=== PATIENT | female | born 1950 | race Caucasian/White ===

== ENCOUNTER → 2020-10-18 | Outpatient (CLI) | payer OTHER ==
[2020-10-18 09:15] LABS: Urine WBC None Seen /hpf (0 - 5)
[2020-10-18 09:25] LABS: Basophils # (auto) 0.1 10 ^3/uL (0-0.2); Eosinophils # (auto) 0.1 10 ^3/uL (0-0.8); Eosinophils % (auto) 2.1 % (0.0-7.0); Hemoglobin 12.6 g/dL (12.2-16.2); Monocytes # (auto) 0.5 10 ^3/uL (0-1.3); Neutrophils # (auto) 3.9 10 ^3/uL (1.6-8.6); Platelet Count (auto) 480 10^3/uL (140-450)
[2020-10-18 09:27] LABS: Basophils % (auto) 0.9 % (0.0-2.0); Lymphocytes # (auto) 2.4 10 ^3/uL (0.4-5.4); Lymphocytes % (auto) 34.6 % (10.0-50.0); Mean Corpuscular Hgb Conc. 33.9 g/dL (32.0-36.0); Mean Corpuscular Volume 97.2 fL (80.0-100.0); Monocytes % (auto) 6.9 % (0.0-12.0); Neutrophils % (auto) 55.5 % (37.0-80.0); Red Blood Cells 3.81 10^6/uL (4.0-5.20); Red Cell Distribution Width 13.2 % (11.8-14.3)
[2020-10-18 09:33] LABS: Urine Bacteria NONE SEEN /hpf (None Seen); Urine Blood Negative /uL (Negative)
[2020-10-18 10:11] LABS: Amphetamine Screen, Urine NEGATIVE (NEGATIVE); Barbiturate Scree,Urine NEGATIVE (NEGATIVE); Benzodiazephine Screen, Urine NEGATIVE (NEGATIVE); Cannabinoid Screen, Urine NEGATIVE (NEGATIVE); Cocaine Screen, Urine NEGATIVE (NEGATIVE); Opiate Scree,Urine NEGATIVE (NEGATIVE); Phencyclidine Screen, Urine NEGATIVE (NEGATIVE)
[2020-10-18 10:13] LABS: Albumin 3.7 g/dL (3.4-5.0); Calcium 8.9 mg/dL (8.5-10.1); Potassium 4.4 mmol/L (3.5-5.1)
[2020-10-18 10:21] LABS: BUN/Creatinine Ratio 13.8; Bilirubin, Total 0.4 mg/dL (0.2-1.0); Total Protein 7.3 g/dL (6.4-8.2)
[2020-10-18 10:27] LABS: Hepatitis B Surface Antibody Negative
[2020-10-18 11:23] LABS: Hepatitis B Core Total AB Negative
[2020-10-18 11:24] LABS: Hepatitis B Core IgM Negative; Hepatitis B Surface Antigen Negative (Negative); Hepatitis C Antibody Negative (Negative)
== END | disposition home or self-care (01) ==
LOC: LAB 09:01
PROVIDERS: ATTEND Internal Medicine
DX: F51.04 Psychophysiologic insomnia (principal); J44.9 Chronic obstructive pulmonary disease, unspecified
CPT/HCPCS: 36415; 80053; 80061; 80307; 81001; 84439; 84443; 85025; 85652; 86704; 86705; 86706; 86803; 87340

== ENCOUNTER 2023-08-21 09:50 | Emergency (ER) | payer MEDICARE, MEDICAID ==
[~2023-08-21] VITALS: Ht 167.6 cm; Wt 63.6 kg
[2023-08-21 11:15] VITALS: BP 143/74; PULSE 80; RESP 18; O2SAT 94
[2023-08-21] MEDS ORDERED: ACETAMINOPHEN 500 MG TAB PO ONE ×2 (12:00→12:10)
[2023-08-21 12:13] VITALS: TEMP 97.2
[2023-08-21] MEDS ORDERED: TRAM50TA2 PO (12:45)
== END 2023-08-21 12:54 | disposition home or self-care (01) ==
LOC: ER 09:50
DX: S42.022A Displaced fracture of shaft of left clavicle, initial encounter for closed fracture (principal); S16.1XXA Strain of muscle, fascia and tendon at neck level, initial encounter; S29.011A Strain of muscle and tendon of front wall of thorax, initial encounter; S80.01XA Contusion of right knee, initial encounter; S00.01XA Abrasion of scalp, initial encounter; I10 Essential (primary) hypertension; J44.9 Chronic obstructive pulmonary disease, unspecified; Z79.899 Other long term (current) drug therapy; W01.198A Fall on same level from slipping, tripping and stumbling with subsequent striking against other object, initial encounter; Y93.89 Activity, other specified; Y92.89 Other specified places as the place of occurrence of the external cause; Y99.8 Other external cause status
CPT/HCPCS: 70450; 71101; 72125; 73030; 73562

== ENCOUNTER 2023-09-02 14:22 | Inpatient (IN) | payer MEDICARE, MEDICAID ==
[~2023-09-02] VITALS: Ht 170.2 cm; Wt 69.0 kg
[~2023-09-02 14:22] MED LIST: TRAM50TA2 PO
[2023-09-02] MEDS ORDERED: IPRATROPIUM BROM 0.5 MG/2.5ML INH SOL ONE (14:33)
[2023-09-02] MEDS ORDERED: ALBUTEROL SULF 2.5 MG/0.5ML(0.5%) NEB SOLN ONE (14:33)
[2023-09-02] MEDS ORDERED: ALBUTEROL SULF 2.5 MG/0.5ML(0.5%) NEB SOLN NEB ONE ×2 (14:45→23:15)
[2023-09-02] MEDS ORDERED: IPRATROPIUM BROM 0.5 MG/2.5ML INH SOL NEB ONE ×2 (14:45→23:15)
[2023-09-02 14:57] LABS: Basophils # (auto) 0.1 10 ^3/uL (0-0.2); Monocytes # (auto) 0.8 10 ^3/uL (0-1.3); Neutrophils # (auto) 5.6 10 ^3/uL (1.6-8.6)
[2023-09-02 15:00] LABS: Basophils % (auto) 0.7 % (0.0-2.0); Eosinophils # (auto) 0 10 ^3/uL (0-0.8); Eosinophils % (auto) 0.5 % (0.0-7.0); Hematocrit 38.3 % (36.0-46.0); Hemoglobin 13.2 g/dL (12.2-16.2); Lymphocytes # (auto) 2.3 10 ^3/uL (0.4-5.4); Lymphocytes % (auto) 26.6 % (10.0-50.0); Mean Corpuscular Hemoglobin 32.7 pg (28.0-32.0); Mean Corpuscular Hgb Conc. 34.4 g/dL (32.0-36.0); Mean Corpuscular Volume 95.1 fL (80.0-100.0); Monocytes % (auto) 9.2 % (0.0-12.0); Red Blood Cells 4.03 10^6/uL (4.0-5.20); Red Cell Distribution Width 12.4 % (11.8-14.3); White Blood Cell 8.8 10^3/uL (4.4-10.8)
[2023-09-02 15:13] LABS: Alanine Aminotransferase 18 U/L (7-40); Albumin 4.5 g/dL (3.2-4.8); Alkaline Phosphatase 81 U/L (46-116); Anion Gap 7 (5-15); Aspartate Aminotransferase 21 U/L (13-40); BUN/Creatinine Ratio 12.2 (10.0-20.0); Blood Urea Nitrogen 12 mg/dL (9-23); Calcium 9.2 mg/dL (8.7-10.4); Carbon Dioxide 25 mmol/L (20-30); Chloride 97 mmol/L (98-107); Glucose 136 mg/dL (74-106); Potassium 3.8 mmol/L (3.5-5.1); Sodium 129 mmol/L (136-145)
[2023-09-02 15:14] LABS: Bilirubin, Total 0.5 mg/dL (0.2-1.0); Total Protein 6.7 g/dL (5.7-8.2)
[2023-09-02] MEDS ORDERED: DexAMETHasone SOD PHOS 10MG/1ML VIAL INJ IV ONE (16:15)
[2023-09-02] MEDS ORDERED: SODIUM CHLORIDE 0.9% 1,000 ML IV ONE (17:45)
[2023-09-02 20:58] VITALS: PULSE 92; RESP 18; O2SAT 96
[2023-09-02] MEDS ORDERED: HYDROcodone-ACET 10/325MG TAB PO ONE (21:00)
[2023-09-02 21:21] LABS: COVID19 ANTIGEN SOFIA FIA NEGATIVE (NEGATIVE)
[2023-09-02 22:24] LABS: Rapid Influenza A Negative (Negative); Rapid Influenza B Negative (Negative)
[2023-09-03] MEDS ORDERED: ENOXAPARIN SOD 40 MG/0.4 ML SYRINGE SC ONE (01:00)
[2023-09-03 03:25] VITALS: PULSE 96; RESP 26; O2SAT 97
[2023-09-03] MEDS ORDERED: ONDANSETRON HCL 4 MG/2 ML VIAL IV PRN (04:00)
[2023-09-03] MEDS ORDERED: MORPHINE SULFATE INJ 2 MG/ml SYRG IV PRN (04:00)
[2023-09-03] MEDS ORDERED: NITROGLYCERIN 0.4 MG SL TAB SL PRN (04:00)
[2023-09-03 07:00] VITALS: O2SAT 94
[2023-09-03 09:31] VITALS: BP 136/91; PULSE 84; RESP 22; TEMP 97.9; O2SAT 97
[2023-09-03 09:41] LABS: Urine Bacteria FEW /hpf (None Seen); Urine Blood 1+ /uL (Negative); Urine Budding Yeast OCCASIONAL /hpf (None Seen); Urine Clarity HAZY (Clear); Urine Color Yellow (Yellow); Urine Protein, UAD TRACE (Negative); Urine Urobilinogen Normal (Negative); Urine WBC 10 /hpf (0 - 5); Urine pH 6.5 (5.0-8.0)
[2023-09-03] MEDS: busPIRone HCL 10 MG TAB PO SCH ×2 (10:00→22:00)
[2023-09-03] MEDS ORDERED: ENOXAPARIN SOD 40 MG/0.4 ML SYRINGE SC SCH (10:00)
[2023-09-03] MEDS: methylPREDNISolone SOD SUCC 40 MG/ML VL IV SCH ×2 (10:44→22:34)
[2023-09-03] MEDS: LISINOPRIL 10 MG TAB PO SCH (10:45)
[2023-09-03] MEDS: ACETAMINOPHEN 325 MG TAB PO PRN ×2 (11:00→23:31)
[2023-09-03 18:05] VITALS: O2SAT 94
[2023-09-03] MEDS: MONTELUKAST SODIUM 10 MG TAB PO SCH (22:00)
[2023-09-04] VITALS (11 sets, daily range): BP systolic 105–153; BP diastolic 62–101; PULSE 70–107; RESP 16–20; TEMP 97.6–98.2; O2SAT 93–99
[2023-09-04] MEDS ORDERED: TEMAZEPAM 15 MG CAP PO ONE (00:15)
[2023-09-04] MEDS: ENOXAPARIN SOD 40 MG/0.4 ML SYRINGE SC SCH (01:55)
[2023-09-04 06:43] LABS: Basophils # (auto) 0 10 ^3/uL (0-0.2); Basophils % (auto) 0.3 % (0.0-2.0); Eosinophils # (auto) 0 10 ^3/uL (0-0.8); Hematocrit 35.4 % (36.0-46.0); Hemoglobin 12.2 g/dL (12.2-16.2); Lymphocytes # (auto) 1.4 10 ^3/uL (0.4-5.4); Lymphocytes % (auto) 14.3 % (10.0-50.0); Mean Corpuscular Hemoglobin 32.7 pg (28.0-32.0); Mean Corpuscular Hgb Conc. 34.5 g/dL (32.0-36.0); Mean Corpuscular Volume 94.8 fL (80.0-100.0); Monocytes # (auto) 0.3 10 ^3/uL (0-1.3); Monocytes % (auto) 3.4 % (0.0-12.0); Neutrophils # (auto) 7.8 10 ^3/uL (1.6-8.6); Red Blood Cells 3.73 10^6/uL (4.0-5.20); Red Cell Distribution Width 12.5 % (11.8-14.3); White Blood Cell 9.5 10^3/uL (4.4-10.8)
[2023-09-04 07:08] LABS: Alanine Aminotransferase 16 U/L (7-40); Albumin 3.9 g/dL (3.2-4.8); Alkaline Phosphatase 67 U/L (46-116); Anion Gap 9 (5-15); Aspartate Aminotransferase 27 U/L (13-40); BUN/Creatinine Ratio 14.7 (10.0-20.0); Bilirubin, Total 0.5 mg/dL (0.2-1.0); Blood Urea Nitrogen 15 mg/dL (9-23); Calcium 9.1 mg/dL (8.5-10.1); Carbon Dioxide 24 mmol/L (20-30); Chloride 97 mmol/L (98-107); Glucose 131 mg/dL (74-106); Potassium 4.4 mmol/L (3.5-5.1); Sodium 130 mmol/L (136-145)
[2023-09-04] MEDS: IPRATROPIUM BROM 0.5 MG/2.5ML INH SOL NEB PRN (09:02)
[2023-09-04] MEDS: ALBUTEROL SULF 2.5 MG/0.5ML(0.5%) NEB SOLN NEB PRN (09:02)
[2023-09-04] MEDS: methylPREDNISolone SOD SUCC 40 MG/ML VL IV SCH ×2 (10:00→21:54)
[2023-09-04] MEDS: ACETAMINOPHEN 325 MG TAB PO PRN (11:01)
[2023-09-04] MEDS: busPIRone HCL 10 MG TAB PO SCH ×2 (11:02→21:53)
[2023-09-04] MEDS: LISINOPRIL 10 MG TAB PO SCH (11:04)
[2023-09-04] MEDS ORDERED: TEMAZEPAM 15 MG CAP PO PRN (11:30)
[2023-09-04] MEDS: MONTELUKAST SODIUM 10 MG TAB PO SCH (21:53)
[2023-09-05] VITALS (13 sets, daily range): BP systolic 86–117; BP diastolic 46–75; PULSE 77–113; RESP 17–24; TEMP 97.8–98.6; O2SAT 93–100
[2023-09-05] MEDS: ENOXAPARIN SOD 40 MG/0.4 ML SYRINGE SC SCH (01:26)
[2023-09-05] MEDS: ACETAMINOPHEN 325 MG TAB PO PRN ×3 (01:29→17:38)
[2023-09-05] MEDS: busPIRone HCL 10 MG TAB PO SCH ×2 (09:17→22:00)
[2023-09-05] MEDS: LISINOPRIL 10 MG TAB PO SCH (09:21)
[2023-09-05] MEDS: methylPREDNISolone SOD SUCC 40 MG/ML VL IV SCH ×2 (09:21→22:46)
[2023-09-05] MEDS ORDERED: ZOLPIDEM TARTRATE 5 MG TAB PO PRN (10:15)
[2023-09-05] MEDS: ALPRAZolam 0.5 MG TAB PO SCH ×3 (12:05→22:46)
[2023-09-05] MEDS: IPRATROPIUM BROM 0.5 MG/2.5ML INH SOL NEB PRN ×2 (12:43→19:37)
[2023-09-05] MEDS: ALBUTEROL SULF 2.5 MG/0.5ML(0.5%) NEB SOLN NEB PRN ×2 (12:43→19:37)
[2023-09-05] MEDS: MONTELUKAST SODIUM 10 MG TAB PO SCH (22:00)
[2023-09-06] MEDS: ENOXAPARIN SOD 40 MG/0.4 ML SYRINGE SC SCH (01:12)
[2023-09-06 05:00] VITALS: BP 94/49; PULSE 69; RESP 17; TEMP 97.5; O2SAT 97
[2023-09-06] MEDS: ACETAMINOPHEN 325 MG TAB PO PRN (05:05)
[2023-09-06] MEDS: ALPRAZolam 0.5 MG TAB PO SCH ×2 (06:09→14:25)
[2023-09-06 08:00] VITALS: BP 114/69; PULSE 75; RESP 18; TEMP 97.7; O2SAT 93
[2023-09-06 08:57] VITALS: BP 130/92; PULSE 113; RESP 24; O2SAT 100
[2023-09-06 09:00] VITALS: BP 95/68; PULSE 75; RESP 18; TEMP 97.7; O2SAT 93
[2023-09-06] MEDS ORDERED: ACETAMINOPHEN/CODEINE#3 (300/30mg) TAB PO PRN (09:30)
[2023-09-06] MEDS: busPIRone HCL 10 MG TAB PO SCH (10:00)
[2023-09-06] MEDS ORDERED: ALBU108A5 INH (10:12)
[2023-09-06] MEDS ORDERED: FLUT1AER17 INH (10:12)
[2023-09-06] MEDS ORDERED: MONT-8 PO (10:12)
[2023-09-06] MEDS ORDERED: DULO1CAP5 PO (10:12)
[2023-09-06] MEDS ORDERED: LISI-285 PO (10:12)
[2023-09-06] MEDS ORDERED: ESCI1TAB36 PO (10:12)
[2023-09-06] MEDS: methylPREDNISolone SOD SUCC 40 MG/ML VL IV SCH (10:21)
[2023-09-06] MEDS: LISINOPRIL 10 MG TAB PO SCH (10:22)
[2023-09-06 13:00] VITALS: BP 107/78; PULSE 78; RESP 18; TEMP 97.5; O2SAT 90
[2023-09-06 14:03] VITALS: BP 107/67; PULSE 78; RESP 18; TEMP 97.5; O2SAT 90
== END 2023-09-06 16:00 | DRG 189 ==
LOC: ER 14:22 → EDUNIT# 14:22 → EDBD 14:22 → TELE 09-03 03:47 → TELE-WESTW 09-03 18:17 → WEST WING 09-06 00:59
PROVIDERS: ADMIT Nurse Practitioner; ATTEND Family Medicine
DX: J96.21 Acute and chronic respiratory failure with hypoxia (principal); J44.1 Chronic obstructive pulmonary disease with (acute) exacerbation; E87.1 Hypo-osmolality and hyponatremia; Z20.822 Contact with and (suspected) exposure to COVID-19; I10 Essential (primary) hypertension; F41.9 Anxiety disorder, unspecified; R29.6 Repeated falls; Z87.891 Personal history of nicotine dependence; R79.89 Other specified abnormal findings of blood chemistry; Z60.2 Problems related to living alone
CPT/HCPCS: 36415; 71045; 80053; 81001; 83735; 84484; 85025; 85379; 87081; 87426; 87804; 93005; 94640; 96361; 96372; 96374; 97110; 97116; 97163; 97530; G0378; J1100

== ENCOUNTER 2023-10-13 06:17 | Inpatient (IN) | payer MEDICARE, MEDICAID ==
[2023-10-13] VITALS (7 sets, daily range): BP systolic 115–122; BP diastolic 67–72; PULSE 72–96; RESP 16–18; TEMP 97.4–98.9; O2SAT 95–98
[~2023-10-13] VITALS: Ht 170.2 cm; Wt 70.5 kg
[~2023-10-13 06:17] MED LIST changes: +ALBU108A5 INH; +DULO1CAP5 PO; +ESCI1TAB36 PO; +FLUT1AER17 INH; +LISI-285 PO; +MONT-8 PO
[2023-10-13 07:25] LABS: Basophils # (auto) 0.1 10 ^3/uL (0-0.2); Basophils % (auto) 0.6 % (0.0-2.0); Eosinophils # (auto) 0.1 10 ^3/uL (0-0.8); Eosinophils % (auto) 0.8 % (0.0-7.0); Hematocrit 33.9 % (36.0-46.0); Hemoglobin 11.4 g/dL (12.2-16.2); Lymphocytes # (auto) 1.7 10 ^3/uL (0.4-5.4); Mean Corpuscular Hemoglobin 32.5 pg (28.0-32.0); Mean Corpuscular Hgb Conc. 33.6 g/dL (32.0-36.0); Mean Corpuscular Volume 96.5 fL (80.0-100.0); Monocytes # (auto) 0.8 10 ^3/uL (0-1.3); Monocytes % (auto) 7.8 % (0.0-12.0); Neutrophils # (auto) 7.8 10 ^3/uL (1.6-8.6); Neutrophils % (auto) 74.8 % (37.0-80.0); Red Blood Cells 3.51 10^6/uL (4.0-5.20); Red Cell Distribution Width 12.9 % (11.8-14.3); White Blood Cell 10.4 10^3/uL (4.4-10.8)
[2023-10-13 07:50] LABS: Alanine Aminotransferase 13 U/L (7-40); Albumin 3.7 g/dL (3.2-4.8); Alkaline Phosphatase 71 U/L (46-116); Anion Gap 3 (5-15); Aspartate Aminotransferase 18 U/L (13-40); BUN/Creatinine Ratio 15.8 (10.0-20.0); Blood Urea Nitrogen 15 mg/dL (9-23); Calcium 8.9 mg/dL (8.5-10.1); Carbon Dioxide 30 mmol/L (20-30); Chloride 101 mmol/L (98-107); Glucose 94 mg/dL (74-106); Potassium 4.4 mmol/L (3.5-5.1); Sodium 134 mmol/L (136-145)
[2023-10-13 07:51] LABS: Bilirubin, Total 0.4 mg/dL (0.2-1.0); Total Protein 5.5 g/dL (5.7-8.2)
[2023-10-13] MEDS: ONDANSETRON HCL 4 MG/2 ML VIAL IV ONE (09:21)
[2023-10-13] MEDS: MORPHINE SULFATE 4 MG/ML SYR/VIAL IV ONE (09:21)
[2023-10-13] MEDS ORDERED: ALBUTEROL SULF 2.5 MG/0.5ML(0.5%) NEB SOLN NEB PRN (11:30)
[2023-10-13] MEDS ORDERED: IPRATROPIUM BROM 0.5 MG/2.5ML INH SOL NEB PRN (11:30)
[2023-10-13] MEDS: SODIUM CHLORIDE 0.9% 1,000 ML IV SCH (11:42)
[2023-10-13 12:27] LABS: INR 1.07 (0.9-1.15); Prothrombin Time 11.2 sec (9.3-11.8)
[2023-10-13] MEDS: ONDANSETRON HCL 4 MG/2 ML VIAL IV PRN (13:37)
[2023-10-13] MEDS: MORPHINE SULFATE INJ 2 MG/ml SYRG IV PRN (13:39)
[2023-10-13] MEDS: KETOROLAC TROMETH 30 MG/ML 1ML VIAL IV ONE (23:28)
[2023-10-14] VITALS (10 sets, daily range): BP systolic 96–118; BP diastolic 56–75; PULSE 72–86; RESP 16–22; TEMP 97.4–98.7; O2SAT 92–99
[2023-10-14 05:27] LABS: Basophils # (auto) 0.1 10 ^3/uL (0-0.2); Basophils % (auto) 0.8 % (0.0-2.0); Eosinophils # (auto) 0.1 10 ^3/uL (0-0.8); Eosinophils % (auto) 0.8 % (0.0-7.0); Hematocrit 28.7 % (36.0-46.0); Hemoglobin 9.7 g/dL (12.2-16.2); Lymphocytes # (auto) 1.7 10 ^3/uL (0.4-5.4); Lymphocytes % (auto) 18.8 % (10.0-50.0); Mean Corpuscular Hemoglobin 32.9 pg (28.0-32.0); Mean Corpuscular Hgb Conc. 33.9 g/dL (32.0-36.0); Mean Corpuscular Volume 97.1 fL (80.0-100.0); Monocytes # (auto) 0.9 10 ^3/uL (0-1.3); Monocytes % (auto) 10.4 % (0.0-12.0); Neutrophils # (auto) 6.1 10 ^3/uL (1.6-8.6); Neutrophils % (auto) 69.2 % (37.0-80.0); Nucleated Red Blood Cells % 0.1 %; Red Blood Cells 2.96 10^6/uL (4.0-5.20); Red Cell Distribution Width 12.7 % (11.8-14.3); White Blood Cell 8.9 10^3/uL (4.4-10.8)
[2023-10-14 05:40] LABS: Alanine Aminotransferase 10 U/L (7-40); Alkaline Phosphatase 52 U/L (46-116); Anion Gap 6 (5-15); Aspartate Aminotransferase 17 U/L (13-40); BUN/Creatinine Ratio 12.1 (10.0-20.0); Blood Urea Nitrogen 11 mg/dL (9-23); Calcium 8.4 mg/dL (8.5-10.1); Carbon Dioxide 25 mmol/L (20-30); Chloride 104 mmol/L (98-107); Glucose 73 mg/dL (74-106); Potassium 4.4 mmol/L (3.5-5.1); Sodium 135 mmol/L (136-145)
[2023-10-14 05:41] LABS: Albumin 3.1 g/dL (3.2-4.8)
[2023-10-14 05:42] LABS: Bilirubin, Total 0.5 mg/dL (0.2-1.0); Total Protein 4.9 g/dL (5.7-8.2)
[2023-10-14] MEDS: CITALOPRAM HYDROBR 20 MG TAB PO SCH (10:00)
[2023-10-14] MEDS: ENOXAPARIN SOD 40 MG/0.4 ML SYRINGE SC SCH (10:00)
[2023-10-14] MEDS: MONTELUKAST SODIUM 10 MG TAB PO SCH (10:00)
[2023-10-14 10:31] LABS: Urine Bacteria FEW /hpf (None Seen); Urine Blood Negative /uL (Negative); Urine Clarity Clear (Clear); Urine Color Yellow (Yellow); Urine Hyaline Cast FEW /lpf (0 - 2); Urine Mucus FEW (None Seen); Urine Protein, UAD Negative (Negative); Urine Specific Gravity 1.016 (1.001-1.035); Urine Urobilinogen Normal (Negative); Urine WBC 1 /hpf (0 - 5); Urine pH 5.5 (5.0-8.0)
[2023-10-14] MEDS: ACETAMINOPHEN IV 1000 MG/100ML (10MG/ML) IV ONE (10:45)
[2023-10-14] MEDS: GABAPENTIN 400 MG CAP ONE (10:45)
[2023-10-14] MEDS: CELECOXIB 100 MG CAP ONE (10:45)
[2023-10-14] MEDS ORDERED: DexAMETHasone SOD PHOS 10MG/1ML VIAL INJ ONE ×2 (11:01→11:02)
[2023-10-14] MEDS ORDERED: KETOROLAC TROMETH 30 MG/ML 1ML VIAL ONE (11:01)
[2023-10-14] MEDS ORDERED: ONDANSETRON HCL 4 MG/2 ML VIAL ONE (11:01)
[2023-10-14] MEDS ORDERED: LIDOCAINE 1% INJ PF 5ML AMP ONE ×2 (11:01→11:15)
[2023-10-14] MEDS ORDERED: PROPOFOL 10 MG/ML 20 ML IV ONE ×3 (11:02→13:01)
[2023-10-14] MEDS ORDERED: GLYCOPYRROLATE 0.2 MG/ML 1ML VIAL ONE (11:02)
[2023-10-14] MEDS ORDERED: KETAMINE 50mg/ML 1ml syringe ONE (11:02)
[2023-10-14] MEDS ORDERED: TRANEXAMIC ACID 10 ML ONE (12:14)
[2023-10-14] MEDS ORDERED: ACETAMINOPHEN 325 MG TAB PO PRN (13:45)
[2023-10-14] MEDS ORDERED: NITROGLYCERIN 0.4 MG SL TAB SL PRN (13:45)
[2023-10-14] MEDS ORDERED: LACTATED RINGER'S 1,000 ML IV SCH (13:45)
[2023-10-14] MEDS: ceFAZolin 1GM/50ML 50 ML IV SCH (15:04)
[2023-10-14] MEDS: GABAPENTIN 400 MG CAP PO ONE (15:05)
[2023-10-14] MEDS: CELECOXIB 100 MG CAP PO ONE (15:05)
[2023-10-14] MEDS: ACETAMINOPHEN IV 100 ML IV ONE (15:05)
[2023-10-14] MEDS: ceFAZolin 2 GM/D5W100ml 100 ML IV ONE (15:06)
[2023-10-14] MEDS ORDERED: ALBUTEROL SULF 2.5 MG/0.5ML(0.5%) NEB SOLN NEB PRN (15:45)
[2023-10-14 17:06] LABS: Amphetamine Screen, Urine Neg (NEGATIVE); Barbiturate Scree,Urine Neg (NEGATIVE); Cannabinoid Screen, Urine Neg (NEGATIVE); Cocaine Screen, Urine Neg (NEGATIVE); Opiate Scree,Urine Pos (NEGATIVE); Phencyclidine Screen, Urine Neg (NEGATIVE)
[2023-10-14 17:37] LABS: Benzodiazephine Screen, Urine Pos (NEGATIVE)
[2023-10-14] MEDS: KETOROLAC TROMETH 30 MG/ML 1ML VIAL IV PRN (18:16)
[2023-10-14] MEDS: IPRATROPIUM BROM 0.5 MG/2.5ML INH SOL NEB SCH (18:56)
[2023-10-15] VITALS (10 sets, daily range): BP systolic 97–123; BP diastolic 50–88; PULSE 67–94; RESP 15–19; TEMP 97.6–98.3; O2SAT 90–97
[2023-10-15 07:39] LABS: Chloride 100 mmol/L (98-107); Potassium 4.9 mmol/L (3.5-5.1); Sodium 131 mmol/L (136-145)
[2023-10-15 07:40] LABS: Anion Gap 6 (5-15); Calcium 8.4 mg/dL (8.5-10.1); Carbon Dioxide 25 mmol/L (20-30)
[2023-10-15 07:44] LABS: Basophils # (auto) 0 10 ^3/uL (0-0.2); Basophils % (auto) 0.1 % (0.0-2.0); Eosinophils # (auto) 0 10 ^3/uL (0-0.8); Hematocrit 26.1 % (36.0-46.0); Hemoglobin 8.7 g/dL (12.2-16.2); Lymphocytes # (auto) 0.8 10 ^3/uL (0.4-5.4); Lymphocytes % (auto) 5.3 % (10.0-50.0); Mean Corpuscular Hemoglobin 32.3 pg (28.0-32.0); Mean Corpuscular Hgb Conc. 33.4 g/dL (32.0-36.0); Mean Corpuscular Volume 96.6 fL (80.0-100.0); Monocytes # (auto) 0.8 10 ^3/uL (0-1.3); Neutrophils # (auto) 14.2 10 ^3/uL (1.6-8.6); Neutrophils % (auto) 89.6 % (37.0-80.0); Nucleated Red Blood Cells % 0.1 %; Red Cell Distribution Width 12.6 % (11.8-14.3); White Blood Cell 15.9 10^3/uL (4.4-10.8)
[2023-10-15 07:45] LABS: BUN/Creatinine Ratio 16.7 (10.0-20.0); Blood Urea Nitrogen 20 mg/dL (9-23); Glucose 276 mg/dL (74-106); Triglycerides 80 mg/dL (< 150)
[2023-10-15 07:46] LABS: LDL Cholesterol 78 mg/dL (< 100)
[2023-10-15 07:47] LABS: Cholesterol 133 mg/dL (< 200); HDL Cholesterol 41 mg/dL (40-59)
[2023-10-15 08:02] LABS: Magnesium 1.8 mg/dL (1.6-2.6)
[2023-10-15] MEDS ORDERED: ACET-1882 PO (08:03)
[2023-10-15] MEDS ORDERED: ENO40SY SC (08:03)
[2023-10-15] MEDS: DOCUSATE SOD 100 MG CAP PO PRN (09:42)
[2023-10-15] MEDS: CYANOCOBALAMIN 500 MCG TAB PO SCH (14:44)
[2023-10-15] MEDS: HYDROcodone-ACET 5/325MG TAB PO PRN (14:45)
[2023-10-15] MEDS: ERGOCALCIFEROL 50,000 UNIT(1.25MG) CAP PO SCH (14:46)
[2023-10-15] MEDS ORDERED: CEPHALEXIN 250 MG CAP PO ONE (17:30)
[2023-10-15] MEDS ORDERED: CEPH250C PO (17:30)
[2023-10-16] MEDS ORDERED: CEPHALEXIN 250 MG CAP PO SCH
== END 2023-10-15 17:40 | DRG 480 ==
LOC: EDBD 06:17 → ER 06:17 → OVERFLOW 11:33 → WEST WING 16:40
PROVIDERS: ADMIT Internal Medicine; ATTEND Internal Medicine
PROC: 0PSJ04Z Reposition Left Radius with Internal Fixation Device, Open Approach (ICD-10-PCS; principal; 2023-10-14 11:02)
PROC: 0QS704Z Reposition Left Upper Femur with Internal Fixation Device, Open Approach (ICD-10-PCS; 2023-10-14 11:02)
DX: S52.572A Other intraarticular fracture of lower end of left radius, initial encounter for closed fracture (principal); S72.142A Displaced intertrochanteric fracture of left femur, initial encounter for closed fracture; S09.90XA Unspecified injury of head, initial encounter; S62.102A Fracture of unspecified carpal bone, left wrist, initial encounter for closed fracture; R33.9 Retention of urine, unspecified; S00.93XA Contusion of unspecified part of head, initial encounter; J44.9 Chronic obstructive pulmonary disease, unspecified; I10 Essential (primary) hypertension; D64.9 Anemia, unspecified; F32.A Depression, unspecified; F41.9 Anxiety disorder, unspecified; M81.0 Age-related osteoporosis without current pathological fracture; W01.0XXA Fall on same level from slipping, tripping and stumbling without subsequent striking against object, initial encounter; Z82.49 Family history of ischemic heart disease and other diseases of the circulatory system; Z87.891 Personal history of nicotine dependence; Z90.721 Acquired absence of ovaries, unilateral; Y93.89 Activity, other specified; Y92.89 Other specified places as the place of occurrence of the external cause; Y99.8 Other external cause status; Z86.011 Personal history of benign neoplasm of the brain
CPT/HCPCS: 36415; 71045; 72192; 73100; 73502; 76000; 76775; 80048; 80053; 80061; 80307; 81001; 82306; 82607; 83036; 83735; 84443; 84484; 85025; 85610; 86850; 86900; 86901; 87081; 93005; 93306; 94640; 97163; 99291; G0378; J0131; J1100; J1885; J2405; J2704

== ENCOUNTER 2024-07-10 08:27 | Inpatient (IN) | payer MEDICARE, MEDICAID ==
[~2024-07-10] VITALS: Ht 167.6 cm; Wt 74.0 kg
[2024-07-10] VITALS (7 sets, daily range): BP systolic 128–139; BP diastolic 74–91; PULSE 99–117; RESP 18–28; TEMP 98; O2SAT 93–98
[~2024-07-10 08:27] MED LIST changes: +ACET-1882 PO; +CEPH250C PO; +CYCL-614 PO; +ENO40SY SC; +NAPR1TAB24 PO
--- NOTE | 2024-07-10 08:37 | ECG ---
[facility] Test Date: 2024-07-10 Test Time: 08:32:54 Pat Name: NAY ROACH Department: ED Room: Gender: F Supervisor Machine Setter: : 1950 Requested By: NASIM BLAND Order Number: [id number] Reading MD: Measurements Intervals [place] Rate: 112 P: 68 SC: 170 QRS: 67 QRSD: 83 T: 60 QT: 351 QTc: 479 Interpretive Statements Sinus tachycardia Please click the below link to view image of tracing.
[2024-07-10] MEDS: DexAMETHasone 0.5MG/5ML ORAL ELIX PO ONE (08:45)
[2024-07-10] MEDS: ALPRAZolam 0.25 MG TAB PO ONE (08:54)
[2024-07-10] MEDS: IPRATROPIUM BROM 0.5 MG/2.5ML INH SOL NEB ONE (08:59)
[2024-07-10] MEDS: ALBUTEROL SULF 2.5 MG/0.5ML(0.5%) NEB SOLN NEB ONE (08:59)
--- NOTE | 2024-07-10 09:10 | ED.PDOC ---
SOB-HPI HPI Comments 73Y F with PMHx HTN, COPD, and asthma presents to ED via EMS for chief complaint SOB x2days with headache. Pt denies cough and fever. Per EMS, pt ran out of her Xanax rx 2 days ago. Pt uses O2 at home. Pt does not have edema and speaks in full sentences. No known allergies. Chief Complaint: Shortness of Breath Time Seen by MD: 08:39 Primary Care Provider: CLEMENTE Reviewed notes: Medications, Allergies Information Source: Patient Mode of Arrival: EMS Brought in by: EMS Severity: Moderate Timing: Days Duration: Since onset Context: At Rest PE Risk Factors: None History of: Asthma, COPD Prehospital treatment: Breathing Tx Modifying Factors: Nothing Associated Signs and Symptoms: Other (headache) Past Medical History PAST MEDICAL HISTORY: Asthma, COPD, HTN Surgical History: Denies all surgeries STATE PATROL OFFICER History: No Pertinent STATE PATROL OFFICER History Family History Family History: Reviewed,noncontributory to illness Social History Smoker: Non-Smoker Alcohol: Denies ETOH Use Drugs: Denies Drug Use Lives In: Home Constitutional: denies: chills, diaphoresis, fatigue, fever, malaise, sweats, weakness, others EENTM: denies: blurred vision, double vision, ear bleeding, ear discharge, ear drainage, ear pain, ear ringing, eye pain, eye redness, hearing loss, mouth pain, mouth swelling, nasal discharge, nose bleeding, nose congestion, nose pain, photophobia, tearing, throat pain, throat swelling, voice changes, others Respiratory: reports: shortness of breath; denies: cough, hemoptysis, orthopnea, SOB at rest, SOB with excertion, stridor, wheezing, others Cardiovascular: denies: chest pain, dizzy spells, diaphoresis, Dyspnea on exertion, edema, irregular heart beat, left arm pain, lightheadedness, palpitations, PND, syncope, others Gastrointestinal: denies: abdomen distended, abdominal pain, blood streaked bowels, constipated, diarrhea, dysphagia, difficulty swallowing, hematemesis, melena, nausea, poor appetite, poor fluid intake, rectal bleeding, rectal pain, vomiting, others Genitourinary: denies: abnormal vagina bleeding, burning, dyspareunia, dysuria, flank pain, frequency, hematuria, incontinence, pain, , vagina discharge, urgency, others Neurological: reports: headache; denies: dizziness, fainting, left sided numbness, left sided weakness, numbness, paresthesia, pre-existing deficit, right sided numbness, right sided weakness, seizure, speech problems, tingling, tremors, weakness, others Musculoskeletal: denies: back pain, gout, joint pain, joint swelling, muscle pain, muscle stiffness, neck pain, others Integumetry: denies: bruises, change in color, change in hair/nails, dryness, laceration, lesions, lumps, rash, wounds, others Allergic/Immunocompromised: denies: Difficulty Healing, Frequent Infections, Hives, Itching, others Hematologic/Lymphatic: denies: anemia, blood clots, easy bleeding, easy bruising, swollen glands, others Endocrine: denies: excessive hunger, excessive sweating, excessive thirst, excessive urination, flushing, intolerance to cold, intolerance to heat, unexplained weight gain, unexplained weight loss, others Psychiatric: denies: anxiety, bipolar disorder, depression, hopeless, panic disorder, schizophrenia, sleepless, suicidal, others All Other Systems: Reviewed and Negative Physical Exam General Appearance: No Apparent Distress, Normal HEENT: Normal ENT Inspection, Pharynx Normal, TMs Normal Neck: Full Range of Motion, Non-Tender, Normal, Normal Inspection Respiratory: Chest Non-Tender, Lungs Clear, No Accessory Muscle Use, No Respiratory Distress, Normal Breath Sounds Cardiovascular: No Edema, No JVD, No Murmur, No Gallop, Normal Peripheral Pulses, Tachycardia Breast Exam: Deferred Gastrointestinal: No Organomegaly, Non Tender, No Pulsatile Mass, Normal Bowel Sounds, Soft Genitalia: Deferred Pelvic: Deferred Rectal: Deferred Extremities: No calf tenderness, Normal capillary refill, Normal inspection, Normal range of motion, Non-tender, No pedal edema Musculoskeletal : Apperance: Normal Neurologic: Alert, player development executive II-XII nml as Tested, No Motor Deficits, Normal Affect, Normal Mood, No Sensory Deficits Cerebellar Function: Normal Reflexes: Normal Skin: Dry, Normal Color, Warm Lymphatic: No Adenopathy EKG EKG : Pulse Rate (adult): 112 Cardiac Rhythm: ST Was a procedure done? Was a procedure done?: No Differential Dx Differential Diagnosis: Anxiety, Asthma, Bronchitis, Cardiogenic Shock, CHF, COPD, Dysrhythmia, Hypertension, Hyperventilation, Myocardial infarction, Panic Attack, Pneumonia, Pneumothorax, PSVT, Pulmonary Embolism, Respiratory Distress Comments pt continues to report cp, sob, anxiety. although her workup is unremarkable, she has risk factors, and I will admit her to control her anxiety, workup her chest pain X-Ray, Labs, Meds, VS Vital Signs Date Time Temp Pulse Resp B/P (MAP) Pulse Ox O2 Delivery O2 Flow Rate FiO2 07/10/24 10:00 109 18 151/92 (111) 95 07/10/24 09:10 112 07/10/24 08:59 22 93 Nasal Cannula* 4 36 07/10/24 08:45 15 24 174/98 (123) 93 07/10/24 08:45 115 28 93 Nasal Cannula* 3 32 07/10/24 08:34 98.3 112 22 172/96 (121) 98 07/10/24 08:32 112 Lab Test 07/10/24 09:14 Range/Units White Blood Count 7.7 4.4-10.8 10^3/uL Red Blood Count 4.04 4.0-5.20 10^6/uL Hemoglobin 13.3 12.2-16.2 g/dL Hematocrit 39.0 36.0-46.0 % Mean Corpuscular Volume 96.7 80.0-100.0 fL Mean Corpuscular Hemoglobin 33.0 H 28.0-32.0 pg Mean Corpuscular Hemoglobin Concent 34.2 32.0-36.0 g/dL Red Cell Distribution Width 14.6 H 11.8-14.3 % Platelet Count 522 H 140-450 10^3/uL Mean Platelet Volume 7.4 6.9-10.8 fL Neutrophils (%) (Auto) 70.5 37.0-80.0 % Lymphocytes (%) (Auto) 22.3 10.0-50.0 % Monocytes (%) (Auto) 5.7 0.0-12.0 % Eosinophils (%) (Auto) 0.4 0.0-7.0 % Basophils (%) (Auto) 1.1 0.0-2.0 % Neutrophils # (Auto) 5.4 1.6-8.6 10 ^3/uL Lymphocytes # (Auto) 1.7 0.4-5.4 10 ^3/uL Monocytes # (Auto) 0.4 0-1.3 10 ^3/uL Eosinophils # (Auto) 0 0-0.8 10 ^3/uL Basophils # (Auto) 0.1 0-0.2 10 ^3/uL Nucleated Red Blood Cells 0.0 % Sodium Level 138 136-145 mmol/L Potassium Level 4.1 3.5-5.1 mmol/L Chloride Level 104 98-107 mmol/L Carbon Dioxide Level 27 20-31 mmol/L Anion Gap 7 5-15 Blood Urea Nitrogen 7 L 9-23 mg/dL Creatinine 0.82 0.550-1.02 mg/dL Glomerular Filtration Rate Calc 75 >90 mL/min BUN/Creatinine Ratio 8.5 L 10.0-20.0 Serum Glucose 124 H 74-106 mg/dL Calcium Level 9.7 8.7-10.4 mg/dL Troponin I High Sensitivity 15 </=34 ng/L Current Medications Medications (Trade) Dose Ordered Sig/Rio Route Start Time Stop Time Status Last Admin Alprazolam (Xanax Tablet) 0.25 mg ONCE ONCE PO 07/10/24 08:45 07/10/24 08:46 DC 07/10/24 08:54 Albuterol (Ventolin Medneb) 5 mg ONCE ONCE NEB 07/10/24 08:45 07/10/24 08:46 DC 07/10/24 08:59 Ipratropium [place] (Atrovent Medneb) 0.5 mg ONCE ONCE NEB 07/10/24 08:45 07/10/24 08:46 DC 07/10/24 08:59 Dexamethasone (Decadron Oral Elixir) 4 mg ONCE ONCE PO 07/10/24 08:45 07/10/24 08:46 DC 07/10/24 08:45 Acetaminophen (Tylenol Tablet) 650 mg ONCE ONCE PO 07/10/24 09:30 07/10/24 09:31 DC 07/10/24 09:[address] [address] Ph: [phone] DIAGNOSTIC IMAGING Diagnostic Imaging Report : [id number] Signed PATIENT: NAY ROACH ACCT: [id number] UNIT: [id number] : 1950 LOC: ER ROOM / BED: / AGE / SEX: 73 / F ADM STATUS: REG ER SERVICE 0 ORDERING PHYSICIAN: NASIM BLAND MD PROCEDURE(s): CXRP - CHEST PORTABLE REASON: sob ORDER NUMBER(s): [id number], ACCESSION NUMBER(s): [id number] CHEST RADIOGRAPH Indication:sob Technique: Single frontal view of the chest was obtained Comparison: XY CHEST XRAY 1 VIEW on DOS: 12/03/23 FINDINGS: Lines and Tubes: None Lungs: Emphysema. Scarring in the left upper lobe. No focal consolidation. Pleura: No effusion. No pneumothorax. Cardiomediastinal contours: Unremarkable Bones: No acute osseous abnormality. IMPRESSION: 1. No acute cardiopulmonary disease. ATED BY: CHARISMA WATERMAN MD DICTATED DATE/TIME: 07/10/24925 SIGNED BY: CHARISMA WATERMAN MD SIGNED DATE/TIME: 07/10/24925 CC: Time of 1ST Reevaluation: 09:09 Reevaluation 1ST: Unchanged Patient Education/Counseling: Diagnosis, Treatment Family Education/Counseling: No Family Present Departure 1 Departure Time of Disposition: 11:05 Impression: Primary Impression: Shortness of breath Additional Impressions: Chest pain Qualified Codes: R07.9 - Chest pain, unspecified COPD exacerbation Anxiety Disposition: ADMITTED INPATIENT Admit to: [facility] Condition: Stable Discharged With: Self Critical Care Note Critical Care Time?: Yes (55 min-critical care time only) Critical care comment: due to real concerns for pt's condition deteriorating, the patient's care required my highest level of attention and prepareness to intervene. i assessed this patient, formulated a plan of care, communicated with medical personnel,reveiwed data and results,andconversed with regulatory services consultant, reassessed the patient's condition and response to treatments. total time includde at [facility] 50% face-face interactions and does not include any procedures Stability Stability form required: No Heart Score Heart Score: Heart Score Response (Comments) Value History Moderate Suspicious 1 EKG Repolarization Disturb 1 Age >65 2 Risk Factors 1 or 2 risk factors 1 Troponin 1-2 x's Normal limit 1 Total 6 I personally scribed for NASIM BLAND MD ([email or web address]) on 07/10/24 at 09:10. Electronically submitted by Concha Molina ([facility]). I personally scribed for NASIM BLAND MD ([facility]) on 07/10/24 at 09:34. Electronically submitted by Concha Molina ([facility]). NASIM BLAND MD Jul 10, 2024 09:10
--- NOTE | 2024-07-10 09:29 | DVH ---
CHEST RADIOGRAPH Indication:sob Technique: Single frontal view of the chest was obtained Comparison: XY CHEST XRAY 1 VIEW on DOS: 12/03/23 FINDINGS: Lines and Tubes: None Lungs: Emphysema. Scarring in the left upper lobe. No focal consolidation. Pleura: No effusion. No pneumothorax. Cardiomediastinal contours: Unremarkable Bones: No acute osseous abnormality. IMPRESSION: 1. No acute cardiopulmonary disease.
[2024-07-10 09:33] LABS: Chloride 104 mmol/L (98-107); Potassium 4.1 mmol/L (3.5-5.1); Sodium 138 mmol/L (136-145)
[2024-07-10] MEDS: ACETAMINOPHEN 325 MG TAB PO ONE (09:33)
[2024-07-10 09:34] LABS: Anion Gap 7 (5-15); Basophils # (auto) 0.1 10 ^3/uL (0-0.2); Basophils % (auto) 1.1 % (0.0-2.0); Carbon Dioxide 27 mmol/L (20-31); Eosinophils # (auto) 0 10 ^3/uL (0-0.8); Eosinophils % (auto) 0.4 % (0.0-7.0); Lymphocytes # (auto) 1.7 10 ^3/uL (0.4-5.4)
[2024-07-10 09:35] LABS: Calcium 9.7 mg/dL (8.7-10.4)
[2024-07-10 09:38] LABS: Hemoglobin 13.3 g/dL (12.2-16.2); Lymphocytes % (auto) 22.3 % (10.0-50.0); Mean Corpuscular Hgb Conc. 34.2 g/dL (32.0-36.0); Mean Corpuscular Volume 96.7 fL (80.0-100.0); Monocytes # (auto) 0.4 10 ^3/uL (0-1.3); Monocytes % (auto) 5.7 % (0.0-12.0); Neutrophils # (auto) 5.4 10 ^3/uL (1.6-8.6); Neutrophils % (auto) 70.5 % (37.0-80.0); Platelet Count (auto) 522 10^3/uL (140-450); Red Blood Cells 4.04 10^6/uL (4.0-5.20); Red Cell Distribution Width 14.6 % (11.8-14.3); White Blood Cell 7.7 10^3/uL (4.4-10.8)
[2024-07-10 09:40] LABS: BUN/Creatinine Ratio 8.5 (10.0-20.0); Blood Urea Nitrogen 7 mg/dL (9-23); Glucose 124 mg/dL (74-106)
[2024-07-10] MEDS: ASPirin 325 MG TAB PO ONE (11:40)
[2024-07-10] MEDS: LORazepam 2MG/ML-1ML VIAL IV ONE (12:54)
[2024-07-10] MEDS ORDERED: NITROGLYCERIN 0.4 MG SL TAB SL PRN (14:00)
[2024-07-10] MEDS ORDERED: IPRATROPIUM BROM 0.5 MG/2.5ML INH SOL NEB PRN (14:00)
[2024-07-10] MEDS ORDERED: ALBUTEROL SULF 2.5 MG/0.5ML(0.5%) NEB SOLN NEB PRN (14:00)
[2024-07-10] MEDS ORDERED: MORPHINE SULFATE INJ 2 MG/ml SYRG IV PRN (14:00)
--- NOTE | 2024-07-10 14:14 | DVHHP2 ---
History of Present Illness Reason for Visit: Shortness of breath History of Present Illness This 73-year-old female with past medical history of COPD on O2, hypertension, and asthma presents in the ED with a chief complaint of shortness of breath for two days. The patient reports shortness of breath associated with uncontrolled blood pressure reading in 200s despite taking BP medications for the past couple of days. The patient currently denies chest pain, shortness of breath, GONZALEZ, or edema. Patient heart rate in low 110s seems anxious. Patient states was not able to renew her Xanax. Past Medical History As stated in HPI Past Surgical History Denies Family History Reviewed, non-contributory to the management of this case. Past Social History The patient lives at home, denies smoking, alcohol or illicit drugs abuse. Review of Systems Constitutional: Yes: Malaise; No: Fever, Chills, Sweats, Weakness, Other Eyes: No: Pain, Vision change, Conjunctivae inflammation, Eyelid inflammation, Other, Redness ENT: Other (Headaches); No: Ear pain, Ear discharge, Nose pain, Nose discharge, Nose congestion, Mouth pain, Mouth swelling, Throat pain, Throat swelling Respiratory: Shortness of breath; No: Cough, Dry, SOB with excertion, Wheezing, Hemoptysis, Pleuritic Pain, Sputum, Wheezing, Other Cardiovascular: Other (High blood pressure); No: Chest Pain, Palpitations, Orthopnea, Paroxysmal Noc. Dyspnea, Edema, Lt Headedness Gastrointestinal: No: Nausea, Vomiting, Abdominal Pain, Diarrhea, Constipation, Melena, Hematochezia, Other Genitourinary: No Dysuria, No Frequency, No Incontinence, No Hematuria, No Retention, No Other Skin: No: Rash, Lesions, Jaundice, Bruising, Other Neurological: No: Weakness, Numbness, Incoordination, Change in speech, Confusion, Seizures, Other Allergies: Coded Allergies: NO KNOWN ALLERGIES (Unverified , 08/21/23) Exam Vital Signs Vital Signs Date Time Temp Pulse Resp B/P (MAP) Pulse Ox O2 Delivery O2 Flow Rate FiO2 07/10/24 12:00 111 07/10/24 12:00 20 139/91 (107) 96 07/10/24 08:59 Nasal Cannula* 4 36 07/10/24 08:34 98.3 General Appearance: Alert, Oriented X3, Cooperative, mild distress HEENT: Atraumatic, PERRLA, EOMI Cardiovascular: Normal S1, Normal S2, Other (Sinus tachycardia 110s) Abdominal: Normal bowel sounds, Soft, No tenderness Extremities: No clubbing, No cyanosis, No edema, Normal pulses Skin: No rashes, No breakdown, No significant lesion Neuro: Normal gait, Normal speech, Strength at 5/5 X4 ext, Normal tone Psych/Mental Status: Mental status NL Labs/Xrays Labs Test 07/10/24 09:14 Range/Units White Blood Count 7.7 4.4-10.8 10^3/uL Red Blood Count 4.04 4.0-5.20 10^6/uL Hemoglobin 13.3 12.2-16.2 g/dL Hematocrit 39.0 36.0-46.0 % Mean Corpuscular Volume 96.7 80.0-100.0 fL Mean Corpuscular Hemoglobin 33.0 H 28.0-32.0 pg Mean Corpuscular Hemoglobin Concent 34.2 32.0-36.0 g/dL Red Cell Distribution Width 14.6 H 11.8-14.3 % Platelet Count 522 H 140-450 10^3/uL Mean Platelet Volume 7.4 6.9-10.8 fL Neutrophils (%) (Auto) 70.5 37.0-80.0 % Lymphocytes (%) (Auto) 22.3 10.0-50.0 % Monocytes (%) (Auto) 5.7 0.0-12.0 % Eosinophils (%) (Auto) 0.4 0.0-7.0 % Basophils (%) (Auto) 1.1 0.0-2.0 % Neutrophils # (Auto) 5.4 1.6-8.6 10 ^3/uL Lymphocytes # (Auto) 1.7 0.4-5.4 10 ^3/uL Monocytes # (Auto) 0.4 0-1.3 10 ^3/uL Eosinophils # (Auto) 0 0-0.8 10 ^3/uL Basophils # (Auto) 0.1 0-0.2 10 ^3/uL Nucleated Red Blood Cells 0.0 % Sodium Level 138 136-145 mmol/L Potassium Level 4.1 3.5-5.1 mmol/L Chloride Level 104 98-107 mmol/L Carbon Dioxide Level 27 20-31 mmol/L Anion Gap 7 5-15 Blood Urea Nitrogen 7 L 9-23 mg/dL Creatinine 0.82 0.550-1.02 mg/dL Glomerular Filtration Rate Calc 75 >90 mL/min BUN/Creatinine Ratio 8.5 L 10.0-20.0 Serum Glucose 124 H 74-106 mg/dL Calcium Level 9.7 8.7-10.4 mg/dL Troponin I High Sensitivity 15 </=34 ng/L PROCEDURE(s): CXRP - CHEST PORTABLE REASON: sob ORDER NUMBER(s): [id number], ACCESSION NUMBER(s): [id number] CHEST RADIOGRAPH Indication:sob Technique: Single frontal view of the chest was obtained Comparison: XY CHEST XRAY 1 VIEW on DOS: 12/03/23 FINDINGS: Lines and Tubes: None Lungs: Emphysema. Scarring in the left upper lobe. No focal consolidation. Pleura: No effusion. No pneumothorax. Cardiomediastinal contours: Unremarkable Bones: No acute osseous abnormality. IMPRESSION: 1. No acute cardiopulmonary disease. Assessment/Plan Assessment/Plan # Acute on chronic respiratory failure # acute COPD exacerbation Admit to med/tele unit Med neb treatment O2 sat to keep sat > 90% # uncontrolled hypertension # sinus tachycardia Continue with current lisinopril-hctz, added carvedilol Hydralazine as needed Monitor BP Check TSH, lipid panel # anxiety Xanax as needed DVT prophylaxis Medical plan discussed with patient and RN Plan discussed with: Patient My Orders Orders - TUAN EDUAROD LEGAL COLLECTOR Procedure Category Date Status Time Admit ADMIT 07/10/24 Transmitted 13:54 Code Status CODE 07/10/24 Transmitted 13:54 Hydrocodone-Acet PHA 07/10/24 Logged 5/325mg Tab ([place] 14:00 Ondansetron Hcl PHA 07/10/24 Logged (Zofran) 14:00 Enoxaparin Sodium PHA 07/11/24 Logged (Lovenox) 10:00 Fall Risk Precautions CORNELIUS 07/10/[address] 13:54 Complete Blood Count LAB 07/11/24 Verified 04:00 Comprehensive LAB 07/11/24 Verified Metabolic Panel 04:00 Cardiac DIET 07/10/24 Transmitted Diet-2gna,Lofat,Lochol Dinner Condition: Fair CORNELIUS 07/10/24 In Process 13:54 Acetaminophen Tablet PHA 07/10/24 Logged (Tylenol Tablet) 14:00 Morphine Sulfate PHA 07/10/24 Logged Injection 14:00 Nitroglycerin PHA 07/10/24 Logged Sublingual (Ntrostat 14:00 Morphine Sulfate PHA 07/10/24 Logged Injection 14:00 Stat Ekg For Chest CORNELIUS 07/10/24 In Process Pain 13:54 Notify Md Of Changes CORNELIUS 07/10/24 In Process From Base 13:54 Upholstery Parts Sorter For CORNELIUS 07/10/24 In Process 24 Hours 13:54 Emergency Dysrhythmia CORNELIUS 07/10/24 In Process Protocol 13:54 Rhythm Strips Once CORNELIUS 07/10/24 In Process Every Shift 13:54 Oxygen By Nasal RT 07/10/24 Transmitted Cannula 13:54 Duloxetine Hcl PHA 07/10/24 Logged Capsule (Cymbalta 22:00 Montelukast Tablet PHA 07/11/24 Logged (Singulair Tablet) 10:00 Tramadol Hcl (Ultram) PHA 07/10/24 Logged 22:00 (Nf) Escitalopram PHA 07/11/24 Logged Oxalate 10:00 (Nf) Lisinopril & PHA 07/11/24 Logged Hydrochlorothiazi (Lis 10:00 Albuterol Medneb PHA 07/10/24 Logged (Ventolin Medneb) 14:00 Albuterol Medneb PHA 07/10/24 Logged (Ventolin Medneb) 18:00 Ipratropium Medneb PHA 07/10/24 Logged (Atrovent Medneb) 14:00 Ipratropium Medneb PHA 07/10/24 Logged (Atrovent Medneb) 18:00 Alprazolam Tablet PHA 07/10/24 Logged (Xanax Tablet) 14:00 Hydralazine Injection PHA 07/10/24 Logged (Apresoline Inject 14:00 Lipid Panel LAB 07/10/24 Transmitted 14:00 Thyroid Stimulating LAB 07/10/24 Transmitted Hormone 14:00 Hemoglobin A1c LAB 07/10/24 Transmitted 14:00 Date of Service: Jul 10, 2024 Billing Provider: TUAN EDUARDO Common Visit Codes: [id number] INP/OBS CARE (HIGH) TUAN DEUARDO Jul 10, 2024 14:14
[2024-07-10 14:21] LABS: LDL Cholesterol 75 mg/dL (< 100); Triglycerides 67 mg/dL (< 150)
[2024-07-10 14:23] LABS: Cholesterol 156 mg/dL (< 200); HDL Cholesterol 66 mg/dL (40-59)
[2024-07-10] MEDS: CARVEDILOL 3.125 MG TAB PO ONE (14:42)
[2024-07-10] MEDS: MORPHINE SULFATE INJ 2 MG/ml SYRG IV PRN (15:39)
[2024-07-10] MEDS: IPRATROPIUM BROM 0.5 MG/2.5ML INH SOL NEB SCH (19:55)
[2024-07-10] MEDS: ALBUTEROL SULF 2.5 MG/0.5ML(0.5%) NEB SOLN NEB SCH (19:55)
[2024-07-10] MEDS: ALPRAZolam 0.5 MG TAB PO PRN (20:43)
[2024-07-10] MEDS: ACETAMINOPHEN 325 MG TAB PO PRN (22:05)
[2024-07-10] MEDS: DULoxetine HCL 30 MG CAP PO SCH (22:06)
[2024-07-10] MEDS: traMADol HCL 50 MG TAB PO SCH (22:06)
[2024-07-10] MEDS: CARVEDILOL 3.125 MG TAB PO SCH (22:06)
[2024-07-11] VITALS (22 sets, daily range): BP systolic 107–172; BP diastolic 73–106; PULSE 77–112; RESP 16–20; TEMP 97.3–98.3; O2SAT 90–98
[2024-07-11] MEDS: hydrALAZINE HCL 20 MG/ML VL IV PRN (04:59)
[2024-07-11 07:18] LABS: Basophils % (auto) 0.6 % (0.0-2.0); Eosinophils # (auto) 0.1 10 ^3/uL (0-0.8); Hemoglobin 12.2 g/dL (12.2-16.2); Lymphocytes # (auto) 1.9 10 ^3/uL (0.4-5.4); Mean Corpuscular Volume 96.6 fL (80.0-100.0); Monocytes # (auto) 0.8 10 ^3/uL (0-1.3); Nucleated Red Blood Cells % 0.1 %
[2024-07-11 07:23] LABS: Basophils # (auto) 0.1 10 ^3/uL (0-0.2); Eosinophils % (auto) 0.8 % (0.0-7.0); Hematocrit 36.4 % (36.0-46.0); Lymphocytes % (auto) 21.7 % (10.0-50.0); Mean Corpuscular Hemoglobin 32.3 pg (28.0-32.0); Mean Corpuscular Hgb Conc. 33.4 g/dL (32.0-36.0); Monocytes % (auto) 9.3 % (0.0-12.0); Neutrophils # (auto) 5.8 10 ^3/uL (1.6-8.6); Neutrophils % (auto) 67.6 % (37.0-80.0); Platelet Count (auto) 469 10^3/uL (140-450); Red Blood Cells 3.77 10^6/uL (4.0-5.20); Red Cell Distribution Width 14.8 % (11.8-14.3); White Blood Cell 8.6 10^3/uL (4.4-10.8)
[2024-07-11 07:26] LABS: Alanine Aminotransferase 34 U/L (7-40); Albumin 3.7 g/dL (3.2-4.8); Alkaline Phosphatase 95 U/L (46-116); Anion Gap 6 (5-15); Aspartate Aminotransferase 56 U/L (13-40); BUN/Creatinine Ratio 15.2 (10.0-20.0); Bilirubin, Total 0.4 mg/dL (0.2-1.0); Blood Urea Nitrogen 12 mg/dL (9-23); Carbon Dioxide 26 mmol/L (20-31); Chloride 105 mmol/L (98-107); Glucose 105 mg/dL (74-106); Potassium 3.9 mmol/L (3.5-5.1); Sodium 137 mmol/L (136-145)
[2024-07-11 07:27] LABS: Total Protein 6.3 g/dL (5.7-8.2)
[2024-07-11] MEDS: MONTELUKAST SODIUM 10 MG TAB PO SCH (09:39)
[2024-07-11] MEDS: CITALOPRAM HYDROBR 20 MG TAB PO SCH (09:41)
[2024-07-11] MEDS: ENOXAPARIN SOD 40 MG/0.4 ML SYRINGE SC SCH (09:43)
[2024-07-11] MEDS: HYDROcodone-ACET 5/325MG TAB PO PRN (09:43)
[2024-07-11] MEDS ORDERED: PATIENTS OWN MEDICATION (Lisinopril & Hydrochlorothiazi (Lisinopril/Hydrochlorothi) 1 TAB) PO SCH (10:00)
--- NOTE | 2024-07-11 11:25 | DVHPNRES ---
Progress Note Date Seen: Jul 11, 2024 Resident Creating Document: TANJA JOINER RESIDENT Has the PT tested + for MRSA If YES, has PT been informed?: No Medical Necessity Reason Pt with a Central, PICC or Fol: No Subjective Review of Systems This is a 73-year-old female with past medical history of COPD who requires home oxygen, hypertension, who presented to the ED with chief complaint of shortness of breaths for the past two days. The patient reported on admission having shortness of breath which has been associated with significantly elevated blood pressure despite taking her home medications. On admission to the ED blood pressure was 174/98 mmHg. The patient denied chest pain, fever/chills, palpitations or lower extremity edema. Last echocardiogram which was performed on October of 2023 showed an LVEF of 60% with normal cardiac valves and no pericardial effusion. Initial chest x-ray was showing mild interstitial vascular prominence/infiltrates but no gross consolidation appreciated. Initial labs were grossly unremarkable including CBC, CMP, troponins and lipid panel. There is mild transaminitis with an AST of 56 and ALT of 34. Patient was admitted for further assessment and management. Patient seen and examined at bedside. Patient seems anxious and agitated at inspection. The patient is expressing that he is having shortness of breath and was frustrated because of not being able to take a bed shower. We will start the patient on IV levofloxacin, methylprednisolone 40 mg IV b.i.d. and continue respiratory therapy with albuterol and ipratropium med nebs. The patient was also started on carvedilol 6.25 mg q.12 for high blood pressure and tachycardia on the ED. Will order a CT scan of the chest w/o contrast. ROS Constitutional: Reports anxiousness. Denies weight loss, fever and chills. HEENT: Denies changes in vision and hearing. Respiratory: Reports mild to moderate shortness of breath. denies cough Cardiovascular: Denies chest discomfort or palpitations GI: Denies abdominal pain, nausea, vomiting and diarrhea. : Denies dysuria and urinary frequency. Musculoskeletal: Denies myalgias and joint pain Skin: Denies rash and pruritus. Neurological: Denies dizziness, headache, vision or hearing problems Objective vital signs Vital Sign Date Time Temp Pulse Resp B/P (MAP) Pulse Ox O2 Delivery O2 Flow Rate FiO2 07/11/24 09:42 96 135/81 07/11/24 09:00 97.7 20 97 97.7 07/11/24 08:00 Nasal Cannula* 3 32 Total Intake and Output 07/10/24 07/10/24 07/11/24 15:00 23:00 07:00 Intake Total 800 ml Balance 800 ml medications Current Medications Medications Dose Ordered Sig/Rio Route Start Time Stop Time Status Last Admin Dose Admin Acetaminophen/ Hydrocodone Bitart 1 tab Q4HP PRN PO 07/10/24 14:00 07/11/24 09:43 1 TAB Ondansetron HCl 4 mg Q4HP PRN IV 07/10/24 14:00 Enoxaparin Sodium 40 mg DAILY SC 07/11/24 10:00 07/11/24 09:43 40 MG Acetaminophen 650 mg Q6HP PRN PO 07/10/24 14:00 07/11/24 04:55 650 MG Morphine Sulfate 2 mg Q4HPRN PRN IV 07/10/24 14:00 07/10/24 15:39 2 MG Nitroglycerin 0.4 mg Q5MINP PRN SL 07/10/24 14:00 Morphine Sulfate 2 mg Q30M PRN IV 07/10/24 14:00 Duloxetine HCl 30 mg BID PO 07/10/24 22:00 07/11/24 09:41 30 MG Montelukast Sodium 10 mg DAILY PO 07/11/24 10:00 07/11/24 09:39 10 MG Tramadol HCl 50 mg BID PO 07/10/24 22:00 07/11/24 09:40 50 MG Citalopram Hydrobromide 20 mg DAILY PO 07/11/24 10:00 07/11/24 09:41 20 MG Patient Own Medication 1 tab DAILY PO 07/11/24 10:00 Hold Albuterol 2.5 mg Q4HPRN PRN NEB 07/10/24 14:00 Albuterol 2.5 mg Q6HR NEB 07/10/24 18:00 07/11/24 06:53 2.5 MG Ipratropium [place] 0.5 mg Q4HPRN PRN NEB 07/10/24 14:00 Ipratropium [place] 0.5 mg Q6HR NEB 07/10/24 18:00 07/11/24 06:53 0.5 MG Alprazolam 1 mg Q8HPRN PRN PO 07/10/24 14:00 07/11/24 05:18 1 MG Hydralazine HCl 10 mg Q6HP PRN IV 07/10/24 14:00 07/11/24 04:59 10 MG Carvedilol 6.25 mg Q12HR PO 07/10/24 22:00 07/11/24 09:42 6.25 MG Levofloxacin/ Dextrose 150 ml @ 100 mls/hr DAILY IV 07/12/24 10:00 UNV Methylprednisolone Sodium Succinate 40 mg BID IV 07/11/24 22:00 UNV Examination Physical Examination General: Patient alert and oriented in person, place and time but patient seems anxious and agitated. HEENT: Normocephalic, atraumatic, moist mucous membranes Respiratory/pulmonary: There are decreased breath sounds on bilateral lung avelar but no crackles, there are very slight wheezes on occasional expiration. Cardiovascular: Normal heart sounds S1 and S2 with no associated murmurs Abdomen: Abdomen nondistended, there is no pain to palpation in any of the abdominal quadrants, no palpable masses. Extremities: There is no peripheral edema present at the lower extremities. Peripheral Pulses: 3+ Radial (R). 3+ Radial (L). 3+ Dorsalis pedis (R). 3+ Dorsalis pedis(L) Skin: No rashes or pruritus, there is no sacral edema present at this time. Neurological: Intact cranial nerves with no focal neurologic deficits laboratory and microbiology Laboratory Tests 07/11/24 06:23 Test 07/11/24 06:23 Range/Units Serum Glucose 105 74-106 mg/dL Problem List/Assessment/Plan Problem List/Assessment/Plan Assessment/Plan Acute hypoxic respiratory failure likely due to COPD exacerbation -patient requires home oxygen and was currently wheezing -initial chest x-ray showed mild interstitial vascular prominence/infiltrates, no gross consolidations -Ordered CT chest w/o contrast -Ordered BNP -Start levofloxacin IV -Start IV methylprednisolone 40mg BID -Continue respiratory therapy with albuterol and ipratropium med nebs -monitor pulse oximetry closely Hypertensive urgency -initial blood pressure was 174/98 mmHg -patient is currently on carvedilol 6.25 mg q.12 and home lisinopril/hydrochlorothiazide -troponins came back negative -last echocardiogram performed in October of 2023 showed an LVEF of 60% with normal cardiac valves and no pericardial effusion -monitor blood pressure closely Anxiety disorder -currently on citalopram 20 mg q.d. -Stop duloxetine 30 mg b.i.d. (may have interaction with SSRIs shold not be used together) -alprazolam 1 mg q.8 p.r.n. Acute transaminitis -AST 56, ALT 34 -monitor liver function -Avoid hepatotoxic drugs History of asthma? -on montelukast 10 mg q.d. -albuterol at home DVT prophylaxis -Enoxaparin 40 mg sc q.d. Goals of care discussed with the patient at bedside for >23min, FULL CODE Plan discussed with Dr. Vargas Plan discussed with: Patient My Orders My Orders Orders - TANJA JOINER Procedure Category Date Status Time Urinalysis LAB 07/11/24 Logged 10:42 Levofloxacin 750mg PHA 07/12/24 Logged (Levaquin) 10:00 Methylprednisolone PHA 07/11/24 Logged Sod Succ (Solu Medrol 22:[address] 07/11/24 Transmitted 10:59 Date of Service: Jul 11, 2024 Billing Provider: RASHAUN VARGAS MD Common Visit Codes: [id number] INP/OBS CARE(HIGH) Secondary Visit Codes: [id number] CARE PLAN 30 MINUTES TANJA JOINER RESIDENT Jul 11, 2024 11:25 RASHAUN VARGAS MD Jul 11, 2024 22:15
[2024-07-11] MEDS ORDERED: levoFLOXacin 250MG 50 ML IV SCH (12:00)
--- NOTE | 2024-07-11 12:21 | DVH ---
CT CHEST WITHOUT CONTRAST INDICATION: : 73 old Female R/O pneumonia, better overview of lung parenchyma EXAM DATE: 07/11/2024 11:31 AM COMPARISON: None available RADIATION DOSE: CTDIvol: 6.35 mGy, DLP: 252.2 mGy*cm PROCEDURE: Helical CT images were obtained of the chest without intravenous contrast. Sagittal and c oronal reconstructions are provided. ADDITIONAL IMAGES / REFORMATS: None All CT scans at this medical facility are performed using dose modulation techniques as appropriate t o a performed exam including the following: Automated exposure control was utilized; adjustment of th e MA and/or KV according to patient size; and use of iterative reconstruction technique. FINDINGS: Bones: Scattered degenerative changes are noted. Visualized Abdomen: Gallstone in the gallbladder. Chest Wall: Normal. Soft tissues: Normal. Mediastinum: Normal. Heart: Coronary artery calcifications are noted. Vessels: Normal. Lymph Nodes: Normal. Pleura: Small left pleural effusion. Airways: Normal. Lung: Severe emphysema. Scattered basilar areas of atelectasis. 3.1 cm focal consolidation or mass in the right lower lobe. Other: None IMPRESSION: Severe emphysema. Scattered basilar areas of atelectasis. 3.1 cm focal consolidation or mass in the right lower lobe.
[2024-07-11 17:15] LABS: Rapid Influenza A Negative (Negative); Rapid Influenza B Negative (Negative)
[2024-07-11 17:16] LABS: COVID19 ANTIGEN SOFIA FIA NEGATIVE (NEGATIVE)
[2024-07-11] MEDS: ONDANSETRON HCL 4 MG/2 ML VIAL IV PRN (21:22)
[2024-07-11] MEDS: methylPREDNISolone SOD SUCC 40 MG/ML VL IV SCH (22:00)
[2024-07-12] VITALS (16 sets, daily range): BP systolic 108–121; BP diastolic 60–79; PULSE 80–99; RESP 14–20; TEMP 97.8–98.3; O2SAT 90–97
[2024-07-12 07:20] LABS: Basophils # (auto) 0 10 ^3/uL (0-0.2); Basophils % (auto) 0.1 % (0.0-2.0); Eosinophils # (auto) 0 10 ^3/uL (0-0.8); Hemoglobin 11.8 g/dL (12.2-16.2); Lymphocytes # (auto) 0.9 10 ^3/uL (0.4-5.4); Monocytes # (auto) 0.1 10 ^3/uL (0-1.3)
[2024-07-12 07:22] LABS: Hematocrit 34.7 % (36.0-46.0); Lymphocytes % (auto) 9.5 % (10.0-50.0); Mean Corpuscular Hemoglobin 32.8 pg (28.0-32.0); Mean Corpuscular Volume 96.4 fL (80.0-100.0); Neutrophils # (auto) 8.9 10 ^3/uL (1.6-8.6); Neutrophils % (auto) 89.4 % (37.0-80.0); Nucleated Red Blood Cells % 0.1 %; Platelet Count (auto) 495 10^3/uL (140-450); White Blood Cell 9.9 10^3/uL (4.4-10.8)
[2024-07-12 07:26] LABS: Alanine Aminotransferase 72 U/L (7-40); Alkaline Phosphatase 100 U/L (46-116); Anion Gap 4 (5-15); BUN/Creatinine Ratio 16.9 (10.0-20.0); Blood Urea Nitrogen 14 mg/dL (9-23); Calcium 9.1 mg/dL (8.7-10.4); Carbon Dioxide 27 mmol/L (20-31); Chloride 100 mmol/L (98-107); Glucose 169 mg/dL (74-106); Potassium 5.2 mmol/L (3.5-5.1)
[2024-07-12 07:27] LABS: Albumin 3.6 g/dL (3.2-4.8); Aspartate Aminotransferase 106 U/L (13-40)
[2024-07-12 07:28] LABS: Bilirubin, Total 0.3 mg/dL (0.2-1.0); Total Protein 6.2 g/dL (5.7-8.2)
[2024-07-12 07:33] LABS: Sodium 131 mmol/L (136-145)
[2024-07-12] MEDS ORDERED: levoFLOXacin 750MG 150 ML IV SCH (10:00)
[2024-07-12] MEDS: FUROSEMIDE 20 MG/2 ML VIAL IV ONE (10:05)
[2024-07-12] MEDS: DEXTROSE (50%) 50ML SYRG IV ONE (10:05)
[2024-07-12] MEDS: InsuLIN REG 1unit/0.01ml Soln (100units/ml) IV ONE (10:08)
[2024-07-12] MEDS: levoFLOXacin 250MG 50 ML IV SCH (12:39)
--- NOTE | 2024-07-12 12:59 | DVHPNRES ---
Progress Note Date Seen: Jul 12, 2024 Resident Creating Document: TANJA JOINER RESIDENT Has the PT tested + for MRSA If YES, has PT been informed?: No Medical Necessity Reason Pt with a Central, PICC or Fol: No Subjective Review of Systems This is a 73-year-old female with past medical history of COPD who requires home oxygen, hypertension, who presented to the ED with chief complaint of shortness of breaths for the past two days. The patient reported on admission having shortness of breath which has been associated with significantly elevated blood pressure despite taking her home medications. On admission to the ED blood pressure was 174/98 mmHg. The patient denied chest pain, fever/chills, palpitations or lower extremity edema. Last echocardiogram which was performed on October of 2023 showed an LVEF of 60% with normal cardiac valves and no pericardial effusion. Initial chest x-ray was showing mild interstitial vascular prominence/infiltrates but no gross consolidation appreciated. Initial labs were grossly unremarkable including CBC, CMP, troponins and lipid panel. There is mild transaminitis with an AST of 56 and ALT of 34. Patient was admitted for further assessment and management. Patient seen and examined at bedside. The patient is still having mild shortness of breath and occasional wheezing on expiration. This morning the patient was relatively calm and stating that she was feeling better but hours afterwards she started getting minimally anxious reporting mild shortness of breath. We will continue on IV levofloxacin and methylprednisolone 40 mg IV b.i.d. for one additional day and we will re-evaluate the patient tomorrow for possible discharge. ROS Constitutional: Reports mild anxiety. Denies weight loss, fever and chills. HEENT: Denies changes in vision and hearing. Respiratory: Reports mild shortness of breath. Denies cough Cardiovascular: Denies chest discomfort or palpitations GI: Denies abdominal pain, nausea, vomiting and diarrhea. : Denies dysuria and urinary frequency. Musculoskeletal: Denies myalgias and joint pain Skin: Denies rash and pruritus. Neurological: Denies dizziness, headache, vision or hearing problems Objective vital signs Vital Sign Date Time Temp Pulse Resp B/P (MAP) Pulse Ox O2 Delivery O2 Flow Rate FiO2 07/12/24 11:49 85 16 97 07/12/24 11:41 Nasal Cannula 3.0 07/12/24 11:41 32 07/12/24 10:05 108/71 07/12/24 09:00 97.9 97.9 Total Intake and Output 07/11/24 07/11/24 07/12/24 15:00 23:00 07:00 Intake Total 820 ml 1050 ml Balance 820 ml 1050 ml medications Current Medications Medications Dose Ordered Sig/Rio Route Start Time Stop Time Status Last Admin Dose Admin Acetaminophen/ Hydrocodone Bitart 1 tab Q4HP PRN PO 07/10/24 14:00 07/12/24 10:07 1 TAB Ondansetron HCl 4 mg Q4HP PRN IV 07/10/24 14:00 07/12/24 10:02 4 MG Enoxaparin Sodium 40 mg DAILY SC 07/11/24 10:00 07/12/24 10:03 40 MG Acetaminophen 650 mg Q6HP PRN PO 07/10/24 14:00 07/11/24 04:55 650 MG Morphine Sulfate 2 mg Q4HPRN PRN IV 07/10/24 14:00 07/10/24 15:39 2 MG Nitroglycerin 0.4 mg Q5MINP PRN SL 07/10/24 14:00 Morphine Sulfate 2 mg Q30M PRN IV 07/10/24 14:00 Montelukast Sodium 10 mg DAILY PO 07/11/24 10:00 07/12/24 10:02 10 MG Tramadol HCl 50 mg BID PO 07/10/24 22:00 07/11/24 09:40 50 MG Citalopram Hydrobromide 20 mg DAILY PO 07/11/24 10:00 07/11/24 09:41 20 MG Patient Own Medication 1 tab DAILY PO 07/11/24 10:00 Hold Albuterol 2.5 mg Q4HPRN PRN NEB 07/10/24 14:00 Albuterol 2.5 mg Q6HR NEB 07/10/24 18:00 07/12/24 11:41 2.5 MG Ipratropium [place] 0.5 mg Q4HPRN PRN NEB 07/10/24 14:00 Ipratropium [place] 0.5 mg Q6HR NEB 07/10/24 18:00 07/12/24 11:41 0.5 MG Alprazolam 1 mg Q8HPRN PRN PO 07/10/24 14:00 07/12/24 11:41 1 MG Hydralazine HCl 10 mg Q6HP PRN IV 07/10/24 14:00 07/11/24 04:59 10 MG Carvedilol 6.25 mg Q12HR PO 07/10/24 22:00 07/11/24 21:58 6.25 MG Levofloxacin/ Dextrose 150 ml @ 100 mls/hr DAILY IV 07/12/24 10:00 UNV Methylprednisolone Sodium Succinate 40 mg BID IV 07/11/24 22:00 07/12/24 10:02 40 MG Levofloxacin 50 ml @ 50 mls/hr 1200,1300,1400 IV 07/12/24 12:00 07/12/24 12:39 50 MLS/HR Examination Physical Examination General: Patient alert and oriented in person, place and time. Patient following commands HEENT: Normocephalic, atraumatic, moist mucous membranes Respiratory/pulmonary: There are decreased breath sounds on bilateral lung avelar but no crackles, there are still occasional wheezes on expiration Cardiovascular: Normal heart sounds S1 and S2 with no associated murmurs Abdomen: Abdomen nondistended, there is no pain to palpation in any of the abdominal quadrants, no palpable masses. Extremities: There is no peripheral edema present at the lower extremities. Peripheral Pulses: 3+ Radial (R). 3+ Radial (L). 3+ Dorsalis pedis (R). 3+ Dorsalis pedis(L) Skin: No rashes or pruritus, there is no sacral edema present at this time. Neurological: Intact cranial nerves with no focal neurologic deficits laboratory and microbiology Laboratory Tests 07/12/24 05:40 Test 07/12/24 05:40 Range/Units Serum Glucose 169 H 74-106 mg/dL Problem List/Assessment/Plan Problem List/Assessment/Plan Assessment/Plan Acute hypoxic respiratory failure likely due to COPD exacerbation -patient requires home oxygen and was currently wheezing -initial chest x-ray showed mild interstitial vascular prominence/infiltrates, no gross consolidations -CT scan of the chest without contrast showed severe emphysema with a 3.1 cm consolidation versus mass in the right lower lobe -Ordered BNP which came back on normal range -continue levofloxacin IV -continue IV methylprednisolone 40mg BID -Continue respiratory therapy with albuterol and ipratropium med nebs -monitor pulse oximetry closely Possible lung mass in the right lower lobe -CT scan of the chest without contrast showed a 3.1 cm mass vs consolidation in the right lower lobe -we will continue treatment for COPD exacerbation at this time and we will do a follow-up CT scan as an outpatient in 6-8 weeks -if the lesion persists in the following up CT scan as an outpatient then patient needs referral to pulmonology for further assessment and management. Hypertensive urgency -initial blood pressure was 174/98 mmHg -patient is currently on carvedilol 6.25 mg q.12 and home lisinopril/hydrochlorothiazide -troponins came back negative -last echocardiogram performed in October of 2023 showed an LVEF of 60% with normal cardiac valves and no pericardial effusion -monitor blood pressure closely Anxiety disorder -currently on citalopram 20 mg q.d. -alprazolam 1 mg q.8 p.r.n. Acute transaminitis -AST 106, ALT 72 -monitor liver function -Avoid hepatotoxic drugs History of asthma? -on montelukast 10 mg q.d. -albuterol at home DVT prophylaxis -Enoxaparin 40 mg sc q.d. Goals of care discussed with the patient at bedside for >23min, FULL CODE Plan discussed with Dr. Vargas Plan discussed with: Patient Date of Service: Jul 12, 2024 Billing Provider: RASHAUN VARGAS MD Common Visit Codes: [id number] INP/OBS CARE(HIGH) TANJA JOINER RESIDENT Jul 12, 2024 12:58 RASHAUN VARGAS MD Jul 12, 2024 18:59
[2024-07-12 22:10] LABS: Urine Bacteria MANY /hpf (None Seen); Urine Blood Negative /uL (Negative); Urine Clarity Turbid (Clear); Urine Color Colorless (Yellow); Urine Protein, UAD Negative (Negative); Urine Specific Gravity 1.017 (1.001-1.035); Urine Urobilinogen Normal (Negative); Urine WBC 135 /hpf (0 - 5); Urine pH 5.5 (5.0-9.0)
[2024-07-13] VITALS (12 sets, daily range): BP systolic 107–110; BP diastolic 48–65; PULSE 75–88; RESP 14–18; TEMP 98–98.5; O2SAT 90–99
[2024-07-13 06:42] LABS: Basophils # (auto) 0 10 ^3/uL (0-0.2); Basophils % (auto) 0.1 % (0.0-2.0); Eosinophils # (auto) 0 10 ^3/uL (0-0.8); Hematocrit 32.7 % (36.0-46.0); Lymphocytes % (auto) 10.2 % (10.0-50.0); Mean Corpuscular Hemoglobin 32.3 pg (28.0-32.0); Mean Corpuscular Hgb Conc. 33.8 g/dL (32.0-36.0); Mean Corpuscular Volume 95.5 fL (80.0-100.0); Monocytes # (auto) 0.2 10 ^3/uL (0-1.3); Monocytes % (auto) 1.6 % (0.0-12.0); Neutrophils # (auto) 8.2 10 ^3/uL (1.6-8.6); Neutrophils % (auto) 88.1 % (37.0-80.0); Platelet Count (auto) 448 10^3/uL (140-450); Red Blood Cells 3.42 10^6/uL (4.0-5.20); Red Cell Distribution Width 13.9 % (11.8-14.3); White Blood Cell 9.3 10^3/uL (4.4-10.8)
[2024-07-13 06:44] LABS: Chloride 99 mmol/L (98-107); Potassium 4.8 mmol/L (3.5-5.1); Sodium 133 mmol/L (136-145)
[2024-07-13 06:45] LABS: Anion Gap 3 (5-15); Calcium 8.6 mg/dL (8.7-10.4); Carbon Dioxide 31 mmol/L (20-31)
[2024-07-13 06:50] LABS: Blood Urea Nitrogen 20 mg/dL (9-23); Glucose 140 mg/dL (74-106)
--- NOTE | 2024-07-13 07:43 | DVHDSRES ---
Discharge Summary Date of Admission Resident Creating Document: TANJA JOINER RESIDENT Jul 10, 2024 at 13:54 Date of Discharge: Jul 13, 2024 Admitting Diagnosis Acute hypoxic respiratory failure Wounds: No wounds present at this time. Labs/Diagnostic Data: Laboratory Results Test 07/13/24 04:48 07/12/24 21:25 07/12/24 10:10 07/12/24 05:40 White Blood Count 9.3 10^3/uL (4.4-10.8) Red Blood Count 3.42 10^6/uL (4.0-5.20) Hemoglobin 11.0 g/dL (12.2-16.2) Hematocrit 32.7 % (36.0-46.0) Mean Corpuscular Volume 95.5 fL (80.0-100.0) Mean Corpuscular Hemoglobin 32.3 pg (28.0-32.0) Mean Corpuscular Hemoglobin Concent 33.8 g/dL (32.0-36.0) Red Cell Distribution Width 13.9 % (11.8-14.3) Platelet Count 448 10^3/uL (140-450) Mean Platelet Volume 7.3 fL (6.9-10.8) Neutrophils (%) (Auto) 88.1 % (37.0-80.0) Lymphocytes (%) (Auto) 10.2 % (10.0-50.0) Monocytes (%) (Auto) 1.6 % (0.0-12.0) Eosinophils (%) (Auto) 0.0 % (0.0-7.0) Basophils (%) (Auto) 0.1 % (0.0-2.0) Neutrophils # (Auto) 8.2 10 ^3/uL (1.6-8.6) Lymphocytes # (Auto) 1.0 10 ^3/uL (0.4-5.4) Monocytes # (Auto) 0.2 10 ^3/uL (0-1.3) Eosinophils # (Auto) 0 10 ^3/uL (0-0.8) Basophils # (Auto) 0 10 ^3/uL (0-0.2) Nucleated Red Blood Cells 0.0 % Sodium Level 133 mmol/L (136-145) Potassium Level 4.8 mmol/L (3.5-5.1) Chloride Level 99 mmol/L (98-107) Carbon Dioxide Level 31 mmol/L (20-31) Anion Gap 3 (5-15) Blood Urea Nitrogen 20 mg/dL (9-23) Creatinine 1.05 mg/dL (0.550-1.02) Glomerular Filtration Rate Calc 56 mL/min (>90) BUN/Creatinine Ratio 19.0 (10.0-20.0) Serum Glucose 140 mg/dL (74-106) Calcium Level 8.6 mg/dL (8.7-10.4) Urine Color Colorless (Yellow) Urine Clarity Turbid (Clear) Urine pH 5.5 (5.0-9.0) Urine Specific [place] 1.017 (1.001-1.035) Urine Protein Negative (Negative) Urine Ketones Negative (Negative) Urine Blood Negative /uL (Negative) Urine Nitrite Negative (Negative) Urine Bilirubin Negative (Negative) Urine Urobilinogen Normal mg/dL (Negative) Urine Leukocyte Esterase 3+ /uL (Negative) Urine RBC 2 /hpf (0 - 4) Urine WBC 135 /hpf (0 - 5) Urine Squamous Epithelial Cells Few /hpf (<5) Urine Bacteria Many /hpf (None Seen) Urine Glucose Normal mg/dL (Normal) POC Glucose 167 mg/dl (70-106) Total Bilirubin 0.3 mg/dL (0.2-1.0) Aspartate Amino Transferase (AST) 106 U/L (13-40) Alanine Aminotransferase (ALT) 72 U/L (7-40) Alkaline Phosphatase 100 U/L (46-116) Total Protein 6.2 g/dL (5.7-8.2) Albumin 3.6 g/dL (3.2-4.8) Test 07/11/24 15:20 07/11/24 06:23 07/10/24 09:14 Influenza Type A Antigen Negative (Negative) Influenza Type B Antigen Negative (Negative) SARS-CoV-2 Antigen (Rapid) Negative (NEGATIVE) B-Type Natriuretic Peptide 64.43 pg/mL (0-100) Hemoglobin A1c 5.1 % A1C (<5.7) Magnesium Level 2.1 mg/dL (1.6-2.6) Troponin I High Sensitivity 15 ng/L (</=34) Triglycerides Level 67 mg/dL (< 150) Cholesterol Level 156 mg/dL (< 200) LDL Cholesterol 75 mg/dL (< 100) HDL Cholesterol 66 mg/dL (40-59) Thyroid Stimulating Hormone (TSH) 0.95 uIU/mL (0.55-4.78) Other Laboratory Tests 07/13/24 04:48 Brief Hx & Hospital Course: This is a 73-year-old female with past medical history of COPD who requires home oxygen, hypertension, who presented to the ED with chief complaint of shortness of breaths for the past two days. The patient reported on admission having shortness of breath which has been associated with significantly elevated blood pressure despite taking her home medications. On admission to the ED blood pressure was 174/98 mmHg. The patient denied chest pain, fever/chills, palpitations or lower extremity edema. Last echocardiogram which was performed on October of 2023 showed an LVEF of 60% with normal cardiac valves and no pericardial effusion. Initial chest x-ray was showing mild interstitial vascular prominence/infiltrates but no gross consolidation appreciated. Initial labs were grossly unremarkable including CBC, CMP, troponins and lipid panel. There is mild transaminitis with an AST of 56 and ALT of 34. The patient was admitted and treated for COPD exacerbation. The patient was started on levofloxacin IV, methylprednisolone 40 mg IV b.i.d. and home medications were restarted as well. We will perform a CT scan of the chest without contrast which showed severe emphysema and a 3.1 cm mass/consolidation in the right lower lobe. Today, we evaluated the patient at bedside which is requiring 3 L of oxygen saturating 98% (patient requires 3 L of oxygen at home as well so patient is at baseline). Patient has no chest pain, shortness of breath. On physical examination there is no wheezes, there are very minimal crackles on right lung base which could be due to severe emphysema otherwise bilateral lung sounds grossly clear. Patient will be discharged home with levofloxacin 750 mg q.d. for four additional days and prednisone 40 mg q.d. for five additional days. Patient was advised to follow up with her PCP in one week. Patient agrees and understands the plan. ROS Constitutional: Denies weight loss, fever and chills. HEENT: Denies changes in vision and hearing. Respiratory: Denies shortness of breath and cough Cardiovascular: Denies chest discomfort or palpitations GI: Denies abdominal pain, nausea, vomiting and diarrhea. : Denies dysuria and urinary frequency. Musculoskeletal: Denies myalgias and joint pain Skin: Denies rash and pruritus. Neurological: Denies dizziness, headache, vision or hearing problems Physical Examination General: Patient alert and oriented in person, place and time. Patient following commands. HEENT: Normocephalic, atraumatic, moist mucous membranes Respiratory/pulmonary: Clear lungs bilaterally, there are very mild crackles on right lung base which could be due to severe emphysema. no wheezes. Cardiovascular: Normal heart sounds S1 and S2 with no associated murmurs Abdomen: Abdomen nondistended, there is no pain to palpation in any of the abdominal quadrants, no palpable masses. Extremities: There is no peripheral edema present at the lower extremities. Peripheral Pulses: 3+ Radial (R). 3+ Radial (L). 3+ Dorsalis pedis (R). 3+ Dorsalis pedis(L) Skin: No rashes or pruritus, there is no sacral edema present at this time. Neurological: Intact cranial nerves with no focal neurologic deficits Consults/Reason for consult N/A Operations or Procedures CHEST RADIOGRAPH Indication:sob Technique: Single frontal view of the chest was obtained Comparison: XY CHEST XRAY 1 VIEW on DOS: 12/03/23 FINDINGS: Lines and Tubes: None Lungs: Emphysema. Scarring in the left upper lobe. No focal consolidation. Pleura: No effusion. No pneumothorax. Cardiomediastinal contours: Unremarkable Bones: No acute osseous abnormality. IMPRESSION: 1. No acute cardiopulmonary disease. CT CHEST WITHOUT CONTRAST INDICATION: : 73 old Female R/O pneumonia, better overview of lung parenchyma EXAM DATE: 07/11/2024 11:31 AM COMPARISON: None available RADIATION DOSE: CTDIvol: 6.35 mGy, DLP: 252.2 mGy*cm PROCEDURE: Helical CT images were obtained of the chest without intravenous contrast. Sagittal and coronal reconstructions are provided. ADDITIONAL IMAGES / REFORMATS: None All CT scans at this medical facility are performed using dose modulation techniques as appropriate to a performed exam including the following: Automated exposure control was utilized; adjustment of the MA and/or KV according to patient size; and use of iterative reconstruction technique. FINDINGS: Bones: Scattered degenerative changes are noted. Visualized Abdomen: Gallstone in the gallbladder. Chest Wall: Normal. Soft tissues: Normal. Mediastinum: Normal. Heart: Coronary artery calcifications are noted. Vessels: Normal. Lymph Nodes: Normal. Pleura: Small left pleural effusion. Airways: Normal. Lung: Severe emphysema. Scattered basilar areas of atelectasis. 3.1 cm focal consolidation or mass in the right lower lobe. Other: None IMPRESSION: Severe emphysema. Scattered basilar areas of atelectasis. 3.1 cm focal consolidation or mass in the right lower lobe. Condition at Discharge: Stable Final Diagnosis/Problems List Acute hypoxic respiratory failure likely due to COPD exacerbation Possible lung mass in the right lower lobe Hypertensive urgency Anxiety disorder Acute transaminitis History of asthma Discharge Disposition: Home Discharge Instruct/Medications Diet: Regular Activity: No Restrictions, As Tolerated Follow Up/Referral: F/U with her PCP in 1 week F/U with pulmonology for poss lung mass on right lower lobe, CT scan chest F/U in 6-8months Medications: Prednisone 40mg QD for 5 days Levofloxacin 750mg QD for 4 additional days Discharge Statement: "Patient was advised to return to the ER or call 911 if any headaches, dizziness, shortness of breath, chest pain, abdominal pain, bleeding, fevers, or worsening of medical condition. Patient was counseled about treatment plan, medications, possible side effects, patientverbalized understanding. All questions were answered to the best of my ability. This discharge took greater then 30 minutes in planning, reviewing documentation, counseling the patient, and discussing with other team members." ASSESSMENT ASSESSMENT Assessment Acute hypoxic respiratory failure likely due to COPD exacerbation Possible lung mass in the right lower lobe Hypertensive urgency Anxiety disorder Acute transaminitis History of asthma Date of Service: Jul 13, 2024 Billing Provider: RASHAUN FORBES MD Common Visit Codes: 59783-GXE/OBS DISCH DAY >30min TANJA JOINER RESIDENT Jul 13, 2024 07:43 RASHAUN FORBES MD Jul 13, 2024 22:04
[2024-07-13] MEDS ORDERED: PRED20TA2 PO (07:52)
[2024-07-13] MEDS ORDERED: LEVO750T40 PO (07:52)
== END 2024-07-13 11:49 | disposition home or self-care (01) | DRG 189 ==
LOC: ER 08:27 → EDBD 08:27 → TELE 13:54 → TELE-CENTR 21:20
PROVIDERS: ADMIT Internal Medicine Geriatric Medicine; ATTEND Internal Medicine
DX: J96.21 Acute and chronic respiratory failure with hypoxia (principal); J44.1 Chronic obstructive pulmonary disease with (acute) exacerbation; I16.0 Hypertensive urgency; I10 Essential (primary) hypertension; R00.0 Tachycardia, unspecified; Z20.822 Contact with and (suspected) exposure to COVID-19; R74.01 Elevation of levels of liver transaminase levels; F41.9 Anxiety disorder, unspecified; Z99.81 Dependence on supplemental oxygen
CPT/HCPCS: 36415; 71045; 71250; 80048; 80053; 80061; 81001; 82962; 83036; 83735; 83880; 84132; 84443; 84484; 85025; 87426; 87804; 93005; 94640; 99291; G0378; J1815; J2405

== ENCOUNTER 2024-11-07 07:27 | Inpatient (IN) | payer MEDICARE, MEDICAID ==
[2024-11-07] VITALS (10 sets, daily range): BP systolic 147; BP diastolic 105; PULSE 94–139; RESP 18–27; O2SAT 91–98
[~2024-11-07] VITALS: Ht 177.8 cm; Wt 65.3 kg
[~2024-11-07 07:27] MED LIST changes: -CEPH250C PO; -DULO1CAP5 PO; +LEVO750T40 PO; -NAPR1TAB24 PO; +PRED20TA2 PO; -TRAM50TA2 PO
--- NOTE | 2024-11-07 07:46 | ED.PDOC ---
SOB-HPI HPI Comments 74 year old female brought in by EMS presents to the ED with a chief complaint of shortness of breath onset 8 days. Per EMS, upon their arrival patient was experiencing rapid breathing, was on 4L O2 but still experiencing shortness of breath. Patient ran out of Xanax medication 8 days ago and since then has been experiencing anxiety, loss of sleep and appetite. Patient states she currently experiencing anxiety, chest pain that radiates to back, shortness of breath, headache. Home health nurse noticed symptoms worsened today and called 911. PMHx anxiety, asthma, COPD, HTN. Denies abdominal pain, nausea, vomiting,diarrhea, dizziness, blurry vision, dysuria. No other symptoms or modifying factors present at this time. Chief Complaint: Shortness of Breath Time Seen by MD: 07:25 Primary Care Provider: CLEMENTE Sherwood notes: Medications, Allergies Information Source: Patient, Emergency Med Personnel Mode of Arrival: EMS Timing: Days Duration: Since onset Context: At Rest PE Risk Factors: None History of: Asthma, COPD, Anxiety Prehospital treatment: Oxygen Modifying Factors: Nothing Associated Signs and Symptoms: Chest Pain, Anxiety Radiation: Back Location: Substernal Past Medical History PAST MEDICAL HISTORY: Anxiety, Asthma, COPD, HTN Surgical History: Denies all surgeries DAY CARE DIRECTOR History: No Pertinent DAY CARE DIRECTOR History Family History Family History: Reviewed,noncontributory to illness Social History Smoker: Non-Smoker Alcohol: Denies ETOH Use Drugs: Denies Drug Use Lives In: Home Constitutional: denies: chills, diaphoresis, fatigue, fever, malaise, sweats, weakness, others EENTM: denies: blurred vision, double vision, ear bleeding, ear discharge, ear drainage, ear pain, ear ringing, eye pain, eye redness, hearing loss, mouth pain, mouth swelling, nasal discharge, nose bleeding, nose congestion, nose pain, photophobia, tearing, throat pain, throat swelling, voice changes, others Respiratory: reports: shortness of breath; denies: cough, hemoptysis, orthopnea, SOB at rest, SOB with excertion, stridor, wheezing, others Cardiovascular: reports: chest pain; denies: dizzy spells, diaphoresis, Dyspnea on exertion, edema, irregular heart beat, left arm pain, lightheadedness, palpitations, PND, syncope, others Gastrointestinal: denies: abdomen distended, abdominal pain, blood streaked bowels, constipated, diarrhea, dysphagia, difficulty swallowing, hematemesis, melena, nausea, poor appetite, poor fluid intake, rectal bleeding, rectal pain, vomiting, others Genitourinary: denies: abnormal vagina bleeding, burning, dyspareunia, dysuria, flank pain, frequency, hematuria, incontinence, pain, , vagina discharge, urgency, others Neurological: reports: headache; denies: dizziness, fainting, left sided numbness, left sided weakness, numbness, paresthesia, pre-existing deficit, right sided numbness, right sided weakness, seizure, speech problems, tingling, tremors, weakness, others Musculoskeletal: reports: back pain; denies: gout, joint pain, joint swelling, muscle pain, muscle stiffness, neck pain, others Integumetry: denies: bruises, change in color, change in hair/nails, dryness, laceration, lesions, lumps, rash, wounds, others Allergic/Immunocompromised: denies: Difficulty Healing, Frequent Infections, Hives, Itching, others Hematologic/Lymphatic: denies: anemia, blood clots, easy bleeding, easy bruising, swollen glands, others Endocrine: denies: excessive hunger, excessive sweating, excessive thirst, excessive urination, flushing, intolerance to cold, intolerance to heat, unexplained weight gain, unexplained weight loss, others Psychiatric: denies: anxiety, bipolar disorder, depression, hopeless, panic disorder, schizophrenia, sleepless, suicidal, others All Other Systems: Reviewed and Negative Physical Exam General Appearance: Moderate Distress HEENT: Normal ENT Inspection, Pharynx Normal, TMs Normal Neck: Full Range of Motion, Non-Tender, Normal, Normal Inspection Respiratory: Accessory Muscle Use, Respiratory Distress, Other (Coarse breath sounds) Cardiovascular: Tachycardia Breast Exam: Deferred Gastrointestinal: No Organomegaly, Non Tender, No Pulsatile Mass, Normal Bowel Sounds, Soft Genitalia: Deferred Pelvic: Deferred Rectal: Deferred Extremities: No calf tenderness, Normal capillary refill, Normal inspection, Normal range of motion, Non-tender, No pedal edema Musculoskeletal : Apperance: Normal Neurologic: Alert Cerebellar Function: NOT DONE Reflexes: NOT DONE Skin: Normal Color Peripheral Pulses: 3+ Radial (R), 3+ Radial (L) Lymphatic: No Adenopathy Was a procedure done? Was a procedure done?: No Differential Dx Differential Diagnosis: Anxiety, Asthma, Bronchitis, CHF, COPD X-Ray, Labs, Meds, VS Vital Signs Date Time Temp Pulse Resp B/P (MAP) Pulse Ox O2 Delivery O2 Flow Rate FiO2 11/07/24 07:59 94 18 95 Nasal Cannula* 4 36 11/07/24 07:54 98.0 94 17 152/109 (123) 95 98.0 11/07/24 07:37 98 Nasal Cannula* 4 36 11/07/24 07:37 98.1 103 22 147/105 (119) 98 11/07/24 07:31 106 Lab Test 11/07/24 07:48 Range/Units White Blood Count 9.5 4.4-10.8 10^3/uL Red Blood Count 4.36 4.0-5.20 10^6/uL Hemoglobin 14.2 12.2-16.2 g/dL Hematocrit 43.3 36.0-46.0 % Mean Corpuscular Volume 99.3 80.0-100.0 fL Mean Corpuscular Hemoglobin 32.6 H 28.0-32.0 pg Mean Corpuscular Hemoglobin Concent 32.8 32.0-36.0 g/dL Red Cell Distribution Width 13.9 11.8-14.3 % Platelet Count 351 140-450 10^3/uL Mean Platelet Volume 7.8 6.9-10.8 fL Neutrophils (%) (Auto) 74.9 37.0-80.0 % Lymphocytes (%) (Auto) 16.4 10.0-50.0 % Monocytes (%) (Auto) 6.7 0.0-12.0 % Eosinophils (%) (Auto) 1.0 0.0-7.0 % Basophils (%) (Auto) 1.0 0.0-2.0 % Neutrophils # (Auto) 7.1 1.6-8.6 10 ^3/uL Lymphocytes # (Auto) 1.6 0.4-5.4 10 ^3/uL Monocytes # (Auto) 0.6 0-1.3 10 ^3/uL Eosinophils # (Auto) 0.1 0-0.8 10 ^3/uL Basophils # (Auto) 0.1 0-0.2 10 ^3/uL Nucleated Red Blood Cells 0.1 % Sodium Level 139 136-145 mmol/L Potassium Level 4.0 3.5-5.1 mmol/L Chloride Level 102 98-107 mmol/L Carbon Dioxide Level 24 20-31 mmol/L Anion Gap 13 5-15 Blood Urea Nitrogen 11 9-23 mg/dL Creatinine 0.86 0.550-1.02 mg/dL Glomerular Filtration Rate Calc 71 >90 mL/min BUN/Creatinine Ratio 12.8 10.0-20.0 Serum Glucose 96 74-106 mg/dL Calcium Level 9.9 8.7-10.4 mg/dL Troponin I High Sensitivity 34 </=34 ng/L Current Medications Medications (Trade) Dose Ordered Sig/Rio Route Start Time Stop Time Status Last Admin Magnesium Sulfate/ Dextrose 100 ml @ 100 mls/hr ONCE ONCE IV 11/07/24 07:45 11/07/24 08:44 11/07/24 08:02 Methylprednisolone Sodium Succinate (Solu Medrol) 125 mg ONCE ONCE IV 11/07/24 07:45 11/07/24 07:46 DC 11/07/24 08:01 Lorazepam (Ativan Inj) 1 mg ONCE ONCE IV 11/07/24 07:45 11/07/24 07:46 DC 11/07/24 08:01 Patient alert. Shortness a breath. Tachycardia. Placed on oxygen. Using accessory muscles. Patient critical. History of COPD. Possible anxiety. Was given steroid. Was given breathing treatment. Was given magnesium. Was given Ativan. Reviewed her previous history. EKG reviewed does not show any acute process. Explained to the patient. Continue monitoring. [place] [id number] Ph: [phone] DIAGNOSTIC IMAGING Diagnostic Imaging Report : [id number] Signed PATIENT: NAY ROACH ACCT: [id number] UNIT: [id number] : 1950 LOC: ER ROOM / BED: / AGE / SEX: 74 / F ADM STATUS: REG ER SERVICE [id number] ORDERING PHYSICIAN: MAVIS CONDON MD PROCEDURE(s): CXRP - CHEST PORTABLE REASON: sob ORDER NUMBER(s): [id number], ACCESSION NUMBER(s): [id number] CLINICAL INFORMATION: Shortness of breath. TECHNIQUE: AP chest radiographs were obtained. COMPARISON: XY CHEST PORTABLE on DOS: 07/10/24, XY CHEST XRAY 1 VIEW on DOS: 12/03/23, XY CHEST PORTABLE on DOS: 10/13/23 FINDINGS: Lungs: Thickening along the left major fissure, similar to the prior exam, may be due to scarring emphysematous changes appear similar to the prior exam. No dense focal consolidation. Cardiac: Heart size is within normal limits. Pulmonary vasculature: Unremarkable. Mediastinum/isela: Unremarkable. Bones: No acute osseous abnormality identified. Other: No other significant findings. IMPRESSION: Stable nonacute findings as described above. No focal consolidation or other acute abnormality identified in the chest. ATED BY: ALVARO BARAHONA DO DICTATED DATE/TIME: 11/07/24812 SIGNED BY: ALVARO BARAHONA DO SIGNED DATE/TIME: 11/07/24812 CC: Time of 1ST Reevaluation: 07:55 Reevaluation 1ST: Unchanged Patient Education/Counseling: Diagnosis, Treatment, Prognosis Family Education/Counseling: No Family Present Additional Information The following tests were ordered, and results were reviewed by me: TROP, CBC, XY CHEST, UA, BMP, EKG Additional Information was gathered from interviewing the following independent historians: EMS I reviewed and agreed with the following test results read by other providers: XY CHEST I discussed treatment and results with medical personnel and: patient Departure 1 Departure Time of Disposition: 08:17 Impression: Primary Impression: Acute respiratory failure Qualified Codes: J96.01 - Acute respiratory failure with hypoxia Additional Impression: COPD exacerbation Disposition: ADMITTED INPATIENT Admit to: Med Surg Condition: Guarded Critical Care Note Critical Care Time?: Yes (90 min-critical care time only) Critical care comment: Placed on oxygen Stability Stability form required: No Heart Score Heart Score: Heart Score Response (Comments) Value History Slightly Suspicious 0 EKG Normal 0 Age >65 2 Risk Factors >3 or Hx ASHD 2 Troponin Normal limit 0 Total 4 I personally scribed for MAVIS CONDON MD ([email or web address]) on 11/07/24 at 07:45. Electronically submitted by Noemi Ch ([email or web address]). I personally scribed for MAVIS CONDON MD ([email or web address]) on 11/07/24 at 07:56. Electronically submitted by Noemi Ch ([email or web address]). I personally scribed for MAVIS CONDON MD ([email or web address]) on 11/07/24 at 08:19. Electronically submitted by Noemi Ch [email or web address]). MAVIS CONDON MD Nov 07, 2024 07:45
[2024-11-07] MEDS: LORazepam 2MG/ML-1ML VIAL IV ONE ×2 (08:01→11:52)
[2024-11-07] MEDS: methylPREDNISolone SOD SUCC 125 MG/2 ML VL IV ONE (08:01)
[2024-11-07] MEDS: MAGNESIUM SULFATE 1GM/100ML 100 ML IV ONE (08:02)
[2024-11-07 08:07] LABS: Chloride 102 mmol/L (98-107); Sodium 139 mmol/L (136-145)
[2024-11-07 08:08] LABS: Anion Gap 13 (5-15); Carbon Dioxide 24 mmol/L (20-31)
[2024-11-07 08:09] LABS: Calcium 9.9 mg/dL (8.7-10.4)
[2024-11-07 08:12] LABS: Basophils # (auto) 0.1 10 ^3/uL (0-0.2); Eosinophils # (auto) 0.1 10 ^3/uL (0-0.8); Hematocrit 43.3 % (36.0-46.0); Hemoglobin 14.2 g/dL (12.2-16.2); Lymphocytes # (auto) 1.6 10 ^3/uL (0.4-5.4); Lymphocytes % (auto) 16.4 % (10.0-50.0); Mean Corpuscular Hemoglobin 32.6 pg (28.0-32.0); Mean Corpuscular Hgb Conc. 32.8 g/dL (32.0-36.0); Mean Corpuscular Volume 99.3 fL (80.0-100.0); Monocytes # (auto) 0.6 10 ^3/uL (0-1.3); Monocytes % (auto) 6.7 % (0.0-12.0); Neutrophils # (auto) 7.1 10 ^3/uL (1.6-8.6); Neutrophils % (auto) 74.9 % (37.0-80.0); Nucleated Red Blood Cells % 0.1 %; Platelet Count (auto) 351 10^3/uL (140-450); Red Blood Cells 4.36 10^6/uL (4.0-5.20); Red Cell Distribution Width 13.9 % (11.8-14.3); White Blood Cell 9.5 10^3/uL (4.4-10.8)
[2024-11-07 08:13] LABS: BUN/Creatinine Ratio 12.8 (10.0-20.0); Blood Urea Nitrogen 11 mg/dL (9-23); Glucose 96 mg/dL (74-106)
--- NOTE | 2024-11-07 08:16 | DVH ---
CLINICAL INFORMATION: Shortness of breath. TECHNIQUE: AP chest radiographs were obtained. COMPARISON: XY CHEST PORTABLE on DOS: 07/10/24, XY CHEST XRAY 1 VIEW on DOS: 12/03/23, XY CHEST PORTABL E on DOS: 10/13/23 FINDINGS: Lungs: Thickening along the left major fissure, similar to the prior exam, may be due to scarring emp hysematous changes appear similar to the prior exam. No dense focal consolidation. Cardiac: Heart size is within normal limits. Pulmonary vasculature: Unremarkable. Mediastinum/isela: Unremarkable. Bones: No acute osseous abnormality identified. Other: No other significant findings. IMPRESSION: Stable nonacute findings as described above. No focal consolidation or other acute abnormality identi fied in the chest.
[2024-11-07] MEDS: IPRATROPIUM BROM 0.5 MG/2.5ML INH SOL NEB ONE (08:24)
[2024-11-07] MEDS: ALBUTEROL SULF 2.5 MG/0.5ML(0.5%) NEB SOLN NEB ONE (08:25)
--- NOTE | 2024-11-07 10:47 | ECG ---
[facility] Test Date: 2024-11-07 Test Time: 07:31:27 Pat Name: NAY ROACH Department: er Room: 0249T Gender: F Shipping Processor: nhan : 1950 Requested By: MAVIS CONDON Order Number: [id number] Reading MD: Mihir Peterson Measurements Intervals [place] Rate: 106 P: 84 MS: 152 QRS: 83 QRSD: 80 T: 81 QT: 358 QTc: 476 Interpretive Statements Sinus tachycardia Multiple premature complexes, vent & supraven Consider right atrial enlargement Borderline right axis deviation Electronically Signed On 11-12-2024 17:10:19 PST by Mihir Peterson Please click the below link to view image of tracing.
--- NOTE | 2024-11-07 12:22 | DVHHP2 ---
History of Present Illness Reason for Visit: Shortness of breath History of Present Illness Lucila Doyle is a 74-year-old female with past medical history of hypertension, COPD on 2 L nasal cannula at home continuously, asthma, anxiety, emphysema, left hip ORIF, left distal radius ORIF, right breast tumor removal, left clavicle injury, and right wrist injury who presents to the ED with shortness of Breath, anxiety, loss of sleep and appetite x1 day. Patient reports that she no longer has any more Xanax and ran out of her medications. Patient also reports that she fell last week from her commode and hit her lower back against the door. Patient reports that he uses a front wheel walker for ambulation. She denies any chest pain, fever, chills, lightheadedness, weakness, and dizziness, abdominal pain, nausea, vomiting, and diarrhea. Cardiovascular: HTN Pulmonary: Asthma, COPD Psych: Anxiety Past Medical History Emphysema Past Surgical History: Other (Left hip id fracture ORIF, left distal radius ORIF, right breast tumor removal, left clavicle injury, and right wrist injury) Family History: None Smoke: No ALCOHOL: none Drugs: None Lives: with Family Domestic Violence: Neg Review of Systems Constitutional: Yes: Other (Loss of sleep and appetite) Respiratory: Shortness of breath Neurological: Other (Anxiety) Allergies: Coded Allergies: NO KNOWN ALLERGIES (Unverified , 08/21/23) Exam Vital Signs Vital Signs Date Time Temp Pulse Resp B/P (MAP) Pulse Ox O2 Delivery O2 Flow Rate FiO2 11/07/24 11:25 112 11/07/24 11:16 98.8 35 167/96 (119) 91 98.8 11/07/24 08:24 Nasal Cannula* 4 36 General Appearance: Alert, Oriented X3, Cooperative HEENT: Atraumatic, PERRLA, EOMI, Mucous membr. moist/pink Respiratory: Normal air movement Cardiovascular: Normal S1, Normal S2, No murmurs Abdominal: Normal bowel sounds, Soft, No tenderness, No hepatospenomegaly, No masses Extremities: No cyanosis, No edema, Normal pulses Neuro: Normal speech, Normal tone, Sensation intact Psych/Mental Status: Mental status NL, Other (Anxious) Labs/Xrays Labs Test 11/07/24 07:48 Range/Units White Blood Count 9.5 4.4-10.8 10^3/uL Red Blood Count 4.36 4.0-5.20 10^6/uL Hemoglobin 14.2 12.2-16.2 g/dL Hematocrit 43.3 36.0-46.0 % Mean Corpuscular Volume 99.3 80.0-100.0 fL Mean Corpuscular Hemoglobin 32.6 H 28.0-32.0 pg Mean Corpuscular Hemoglobin Concent 32.8 32.0-36.0 g/dL Red Cell Distribution Width 13.9 11.8-14.3 % Platelet Count 351 140-450 10^3/uL Mean Platelet Volume 7.8 6.9-10.8 fL Neutrophils (%) (Auto) 74.9 37.0-80.0 % Lymphocytes (%) (Auto) 16.4 10.0-50.0 % Monocytes (%) (Auto) 6.7 0.0-12.0 % Eosinophils (%) (Auto) 1.0 0.0-7.0 % Basophils (%) (Auto) 1.0 0.0-2.0 % Neutrophils # (Auto) 7.1 1.6-8.6 10 ^3/uL Lymphocytes # (Auto) 1.6 0.4-5.4 10 ^3/uL Monocytes # (Auto) 0.6 0-1.3 10 ^3/uL Eosinophils # (Auto) 0.1 0-0.8 10 ^3/uL Basophils # (Auto) 0.1 0-0.2 10 ^3/uL Nucleated Red Blood Cells 0.1 % Sodium Level 139 136-145 mmol/L Potassium Level 4.0 3.5-5.1 mmol/L Chloride Level 102 98-107 mmol/L Carbon Dioxide Level 24 20-31 mmol/L Anion Gap 13 5-15 Blood Urea Nitrogen 11 9-23 mg/dL Creatinine 0.86 0.550-1.02 mg/dL Glomerular Filtration Rate Calc 71 >90 mL/min BUN/Creatinine Ratio 12.8 10.0-20.0 Serum Glucose 96 74-106 mg/dL Calcium Level 9.9 8.7-10.4 mg/dL Troponin I High Sensitivity 34 </=34 ng/L EXAM: XY LUMBAR SPINE 3 VIEW HISTORY: back pain COMPARISON: None TECHNIQUE: AP and lateral views of the lumbar spine and spot lateral of the lumbosacral junction were performed. FINDINGS: Probable chronic compression fractures of L2 and L3, not well characterized secondary to diffuse osteopenia and over penetration of the films. No other fractures are definitely visualized about the lumbar spine. There is advanced degenerative disc disease and facet arthropathy. There is mild thoracolumbar scoliosis. IMPRESSION: 1. Probable chronic compression fractures of L2 and L3, not well characterized here secondary to diffuse osteopenia. Better characterization may be made with noncontrast CT or MRI of the lumbar spine on a nonemergent basis. 2. Advanced lumbar degenerative disc disease and facet arthropathy. CLINICAL INFORMATION: Shortness of breath. TECHNIQUE: AP chest radiographs were obtained. COMPARISON: XY CHEST PORTABLE on DOS: 07/10/24, XY CHEST XRAY 1 VIEW on DOS: 12/03/23, XY CHEST PORTABLE on DOS: 10/13/23 FINDINGS: Lungs: Thickening along the left major fissure, similar to the prior exam, may be due to scarring emphysematous changes appear similar to the prior exam. No dense focal consolidation. Cardiac: Heart size is within normal limits. Pulmonary vasculature: Unremarkable. Mediastinum/isela: Unremarkable. Bones: No acute osseous abnormality identified. Other: No other significant findings. IMPRESSION: Stable nonacute findings as described above. No focal consolidation or other acute abnormality identified in the chest. Assessment/Plan Assessment/Plan Assessment Acute anxiety Acute on chronic COPD exacerbation Oxygen dependence Sinus tach with PVCs Probable chronic compression fractures of L2 and L3 History of asthma History of emphysema History of hypertension History of left hip ORIF History of left distal radius ORIF History of right breast tumor removal History of left clavicle fracture History of right wrist injury Plan Admit to tele Supplemental O2 UA Ativan given ED Respiratory treatments IV steroids Mag level Chest x-ray noted Troponin noted IV fluids Lovenox ordered X-ray lumbar spine Famotidine Magnesium CT lumbar spine ordered Diet Antiemetics Pain management Home medications reconciled Discussed plan of care with patient and nurse Plan discussed with: Patient My Orders Orders - YVAN SALAZAR [employer] Procedure Category Date Status Time Admit ADMIT 11/07/24 Transmitted 12:16 Allergies CORNELIUS 11/07/24 Transmitted 12:16 Code Status CODE 11/07/24 Transmitted 12:16 0.9% Ns 1000 Ml PHA 11/07/24 Transmitted 12:30 Oxygen Per Hour RT 11/07/24 Transmitted 12:16 Docusate Sodium PHA 11/07/24 Transmitted Capsule (Colace 12:30 Complete Blood Count LAB 11/08/24 Verified 04:00 Comprehensive LAB 11/08/24 Verified Metabolic Panel 04:00 Cardiac DIET 11/07/24 Transmitted Diet-2gna,Lofat,Lochol Lunch Enoxaparin Sodium PHA 11/08/24 Transmitted (Lovenox) 10:00 Acetaminophen Tablet PHA 11/07/24 Transmitted (Tylenol Tablet) 12:30 Methylprednisolone PHA 11/07/24 Transmitted Sod Succ (Solu Medrol 14:00 Famotidine Injection PHA 11/08/24 Transmitted (Pepcid Injection) 10:00 Albuterol Medneb PHA 11/07/24 Transmitted (Ventolin Medneb) 14:00 Albuterol Medneb PHA 11/07/24 Transmitted (Ventolin Medneb) 12:30 Ipratropium Medneb PHA 11/07/24 Transmitted (Atrovent Medneb) 14:00 Ipratropium Medneb PHA 11/07/24 Transmitted (Atrovent Medneb) 12:30 Lumbar Spine 3 View XY 11/07/24 Transmitted 12:16 Date of Service: Nov 07, 2024 Billing Provider: YVAN SALAZAR Common Visit Codes: [id number] INP/OBS CARE (HIGH) YVAN SALAZAR Nov 07, 2024 12:22
[2024-11-07] MEDS ORDERED: DOCUSATE SOD 100 MG CAP PO PRN (12:30)
[2024-11-07] MEDS: SODIUM CHLORIDE 0.9% 1,000 ML IV SCH (12:38)
--- NOTE | 2024-11-07 13:10 | DVH ---
EXAM: XY LUMBAR SPINE 3 VIEW HISTORY: back pain COMPARISON: None TECHNIQUE: AP and lateral views of the lumbar spine and spot lateral of the lumbosacral junction were performed. FINDINGS: Probable chronic compression fractures of L2 and L3, not well characterized secondary to diffuse ost eopenia and over penetration of the films. No other fractures are definitely visualized about the lum bar spine. There is advanced degenerative disc disease and facet arthropathy. There is mild thoracol umbar scoliosis. IMPRESSION: 1. Probable chronic compression fractures of L2 and L3, not well characterized here secondary to diff use osteopenia. Better characterization may be made with noncontrast CT or MRI of the lumbar spine on a nonemergent basis. 2. Advanced lumbar degenerative disc disease and facet arthropathy.
[2024-11-07] MEDS: methylPREDNISolone SOD SUCC 125 MG/2 ML VL IV SCH (13:37)
[2024-11-07] MEDS: ALBUTEROL SULF 2.5 MG/0.5ML(0.5%) NEB SOLN NEB SCH (14:18)
[2024-11-07] MEDS: IPRATROPIUM BROM 0.5 MG/2.5ML INH SOL NEB SCH (14:19)
[2024-11-07 14:56] LABS: Base Excess -1.8 mmol/L (-2.0-3.0)
[2024-11-07] MEDS: IPRATROPIUM BROM 0.5 MG/2.5ML INH SOL NEB PRN (15:56)
[2024-11-07] MEDS: ALBUTEROL SULF 2.5 MG/0.5ML(0.5%) NEB SOLN NEB PRN (15:56)
[2024-11-07] MEDS: hydrALAZINE HCL 20 MG/ML VL IV PRN (16:04)
[2024-11-07] MEDS: ALPRAZolam 0.5 MG TAB PO PRN (16:42)
[2024-11-07] MEDS ORDERED: ALBUTEROL SULF 2.5 MG/0.5ML(0.5%) NEB SOLN NEB PRN (16:45)
[2024-11-07] MEDS ORDERED: IPRATROPIUM BROM 0.5 MG/2.5ML INH SOL NEB PRN (16:45)
[2024-11-07 21:27] LABS: Urine Bacteria FEW /hpf (None Seen); Urine Blood TRACE /uL (Negative); Urine Clarity Clear (Clear); Urine Color Light-Yellow (Yellow); Urine Mucus FEW (None Seen); Urine Protein, UAD TRACE (Negative); Urine Specific Gravity 1.012 (1.001-1.035); Urine Squamous Epithelial Cell FEW /hpf (<5); Urine Urobilinogen Normal (Negative); Urine WBC < 1 /HPF (0-5); Urine pH 5.5 (5.0-9.0)
[2024-11-07] MEDS: MELATONIN 5 MG TAB PO ONE (21:48)
[2024-11-07] MEDS: ACETAMINOPHEN 325 MG TAB PO PRN (22:12)
[2024-11-08] VITALS (14 sets, daily range): BP systolic 97; BP diastolic 54; PULSE 80–105; RESP 18–24; TEMP 98; O2SAT 92–100
[2024-11-08 05:39] LABS: Basophils # (auto) 0 10 ^3/uL (0-0.2); Basophils % (auto) 0.2 % (0.0-2.0); Eosinophils # (auto) 0 10 ^3/uL (0-0.8); Hematocrit 39.2 % (36.0-46.0); Hemoglobin 13.2 g/dL (12.2-16.2); Lymphocytes # (auto) 1.1 10 ^3/uL (0.4-5.4); Lymphocytes % (auto) 14.7 % (10.0-50.0); Mean Corpuscular Hemoglobin 33.1 pg (28.0-32.0); Mean Corpuscular Hgb Conc. 33.8 g/dL (32.0-36.0); Mean Corpuscular Volume 97.9 fL (80.0-100.0); Monocytes # (auto) 0.3 10 ^3/uL (0-1.3); Monocytes % (auto) 4.1 % (0.0-12.0); Neutrophils # (auto) 6.2 10 ^3/uL (1.6-8.6); Nucleated Red Blood Cells % 0.1 %; Platelet Count (auto) 404 10^3/uL (140-450); Red Cell Distribution Width 14.1 % (11.8-14.3); White Blood Cell 7.7 10^3/uL (4.4-10.8)
[2024-11-08 06:10] LABS: Alanine Aminotransferase 20 U/L (7-40); Albumin 4.2 g/dL (3.2-4.8); Alkaline Phosphatase 76 U/L (46-116); Anion Gap 13 (5-15); Aspartate Aminotransferase 29 U/L (13-40); BUN/Creatinine Ratio 23.5 (10.0-20.0); Bilirubin, Total 0.4 mg/dL (0.2-1.0); Blood Urea Nitrogen 19 mg/dL (9-23); Calcium 9.6 mg/dL (8.7-10.4); Carbon Dioxide 24 mmol/L (20-31); Chloride 100 mmol/L (98-107); Potassium 4.5 mmol/L (3.5-5.1); Sodium 137 mmol/L (136-145); Total Protein 6.6 g/dL (5.7-8.2)
[2024-11-08 06:39] LABS: Glucose 126 mg/dL (74-106)
[2024-11-08] MEDS: ESCITALOPRAM 10 MG TABLET PO SCH (10:00)
[2024-11-08] MEDS ORDERED: PATIENTS OWN MEDICATION (Lisinopril & Hydrochlorothiazi (Lisinopril/Hydrochlorothi) 1 TAB) PO SCH (10:00)
[2024-11-08] MEDS: MONTELUKAST SODIUM 10 MG TAB PO SCH (10:40)
[2024-11-08] MEDS: methylPREDNISolone SOD SUCC 125 MG/2 ML VL IV SCH (10:40)
[2024-11-08] MEDS: FAMOTIDINE (10MG/ML) 2ML VL IV SCH (10:40)
[2024-11-08] MEDS: ENOXAPARIN SOD 30 MG/0.3 ML SYRINGE SC SCH (10:41)
[2024-11-08] MEDS: cefTRIAXone 1GM/50ML D5W 50 ML IV ONE (12:45)
--- NOTE | 2024-11-08 13:06 | DVHPNRES ---
Progress Note Date Seen: Nov 08, 2024 Resident Creating Document: SUHAIL STAFFORD RESIDENT Medical Necessity Reason Pt with a Central, PICC or Fol: No Subjective Review of Systems HPIPatient is 71 years old female with history of COPD, emphysema, on home oxygen L per minute, hypertension, anxiety came to the ER due to worsening shortness of breaths. Patient complained of cough with mucus production. As per patient she has been having worsening short of breath for last few days. Patient denied fever, chest pain, acute joint pain or swelling, dysuria. CXR- thickening of the left major fissure. Right hilar opacity. PMH- COPD, emphysema, on home oxygen L per minute, hypertension, anxiety PSH- Other (Left hip id fracture ORIF, left distal radius ORIF, right breast tumor removal, left clavicle injury, and right wrist injury) Allergy- AND KIDNEY Personal History/ Social History- denies smoking/alcoholism/drug abuse Patient was seen today at the bedside. Patient Cardiovascular- deny acute chest pain or shortness of breath or cough or palpitation Respiratory denies cough or short of breath or wheezing Gastrointestinal- denies any rectal bleeding, nausea or vomiting Musculoskeletal-denies acute joint swelling or tenderness or redness Neurological- denies acute dysarthria, dysphagia, change in vision Psychiatry- denies depression or SI or HI Skin- denies acute rash or purpura Patient was seen today for clinical evaluation. Labs and chart reviewed. Patient reports feeling better today. Patient complained of anxiety, on p.r.n. Ativan. Started ceftriaxone 1 g IV daily and azithromycin 5 mg IV daily. Objective vital signs Vital Sign Date Time Temp Pulse Resp B/P (MAP) Pulse Ox O2 Delivery O2 Flow Rate FiO2 11/08/24 12:00 85 35 115/77 (90) 96 11/08/24 09:07 Nasal Cannula 4.0 11/08/24 09:07 36 11/08/24 06:00 98.2 98.2 Total Intake and Output 11/07/24 11/07/24 11/08/24 15:00 23:00 07:00 Intake Total 320 ml 880 ml 1250 ml Output Total 750 ml Balance 320 ml 880 ml 500 ml medications Current Medications Medications Dose Ordered Sig/Rio Route Start Time Stop Time Status Last Admin Dose Admin Docusate Sodium 100 mg BIDPRN PRN PO 11/07/24 12:30 Enoxaparin Sodium 30 mg DAILY SC 11/08/24 10:00 11/08/24 10:41 30 MG Acetaminophen 650 mg Q6HP PRN PO 11/07/24 12:30 11/07/24 22:12 650 MG Famotidine 20 mg DAILY IV 11/08/24 10:00 11/08/24 10:40 20 MG Albuterol 2.5 mg Q4HWA NEB 11/07/24 14:00 11/08/24 09:07 2.5 MG Ipratropium [place] 0.5 mg Q4HWA NEB 11/07/24 14:00 11/08/24 09:07 0.5 MG Hydralazine HCl 10 mg Q6HP PRN IV 11/07/24 15:45 11/07/24 16:04 10 MG Montelukast Sodium 10 mg DAILY PO 11/08/24 10:00 11/08/24 10:40 10 MG Patient Own Medication 1 tab DAILY PO 11/08/24 10:00 Patient Own Medication 1 tab DAILY PO 11/08/24 10:00 Hold Albuterol 2.5 mg Q4HPRN PRN NEB 11/07/24 16:45 Ipratropium [place] 0.5 mg Q4HPRN PRN NEB 11/07/24 16:45 Methylprednisolone Sodium Succinate 40 mg BID IV 11/08/24 10:00 11/08/24 10:40 40 MG Ceftriaxone Sodium 50 ml @ 100 mls/hr DAILY@09 IV 11/09/24 09:00 Azithromycin 250 ml @ 125 mls/hr DAILY IV 11/09/24 10:00 Alprazolam 1 mg Q8HPRN PRN PO 11/08/24 11:30 Examination General examination- awake, alert, oriented HEENT- PEERLA, no acute nasal discharge Cardiovascular- S1-S2 audible, rate and rhythm regular, no murmur Respiratory- diminished breath sound, wheezing+, Gastrointestinal-nontender, bowel sound+. Nondistended Musculoskeletal-no acute joint swelling or tenderness or redness# Lower extremity- no leg edema Neurological- cranial nerves intact, no acute dysarthria or dysphagia Psychiatry- denies depression or SI or HI Skin- no acute rash or purpura laboratory and microbiology Laboratory Tests 11/08/24 05:15 Test 11/08/24 05:15 Range/Units Serum Glucose 126 H 74-106 mg/dL Problem List/Assessment/Plan Problem List/Assessment/Plan Assessment #Acute hypoxic respiratory failure likely due to pneumonia Gram-positive versus Gram-negative #Acute exertional COPD -continue nebulization as prescribed -continue ceftriaxone 1 g IV daily -continue azithromycin 500 mg IV daily -continue methylprednisolone 40 mg IV b.i.d. #Hypertension -monitor blood pressure #Sinus tachycardia likely from pneumonia and hypoxic failure -continue current management #Anxiety -Ativan p.r.n. - Goals of care/advance care planning; FULL CODE; discussed with the patient >15 minutes PUD prophylaxis: Famotidine DVT prophylaxis: Lovenox Plan discussed with Dr. Hu , nursing staff, patient Total time spent on patient evaluation, chart review, assessment and plan, discussion discussion >35 minutes Plan discussed with: Patient Plan discussed with: Patient, Other (RN) My Orders My Orders Orders - SUHAIL STAFFORD Procedure Category Date Status Time Methylprednisolone PHA 11/08/24 In Process Sod Succ (Solu Medrol 10:00 Cervical Spine 3v XY 11/08/24 Logged 10:50 Ceftriaxone 1gm/50ml PHA 11/09/24 In Process D5w (Rocephin) 09:00 Azithromycin 500mg/ PHA 11/09/24 In Process 250ml (Zithromax 50 10:00 Azithromycin 500mg/ PHA 11/08/24 In Process 250ml (Zithromax 50 11:15 Alprazolam Tablet PHA 11/08/24 In Process (Xanax Tablet) 11:30 SUHAIL STAFFORD Nov 08, 2024 13:06
[2024-11-08] MEDS: AZITHROMYCIN 500MG/ 250ML 250 ML IV ONE (13:19)
--- NOTE | 2024-11-08 17:06 | DVH ---
EXAM: CT CERVICAL WITHOUT CONTRAST INDICATION: PAIN EXAM DATE: 11/08/2024 03:04 PM COMPARISON: CT CERVICAL WITHOUT CONTRAST on DOS: 08/21/23 TECHNIQUE: Multiple axial CT images of the cervical spine were obtained using bone algorithm. Axial a nd coronal reformatting was done. Bone and soft tissue windows were reviewed. Radiation Dose Information: CT Dose: CTDI volume is 30.26 mGy. Dose-length product is 1428.23 mGy*cm FINDINGS: The cervical alignment is intact. No acute cervical spine fracture is identified. The vertebral body heights are intact. No suspicious osseous lesions are identified. No significant degenerative changes are identified. There is mild straightening of the normal cervical lordotic curve which may be secondary to patient p ositioning or muscle spasm. There is no prevertebral soft tissue swelling. IMPRESSION: 1. Bony spondylosis and degenerative disc changes appear worse at C5 and C6. 2. No compressed vertebra are subluxations. All CT scans at this medical facility are performed using dose modulation techniques as appropriate t o a performed exam including the following: Automated exposure control was utilized; adjustment of th e MA and/or KV according to patient size; and use of iterative reconstruction technique.
--- NOTE | 2024-11-08 17:26 | DVH ---
CT LS SPINE WO CONTRAST Date: 11/08/2024 03:04 PM History: R/O FX Comparison: None TECHNIQUE: Multiple axial CT images of the lumbosacral spine were obtained using bone algorithm. Axial and coron al reformatting was done. Bone and soft tissue windows were reviewed. Radiation Dose Information: CT Dose: CTDI volume is 44.43 mGy. Dose-length product is 1428.23 mGy*cm FINDINGS: No CT evidence of definite acute fracture, spinal dislocation, or significant appearing acute subluxa tion is seen. The visualized paraspinal soft tissues are grossly unremarkable. T12-L1 mild compression superior endplate of L1. 20-30% compression superior endplate of L1. Mild com pression of the thecal sac anteriorly on right but no significant central spinal stenosis. L1-L2 20-30% compression superior endplate of L2. No central canal stenosis. L2-L3 20-30% compression superior endplate of L2 is noted with no significant central spinal canal st enosis L3-L4 20-30% compression superior endplate of L3. Mild diffuse annular bulging of the disc with hype rtrophic arthritic bony changes of the posterior facets and ligamentum flavum. This is creating mild trefoil configuration of the thecal sac. There is no significant central canal stenosis. L4-L5 There is no evidence of central spinal canal or neuroforaminal stenosis. L5-S1 There is no evidence of central spinal canal or neuroforaminal stenosis. IMPRESSION: 1. 20-30% compression superior endplate of L2 and L3 with no significant central spinal stenosis. 2. 20-30% compression superior endplate of L3. Hypertrophy ligamentum flavum and posterior facets cr eating a trefoil configuration to the thecal sac. 3. 4. All CT scans at this medical facility are performed using dose modulation techniques as appropriat e to a performed exam including the following: Automated exposure control was utilized; adjustment of the MA and/or KV according to patient size; and use of iterative reconstruction technique.
[2024-11-08] MEDS: ALPRAZolam 0.5 MG TAB PO PRN (18:40)
[2024-11-08] MEDS: methylPREDNISolone SOD SUCC 40 MG/ML VL IV SCH (22:29)
[2024-11-09] VITALS (16 sets, daily range): BP systolic 103–136; BP diastolic 61–83; PULSE 70–103; RESP 16–20; TEMP 97.3–98.8; O2SAT 92–99
[2024-11-09 06:29] LABS: Basophils # (auto) 0 10 ^3/uL (0-0.2); Basophils % (auto) 0.2 % (0.0-2.0); Eosinophils # (auto) 0 10 ^3/uL (0-0.8); Hematocrit 37.5 % (36.0-46.0); Hemoglobin 12.7 g/dL (12.2-16.2); Lymphocytes # (auto) 1.1 10 ^3/uL (0.4-5.4); Mean Corpuscular Hgb Conc. 33.8 g/dL (32.0-36.0); Mean Corpuscular Volume 97.6 fL (80.0-100.0); Monocytes # (auto) 0.6 10 ^3/uL (0-1.3); Monocytes % (auto) 5.1 % (0.0-12.0); Neutrophils # (auto) 9.5 10 ^3/uL (1.6-8.6); Neutrophils % (auto) 84.7 % (37.0-80.0); Platelet Count (auto) 436 10^3/uL (140-450); Red Blood Cells 3.84 10^6/uL (4.0-5.20); Red Cell Distribution Width 13.8 % (11.8-14.3); White Blood Cell 11.2 10^3/uL (4.4-10.8)
[2024-11-09 06:42] LABS: Chloride 103 mmol/L (98-107); Potassium 4.2 mmol/L (3.5-5.1); Sodium 140 mmol/L (136-145)
[2024-11-09 06:43] LABS: Anion Gap 9 (5-15); Calcium 9.3 mg/dL (8.7-10.4); Carbon Dioxide 28 mmol/L (20-31)
[2024-11-09 06:48] LABS: BUN/Creatinine Ratio 30.5 (10.0-20.0); Glucose 184 mg/dL (74-106)
[2024-11-09 06:49] LABS: Blood Urea Nitrogen 25 mg/dL (9-23); Magnesium 2.1 mg/dL (1.6-2.6)
[2024-11-09 09:03] LABS: Free T3 2.16 pg/mL (2.3-4.2)
[2024-11-09 09:04] LABS: Free T4 (Free Thyroxine) 1.16 ng/dL (0.89-1.76)
[2024-11-09] MEDS: cefTRIAXone 1GM/50ML D5W 50 ML IV SCH (10:27)
[2024-11-09] MEDS: AZITHROMYCIN 500MG/ 250ML 250 ML IV SCH (10:28)
--- NOTE | 2024-11-09 11:53 | DVHDSRES ---
Discharge Summary Date of Admission Resident Creating Document: SUHAIL STAFFORD Nov 07, 2024 at 12:16 Date of Discharge: Nov 09, 2024 Admitting Diagnosis Acute on chronic hypoxic respiratory failure likely due to pneumonia, acute exacerbation of COPD Labs/Diagnostic Data: Laboratory Results Test 11/09/24 07:12 11/09/24 05:53 11/08/24 05:15 11/07/24 20:58 Free Thyroxine (T4) Calculated 1.16 ng/dL (0.89-1.76) Free Triiodothyronine (T3) pg/mL 2.16 pg/mL (2.3-4.2) White Blood Count 11.2 10^3/uL (4.4-10.8) Red Blood Count 3.84 10^6/uL (4.0-5.20) Hemoglobin 12.7 g/dL (12.2-16.2) Hematocrit 37.5 % (36.0-46.0) Mean Corpuscular Volume 97.6 fL (80.0-100.0) Mean Corpuscular Hemoglobin 33.0 pg (28.0-32.0) Mean Corpuscular Hemoglobin Concent 33.8 g/dL (32.0-36.0) Red Cell Distribution Width 13.8 % (11.8-14.3) Platelet Count 436 10^3/uL (140-450) Mean Platelet Volume 7.6 fL (6.9-10.8) Neutrophils (%) (Auto) 84.7 % (37.0-80.0) Lymphocytes (%) (Auto) 10.0 % (10.0-50.0) Monocytes (%) (Auto) 5.1 % (0.0-12.0) Eosinophils (%) (Auto) 0.0 % (0.0-7.0) Basophils (%) (Auto) 0.2 % (0.0-2.0) Neutrophils # (Auto) 9.5 10 ^3/uL (1.6-8.6) Lymphocytes # (Auto) 1.1 10 ^3/uL (0.4-5.4) Monocytes # (Auto) 0.6 10 ^3/uL (0-1.3) Eosinophils # (Auto) 0 10 ^3/uL (0-0.8) Basophils # (Auto) 0 10 ^3/uL (0-0.2) Nucleated Red Blood Cells 0.0 % Sodium Level 140 mmol/L (136-145) Potassium Level 4.2 mmol/L (3.5-5.1) Chloride Level 103 mmol/L (98-107) Carbon Dioxide Level 28 mmol/L (20-31) Anion Gap 9 (5-15) Blood Urea Nitrogen 25 mg/dL (9-23) Creatinine 0.82 mg/dL (0.550-1.02) Glomerular Filtration Rate Calc 75 mL/min (>90) BUN/Creatinine Ratio 30.5 (10.0-20.0) Serum Glucose 184 mg/dL (74-106) Calcium Level 9.3 mg/dL (8.7-10.4) Magnesium Level 2.1 mg/dL (1.6-2.6) Hemoglobin A1c 5.4 % A1C (<5.7) Total Bilirubin 0.4 mg/dL (0.2-1.0) Aspartate Amino Transferase (AST) 29 U/L (13-40) Alanine Aminotransferase (ALT) 20 U/L (7-40) Alkaline Phosphatase 76 U/L (46-116) Total Protein 6.6 g/dL (5.7-8.2) Albumin 4.2 g/dL (3.2-4.8) Thyroid Stimulating Hormone (TSH) 0.24 uIU/mL (0.55-4.78) Urine Color Light-yellow (Yellow) Urine Clarity Clear (Clear) Urine pH 5.5 (5.0-9.0) Urine Specific [place] 1.012 (1.001-1.035) Urine Protein Trace (Negative) Urine Ketones 3+ (Negative) Urine Blood Trace /uL (Negative) Urine Nitrite Negative (Negative) Urine Bilirubin Negative (Negative) Urine Urobilinogen Normal mg/dL (Negative) Urine Leukocyte Esterase Negative /uL (Negative) Urine RBC 1 /hpf (0 - 4) Urine Microscopic WBC < 1 /HPF (0-5) Urine Squamous Epithelial Cells Few /hpf (<5) Urine Bacteria Few /hpf (None Seen) Urine Mucus Few (None Seen) Urine Glucose Normal mg/dL (Normal) Test 11/07/24 14:50 11/07/24 07:48 Blood Gas Specimen Type Arterial Blood Gas Sample Site Left radial Blood Gas Patient Temperature 37.0 Arterial Blood Date Drawn [id number] Arterial Blood pH 7.418 (7.350-7.450) Arterial Blood Partial Pressure CO2 35.0 mmHg (32.0-45.0) Arterial Blood Partial Pressure O2 60.7 mmHg (83.0-108.0) Arterial Blood HCO3 22.1 mmol/L (21.0-28.0) Arterial Blood Oxygen Saturation 91.3 % (94.0-98.0) Arterial Blood Base Excess -1.8 mmol/L (-2.0-3.0) Arterial Blood Oxyhemoglobin 89.7 % (94.0-98.0) Arterial Blood Carboxyhemoglobin 1.3 % (0.5-1.5) Arterial Blood Methemoglobin 0.4 % (0.0-1.5) Myron Test Yes Blood Gas Total Hemoglobin 14.10 g/dL (12.0-16.0) Blood Gas Liter Flow 4.00 Blood Gas Modality Nasal cannula FiO2 % 36.0 Troponin I High Sensitivity 34 ng/L (</=34) Other Laboratory Tests 11/09/24 05:53 Brief Hx & Hospital Course: HPI-Patient is 71 years old female with history of COPD, emphysema, on home oxygen L per minute, hypertension, anxiety came to the ER due to worsening shortness of breaths. Patient complained of cough with mucus production. As per patient she has been having worsening short of breath for last few days. Patient denied fever, chest pain, acute joint pain or swelling, dysuria. CXR- thickening of the left major fissure. Right hilar opacity. Hospital course-patient came to the hospital due to worsening short of breath. Patient was admitted to the hospital due to acute on chronic hypoxic respiratory failure likely due to pneumonia, acute exertional COPD.CXR-thickening of the left major fissure. Right hilar opacity. Patient was treated with IV antibiotic and nebulization and methylprednisolone. Patient's symptom improved. Denied any shortness of breath today. Patient is adamant about going home today. Patient is being discharged home with doxycycline 100 mg p.o. b.i.d. for 7 days. Patient's meds were sent to the pharmacy electronically. Patient was hemodynamically stable on discharge Diagnosis #Acute hypoxic respiratory failure likely due to pneumonia Gram-positive versus Gram-negative #Acute exertional COPD Emphysema #Hypertension #Sinus tachycardia likely from pneumonia and hypoxic failure #Anxiety # chronic cervical and low back pain likely due to degenerative joint disease # Probable chronic compression fractures of L2 and L3, #Bony spondylosis and degenerative disc changes appear worse at C5 and C6. Discharge plan Doxycycline 100 mg p.o. b.i.d. for 7 days Prednisone 40 mg p.o. daily for 5 days Please resume other home medications Please follow up with the primary care physician in 1 week Operations or Procedures [place] [address] Ph: [phone] DIAGNOSTIC IMAGING Diagnostic Imaging Report : [id number] Signed PATIENT: NAY ROACH ACCT: [id number] UNIT: [id number] : 1950 LOC: ER ROOM / BED: / AGE / SEX: 74 / F ADM STATUS: REG ER SERVICE 0733 ORDERING PHYSICIAN: MAVIS CONDON MD PROCEDURE(s): CXRP - CHEST PORTABLE REASON: sob ORDER NUMBER(s): [id number], ACCESSION NUMBER(s): [id number] CLINICAL INFORMATION: Shortness of breath. TECHNIQUE: AP chest radiographs were obtained. COMPARISON: XY CHEST PORTABLE on DOS: 07/10/24, XY CHEST XRAY 1 VIEW on DOS: 12/03/23, XY CHEST PORTABLE on DOS: 10/13/23 FINDINGS: Lungs: Thickening along the left major fissure, similar to the prior exam, may be due to scarring emphysematous changes appear similar to the prior exam. No dense focal consolidation. Cardiac: Heart size is within normal limits. Pulmonary vasculature: Unremarkable. Mediastinum/isela: Unremarkable. Bones: No acute osseous abnormality identified. Other: No other significant findings. IMPRESSION: Stable nonacute findings as described above. No focal consolidation or other acute abnormality identified in the chest. ATED BY: ALVARO BARAHONA DO DICTATED DATE/TIME: 11/07/24812 SIGNED BY: ALVARO BARAHONA DO SIGNED DATE/TIME: 11/07/24812 CC: [address] [id number] Ph: [phone] DIAGNOSTIC IMAGING Diagnostic Imaging Report : [id number] Signed PATIENT: NAY ROACH ACCT: [id number] UNIT: [id number] : 1950 LOC: OVERFLOW ROOM / BED: [facility]-ERT / A AGE / SEX: 74 / F ADM STATUS: ADM IN SERVICE 1216 ORDERING PHYSICIAN: YVAN SALAZAR HVAC DESIGN MECHANICAL ENGINEER PROCEDURE(s): LUMB2 - LUMBAR SPINE 3 VIEW REASON: back pain ORDER NUMBER(s): [id number], ACCESSION NUMBER(s): [id number] EXAM: XY LUMBAR SPINE 3 VIEW HISTORY: back pain COMPARISON: None TECHNIQUE: AP and lateral views of the lumbar spine and spot lateral of the lumbosacral junction were performed. FINDINGS: Probable chronic compression fractures of L2 and L3, not well characterized secondary to diffuse osteopenia and over penetration of the films. No other fractures are definitely visualized about the lumbar spine. There is advanced degenerative disc disease and facet arthropathy. There is mild thoracolumbar scoliosis. IMPRESSION: 1. Probable chronic compression fractures of L2 and L3, not well characterized here secondary to diffuse osteopenia. Better characterization may be made with noncontrast CT or MRI of the lumbar spine on a nonemergent basis. 2. Advanced lumbar degenerative disc disease and facet arthropathy. ATED BY: MELVIN ADAMS MD DICTATED DATE/TIME: 11/07/24 1308 SIGNED BY: MELVIN ADAMS MD SIGNED DATE/TIME: 11/07/24 1308 CC: [place] [id number] Ph: [phone] DIAGNOSTIC IMAGING Diagnostic Imaging Report : [id number] Signed PATIENT: NAY ROACH ACCT: [id number] UNIT: [id number] : 1950 LOC: OVERFLOW ROOM / BED: [facility] / A AGE / SEX: 74 / F ADM STATUS: ADM IN SERVICE 0700 ORDERING PHYSICIAN: YVAN SALAZAR HVAC DESIGN MECHANICAL ENGINEER PROCEDURE(s): LS2CT - LS SPINE WO CONTRAST REASON: R/O FX ORDER NUMBER(s): [id number], ACCESSION NUMBER(s): [id number] CT LS SPINE WO CONTRAST Date: 11/08/2024 03:04 PM History: R/O FX Comparison: None TECHNIQUE: Multiple axial CT images of the lumbosacral spine were obtained using bone algorithm. Axial and coronal reformatting was done. Bone and soft tissue windows were reviewed. Radiation Dose Information: CT Dose: CTDI volume is 44.43 mGy. Dose-length product is 1428.23 mGy*cm FINDINGS: No CT evidence of definite acute fracture, spinal dislocation, or significant appearing acute subluxation is seen. The visualized paraspinal soft tissues are grossly unremarkable. T12-L1 mild compression superior endplate of L1. 20-30% compression superior endplate of L1. Mild compression of the thecal sac anteriorly on right but no significant central spinal stenosis. L1-L2 20-30% compression superior endplate of L2. No central canal stenosis. L2-L3 20-30% compression superior endplate of L2 is noted with no significant central spinal canal stenosis L3-L4 20-30% compression superior endplate of L3. Mild diffuse annular bulging of the disc with hypertrophic arthritic bony changes of the posterior facets and ligamentum flavum. This is creating mild trefoil configuration of the thecal sac. There is no significant central canal stenosis. L4-L5 There is no evidence of central spinal canal or neuroforaminal stenosis. L5-S1 There is no evidence of central spinal canal or neuroforaminal stenosis. IMPRESSION: 1. 20-30% compression superior endplate of L2 and L3 with no significant central spinal stenosis. 2. 20-30% compression superior endplate of L3. Hypertrophy ligamentum flavum and posterior facets creating a trefoil configuration to the thecal sac. 3. 4. All CT scans at this medical facility are performed using dose modulation techniques as appropriate to a performed exam including the following: Automated exposure control was utilized; adjustment of the MA and/or KV according to patient size; and use of iterative reconstruction technique. ATED BY: KUSUM FRANCO Jr., DO DICTATED DATE/TIME: 11/08/241722 SIGNED BY: KUSUM FRANCO Jr., SIGNED DATE/TIME: 11/08/241722 CC: [place] [address] Ph: [phone] DIAGNOSTIC IMAGING Diagnostic Imaging Report : [id number] Signed PATIENT: NAY ROACH ACCT: [id number] UNIT: [id number] : 1950 LOC: OVERFLOW ROOM / BED: [facility] / A AGE / SEX: 74 / F ADM STATUS: ADM IN SERVICE 1502 ORDERING PHYSICIAN: TAN ROBIN NP PROCEDURE(s): CS2 - CERVICAL WITHOUT CONTRAST REASON: PAIN ORDER NUMBER(s): [id number], ACCESSION NUMBER(s): [id number] EXAM: CT CERVICAL WITHOUT CONTRAST INDICATION: PAIN EXAM DATE: 11/08/2024 03:04 PM COMPARISON: CT CERVICAL WITHOUT CONTRAST on DOS: 08/21/23 TECHNIQUE: Multiple axial CT images of the cervical spine were obtained using bone algorithm. Axial and coronal reformatting was done. Bone and soft tissue windows were reviewed. Radiation Dose Information: CT Dose: CTDI volume is 30.26 mGy. Dose-length product is 1428.23 mGy*cm FINDINGS: The cervical alignment is intact. No acute cervical spine fracture is identified. The vertebral body heights are intact. No suspicious osseous lesions are identified. No significant degenerative changes are identified. There is mild straightening of the normal cervical lordotic curve which may be secondary to patient positioning or muscle spasm. There is no prevertebral soft tissue swelling. IMPRESSION: 1. Bony spondylosis and degenerative disc changes appear worse at C5 and C6. 2. No compressed vertebra are subluxations. All CT scans at this medical facility are performed using dose modulation techniques as appropriate to a performed exam including the following: Automated exposure control was utilized; adjustment of the MA and/or KV according to patient size; and use of iterative reconstruction technique. ATED BY: KUSUM FRANCO Jr., DO DICTATED DATE/TIME: 11/08/241702 SIGNED BY: KUSUM FRANCO Jr., DO SIGNED DATE/TIME: 11/08/241702 CC: Condition at Discharge: Stable Final Diagnosis/Problems List #Acute hypoxic respiratory failure likely due to pneumonia Gram-positive versus Gram-negative #Acute exertional COPD Emphysema #Hypertension #Sinus tachycardia likely from pneumonia and hypoxic failure #Anxiety # chronic cervical and low back pain likely due to degenerative joint disease # Probable chronic compression fractures of L2 and L3, #Bony spondylosis and degenerative disc changes appear worse at C5 and C6. Discharge Instruct/Medications Follow Up/Referral: Please follow up with the primary care physician in 1 week Medications: Doxycycline 100 mg p.o. b.i.d. for 7 days Prednisone 40 mg p.o. daily for 5 days Please resume other home medications Discharge Statement: "Patient was advised to return to the ER or call 911 if any headaches, dizziness, shortness of breath, chest pain, abdominal pain, bleeding, fevers, or worsening of medical condition. Patient was counseled about treatment plan, medications, possible side effects, patientverbalized understanding. All questions were answered to the best of my ability. This discharge took greater then 30 minutes in planning, reviewing documentation, counseling the patient, and discussing with other team members." ASSESSMENT ASSESSMENT Assessment SUHAIL STAFFORD RESIDENT Nov 09, 2024 11:52
[2024-11-09] MEDS ORDERED: ACETYLCYSTEINE 10 %(100MG/ML) SOL 4ML NEB ONE (13:30)
--- NOTE | 2024-11-09 13:51 | DVHPNRES ---
Progress Note Date Seen: Nov 09, 2024 Resident Creating Document: SUHAIL STAFFORD RESIDENT Medical Necessity Reason Pt with a Central, PICC or Fol: No Subjective Review of Systems HPI-Patient is 71 years old female with history of COPD, emphysema, on home oxygen L per minute, hypertension, anxiety came to the ER due to worsening shortness of breaths. Patient complained of cough with mucus production. As per patient she has been having worsening short of breath for last few days. Patient denied fever, chest pain, acute joint pain or swelling, dysuria. CXR- thickening of the left major fissure. Right hilar opacity. PMH- COPD, emphysema, on home oxygen L per minute, hypertension, anxiety PSH- Other (Left hip id fracture ORIF, left distal radius ORIF, right breast tumor removal, left clavicle injury, and right wrist injury) Allergy- AND KIDNEY Personal History/ Social History- denies smoking/alcoholism/drug abuse Patient was seen today at the bedside. Patient Cardiovascular- deny acute chest pain or shortness of breath or cough or palpitation Respiratory denies cough or short of breath or wheezing Gastrointestinal- denies any rectal bleeding, nausea or vomiting Musculoskeletal-denies acute joint swelling or tenderness or redness Neurological- denies acute dysarthria, dysphagia, change in vision Psychiatry- denies depression or SI or HI Skin- denies acute rash or purpura Patient was seen today for clinical evaluation. Labs and chart reviewed. Patient reports feeling better today. Patient is tolerating IV antibiotic ceftriaxone azithromycin well. Patient complained of back pain. History lumbosacral spine revealed- Probable chronic compression fractures of L2 and L3. Ordered baclofen and ibuprofen. Objective vital signs Vital Sign Date Time Temp Pulse Resp B/P (MAP) Pulse Ox O2 Delivery O2 Flow Rate FiO2 11/09/24 13:33 89 18 95 11/09/24 13:28 Nasal Cannula 3.0 11/09/24 13:28 32 11/09/24 09:00 97.6 136/79 (98) 97.6 Total Intake and Output 11/08/24 11/08/24 11/09/24 15:00 23:00 07:00 Intake Total 275 ml 425 ml 150 ml Output Total 400 ml Balance 275 ml 425 ml -250 ml medications Current Medications Medications Dose Ordered Sig/Rio Route Start Time Stop Time Status Last Admin Dose Admin Docusate Sodium 100 mg BIDPRN PRN PO 11/07/24 12:30 Enoxaparin Sodium 30 mg DAILY SC 11/08/24 10:00 11/09/24 10:28 30 MG Acetaminophen 650 mg Q6HP PRN PO 11/07/24 12:30 11/09/24 05:08 650 MG Famotidine 20 mg DAILY IV 11/08/24 10:00 11/09/24 10:33 20 MG Albuterol 2.5 mg Q4HWA NEB 11/07/24 14:00 11/09/24 13:28 2.5 MG Ipratropium [place] 0.5 mg Q4HWA NEB 11/07/24 14:00 11/09/24 13:28 0.5 MG Hydralazine HCl 10 mg Q6HP PRN IV 11/07/24 15:45 11/07/24 16:04 10 MG Montelukast Sodium 10 mg DAILY PO 11/08/24 10:00 11/09/24 10:22 10 MG Patient Own Medication 1 tab DAILY PO 11/08/24 10:00 Patient Own Medication 1 tab DAILY PO 11/08/24 10:00 Hold Albuterol 2.5 mg Q4HPRN PRN NEB 11/07/24 16:45 Ipratropium [place] 0.5 mg Q4HPRN PRN NEB 11/07/24 16:45 Ceftriaxone Sodium 50 ml @ 100 mls/hr DAILY@09 IV 11/09/24 09:00 11/09/24 10:27 100 MLS/HR Azithromycin 250 ml @ 125 mls/hr DAILY IV 11/09/24 10:00 11/09/24 10:28 125 MLS/HR Alprazolam 1 mg Q8HPRN PRN PO 11/08/24 11:30 11/09/24 05:03 1 MG Methylprednisolone Sodium Succinate 40 mg BID IV 11/08/24 22:00 11/09/24 10:24 40 MG Acetaminophen/ Hydrocodone Bitart 1 tab Q4HPRN PRN PO 11/09/24 13:30 UNV Acetylcysteine 100 mg BID NEB 11/09/24 22:00 11/11/24 08:45 UNV Guaifenesin/ Codeine Phosphate 5 ml HS PO 11/09/24 22:00 UNV Baclofen 5 mg HS PO 11/09/24 22:00 UNV Ibuprofen 600 mg Q8HP PRN PO 11/09/24 13:30 UNV Examination General examination- awake, alert, oriented HEENT- PEERLA, no acute nasal discharge Cardiovascular- S1-S2 audible, rate and rhythm regular, no murmur Respiratory- diminished breath sound bilaterally Gastrointestinal-nontender, bowel sound+. Nondistended Musculoskeletal-no acute joint swelling or tenderness or redness# Lower extremity- no leg edema Neurological- cranial nerves intact, no acute dysarthria or dysphagia Psychiatry- denies depression or SI or HI Skin- no acute rash or purpura laboratory and microbiology Laboratory Tests 11/09/24 05:53 Test 11/09/24 05:53 Range/Units Serum Glucose 184 H 74-106 mg/dL Problem List/Assessment/Plan Problem List/Assessment/Plan Assessment #Acute hypoxic respiratory failure likely due to pneumonia Gram-positive versus Gram-negative #Acute exertional COPD -continue nebulization as prescribed -continue ceftriaxone 1 g IV daily -continue azithromycin 500 mg IV daily -continue methylprednisolone 40 mg IV b.i.d. #Hypertension -monitor blood pressure #Sinus tachycardia likely from pneumonia and hypoxic failure -continue current management #Anxiety -Ativan p.r.n. - Goals of care/advance care planning; FULL CODE; discussed with the patient >15 minutes PUD prophylaxis: Famotidine DVT prophylaxis: Lovenox Plan discussed with Dr. Hu , nursing staff, patient Total time spent on patient evaluation, chart review, assessment and plan, discussion discussion >35 minutes Plan discussed with: Patient Plan discussed with: Patient, Other (RN) My Orders My Orders Orders - SUHAIL STAFFORD Procedure Category Date Status Time Methylprednisolone PHA 11/08/24 In Process Sod Succ (Solu Medrol 22:00 SUHAIL STAFFORD Nov 09, 2024 13:51
[2024-11-09] MEDS: HYDROcodone-ACET 5/325MG TAB PO PRN (16:35)
[2024-11-09] MEDS: IBUPROFEN 600 MG TAB PO PRN (20:13)
[2024-11-09] MEDS: BACLOFEN 10 MG TAB PO SCH (21:28)
[2024-11-09] MEDS: guaiFENesin-CODEINE Liq 5 ML UD PO SCH (21:28)
[2024-11-09] MEDS: ACETYLCYSTEINE 10 %(100MG/ML) SOL 4ML NEB SCH (22:18)
[2024-11-10] VITALS (18 sets, daily range): BP systolic 116–180; BP diastolic 63–117; PULSE 75–92; RESP 16–18; TEMP 97.4–98.5; O2SAT 94–100
[2024-11-10 07:12] LABS: Basophils # (auto) 0 10 ^3/uL (0-0.2); Basophils % (auto) 0.2 % (0.0-2.0); Eosinophils # (auto) 0 10 ^3/uL (0-0.8); Hematocrit 35.1 % (36.0-46.0); Hemoglobin 12.2 g/dL (12.2-16.2); Lymphocytes # (auto) 1.1 10 ^3/uL (0.4-5.4); Lymphocytes % (auto) 11.7 % (10.0-50.0); Mean Corpuscular Hemoglobin 33.7 pg (28.0-32.0); Mean Corpuscular Hgb Conc. 34.6 g/dL (32.0-36.0); Mean Corpuscular Volume 97.3 fL (80.0-100.0); Monocytes # (auto) 0.5 10 ^3/uL (0-1.3); Monocytes % (auto) 5.6 % (0.0-12.0); Neutrophils # (auto) 7.5 10 ^3/uL (1.6-8.6); Neutrophils % (auto) 82.5 % (37.0-80.0); Platelet Count (auto) 417 10^3/uL (140-450); Red Blood Cells 3.61 10^6/uL (4.0-5.20); White Blood Cell 9.1 10^3/uL (4.4-10.8)
[2024-11-10 07:28] LABS: Anion Gap 7 (5-15); Carbon Dioxide 29 mmol/L (20-31); Chloride 104 mmol/L (98-107); Potassium 4.4 mmol/L (3.5-5.1); Sodium 140 mmol/L (136-145)
[2024-11-10 07:29] LABS: Calcium 9.1 mg/dL (8.7-10.4)
[2024-11-10 07:34] LABS: BUN/Creatinine Ratio 32.1 (10.0-20.0); Glucose 155 mg/dL (74-106)
[2024-11-10 07:35] LABS: Blood Urea Nitrogen 25 mg/dL (9-23); Magnesium 2.1 mg/dL (1.6-2.6)
[2024-11-10] MEDS: guaiFENesin 200 MG/10 ML UD PO ONE (10:40)
[2024-11-10] MEDS ORDERED: DOXY100C79 PO (11:26)
--- NOTE | 2024-11-10 11:27 | DVHDSRES ---
Discharge Summary Date of Admission Resident Creating Document: SUHAIL STAFFORD Nov 07, 2024 at 12:16 Date of Discharge: Nov 10, 2024 Labs/Diagnostic Data: Laboratory Results Test 11/10/24 06:31 11/09/24 07:12 11/08/24 05:15 11/07/24 20:58 White Blood Count 9.1 10^3/uL (4.4-10.8) Red Blood Count 3.61 10^6/uL (4.0-5.20) Hemoglobin 12.2 g/dL (12.2-16.2) Hematocrit 35.1 % (36.0-46.0) Mean Corpuscular Volume 97.3 fL (80.0-100.0) Mean Corpuscular Hemoglobin 33.7 pg (28.0-32.0) Mean Corpuscular Hemoglobin Concent 34.6 g/dL (32.0-36.0) Red Cell Distribution Width 14.0 % (11.8-14.3) Platelet Count 417 10^3/uL (140-450) Mean Platelet Volume 7.7 fL (6.9-10.8) Neutrophils (%) (Auto) 82.5 % (37.0-80.0) Lymphocytes (%) (Auto) 11.7 % (10.0-50.0) Monocytes (%) (Auto) 5.6 % (0.0-12.0) Eosinophils (%) (Auto) 0.0 % (0.0-7.0) Basophils (%) (Auto) 0.2 % (0.0-2.0) Neutrophils # (Auto) 7.5 10 ^3/uL (1.6-8.6) Lymphocytes # (Auto) 1.1 10 ^3/uL (0.4-5.4) Monocytes # (Auto) 0.5 10 ^3/uL (0-1.3) Eosinophils # (Auto) 0 10 ^3/uL (0-0.8) Basophils # (Auto) 0 10 ^3/uL (0-0.2) Nucleated Red Blood Cells 0.0 % Sodium Level 140 mmol/L (136-145) Potassium Level 4.4 mmol/L (3.5-5.1) Chloride Level 104 mmol/L (98-107) Carbon Dioxide Level 29 mmol/L (20-31) Anion Gap 7 (5-15) Blood Urea Nitrogen 25 mg/dL (9-23) Creatinine 0.78 mg/dL (0.550-1.02) Glomerular Filtration Rate Calc 80 mL/min (>90) BUN/Creatinine Ratio 32.1 (10.0-20.0) Serum Glucose 155 mg/dL (74-106) Calcium Level 9.1 mg/dL (8.7-10.4) Magnesium Level 2.1 mg/dL (1.6-2.6) Free Thyroxine (T4) Calculated 1.16 ng/dL (0.89-1.76) Free Triiodothyronine (T3) pg/mL 2.16 pg/mL (2.3-4.2) Hemoglobin A1c 5.4 % A1C (<5.7) Total Bilirubin 0.4 mg/dL (0.2-1.0) Aspartate Amino Transferase (AST) 29 U/L (13-40) Alanine Aminotransferase (ALT) 20 U/L (7-40) Alkaline Phosphatase 76 U/L (46-116) Total Protein 6.6 g/dL (5.7-8.2) Albumin 4.2 g/dL (3.2-4.8) Thyroid Stimulating Hormone (TSH) 0.24 uIU/mL (0.55-4.78) Urine Color Light-yellow (Yellow) Urine Clarity Clear (Clear) Urine pH 5.5 (5.0-9.0) Urine Specific [place] 1.012 (1.001-1.035) Urine Protein Trace (Negative) Urine Ketones 3+ (Negative) Urine Blood Trace /uL (Negative) Urine Nitrite Negative (Negative) Urine Bilirubin Negative (Negative) Urine Urobilinogen Normal mg/dL (Negative) Urine Leukocyte Esterase Negative /uL (Negative) Urine RBC 1 /hpf (0 - 4) Urine Microscopic WBC < 1 /HPF (0-5) Urine Squamous Epithelial Cells Few /hpf (<5) Urine Bacteria Few /hpf (None Seen) Urine Mucus Few (None Seen) Urine Glucose Normal mg/dL (Normal) Test 11/07/24 14:50 11/07/24 07:48 Blood Gas Specimen Type Arterial Blood Gas Sample Site Left radial Blood Gas Patient Temperature 37.0 Arterial Blood Date Drawn [id number] Arterial Blood pH 7.418 (7.350-7.450) Arterial Blood Partial Pressure CO2 35.0 mmHg (32.0-45.0) Arterial Blood Partial Pressure O2 60.7 mmHg (83.0-108.0) Arterial Blood HCO3 22.1 mmol/L (21.0-28.0) Arterial Blood Oxygen Saturation 91.3 % (94.0-98.0) Arterial Blood Base Excess -1.8 mmol/L (-2.0-3.0) Arterial Blood Oxyhemoglobin 89.7 % (94.0-98.0) Arterial Blood Carboxyhemoglobin 1.3 % (0.5-1.5) Arterial Blood Methemoglobin 0.4 % (0.0-1.5) Myron Test Yes Blood Gas Total Hemoglobin 14.10 g/dL (12.0-16.0) Blood Gas Liter Flow 4.00 Blood Gas Modality Nasal cannula FiO2 % 36.0 Troponin I High Sensitivity 34 ng/L (</=34) Other Laboratory Tests 11/10/24 06:31 Brief Hx & Hospital Course: HPI-Patient is 71 years old female with history of COPD, emphysema, on home oxygen L per minute, hypertension, anxiety came to the ER due to worsening shortness of breaths. Patient complained of cough with mucus production. As per patient she has been having worsening short of breath for last few days. Patient denied fever, chest pain, acute joint pain or swelling, dysuria. CXR- thickening of the left major fissure. Right hilar opacity. Hospital course-patient came to the hospital due to worsening short of breath. Patient was admitted to the hospital due to acute on chronic hypoxic respiratory failure likely due to pneumonia, acute exertional COPD.CXR-thickening of the left major fissure. Right hilar opacity. Patient was treated with IV antibiotic and nebulization and methylprednisolone. Patient's symptom improved. Denied any shortness of breath today. Patient is adamant about going home today. Patient is being discharged home with doxycycline 100 mg p.o. b.i.d. for 7 days. Patient's meds were sent to the pharmacy electronically. Patient was hemodynamically stable on discharge Diagnosis #Acute hypoxic respiratory failure likely due to pneumonia Gram-positive versus Gram-negative #Acute exertional COPD Emphysema #Hypertension #Sinus tachycardia likely from pneumonia and hypoxic failure #Anxiety # chronic cervical and low back pain likely due to degenerative joint disease # Probable chronic compression fractures of L2 and L3, #Bony spondylosis and degenerative disc changes appear worse at C5 and C6. Discharge plan Doxycycline 100 mg p.o. b.i.d. for 7 days Prednisone 40 mg p.o. daily for 5 days Please resume other home medications Please follow up with the primary care physician in 1 week Please follow up with the food assembler in 1-2 weeks Operations or Procedures [place] [address] Ph: [phone] DIAGNOSTIC IMAGING Diagnostic Imaging Report : [id number] Signed PATIENT: NAY ROACH ACCT: [id number] UNIT: [id number] : 1950 LOC: ER ROOM / BED: / AGE / SEX: 74 / F ADM STATUS: REG ER SERVICE 0733 ORDERING PHYSICIAN: MAVIS CONDON MD PROCEDURE(s): CXRP - CHEST PORTABLE REASON: sob ORDER NUMBER(s): [id number], ACCESSION NUMBER(s): [id number] CLINICAL INFORMATION: Shortness of breath. TECHNIQUE: AP chest radiographs were obtained. COMPARISON: XY CHEST PORTABLE on DOS: 07/10/24, XY CHEST XRAY 1 VIEW on DOS: 12/03/23, XY CHEST PORTABLE on DOS: 10/13/23 FINDINGS: Lungs: Thickening along the left major fissure, similar to the prior exam, may be due to scarring emphysematous changes appear similar to the prior exam. No dense focal consolidation. Cardiac: Heart size is within normal limits. Pulmonary vasculature: Unremarkable. Mediastinum/isela: Unremarkable. Bones: No acute osseous abnormality identified. Other: No other significant findings. IMPRESSION: Stable nonacute findings as described above. No focal consolidation or other acute abnormality identified in the chest. ATED BY: AVLARO BARAHONA DO DICTATED DATE/TIME: 11/07/24812 SIGNED BY: ALVARO BARAHONA DO SIGNED DATE/TIME: 11/07/24812 CC: [address] [id number] Ph: [phone] DIAGNOSTIC IMAGING Diagnostic Imaging Report : [id number] Signed PATIENT: NAY ROACH ACCT: [id number] UNIT: [id number] : 1950 LOC: OVERFLOW ROOM / BED: 1020-ERT / A AGE / SEX: 74 / F ADM STATUS: ADM IN SERVICE 1216 ORDERING PHYSICIAN: YVAN SALAZAR BASEBALL COACH PROCEDURE(s): LUMB2 - LUMBAR SPINE 3 VIEW REASON: back pain ORDER NUMBER(s): [id number], ACCESSION NUMBER(s): [id number] EXAM: XY LUMBAR SPINE 3 VIEW HISTORY: back pain COMPARISON: None TECHNIQUE: AP and lateral views of the lumbar spine and spot lateral of the lumbosacral junction were performed. FINDINGS: Probable chronic compression fractures of L2 and L3, not well characterized secondary to diffuse osteopenia and over penetration of the films. No other fractures are definitely visualized about the lumbar spine. There is advanced degenerative disc disease and facet arthropathy. There is mild thoracolumbar scoliosis. IMPRESSION: 1. Probable chronic compression fractures of L2 and L3, not well characterized here secondary to diffuse osteopenia. Better characterization may be made with noncontrast CT or MRI of the lumbar spine on a nonemergent basis. 2. Advanced lumbar degenerative disc disease and facet arthropathy. ATED BY: MELVIN ADAMS MD DICTATED DATE/TIME: 11/07/24 130 SIGNED BY: MELVIN ADAMS MD SIGNED DATE/TIME: 11/07/24 130 CC: [place] [address] Ph: [phone] DIAGNOSTIC IMAGING Diagnostic Imaging Report : [id number] Signed PATIENT: NAY ROACH ACCT: [id number] UNIT: [id number] : 1950 LOC: OVERFLOW ROOM / BED: 1020-ERT / A AGE / SEX: 74 / F ADM STATUS: ADM IN SERVICE 0700 ORDERING PHYSICIAN: YVAN SALAZAR PROCEDURE(s): LS2CT - LS SPINE WO CONTRAST REASON: R/O FX ORDER NUMBER(s): [id number], ACCESSION NUMBER(s): [id number] CT LS SPINE WO CONTRAST Date: 11/08/2024 03:04 PM History: R/O FX Comparison: None TECHNIQUE: Multiple axial CT images of the lumbosacral spine were obtained using bone algorithm. Axial and coronal reformatting was done. Bone and soft tissue windows were reviewed. Radiation Dose Information: CT Dose: CTDI volume is 44.43 mGy. Dose-length product is 1428.23 mGy*cm FINDINGS: No CT evidence of definite acute fracture, spinal dislocation, or significant appearing acute subluxation is seen. The visualized paraspinal soft tissues are grossly unremarkable. T12-L1 mild compression superior endplate of L1. 20-30% compression superior endplate of L1. Mild compression of the thecal sac anteriorly on right but no significant central spinal stenosis. L1-L2 20-30% compression superior endplate of L2. No central canal stenosis. L2-L3 20-30% compression superior endplate of L2 is noted with no significant central spinal canal stenosis L3-L4 20-30% compression superior endplate of L3. Mild diffuse annular bulging of the disc with hypertrophic arthritic bony changes of the posterior facets and ligamentum flavum. This is creating mild trefoil configuration of the thecal sac. There is no significant central canal stenosis. L4-L5 There is no evidence of central spinal canal or neuroforaminal stenosis. L5-S1 There is no evidence of central spinal canal or neuroforaminal stenosis. IMPRESSION: 1. 20-30% compression superior endplate of L2 and L3 with no significant central spinal stenosis. 2. 20-30% compression superior endplate of L3. Hypertrophy ligamentum flavum and posterior facets creating a trefoil configuration to the thecal sac. 3. 4. All CT scans at this medical facility are performed using dose modulation techniques as appropriate to a performed exam including the following: Automated exposure control was utilized; adjustment of the MA and/or KV according to patient size; and use of iterative reconstruction technique. ATED BY: KUSUM FRANCO Jr., DO DICTATED DATE/TIME: 11/08/241722 SIGNED BY: KUSUM FRANCO Jr., SIGNED DATE/TIME: 11/08/241722 CC: [place] [address] Ph: [phone] DIAGNOSTIC IMAGING Diagnostic Imaging Report : [id number] Signed PATIENT: NAY ROACH ACCT: [id number] UNIT: [id number] : 1950 LOC: OVERFLOW ROOM / BED: 1020-[facility] / A AGE / SEX: 74 / F ADM STATUS: ADM IN SERVICE 1508 ORDERING PHYSICIAN: TAN ROBIN NP PROCEDURE(s): CS2 - CERVICAL WITHOUT CONTRAST REASON: PAIN ORDER NUMBER(s): [id number], ACCESSION NUMBER(s): [id number] EXAM: CT CERVICAL WITHOUT CONTRAST INDICATION: PAIN EXAM DATE: 11/08/2024 03:04 PM COMPARISON: CT CERVICAL WITHOUT CONTRAST on DOS: 08/21/23 TECHNIQUE: Multiple axial CT images of the cervical spine were obtained using bone algorithm. Axial and coronal reformatting was done. Bone and soft tissue windows were reviewed. Radiation Dose Information: CT Dose: CTDI volume is 30.26 mGy. Dose-length product is 1428.23 mGy*cm FINDINGS: The cervical alignment is intact. No acute cervical spine fracture is identified. The vertebral body heights are intact. No suspicious osseous lesions are identified. No significant degenerative changes are identified. There is mild straightening of the normal cervical lordotic curve which may be secondary to patient positioning or muscle spasm. There is no prevertebral soft tissue swelling. IMPRESSION: 1. Bony spondylosis and degenerative disc changes appear worse at C5 and C6. 2. No compressed vertebra are subluxations. All CT scans at this medical facility are performed using dose modulation techniques as appropriate to a performed exam including the following: Automated exposure control was utilized; adjustment of the MA and/or KV according to patient size; and use of iterative reconstruction technique. ATED BY: KUSUM FRANCO Jr., DO DICTATED DATE/TIME: 11/08/241702 SIGNED BY: KUSUM FRANCO Jr., DO SIGNED DATE/TIME: 11/08/241702 CC: Condition at Discharge: Stable Final Diagnosis/Problems List #Acute hypoxic respiratory failure likely due to pneumonia Gram-positiveversus Gram-negative#Acute exertional COPDEmphysema#Hypertension#Sinus tachycardia likely from pneumonia and hypoxic failure#Anxiety# chronic cervical and low back pain likely due to degenerative jointdisease# Probable chronic compression fractures of L2 and L3,#Bony spondylosis and degenerative disc changes appear worse at C5 and C6. Discharge Disposition: Home Discharge Instruct/Medications Diet: Regular Activity: Light activity Follow Up/Referral: Please follow up with the primary care physician in 1 week Please follow up with your food assembler in 1-2 weeks Medications: Doxycycline 100 mg p.o. b.i.d. for 7 days Prednisone 40 mg p.o. daily for 5 days Please resume other home medications Discharge Statement: "Patient was advised to return to the ER or call 911 if any headaches, dizziness, shortness of breath, chest pain, abdominal pain, bleeding, fevers, or worsening of medical condition. Patient was counseled about treatment plan, medications, possible side effects, patientverbalized understanding. All questions were answered to the best of my ability. This discharge took greater then 30 minutes in planning, reviewing documentation, counseling the patient, and discussing with other team members." ASSESSMENT ASSESSMENT Assessment #Acute hypoxic respiratory failure likely due to pneumonia Gram-positiveversus Gram-negative#Acute exertional COPDEmphysema#Hypertension#Sinus tachycardia likely from pneumonia and hypoxic failure#Anxiety# chronic cervical and low back pain likely due to degenerative jointdisease# Probable chronic compression fractures of L2 and L3,#Bony spondylosis and degenerative disc changes appear worse at C5 and C6. SUHAIL STAFFORD RESIDENT Nov 10, 2024 11:27
[2024-11-10] MEDS ORDERED: PRED20TA2 PO (12:19)
== END 2024-11-10 19:40 | disposition home or self-care (01) | DRG 177 ==
LOC: EDBD 07:27 → ER 07:27 → OVERFLOW 12:16 → TELE-EAST 11-08 22:05
PROVIDERS: ADMIT Student in an Organized Health Care Education/Training Program; ATTEND Student in an Organized Health Care Education/Training Program
DX: J15.69 Pneumonia due to other Gram-negative bacteria (principal); J96.01 Acute respiratory failure with hypoxia; J44.1 Chronic obstructive pulmonary disease with (acute) exacerbation; M48.56XA Collapsed vertebra, not elsewhere classified, lumbar region, initial encounter for fracture; J44.0 Chronic obstructive pulmonary disease with (acute) lower respiratory infection; I49.3 Ventricular premature depolarization; F41.9 Anxiety disorder, unspecified; I10 Essential (primary) hypertension; J43.9 Emphysema, unspecified; J15.9 Unspecified bacterial pneumonia; G89.29 Other chronic pain; M47.812 Spondylosis without myelopathy or radiculopathy, cervical region; Z99.81 Dependence on supplemental oxygen; Z79.899 Other long term (current) drug therapy
CPT/HCPCS: 36415; 36600; 71045; 72100; 72125; 72131; 80048; 80053; 81001; 82805; 83036; 83735; 84439; 84443; 84481; 84484; 85025; 93005; 94640; 96365; 96375; 96376; 97163; 99291; 99292; G0378; J3490

== ENCOUNTER 2025-05-27 16:06 | Inpatient (IN) | payer MEDICARE, MEDICAID ==
[~2025-05-27] VITALS: Ht 170.2 cm; Wt 74.0 kg
[~2025-05-27 16:06] MED LIST changes: +ALPR1TAB7 PO; +CIPR250T26 PO; +DOXY100C79 PO; +ERY05OO EACHEYE; +FLUT1AER3 INH; +LISI20TA56 PO; +OXYC325T14 PO; +ZOLP10TA6 PO
--- NOTE | 2025-05-27 16:39 | ECG ---
[facility] Test Date: 2025-05-27 Test Time: 16:38:30 Pat Name: NAY ROACH Department: Room: [address] [place] [address] Gender: F Telecommunication Operator: MATY : 1950 Requested By: DOLORES MACIAS Order Number: [id number] Reading MD: Mihir Peterson Measurements Intervals [place] Rate: 122 P: 65 TN: 154 QRS: 76 QRSD: 93 T: 61 QT: 309 QTc: 441 Interpretive Statements Sinus tachycardia Probable left atrial enlargement Probable lateral infarct, old Wandering baseline Electronically Signed On 05-29-2025 18:52:37 PDT by Mihir Peterson Please click the below link to view image of tracing.
[2025-05-27 17:15] LABS: Hematocrit 45.3 % (36.0-46.0); Hemoglobin 15.0 g/dL (12.2-16.2); Mean Corpuscular Hemoglobin 32.2 pg (28.0-32.0); Mean Corpuscular Volume 97.3 fL (80.0-100.0); Nucleated Red Blood Cells % 0.0 %
[2025-05-27] MEDS: ALBUTEROL SULF 2.5 MG/0.5ML(0.5%) NEB SOLN NEB ONE (17:15)
[2025-05-27] MEDS: IPRATROPIUM BROM 0.5 MG/2.5ML INH SOL NEB ONE (17:15)
[2025-05-27] MEDS: ACETAMINOPHEN 325 MG TAB PO ONE (17:16)
[2025-05-27] MEDS: KETOROLAC TROMETH 30 MG/ML 1ML VIAL IV ONE (17:16)
--- NOTE | 2025-05-27 17:30 | DVH ---
Indication: Fall/trauma Technique: CT axial images of the pelvis are obtained without contrast. Coronal and sagittal reformat s were obtained. Radiation Dose Information: CTDI volume is 20.97 mGy. Dose-length product is 2.47 mGy*cm Comparison: CT PELVIS WO CONTRAST on DOS: 10/13/23 FINDINGS: Moderate degenerate changes bilateral sacroiliac joints. Pubic symphysis intact. Old right inferior/ superior pubic rami fractures. Left femur intramedullary gume, intertrochanteric screw. Lumbar levocur vature. Chronic appearing fracture at the S3/S4 region. Tteq-hv-mxmiaihk degenerate changes bilateral hips. Gallbladder distention. Abdominal aortic atherosclerotic disease. Colonic diverticula. No free pelv ic fluid. Fat containing right inguinal hernia. IMPRESSION: Chronic appearing fracture at S3/S4. Correlate point tenderness. Moderate degenerate changes bilateral sacroiliac joints. Hknb-ef-hezlqaxi degenerate changes bilateral hips.
[2025-05-27 17:33] LABS: Alanine Aminotransferase 28 U/L (7-40); Albumin 4.0 g/dL (3.2-4.8); Alkaline Phosphatase 85 U/L (46-116); Anion Gap 10 (5-15); BUN/Creatinine Ratio 18.0 (10.0-20.0); Bilirubin, Total 0.4 mg/dL (0.2-1.0); Blood Urea Nitrogen 18 mg/dL (9-23); Calcium 8.8 mg/dL (8.7-10.4); Carbon Dioxide 24 mmol/L (20-31); Chloride 105 mmol/L (98-107); Glucose 134 mg/dL (74-106); Potassium 5.1 mmol/L (3.5-5.1); Sodium 139 mmol/L (136-145); Total Protein 6.3 g/dL (5.7-8.2)
[2025-05-27 17:44] VITALS: PULSE 119; RESP 18; O2SAT 92
--- NOTE | 2025-05-27 17:48 | DVH ---
INDICATION: Fall/trauma COMPARISON: CT PELVIS WO CONTRAST on DOS: 05/27/25, CT LOWER EXTREMITY NON JOINT RIGH on DOS: 05/27/25, CT LS SPINE WO CONTRAST on DOS: 11/08/24, XY L HIP COMPLETE XRAY on DOS: 10/14/23, XY L HIP COMPLETE XRA Y on DOS: 10/14/23 TECHNIQUE: CT of the right was performed without contrast. Volume transverse images were obtained a nd reconstructed in multiple planes using bone and soft tissue algorithms. CONTRAST: None Radiation Dose Information: CT Dose: CTDI volume is 21 mGy. Dose-length product is 631 mGy*cm FINDINGS: Patient is status post ORIF 4 left femoral neck fracture. No definite evidence of acute fracture is s een. There is no dislocation. The alignment is normal. The joint spaces are normal. The soft tissues are normal. IMPRESSION: 1. No evidence of acute fracture. 2. Status post ORIF left femoral neck fracture. As 3. All CT scans at this medical facility are performed using dose modulation techniques as appropriat e to a performed exam including the following: Automated exposure control was utilized; adjustment of the MA and/or KV according to patient size; and use of iterative reconstruction technique.
--- NOTE | 2025-05-27 18:01 | ECG ---
[facility] Test Date: 2025-05-27 Test Time: 18:00:23 Pat Name: NAY ROACH Department: Room: [address] [place] [address] Gender: F Tools Developer: MAYT : 1950 Requested By: DOLORES MACIAS Order Number: [id number] Reading MD: Mihir Peterson Measurements Intervals [place] Rate: 121 P: 79 AK: 163 QRS: 68 QRSD: 85 T: 67 QT: 326 QTc: 463 Interpretive Statements Sinus tachycardia LAE, consider biatrial enlargement Probable lateral infarct, old Artifact in lead(s) II,III,aVF,V1,V4 Electronically Signed On 05-29-2025 19:16:59 PDT by Mihir Peterson Please click the below link to view image of tracing.
--- NOTE | 2025-05-27 18:07 | ED.PDOC ---
History of Present Illness HPI Comments 74 y/o F is BIBA with c/c of AMS. Per EMS personnel report, patient's family called after finding patient altered following intake of 5x Percocet prescription medication pills, earlier, today. Patient states that she had a fall event yesterday and subsequent to that, has a had extensive pelvic and bilateral leg pain concerns. Patient appears to suffer from some dementia as she can not confirm why she takes Percocet. I believe the patient has chronic back pain concerns and that is the reason for the opioid. Upon arrival to ED, patient is alert and reports on chronic pain starting from her pelvic area and radiating to her bilateral extremities. No further acute symptoms. Patient was tachycardic, tachypneic and satting at 92% on supplemental oxygen. I believe the patient utilize a supplemental oxygen at home for pulmonary issues. Chief Complaint: Overdose Time Seen by MD: 16:30 Primary Care Provider: ArielOA Reviewed Notes: Nurses Notes, Medications, Allergies Allergies: Coded Allergies: NO KNOWN ALLERGIES (Unverified , 08/21/23) Home Meds Active Scripts Prednisone (Prednisone) 20 Mg Tab, 40 MG PO DAILY for 5 Days, #5 MG Prov:SUHAIL STAFFORD RESIDENT 11/10/24 Doxycycline (Monohydrate) (Doxycycline) 100 Mg Cap, 100 MG PO BID for 7 Days, #14 CAP Prov:SUHAIL STAFFORD RESIDENT 11/10/24 Prednisone (Prednisone) 20 Mg Tab, 40 MG PO DAILY for 5 Days, #5 MG Prov:TANJA JOINER RESIDENT 07/13/24 Levofloxacin Hemihydrate (LEVOFLOXACIN) 750 Mg Tab, 1 TAB PO DAILY for 4 Days, #4 TAB Prov:TANJA JOINER RESIDENT 07/13/24 Cyclobenzaprine HCl (Cyclobenzaprine Hydrochlo) 5 Mg Tab, 5 MG PO TID, #14 TAB Prov:LOLIS ROSA MD 12/03/23 Enoxaparin Sodium (Lovenox) 40 Mg/0.4 Ml Ij, 40 MG SC DAILY for 30 Days, #60 INJ Prov:BERT BUCK RESIDENT 10/15/23 Acetaminophen (Acetaminophen) 325 Mg Tab, 650 MG PO Q6HP PRN for 30 Days, #240 TAB Prov:BERT BUCK RESIDENT 2/8/24 Reported Medications Lisinopril & Hydrochlorothiazi (Lisinopril/Hydrochlorothi) 1 Tab Tab, 1 TAB PO DAILY 09/06/23 Escitalopram Oxalate (ESCITALOPRAM OXALATE) 10 Mg Tab, 1 TAB PO DAILY 09/06/23 Montelukast Sodium (MONTELUKAST SODIUM) 10 Mg Tab, 1 TAB PO DAILY 09/06/23 Zmhyyiirvan-Mtspahibjdyy-Aftqd (Trelegy Ellipta 200-62.5-25 Mcg/INH) 1 Aer Aer, 1 PUFF INH DAILY 09/06/23 Albuterol Sulfate (Albuterol Sulfate Hfa) 108 Mcg/Act Aer, INH 09/06/23 Information Source: Patient, Emergency Med Personnel Mode of Arrival: EMS Severity: Moderate Timing: Hours Duration: Since onset Prehospital treatment: 12 Lead EKG, Merchandising Representative Past Medical History PAST MEDICAL HISTORY: Anxiety, Asthma, COPD, HTN Surgical History: Denies all surgeries MATERIAL LOADER History: No Pertinent MATERIAL LOADER History Family History Family History: Reviewed,noncontributory to illness Social History Smoker: Non-Smoker Alcohol: Denies ETOH Use Drugs: Denies Drug Use Lives In: Home Constitutional: denies: chills, diaphoresis, fatigue, fever, malaise, sweats, weakness, others EENTM: denies: blurred vision, double vision, ear bleeding, ear discharge, ear drainage, ear pain, ear ringing, eye pain, eye redness, hearing loss, mouth pain, mouth swelling, nasal discharge, nose bleeding, nose congestion, nose pain, photophobia, tearing, throat pain, throat swelling, voice changes, others Respiratory: reports: SOB at rest, shortness of breath; denies: cough, hemoptysis, orthopnea, SOB with excertion, stridor, wheezing, others Cardiovascular: denies: chest pain, dizzy spells, diaphoresis, Dyspnea on exertion, edema, irregular heart beat, left arm pain, lightheadedness, palpitations, PND, syncope, others Gastrointestinal: denies: abdomen distended, abdominal pain, blood streaked bowels, constipated, diarrhea, dysphagia, difficulty swallowing, hematemesis, melena, nausea, poor appetite, poor fluid intake, rectal bleeding, rectal pain, vomiting, others Genitourinary: denies: abnormal vagina bleeding, burning, dyspareunia, dysuria, flank pain, frequency, hematuria, incontinence, pain, , vagina discharge, urgency, others Neurological: reports: dizziness; denies: fainting, headache, left sided numbness, left sided weakness, numbness, paresthesia, pre-existing deficit, right sided numbness, right sided weakness, seizure, speech problems, tingling, tremors, weakness, others Musculoskeletal: reports: others (Pain extending from pelvis down bilateral legs.); denies: back pain, gout, joint pain, joint swelling, muscle pain, muscle stiffness, neck pain Integumetry: denies: bruises, change in color, change in hair/nails, dryness, laceration, lesions, lumps, rash, wounds, others Allergic/Immunocompromised: denies: Difficulty Healing, Frequent Infections, Hives, Itching, others Hematologic/Lymphatic: denies: anemia, blood clots, easy bleeding, easy bruising, swollen glands, others Endocrine: denies: excessive hunger, excessive sweating, excessive thirst, excessive urination, flushing, intolerance to cold, intolerance to heat, unexplained weight gain, unexplained weight loss, others Psychiatric: denies: anxiety, bipolar disorder, depression, hopeless, panic disorder, schizophrenia, sleepless, suicidal, others All Other Systems: Reviewed and Negative (Comprehensive review of systems are negative unless stated in HPI) Physical Exam General Appearance: Moderate Distress (Due to pain concerns.), Normal HEENT: Normal ENT Inspection, Pharynx Normal, TMs Normal Neck: Full Range of Motion, Non-Tender, Normal, Normal Inspection Respiratory: Chest Non-Tender, Lungs Clear, No Accessory Muscle Use, No Respir atory Distress, Normal Breath Sounds Cardiovascular: No Edema, No JVD, No Murmur, No Gallop, Normal Peripheral Pulses, Tachycardia Breast Exam: Deferred Gastrointestinal: No Organomegaly, Non Tender, No Pulsatile Mass, Normal Bowel Sounds, Soft Genitalia: Deferred Pelvic: Deferred Rectal: Deferred Extremities: Other (Patient complains of yqdzsnip-li-ffoqau pain throughout bilateral hips extending into bilateral thighs and lower legs. No definitive signs of trauma. Reduced range of motion throughout. Patient winces in pain on any level of evaluation.) Neurologic: Alert Cerebellar Function: NOT DONE Reflexes: NOT DONE Skin: Dry, Normal Color, Warm Lymphatic: No Adenopathy Was a procedure done? Was a procedure done?: No Differential Dx Considerations may include: medication overdose, metabolic encephalopathy, chronic pain syndrome, dehydration, electrolyte imbalance, viral syndrome, among others. X-Ray, Labs, Meds, VS Vital Signs Date Time Temp Pulse Resp B/P (MAP) Pulse Ox O2 Delivery O2 Flow Rate FiO2 05/27/25 19:52 103 05/27/25 19:45 Oxymizer 6 N/A 05/27/25 19:45 97.5 104 21 132/86 (101) 94 97.5 05/27/25 19:43 104 05/27/25 18:00 119 19 104/78 (87) 91 05/27/25 18:00 121 05/27/25 17:44 119 18 92 Nasal Cannula* 3 32 05/27/25 17:15 26 90 Oxymizer 6 N/A 05/27/25 17:13 91 Oxymizer 6 N/A 05/27/25 17:08 97.9 120 22 130/84 95 97.9 05/27/25 16:38 98.3 127 33 138/81 (100) 92 98.3 05/27/25 16:38 122 Lab Test 05/27/25 19:50 05/27/25 18:06 05/27/25 17:02 Range/Units Troponin I High Sensitivity 312 *H 256 *H 211 *H </=34 ng/L White Blood Count 14.6 H 4.4-10.8 10^3/uL Red Blood Count 4.66 4.0-5.20 10^6/uL Hemoglobin 15.0 12.2-16.2 g/dL Hematocrit 45.3 36.0-46.0 % Mean Corpuscular Volume 97.3 80.0-100.0 fL Mean Corpuscular Hemoglobin 32.2 H 28.0-32.0 pg Mean Corpuscular Hemoglobin Concent 33.1 32.0-36.0 g/dL Red Cell Distribution Width 13.9 11.8-14.3 % Platelet Count 243 140-450 10^3/uL Mean Platelet Volume 7.2 6.9-10.8 fL Neutrophils (%) (Auto) 92.1 H 37.0-80.0 % Lymphocytes (%) (Auto) 4.3 L 10.0-50.0 % Monocytes (%) (Auto) 3.3 0.0-12.0 % Eosinophils (%) (Auto) 0.1 0.0-7.0 % Basophils (%) (Auto) 0.2 0.0-2.0 % Neutrophils # (Auto) 13.5 H 1.6-8.6 10 ^3/uL Lymphocytes # (Auto) 0.6 0.4-5.4 10 ^3/uL Monocytes # (Auto) 0.5 0-1.3 10 ^3/uL Eosinophils # (Auto) 0 0-0.8 10 ^3/uL Basophils # (Auto) 0 0-0.2 10 ^3/uL Nucleated Red Blood Cells 0.0 % Sodium Level 139 136-145 mmol/L Potassium Level 5.1 3.5-5.1 mmol/L Chloride Level 105 98-107 mmol/L Carbon Dioxide Level 24 20-31 mmol/L Anion Gap 10 5-15 Blood Urea Nitrogen 18 9-23 mg/dL Creatinine 1.00 0.550-1.02 mg/dL Glomerular Filtration Rate Calc 59 >90 mL/min BUN/Creatinine Ratio 18.0 10.0-20.0 Serum Glucose 134 H 74-106 mg/dL Calcium Level 8.8 8.7-10.4 mg/dL Total Bilirubin 0.4 0.2-1.0 mg/dL Aspartate Amino Transferase (AST) 38 13-40 U/L Alanine Aminotransferase (ALT) 28 7-40 U/L Alkaline Phosphatase 85 46-116 U/L Total Protein 6.3 5.7-8.2 g/dL Albumin 4.0 3.2-4.8 g/dL Current Medications Medications (Trade) Dose Ordered Sig/Rio Route Start Time Stop Time Status Last Admin Ketorolac Tromethamine (Toradol Injection) 15 mg ONCE ONCE IV 05/27/25 16:30 05/27/25 16:31 DC 05/27/25 17:16 Acetaminophen (Tylenol Tablet) 1,000 mg ONCE ONCE PO 05/27/25 16:30 05/27/25 16:31 DC 05/27/25 17:16 Albuterol (Ventolin Medneb) 2.5 mg ONCE ONCE NEB 05/27/25 17:15 05/27/25 17:16 DC 05/27/25 17:15 Ipratropium Vance (Atrovent Medneb) 0.5 mg ONCE ONCE NEB 05/27/25 17:15 05/27/25 17:16 DC 05/27/25 17:15 [place] [id number] Ph: [phone] DIAGNOSTIC IMAGING Diagnostic Imaging Report : [id number] Signed PATIENT: NAY ROACH ACCT: [id number] UNIT: [id number] : 1950 LOC: ER ROOM / BED: / AGE / SEX: 74 / F ADM STATUS: REG ER SERVICE 1627 ORDERING PHYSICIAN: DOLORES MACIAS PAC PROCEDURE(s): PL2CT - PELVIS WO CONTRAST REASON: Fall/trauma ORDER NUMBER(s): [id number], ACCESSION NUMBER(s): [id number] Indication: Fall/trauma Technique: CT axial images of the pelvis are obtained without contrast. Coronal and sagittal reformats were obtained. Radiation Dose Information: CTDI volume is 20.97 mGy. Dose-length product is 2.47 mGy*cm Comparison: CT PELVIS WO CONTRAST on DOS: 10/13/23 FINDINGS: Moderate degenerate changes bilateral sacroiliac joints. Pubic symphysis intact. Old right inferior/superior pubic rami fractures. Left femur intramedullary gume, intertrochanteric screw. Lumbar levocurvature. Chronic appearing fracture at the S3/S4 region. Nfut-zt-jdhzfyux degenerate changes bilateral hips. Gallbladder distention. Abdominal aortic atherosclerotic disease. Colonic diverticula. No free pelvic fluid. Fat containing right inguinal hernia. IMPRESSION: Chronic appearing fracture at S3/S4. Correlate point tenderness. Moderate degenerate changes bilateral sacroiliac joints. Aefg-wv-obprbtwi degenerate changes bilateral hips. ATED BY: SACHA HARE MD DICTATED DATE/TIME: 05/27/251729 SIGNED BY: SACHA HARE MD SIGNED DATE/TIME: 05/27/251729 CC: [address] [id number] Ph: [phone] DIAGNOSTIC IMAGING Diagnostic Imaging Report : [id number] Signed PATIENT: NAY ROACH ACCT: [id number] UNIT: [id number] : 1950 LOC: ER ROOM / BED: / AGE / SEX: 74 / F ADM STATUS: REG ER SERVICE 1627 ORDERING PHYSICIAN: DOLORES MACIAS PAC PROCEDURE(s): LLEX - LEFT LOWER EXTREMITY W/O CON REASON: Fall/trauma ORDER NUMBER(s): [id number], ACCESSION NUMBER(s): [id number] INDICATION: Fall/trauma COMPARISON: CT PELVIS WO CONTRAST on DOS: 05/27/25, CT LOWER EXTREMITY NON JOINT RIGH on DOS: 05/27/25, CT LS SPINE WO CONTRAST on DOS: 11/08/24, XY L HIP COMPLETE XRAY on DOS: 10/14/23, XY L HIP COMPLETE XRAY on DOS: 10/14/23 TECHNIQUE: CT of the right was performed without contrast. Volume transverse images were obtained and reconstructed in multiple planes using bone and soft tissue algorithms. CONTRAST: None Radiation Dose Information: CT Dose: CTDI volume is 21 mGy. Dose-length product is 631 mGy*cm FINDINGS: Patient is status post ORIF 4 left femoral neck fracture. No definite evidence of acute fracture is seen. There is no dislocation. The alignment is normal. The joint spaces are normal. The soft tissues are normal. IMPRESSION: 1. No evidence of acute fracture. 2. Status post ORIF left femoral neck fracture. As 3. All CT scans at this medical facility are performed using dose modulation techniques as appropriate to a performed exam including the following: Automated exposure control was utilized; adjustment of the MA and/or KV according to patient size; and use of iterative reconstruction technique. ATED BY: MELVIN SCHOFIELD MD DICTATED DATE/TIME: 05/27/251744 SIGNED BY: MELVIN SCHOFIELD MD SIGNED DATE/TIME: 05/27/251744 CC: X-Ray, Labs, Meds, VS Comment All studies performed in the ED were evaluated by me personally. Urinalysis was pending at time of this note. Serum laboratories revealed a mild leukocytosis with a left shift. Patient displays a trending troponin from 10/18 up to 300+. Serial EKGs revealed sinus tachycardia with a probable left atrial enlargement. Possible anterior lateral infarct was noted with a abnormal T-waves. AR interval 173 and QT interval of 371. EKG was sent to Dr. Church for evaluation. I spoke with Dr. Church and he advised with the patient is not having an acute coronary syndrome. Patient will be re-evaluated by cardiology tomorrow. Patient will be admitted for pain control and cardiac consultation. Patient has not received any narcotic pain medication while in the ED to establish metabolism patient from prior opioid use. Patient will require some level of opioid pain medication. Time of 1ST Reevaluation: 21:16 Reevaluation 1ST: Improved Consultation: PCP, Cardiology Patient Education/Counseling: Diagnosis, Treatment, Other (need for admission ) Family Education/Counseling: Diagnosis, Treatment, No Family Present SEPSIS Sepsis Screen Date sepsis recognized/suspect: May 27, 2025 Time Sepsis recognized/suspect: 1753 Recent Procedure: No On Antibiotic Therapy: No Respiratory Rate >20: No Heart Rate >90: No Temp<36 C (96.8 F) or >38.3 C: No SBP <90 or MAP <65 mmHG: No New Acute Mental Status Change: No Is the patient on CPAP, BIPAP,: No Physician Orders Drug Screen (05/27/25 16:27) Urinalysis (05/27/25 16:27) Heplock Iv (05/27/25 16:27) Pelvis Wo Contrast (05/27/25 16:27) Left Lower Extremity W/O Con (05/27/25 16:27) Lower Extremity Non Joint Righ (05/27/25 16:27) Electrocardigram (05/27/25 20:43) Vital Signs Date Time Temp Pulse Resp B/P (MAP) Pulse Ox O2 Delivery O2 Flow Rate FiO2 05/27/25 19:52 103 05/27/25 19:45 Oxymizer 6 N/A 05/27/25 19:45 97.5 104 21 132/86 (101) 94 97.5 05/27/25 19:43 104 05/27/25 18:00 119 19 104/78 (87) 91 05/27/25 18:00 121 05/27/25 17:44 119 18 92 Nasal Cannula* 3 32 05/27/25 17:15 26 90 Oxymizer 6 N/A 05/27/25 17:13 91 Oxymizer 6 N/A 05/27/25 17:08 97.9 120 22 130/84 95 97.9 05/27/25 16:38 98.3 127 33 138/81 (100) 92 98.3 05/27/25 16:38 122 Laboratory Tests Test 05/27/25 17:02 White Blood Count 14.6 10^3/uL (4.4-10.8) H Medications Medications Dose Ordered Sig/Rio Route Start Time Stop Time Status Last Admin Dose Admin Acetaminophen 1,000 mg ONCE ONCE PO 05/27/25 16:30 05/27/25 16:31 DC 05/27/25 17:16 Albuterol 2.5 mg ONCE ONCE NEB 05/27/25 17:15 05/27/25 17:16 DC 05/27/25 17:15 Ipratropium Vance 0.5 mg ONCE ONCE NEB 05/27/25 17:15 05/27/25 17:16 DC 05/27/25 17:15 Ketorolac Tromethamine 15 mg ONCE ONCE IV 05/27/25 16:30 05/27/25 16:31 DC 05/27/25 17:16 Departure 1 Departure Time of Disposition: 21:17 Impression: Primary Impression: Acute coronary syndrome Additional Impressions: Elevated troponin Leukocytosis Chronic pain Disposition: ADMITTED INPATIENT Condition: Fair Discharged With: Self Critical Care Note Critical Care Time?: No Stability Stability form required: No Heart Score Heart Score: Heart Score Response (Comments) Value History N/A 0 EKG N/A 0 Age N/A 0 Risk Factors N/A 0 Troponin N/A 0 Total 0 I personally scribed for DOLORES MACIAS PAC ([email or web address]) on 05/27/25 at 18:07. Electronically submitted by Seun Walls ([email or web address]). I personally scribed for DOLORES MACIAS PAC ([email or web address]) on 05/27/25 at 18:15. Electronically submitted by Seun Walls ([email or web address]). DOLORES MACIAS PAC May 27, 2025 18:07
--- NOTE | 2025-05-27 18:36 | DVH ---
Indication: Trauma/fall Technique: CT axial images of the right lower extremity from the right hip to the right foot are obta ined without contrast. Coronal and sagittal reformats were obtained. Radiation Dose Information: CTDI volume is 11.3 mGy. Dose-length product is 2505 mGy*cm Comparison: CT LEFT LOWER EXTREMITY W/O CON on DOS: 05/27/25 FINDINGS/IMPRESSION: Moderate degenerate changes right SI joint. Dstr-ph-daigjgwl degenerate changes right hip. Old right inferior pubic ramus fracture. Probable old left inferior pubic ramus fracture. No acute fracture. Small suprapatellar effusion. Moderate degenerate changes of the right knee. Umah-jm-ipgdqiaq degenerate changes of the tibiotalar joint. Mild right lower extremity soft tissue edema.
--- NOTE | 2025-05-27 19:45 | ECG ---
[facility] Test Date: 2025-05-27 Test Time: 19:43:28 Pat Name: NAY ROACH Department: Room: [address] [place] [address] Gender: F Tool Setter: MATY : 1950 Requested By: DOLORES MACIAS Order Number: [id number] Reading MD: Mihir Peterson Measurements Intervals [place] Rate: 104 P: 75 [place]: 173 QRS: 70 QRSD: 92 T: 66 QT: 371 QTc: 488 Interpretive Statements Sinus tachycardia Probable left atrial enlargement Consider anterolateral infarct Abnrm T, consider ischemia, anterolateral lds Electronically Signed On 05-29-2025 19:17:22 PDT by Mihir Peterson Please click the below link to view image of tracing.
--- NOTE | 2025-05-27 21:19 | ECG ---
[facility] Test Date: 2025-05-27 Test Time: 19:52:14 Pat Name: NAY ROACH Department: Room: [address] [place] [address] Gender: F New Client Banking Services Clerk: MATY : 1950 Requested By: DOLORES MACIAS Order Number: [id number] Reading MD: Mihir Peterson Measurements Intervals [place] Rate: 103 P: 56 [place]: 168 QRS: 63 QRSD: 95 T: 76 QT: 356 QTc: 466 Interpretive Statements Sinus tachycardia Probable left atrial enlargement Abnrm T, consider ischemia, anterolateral lds Electronically Signed On 05-29-2025 19:17:30 PDT by Mihir Peterson Please click the below link to view image of tracing.
[2025-05-27] MEDS: HYDROmorphone HCL 2 MG/ML VL/or syr IV ONE (21:41)
[2025-05-27] MEDS ORDERED: DOCUSATE SOD 100 MG CAP PO PRN (22:45)
[2025-05-27] MEDS ORDERED: NITROGLYCERIN 0.4 MG SL TAB SL PRN (22:45)
[2025-05-27] MEDS: SODIUM ZIRCONIUM CYCL 10 GM PAK PO ONE (22:47)
--- NOTE | 2025-05-27 22:48 | DVHHP2 ---
History of Present Illness Reason for Visit: Acute coronary syndrome History of Present Illness The patient is a 74-year-old female with past medical history of anxiety, asthma, COPD, and hypertension who presented to [facility] ED for evaluation of drug overdose. As reported by patient's family, patient became al tered following intake of 5 Percocet prescription medication pills, so EMS were called. Patient was seen and evaluated in the ED alert and report on chronic pain starting from her pelvic area and radiating to her bilateral extremities, tachycardic, tachypneic, O2 saturation at 92% on oxygen. Laboratory data shows WBC 14.6, platelets 243, sodium 139, potassium 5.1, BUN 18, creatinine 1.00, glucose 134, calcium 8.8, troponin 312, blood pressure 132/86, heart rate 104, temperature 97.6 F[address] right lower extremity CT revealing moderate degenerate changes right SI joint, mild to moderate degenerate changes right hip, no acute fracture. Pelvis CT revealing mild to moderate degenerate changes bilateral hips. Chest x-ray revealing mild hazy ground-glass opacities throughout both lungs views congestion likely related to pulmonary edema. Patient was started on IV antibiotic regimen Rocephin, please see medication orders section in the computer. On my assessment, patient denied chest pain, no headache, no dizziness, currently on oxygen, no nausea, no vomiting, no fever, no chills. Patient was admitted for further evaluation and medical management. Past Medical History Anxiety, Asthma, COPD, HTN Past Surgical History Denies all surgeries Family History Reviewed, noncontributory to the management of this case. Past Social History The patient lives at home, denies smoking, alcohol or illicit drugs abuse. Review of Systems Constitutional: Yes: Weakness; No: Fever, Chills, Sweats, Malaise, Other Eyes: No: Pain, Vision change, Conjunctivae inflammation, Eyelid inflammation, Other, Redness ENT: No: Ear pain, Ear discharge, Nose pain, Nose discharge, Nose congestion, Mouth pain, Mouth swelling, Throat pain, Throat swelling, Other Respiratory: Shortness of breath, Other (SOB at rest); No: Cough, Dry, SOB with excertion, Wheezing, Hemoptysis, Pleuritic Pain, Sputum, Wheezing Cardiovascular: No: Chest Pain, Palpitations, Orthopnea, Paroxysmal Noc. Dyspnea, Edema, Lt Headedness, Other Gastrointestinal: No: Nausea, Vomiting, Abdominal Pain, Diarrhea, Constipation, Melena, Hematochezia, Other Genitourinary: No Dysuria, No Frequency, No Incontinence, No Hematuria, No Retention, No Other Musculoskeletal: other (Pain extending from pelvis down bilateral legs.); No: neck pain, shoulder pain, arm pain, back pain, hand pain, leg pain, foot pain Skin: No: Rash, Lesions, Jaundice, Bruising, Other Neurological: Other (Dizziness); No: Weakness, Numbness, Incoordination, Change in speech, Confusion, Seizures Allergies: Coded Allergies: NO KNOWN ALLERGIES (Unverified , 08/21/23) Medications Current Medications Medications Dose Ordered Sig/Rio Route Start Time Stop Time Status Last Admin Dose Admin Albuterol 2.5 mg Q4HPRN PRN NEB 05/27/25 22:45 Ipratropium [place] 0.5 mg Q4HPRN PRN NEB 05/27/25 22:45 Aspirin 81 mg DAILY PO 05/28/25 10:00 Exam Vital Signs Vital Signs Date Time Temp Pulse Resp B/P (MAP) Pulse Ox O2 Delivery O2 Flow Rate FiO2 05/27/25 21:41 97 24 127/87 05/27/25 19:45 Oxymizer 6 N/A 05/27/25 19:45 97.5 94 97.5 General Appearance: Alert, Oriented X3, Cooperative, No acute distress HEENT: Atraumatic, PERRLA, EOMI, Mucous membr. moist/pink Respiratory: Normal air movement, Other (Diminished breath sounds) Cardiovascular: Regular rate, Normal S1, Normal S2, No murmurs Abdominal: Normal bowel sounds, Soft, No tenderness, No hepatospenomegaly, No masses Extremities: No clubbing, No cyanosis, No edema, Normal pulses, No tenderness/swelling Skin: No rashes, No significant lesion Neuro: Normal speech, Normal tone, Sensation intact, Cranial nerves 3-12 NL, Reflexes 2+, Other (Generalized weakness) Psych/Mental Status: Mental status NL, Mood NL Labs/Xrays Labs Test 05/27/25 22:45 05/27/25 17:02 Range/Units White Blood Count 14.6 H 4.4-10.8 10^3/uL Red Blood Count 4.66 4.0-5.20 10^6/uL Hemoglobin 15.0 12.2-16.2 g/dL Hematocrit 45.3 36.0-46.0 % Mean Corpuscular Volume 97.3 80.0-100.0 fL Mean Corpuscular Hemoglobin 32.2 H 28.0-32.0 pg Mean Corpuscular Hemoglobin Concent 33.1 32.0-36.0 g/dL Red Cell Distribution Width 13.9 11.8-14.3 % Platelet Count 243 140-450 10^3/uL Mean Platelet Volume 7.2 6.9-10.8 fL Neutrophils (%) (Auto) 92.1 H 37.0-80.0 % Lymphocytes (%) (Auto) 4.3 L 10.0-50.0 % Monocytes (%) (Auto) 3.3 0.0-12.0 % Eosinophils (%) (Auto) 0.1 0.0-7.0 % Basophils (%) (Auto) 0.2 0.0-2.0 % Neutrophils # (Auto) 13.5 H 1.6-8.6 10 ^3/uL Lymphocytes # (Auto) 0.6 0.4-5.4 10 ^3/uL Monocytes # (Auto) 0.5 0-1.3 10 ^3/uL Eosinophils # (Auto) 0 0-0.8 10 ^3/uL Basophils # (Auto) 0 0-0.2 10 ^3/uL Nucleated Red Blood Cells 0.0 % Sodium Level 139 136-145 mmol/L Potassium Level 5.1 3.5-5.1 mmol/L Chloride Level 105 98-107 mmol/L Carbon Dioxide Level 24 20-31 mmol/L Anion Gap 10 5-15 Blood Urea Nitrogen 18 9-23 mg/dL Creatinine 1.00 0.550-1.02 mg/dL Glomerular Filtration Rate Calc 59 >90 mL/min BUN/Creatinine Ratio 18.0 10.0-20.0 Serum Glucose 134 H 74-106 mg/dL Calcium Level 8.8 8.7-10.4 mg/dL Total Bilirubin 0.4 0.2-1.0 mg/dL Aspartate Amino Transferase (AST) 38 13-40 U/L Alanine Aminotransferase (ALT) 28 7-40 U/L Alkaline Phosphatase 85 46-116 U/L Total Protein 6.3 5.7-8.2 g/dL Albumin 4.0 3.2-4.8 g/dL PATIENT: NAY ROACH ACCT: [id number] UNIT: [id number] : 1950 LOC: ER ROOM / BED: / AGE / SEX: 74 / F ADM STATUS: REG ER SERVICE [id number] ORDERING PHYSICIAN: DOLORES MACIAS PAC PROCEDURE(s): LLEX - LEFT LOWER EXTREMITY W/O CON REASON: Fall/trauma ORDER NUMBER(s): [id number], ACCESSION NUMBER(s): [id number] INDICATION: Fall/trauma COMPARISON: CT PELVIS WO CONTRAST on DOS: 05/27/25, CT LOWER EXTREMITY NON JOINT RIGH on DOS: 05/27/25, CT LS SPINE WO CONTRAST on DOS: 11/08/24, XY L HIP COMPLETE XRAY on DOS: 10/14/23, XY L HIP COMPLETE XRAY on DOS: 10/14/23 TECHNIQUE: CT of the right was performed without contrast. Volume transverse images were obtained and reconstructed in multiple planes using bone and soft tissue algorithms. CONTRAST: None Radiation Dose Information: CT Dose: CTDI volume is 21 mGy. Dose-length product is 631 mGy*cm FINDINGS: Patient is status post ORIF 4 left femoral neck fracture. No definite evidence of acute fracture is seen. There is no dislocation. The alignment is normal. The joint spaces are normal. The soft tissues are normal. IMPRESSION: 1. No evidence of acute fracture. 2. Status post ORIF left femoral neck fracture. As ORDERING PHYSICIAN: DOLORES MACIAS PAC PROCEDURE(s): RLEX - LOWER EXTREMITY NON JOINT RIGH REASON: Trauma/fall ORDER NUMBER(s): [id number], ACCESSION NUMBER(s): [id number] Indication: Trauma/fall Technique: CT axial images of the right lower extremity from the right hip to the right foot are obtained without contrast. Coronal and sagittal reformats were obtained. Radiation Dose Information: CTDI volume is 11.3 mGy. Dose-length product is 2505 mGy*cm Comparison: CT LEFT LOWER EXTREMITY W/O CON on DOS: 05/27/25 FINDINGS/IMPRESSION: Moderate degenerate changes right SI joint. Yrsv-pc-qiqszfoy degenerate changes right hip. Old right inferior pubic ramus fracture. Probable old left inferior pubic ramus fracture. No acute fracture. Small suprapatellar effusion. Moderate degenerate changes of the right knee. Apqe-mj-mfbljifh degenerate changes of the tibiotalar joint. Mild right lower extremity soft tissue edema. ORDERING PHYSICIAN: DOLORES MACIAS PAC PROCEDURE(s): PL2CT - PELVIS WO CONTRAST REASON: Fall/trauma ORDER NUMBER(s): [id number], ACCESSION NUMBER(s): [id number] Indication: Fall/trauma Technique: CT axial images of the pelvis are obtained without contrast. Coronal and sagittal reformats were obtained. Radiation Dose Information: CTDI volume is 20.97 mGy. Dose-length product is 2.47 mGy*cm Comparison: CT PELVIS WO CONTRAST on DOS: 10/13/23 FINDINGS: Moderate degenerate changes bilateral sacroiliac joints. Pubic symphysis intact. Old right inferior/superior pubic rami fractures. Left femur intramedullary gume, intertrochanteric screw. Lumbar levocurvature. Chronic appearing fracture at the S3/S4 region. Rvcc-kf-stwmfljy degenerate changes bilateral hips. Gallbladder distention. Abdominal aortic atherosclerotic disease. Colonic diverticula. No free pelvic fluid. Fat containing right inguinal hernia. IMPRESSION: Chronic appearing fracture at S3/S4. Correlate point tenderness. Moderate degenerate changes bilateral sacroiliac joints. Qjrc-ct-bzaorrtg degenerate changes bilateral hips. ORDERING PHYSICIAN: TAMMI JAQUEZ [facility] PROCEDURE(s): CXRP - CHEST PORTABLE REASON: Shortness of breaths ORDER NUMBER(s): [id number], ACCESSION NUMBER(s): [id number] CHEST RADIOGRAPH Indication: Shortness of breaths Technique: Single frontal view of the chest was obtained COMPARISON: XY CHEST PORTABLE on DOS: 11/07/24, CT CHEST WITHOUT CONTRAST on DOS: 07/11/24, XY CHEST PORTABLE on DOS: 07/10/24, CT CHEST WITHOUT CONTRAST on DOS: 01/15/24, XY CHEST XRAY 1 VIEW on DOS: 12/03/23 FINDINGS: Stable relative lucency throughout the left mid and lower lung possibly related to a bulla or emphysematous disease. Cardiac silhouette is borderline in size with diffuse prominence of the pulmonary vasculature with mild hazy ground glass opacity throughout both lungs. IMPRESSION: 1. With mild hazy ground glass opacity throughout both lungs views congestion likely related to pulmonary edema SEPSIS Sepsis Screen Date sepsis recognized/suspect: May 27, 2025 Time Sepsis recognized/suspect: 1944 Recent Procedure: No On Antibiotic Therapy: No Respiratory Rate >20: Yes Heart Rate >90: No Temp<36 C (96.8 F) or >38.3 C: No SBP <90 or MAP <65 mmHG: No New Acute Mental Status Change: No Is the patient on CPAP, BIPAP,: No Physician Orders Drug Screen (05/27/25 16:27) Urinalysis (05/27/25 16:27) Heplock Iv (05/27/25 16:27) Pelvis Wo Contrast (05/27/25 16:27) Left Lower Extremity W/O Con (05/27/25 16:27) Lower Extremity Non Joint Righ (05/27/25 16:27) Albuterol Medneb (Ventolin Medneb) (05/27/25 22:45) Ipratropium Medneb (Atrovent Medneb) (05/27/25 22:45) Aspirin Tablet (05/28/25 10:00) Troponin-I Hs (05/27/25 23:36) Troponin-I Hs (05/28/25 01:36) Ceftriaxone Ivpb Rocephin (05/28/25 09:00) Ceftriaxone Ivpb Rocephin (05/27/25 22:45) Admit (05/27/25 22:39) Allergies (05/27/25 22:39) Code Status (05/27/25 22:39) Oxygen Per Hour (05/27/25 22:39) Ondansetron Hcl (Zofran) (05/27/25 22:45) Docusate Sodium Capsule (Colace Capsule) (05/27/25 22:45) Fall Risk Precautions In Place QSHIFT (05/27/25 22:39) Complete Blood Count (05/28/25 04:00) Comprehensive Metabolic Panel (05/28/25 04:00) Cardiac Diet-2gna,Lofat,Lochol (05/28/25 Breakfast) Condition: Serious (05/27/25 22:39) Acetaminophen Tablet (Tylenol Tablet) (05/27/25 22:45) Maintain Bed Rest (05/27/25 22:39) Sequential Compression Device (05/27/25 ) Nitroglycerin Sublingual (Ntrostat Subli (05/27/25 22:45) Morphine Sulfate Injection (05/27/25 22:45) Stat Ekg For Chest Pain (05/27/25 22:39) Notify Of Changes From Base (05/27/25 22:39) Recreational Therapist For 24 Hours (05/27/25 22:39) Emergency Dysrhythmia Protocol (05/27/25 22:39) Rhythm Strips Once Every Shift (05/27/25 22:39) Oxygen By Nasal Cannula (05/27/25 22:39) Vital Signs Date Time Temp Pulse Resp B/P (MAP) Pulse Ox O2 Delivery O2 Flow Rate FiO2 05/27/25 21:41 97 24 127/87 05/27/25 19:52 103 05/27/25 19:45 Oxymizer 6 N/A 05/27/25 19:45 97.5 104 21 132/86 (101) 94 97.5 05/27/25 19:43 104 05/27/25 18:00 119 19 104/78 (87) 91 05/27/25 18:00 121 05/27/25 17:44 119 18 92 Nasal Cannula* 3 32 05/27/25 17:15 26 90 Oxymizer 6 N/A 05/27/25 17:13 91 Oxymizer 6 N/A 05/27/25 17:08 97.9 120 22 130/84 95 97.9 05/27/25 16:38 98.3 127 33 138/81 (100) 92 98.3 05/27/25 16:38 122 Laboratory Tests Test 05/27/25 17:02 White Blood Count 14.6 10^3/uL (4.4-10.8) H Medications Medications Dose Ordered Sig/Rio Route Start Time Stop Time Status Last Admin Dose Admin Acetaminophen 1,000 mg ONCE ONCE PO 05/27/25 16:30 05/27/25 16:31 DC 05/27/25 17:16 1,000 MG Albuterol 2.5 mg ONCE ONCE NEB 05/27/25 17:15 05/27/25 17:16 DC 05/27/25 17:15 2.5 MG Hydromorphone HCl 0.5 mg ONCE ONCE IV 05/27/25 21:30 05/27/25 21:31 DC 05/27/25 21:41 0.5 MG Ipratropium [place] 0.5 mg ONCE ONCE NEB 05/27/25 17:15 05/27/25 17:16 DC 05/27/25 17:15 0.5 MG Ketorolac Tromethamine 15 mg ONCE ONCE IV 05/27/25 16:30 05/27/25 16:31 DC 05/27/25 17:16 15 MG Assessment/Plan Assessment/Plan Acute coronary syndrome Chronic pain Pulmonary edema Leukocytosis, unspecified Acute respiratory failure Pneumonia, unspecified organism Generalized weakness Plan 1. Admit to telemetry unit 2. Breathing treatment 3. Pain control management 4. IV antibiotic management 5. Management of fluids and electrolytes 6. Consultation for hospitalist 7. Diagnostic test chest x-ray 8. DVT prophylaxis-on SCDs 9. Repeat labs CBC, CMP in a.m. 10. Home medication reviewed and reconciled 11. Continue with current medical management 12. Treatment plan discussed with patient and RN. Patient verbalized understanding. Plan discussed with: Patient, Other (RN) My Orders Orders - TAMMI JAQUEZ DNP Procedure Category Date Status Time Albuterol Medneb PHA 05/27/25 In Process (Ventolin Medneb) 22:45 Ipratropium Medneb PHA 05/27/25 In Process (Atrovent Medneb) 22:45 Aspirin Tablet PHA 05/28/25 In Process 10:00 Troponin-I Hs LAB 05/27/25 In Process 23:36 Troponin-I Hs LAB 05/28/25 Verified 01:36 Ceftriaxone Ivpb PHA 05/28/25 Transmitted Rocephin 09:00 Ceftriaxone Ivpb PHA 05/27/25 Transmitted Rocephin 22:45 Admit ADMIT 05/27/25 Transmitted 22:39 Allergies CORNELIUS 05/27/25 Transmitted 22:39 Code Status CODE 05/27/25 Transmitted 22:39 Oxygen Per Hour RT 05/27/25 Transmitted 22:39 Ondansetron Hcl PHA 05/27/25 Transmitted (Zofran) 22:45 Docusate Sodium PHA 05/27/25 Transmitted Capsule (Colace 22:45 Fall Risk Precautions CORNELIUS 05/27/[address] 22:39 Complete Blood Count LAB 05/28/25 Verified 04:00 Comprehensive LAB 05/28/25 Verified Metabolic Panel 04:00 Cardiac DIET 05/28/25 Transmitted Diet-2gna,Lofat,Lochol Breakfast Condition: Serious [facility] [place] 05/27/25 Transmitted 22:39 Acetaminophen Tablet PHA 05/27/25 Transmitted (Tylenol Tablet) 22:45 Maintain Bed Rest [facility] [place] 05/27/25 Transmitted 22:39 Sequential [facility] [place] 05/27/25 Transmitted Compression Device Nitroglycerin [facility] 05/27/25 Transmitted Sublingual (Ntrostat 22:45 Morphine Sulfate PHA 05/27/25 Transmitted Injection 22:45 Stat Ekg For Chest [facility] [place] 05/27/25 Transmitted Pain 22:39 Notify Md Of Changes [facility] [place] 05/27/25 Transmitted From Base 22:39 Recreational Therapist For [facility] [place] 05/27/25 Transmitted 24 Hours 22:39 Emergency Dysrhythmia [facility] [place] 05/27/25 Transmitted Protocol 22:39 Rhythm Strips Once [facility] [place] 05/27/25 Transmitted Every Shift 22:39 Oxygen By Nasal RT 05/27/25 Transmitted Cannula 22:39 Problem List: (1) Acute coronary syndrome (2) Chronic pain (3) Pulmonary edema (4) Leukocytosis, unspecified (5) Acute respiratory failure (6) Pneumonia, unspecified organism (7) Generalized weakness Date of Service: May 27, 2025 Billing Provider: TAMMI JAQUEZ DNP Common Visit Codes: [id number] INP/OBS CARE (HIGH) TAMMI JAQUEZ DNP May 27, 2025 22:48
[2025-05-27 22:53] VITALS: PULSE 95; RESP 24; O2SAT 91
[2025-05-27] MEDS: ALBUTEROL SULF 2.5 MG/0.5ML(0.5%) NEB SOLN NEB PRN (22:53)
[2025-05-27] MEDS: IPRATROPIUM BROM 0.5 MG/2.5ML INH SOL NEB PRN (22:53)
[2025-05-27 22:59] VITALS: PULSE 95; RESP 20; O2SAT 97
[2025-05-27 23:31] VITALS: BP 109/70; PULSE 95; RESP 24; TEMP 97.5; O2SAT 92
[2025-05-28] VITALS (9 sets, daily range): BP systolic 94–152; BP diastolic 75–86; PULSE 86–139; RESP 14–30; O2SAT 92–99
--- NOTE | 2025-05-28 00:45 | DVH ---
CHEST RADIOGRAPH Indication: Shortness of breaths Technique: Single frontal view of the chest was obtained COMPARISON: XY CHEST PORTABLE on DOS: 11/07/24, CT CHEST WITHOUT CONTRAST on DOS: 07/11/24, XY CHEST POR TABLE on DOS: 07/10/24, CT CHEST WITHOUT CONTRAST on DOS: 01/15/24, XY CHEST XRAY 1 VIEW on DOS: 4 FINDINGS: Stable relative lucency throughout the left mid and lower lung possibly related to a bulla or emphyse matous disease. Cardiac silhouette is borderline in size with diffuse prominence of the pulmonary vasculature with m ild hazy ground glass opacity throughout both lungs. IMPRESSION: 1. With mild hazy ground glass opacity throughout both lungs lOnly views congestionikely related to p ulmonary edema
[2025-05-28 04:25] LABS: Hematocrit 37.9 % (36.0-46.0); Hemoglobin 12.8 g/dL (12.2-16.2); Mean Corpuscular Hemoglobin 32.2 pg (28.0-32.0); Mean Corpuscular Volume 95.8 fL (80.0-100.0); Nucleated Red Blood Cells % 0.0 %
[2025-05-28 04:37] LABS: Alanine Aminotransferase 23 U/L (7-40); Albumin 3.6 g/dL (3.2-4.8); Alkaline Phosphatase 67 U/L (46-116); Anion Gap 8 (5-15); BUN/Creatinine Ratio 16.7 (10.0-20.0); Blood Urea Nitrogen 20 mg/dL (9-23); Calcium 8.5 mg/dL (8.7-10.4); Carbon Dioxide 28 mmol/L (20-31); Chloride 100 mmol/L (98-107); Glucose 115 mg/dL (74-106); Potassium 5.5 mmol/L (3.5-5.1); Sodium 136 mmol/L (136-145); Total Protein 5.9 g/dL (5.7-8.2)
[2025-05-28 04:38] LABS: Bilirubin, Total 0.4 mg/dL (0.2-1.0)
[2025-05-28] MEDS: FUROSEMIDE 20 MG/2 ML VIAL IV ONE (05:00)
[2025-05-28] MEDS: AZITHROMYCIN 500MG/ 250ML 250 ML IV ONE (05:00)
[2025-05-28 08:31] LABS: Urine Protein, UAD Negative (Negative); Urine WBC Clumps PRESENT /hpf (None Seen)
[2025-05-28 08:42] LABS: Opiate Scree,Urine Neg (NEGATIVE)
[2025-05-28 08:46] LABS: Barbiturate Scree,Urine Neg (NEGATIVE); Cannabinoid Screen, Urine Neg (NEGATIVE); Cocaine Screen, Urine Neg (NEGATIVE); Phencyclidine Screen, Urine Neg (NEGATIVE)
[2025-05-28 08:56] LABS: Amphetamine Screen, Urine Neg (NEGATIVE); Benzodiazephine Screen, Urine Pos (NEGATIVE)
--- NOTE | 2025-05-28 14:03 | DVHPN2 ---
Reviewed: Care Plan, H&P, Labs, Medications, Previous Orders, Radiology Changes from previous H/P or p: No Changes Eyes: No Pain, No Vision change, No Conjunctivae inflammation, No Eyelid inflammation, No Other, No Redness ENT: No Ear pain, No Ear discharge, No Nose pain, No Nose discharge, No Nose congestion, No Mouth pain, No Mouth swelling, No Throat pain, No Throat swelling, No Other Cardiovascular: No Chest Pain, No Palpitations, No Orthopnea, No Paroxysmal Noc. Dyspnea, No Edema, No Lt Headedness, No Other Respiratory: No Cough, No Dry; Shortness of breath; No SOB with excertion, No Wheezing, No Hemoptysis, No Pleuritic Pain, No Sputum; Other (SOB at rest) Gastrointestinal: No Nausea, No Vomiting, No Abdominal Pain, No Diarrhea, No Constipation, No Melena, No Hematochezia, No Other Genitourinary: No Dysuria, No Frequency, No Incontinence, No Hematuria, No Retention, No Other Musculoskeletal: other (Pain extending from pelvis down bilateral legs.); No neck pain, No shoulder pain, No arm pain, No back pain, No hand pain, No leg pain, No foot pain Skin: No Rash, No Lesions, No Jaundice, No Bruising, No Other Objective Vitals Vital Signs Date Time Temp Pulse Resp B/P (MAP) Pulse Ox O2 Delivery O2 Flow Rate FiO2 05/28/25 12:00 97 19 101/58 (72) 95 05/28/25 11:33 Oxymizer 6.0 05/28/25 11:33 N/A 05/28/25 10:00 97.8 97.8 Medications Current Medications Medications Dose Ordered Sig/Rio Route Start Time Stop Time Status Last Admin Dose Admin Albuterol 2.5 mg Q4HPRN PRN NEB 05/27/25 22:45 05/28/25 11:33 2.5 MG Ipratropium [place] 0.5 mg Q4HPRN PRN NEB 05/27/25 22:45 05/28/25 11:33 0.5 MG Aspirin 81 mg DAILY PO 05/28/25 10:00 05/28/25 10:41 81 MG Ceftriaxone Sodium 50 ml @ 100 mls/hr Q24H IV 05/28/25 23:00 Ondansetron HCl 4 mg Q4HP PRN IV 05/27/25 22:45 Docusate Sodium 100 mg BIDPRN PRN PO 05/27/25 22:45 Acetaminophen 650 mg Q6HP PRN PO 05/27/25 22:45 Nitroglycerin 0.4 mg Q5MINP PRN SL 05/27/25 22:45 Morphine Sulfate 2 mg Q30M PRN IV 05/27/25 22:45 Azithromycin 250 ml @ 125 mls/hr DAILY IV 05/29/25 10:00 Furosemide 20 mg DAILY IV 05/29/25 10:00 Laboratory Results Laboratory Tests 05/28/25 03:51 Chemistry Test 05/27/25 17:02 05/28/25 03:51 Albumin 4.0 g/dL (3.2-4.8) 3.6 g/dL (3.2-4.8) Calcium Level 8.8 mg/dL (8.7-10.4) 8.5 mg/dL (8.7-10.4) L Total Protein 6.3 g/dL (5.7-8.2) 5.9 g/dL (5.7-8.2) LFT Test 05/27/25 17:02 05/28/25 03:51 Alanine Aminotransferase (ALT) 28 U/L (7-40) 23 U/L (7-40) Alkaline Phosphatase 85 U/L (46-116) 67 U/L (46-116) Aspartate Amino Transferase (AST) 38 U/L (13-40) 30 U/L (13-40) Total Bilirubin 0.4 mg/dL (0.2-1.0) 0.4 mg/dL (0.2-1.0) Urinalysis Test 05/28/25 08:00 Urine Color Light-yellow (Yellow) Urine Clarity Turbid (Clear) H Urine pH 5.0 (5.0-9.0) Urine Specific [place] 1.016 (1.001-1.035) Urine Protein Negative (Negative) Urine Ketones Negative (Negative) Urine Blood Negative /uL (Negative) Urine Nitrite Negative (Negative) Urine Bilirubin Negative (Negative) Urine Urobilinogen Normal mg/dL (Negative) Urine Leukocyte Esterase 3+ /uL (Negative) Urine RBC 3 /hpf (0 - 4) Urine WBC Clumps Present /hpf (None Seen) Urine Microscopic WBC 63 /HPF (0-5) H Urine Squamous Epithelial Cells Few /hpf (<5) Urine Bacteria Mod /hpf (None Seen) H Urine Mucus Few (None Seen) Urine Glucose Normal mg/dL (Normal) Labs and/or images reviewed: Labs reviewed by me, Image(s) reviewed by me Assessment/Plan Assessment/Plan Sepsis secondary to pneumonia Possible aspiration pneumonia Gram-negative versus Gram-positive: Rocephin azithromycin Non ST-elevation PR with troponin 256, cardiology consult for Dr. Elyssa Church, treatment per ACS protocol Chest pain Overdose on five Percocet tablets Pulmonary edema Acute generalized weakness Hypertension Acute COPD exacerbation Anxiety Asthma Time spent 70 minutes Advanced care planning time 20 minutes Patient is full code Plan discussed with: Patient My Orders Orders - CLAUDE VIVEROS MD Procedure Category Date Status Time Rapid Influenza A&B LAB 05/28/25 Transmitted 14:00 Covid19 Antigen [place] LAB 05/28/25 Transmitted Date of Service: May 28, 2025 Billing Provider: CLAUDE VIVEROS MD Common Visit Codes: [id number] CARE 30-74 MIN CLAUDE VIVEROS MD May 28, 2025 14:03
[2025-05-28] MEDS: ACETAMINOPHEN 325 MG TAB PO PRN (14:29)
[2025-05-28] MEDS: HYDROcodone-ACET 5/325MG TAB PO PRN (14:58)
--- NOTE | 2025-05-28 15:32 | ECG ---
[facility] Test Date: 2025-05-28 Test Time: 15:24:52 Pat Name: NAY ROACH Department[facility] Patient ID: [id number] Room: [address] [place] [address] Gender: F Fruit Raiser: EMERY : 1950 Requested By: TUAN EDUARDO Order Number: [id number] Reading MD: Mihir Peterson Measurements Intervals [place] Rate: 102 P: -24 AR: 158 QRS: -14 QRSD: 84 T: -8 QT: 348 QTc: 454 Interpretive Statements Sinus tachycardia Low voltage, precordial leads Borderline T abnormalities, inferior leads Electronically Signed On 05-29-2025 19:18:24 PDT by Mihir Peterson Please click the below link to view image of tracing.
--- NOTE | 2025-05-28 15:47 | DVHINCON2 ---
Date Seen: May 28, [address] Lis Butler Reason for Consultation NSTEMI History of Present Illness This is a 74-year-old female who presented to the ED after sustaining a mechanical fall last night. She reports that she was walking when she tripped and fell, without any preceding dizziness, syncope, chest pain, palpitations, or shortness of breath. In the ED, evaluation revealed elevated troponin levels ( 256/312/285 ng/L) and a 12 lead ECG showing sinus tachycardia at a rate of 103 beats per minute with abnormal T-wave changes, prompting cardiology consultation. Her past medical history significant for COPD, hypertension, asthma, anxiety, and prior pneumonia. Past Medical History As stated in HPI Past Surgical History Denies Family History: Cerebrovascular accident (CVA) G8 MOTHER FH: bladder cancer G8 FATHER Hypertension Family History Reviewed, non-contributory to the management of this case. Social History The patient lives at home, denies smoking, alcohol or illicit drugs abuse. Allergies: Coded Allergies: NO KNOWN ALLERGIES (Unverified , 08/21/23) Home Meds Active Scripts Prednisone (Prednisone) 20 Mg Tab, 40 MG PO DAILY for 5 Days, #5 MG Prov:SUHAIL STAFFORD RESIDENT 11/10/24 Doxycycline (Monohydrate) (Doxycycline) 100 Mg Cap, 100 MG PO BID for 7 Days, #14 CAP Prov:SUHAIL STAFFORD RESIDENT 11/10/24 Prednisone (Prednisone) 20 Mg Tab, 40 MG PO DAILY for 5 Days, #5 MG Prov:TANJA JOINER RESIDENT 07/13/24 Levofloxacin Hemihydrate (LEVOFLOXACIN) 750 Mg Tab, 1 TAB PO DAILY for 4 Days, #4 TAB Prov:TANJA JOINER RESIDENT 07/13/24 Cyclobenzaprine HCl (Cyclobenzaprine Hydrochlo) 5 Mg Tab, 5 MG PO TID, #14 TAB Prov:LOLIS ROSA MD 12/03/23 Enoxaparin Sodium (Lovenox) 40 Mg/0.4 Ml Ij, 40 MG SC DAILY for 30 Days, #60 INJ Prov:BERT BUCK RESIDENT 10/15/23 Acetaminophen (Acetaminophen) 325 Mg Tab, 650 MG PO Q6HP PRN for 30 Days, #240 TAB Prov:BERT BUCK RESIDENT 10/15/23 Reported Medications Lisinopril & Hydrochlorothiazi (Lisinopril/Hydrochlorothi) 1 Tab Tab, 1 TAB PO DAILY 09/06/23 Escitalopram Oxalate (ESCITALOPRAM OXALATE) 10 Mg Tab, 1 TAB PO DAILY 09/06/23 Montelukast Sodium (MONTELUKAST SODIUM) 10 Mg Tab, 1 TAB PO DAILY 09/06/23 Qkzhyesdtzj-Epldyybulgtc-Uhkxv (Trelegy Ellipta 200-62.5-25 Mcg/INH) 1 Aer Aer, 1 PUFF INH DAILY 09/06/23 Albuterol Sulfate (Albuterol Sulfate Hfa) 108 Mcg/Act Aer, INH 09/06/23 Current Medications Current Medications Medications (Trade) Dose Ordered Sig/Rio Route PRN Reason Start Time Stop Time Status Last Admin Albuterol (Ventolin Medneb) 2.5 mg Q4HPRN PRN NEB SHORTNESS OF BREATH 05/27/25 22:45 05/28/25 11:33 Ipratropium [place] (Atrovent Medneb) 0.5 mg Q4HPRN PRN NEB SHORTNESS OF BREATH 05/27/25 22:45 05/28/25 11:33 Aspirin 81 mg DAILY PO 05/28/25 10:00 05/28/25 10:41 Ceftriaxone Sodium 50 ml @ 100 mls/hr Q24H IV 05/28/25 23:00 Ondansetron HCl (Zofran) 4 mg Q4HP PRN IV NAUSEA / VOMITING 05/27/25 22:45 Docusate Sodium (Colace Capsule) 100 mg BIDPRN PRN PO FOR CONSTIPATION 05/27/25 22:45 Acetaminophen (Tylenol Tablet) 650 mg Q6HP PRN PO PAIN SCALE 1-3 OR TEMP>100.4 05/27/25 22:45 05/28/25 14:29 Nitroglycerin (Ntrostat Sublingual) 0.4 mg Q5MINP PRN SL FOR CHEST PAIN 05/27/25 22:45 Morphine Sulfate 2 mg Q30M PRN IV FOR CHEST PAIN 05/27/25 22:45 Azithromycin 250 ml @ 125 mls/hr DAILY IV 05/29/25 10:00 Furosemide (Lasix Injection) 20 mg DAILY IV 05/29/25 10:00 Acetaminophen/ Hydrocodone Bitart ([place] 5/325MG Tab) 1 tab Q6HPRN PRN PO MODERATE PAIN (4-6 PAIN SCALE) 05/28/25 14:45 05/28/25 14:58 Review of Systems Constitutional: No symptom reported Ears, Nose, & Throat: No symptom reported Eyes: No symptom reported Neurological: No symptoms reported Pulmonary/Respiratory: No symptom reported Cardiovascular: No symptom reported Gastrointestinal: No symptom reported Genitourinary: No symptom reported Musculoskeletal: No symptom reported Skin: No symptom reported Psychiatric: No symptom reported Endocrine: No symptom reported Hemotologic/Lymphatic: No symptom reported Vital Signs Vital Signs Date Time Temp Pulse Resp B/P (MAP) Pulse Ox O2 Delivery O2 Flow Rate FiO2 05/28/25 15:30 97.4 05/28/25 15:24 102 05/28/25 12:00 19 101/58 (72) 95 05/28/25 11:33 Oxymizer 6.0 05/28/25 11:33 N/A Physical Exam INITIAL VITAL SIGNS: Reviewed by me GENERAL: Alert and interactive. No acute distress. HEAD: Head is normocephalic and atraumatic. EYES: EOMI, PERRL. No scleral icterus. No conjunctival injection. ENT: Moist mucous membranes. NECK: Supple, No masses, Full range of motion. RESPIRATORY: No tachypnea. Clear breath sounds bilaterally. No wheezing, rales, rhonchi. CV: Regular rate and rhythm. No murmurs, rubs, or gallops. GI/: Active bowel sounds, soft, nondistended, nontender. No guarding. No rebound. No masses. No CVA tenderness. INTEGUMENTARY: Warm and dry. No obvious rashes. NEUROLOGIC: Alert and oriented. Face is symmetric. Speech is normal. Moves all extremities equally. Labs/Diagnostic Data Labs Test 05/28/25 08:00 05/28/25 03:51 05/28/25 01:30 Range/Units Urine Color Light-yellow Yellow Urine Clarity Turbid H Clear Urine pH 5.0 5.0-9.0 Urine Specific [place] 1.016 1.001-1.035 Urine Protein Negative Negative Urine Ketones Negative Negative Urine Blood Negative Negative /uL Urine Nitrite Negative Negative Urine Bilirubin Negative Negative Urine Urobilinogen Normal Negative mg/dL Urine Leukocyte Esterase 3+ Negative /uL Urine RBC 3 0 - 4 /hpf Urine WBC Clumps Present None Seen /hpf Urine Microscopic WBC 63 H 0-5 /HPF Urine Squamous Epithelial Cells Few <5 /hpf Urine Bacteria Mod H None Seen /hpf Urine Mucus Few None Seen Urine Glucose Normal Normal mg/dL Urine Opiates Screen Neg NEGATIVE Urine Fentanyl Screen Neg NEGATIVE Urine Barbiturates Screen Neg NEGATIVE Urine Phencyclidine Screen Neg NEGATIVE Urine Amphetamines Screen Neg NEGATIVE Urine Benzodiazepines Screen Pos NEGATIVE Urine Cocaine Screen Neg NEGATIVE Urine Cannabinoids Screen Neg NEGATIVE White Blood Count 9.7 # 4.4-10.8 10^3/uL Red Blood Count 3.96 L 4.0-5.20 10^6/uL Hemoglobin 12.8 12.2-16.2 g/dL Hematocrit 37.9 # 36.0-46.0 % Mean Corpuscular Volume 95.8 80.0-100.0 fL Mean Corpuscular Hemoglobin 32.2 H 28.0-32.0 pg Mean Corpuscular Hemoglobin Concent 33.7 32.0-36.0 g/dL Red Cell Distribution Width 13.6 11.8-14.3 % Platelet Count 230 140-450 10^3/uL Mean Platelet Volume 7.7 6.9-10.8 fL Neutrophils (%) (Auto) 75.9 37.0-80.0 % Lymphocytes (%) (Auto) 16.2 10.0-50.0 % Monocytes (%) (Auto) 6.2 0.0-12.0 % Eosinophils (%) (Auto) 1.4 0.0-7.0 % Basophils (%) (Auto) 0.3 0.0-2.0 % Neutrophils # (Auto) 7.3 1.6-8.6 10 ^3/uL Lymphocytes # (Auto) 1.6 0.4-5.4 10 ^3/uL Monocytes # (Auto) 0.6 0-1.3 10 ^3/uL Eosinophils # (Auto) 0.1 0-0.8 10 ^3/uL Basophils # (Auto) 0 0-0.2 10 ^3/uL Nucleated Red Blood Cells 0.0 % Sodium Level 136 136-145 mmol/L Potassium Level 5.5 H 3.5-5.1 mmol/L Chloride Level 100 98-107 mmol/L Carbon Dioxide Level 28 20-31 mmol/L Anion Gap 8 5-15 Blood Urea Nitrogen 20 9-23 mg/dL Creatinine 1.20 H 0.550-1.02 mg/dL Glomerular Filtration Rate Calc 48 >90 mL/min BUN/Creatinine Ratio 16.7 10.0-20.0 Serum Glucose 115 H 74-106 mg/dL Calcium Level 8.5 L 8.7-10.4 mg/dL Total Bilirubin 0.4 0.2-1.0 mg/dL Aspartate Amino Transferase (AST) 30 13-40 U/L Alanine Aminotransferase (ALT) 23 7-40 U/L Alkaline Phosphatase 67 46-116 U/L Total Protein 5.9 5.7-8.2 g/dL Albumin 3.6 3.2-4.8 g/dL Troponin I High Sensitivity 285 *H </=34 ng/L PROCEDURE(s): CXRP - CHEST PORTABLE REASON: Shortness of breaths ORDER NUMBER(s): [id number], ACCESSION NUMBER(s): [id number] CHEST RADIOGRAPH Indication: Shortness of breaths Technique: Single frontal view of the chest was obtained COMPARISON: XY CHEST PORTABLE on DOS: 11/07/24, CT CHEST WITHOUT CONTRAST on DOS: 07/11/24, XY CHEST PORTABLE on DOS: 07/10/24, CT CHEST WITHOUT CONTRAST on DOS: 01/15/24, XY CHEST XRAY 1 VIEW on DOS: 12/03/23 FINDINGS: Stable relative lucency throughout the left mid and lower lung possibly related to a bulla or emphysematous disease. Cardiac silhouette is borderline in size with diffuse prominence of the pulmonary vasculature with mild hazy ground glass opacity throughout both lungs. IMPRESSION: 1. With mild hazy ground glass opacity throughout both lungs lOnly views congestionikely related to pulmonary edema Assessment NSTEMI rule out CAD Sepsis likely from pneumonia LISSETTE on CKD COPD exacerbation Hypertension Plan/Recommendation (Dr. Church ): * Chest pain protocol--aspirin and statins * Trend troponin repeat ECG to monitor for changes * Obtain transthoracic echocardiogram to evaluate for wall motion abnormalities and assess LV function * Tentative schedule for left heart catheterization for further evaluation of ischemic heart disease, informed consent obtained from the patient and agreed with the plan * Continue cardiac monitoring on telemetry * Optimize management of comorbidities including hypertension and COPD * Cardiology to follow for ongoing recommendation pending echo and left heart catheterization This medical document was created using an electronic medical record system with voice recognition software and computerized dictation system. Although this document has been carefully reviewed, there might still be some phonetic and typographical errors. Occasional wrong-word or ``sound-alike substitutions may have occurred due to the inherent limitations of voice recognition software. These areas are purely typographical due to imperfections of the software programs and do not reflect any compromise in the patient's medical care. Mariia willis read the chart carefully and recognize, using context, where these substitutions have occurred. Plan discussed with: Patient Plan discussed with: Patient NYHA Physical activity limitations: NA Date of Service: May 28, 2025 Billing Provider: ALBERTA CHURCH MD Cardiology Common Codes: CONSULT ONLY Cardiology Consultation Codes: 50291-[id number] CONSULT <45MIN TUAN EDUARDO [employer] PROFESSOR May 28, 2025 15:47
[2025-05-28 16:27] LABS: Triglycerides 75 mg/dL (< 150)
[2025-05-28 16:29] LABS: Cholesterol 180 mg/dL (< 200); HDL Cholesterol 58 mg/dL (40-59)
[2025-05-28 16:37] LABS: INR 1.03 (0.9-1.15); Partial Thromboplastin Time 30.8 SEC (24.5-34.5); Prothrombin Time 10.9 sec (9.3-11.8)
[2025-05-28] MEDS: SODIUM CHLORIDE 0.9% 1,000 ML IV SCH (17:20)
[2025-05-28] MEDS: LORazepam 2MG/ML-1ML VIAL IV ONE (17:55)
[2025-05-28] MEDS: LORazepam 2MG/ML-1ML VIAL IV PRN (20:01)
[2025-05-28 20:14] LABS: Base Excess -4.7 mmol/L (-2.0-3.0)
[2025-05-28] MEDS: ETOMIDATE (2MG/ML) 20ML VIAL IV ONE ×2 (20:50→20:52)
[2025-05-28] MEDS: SUCCINYLCHOLINE CHLORIDE 20 MG/ML 10ML VIAL IV ONE ×2 (20:50→20:53)
[2025-05-28] MEDS: PROPOFOL 100 ML IV SCH (21:00)
[2025-05-28] MEDS: PROPOFOL 100 ML IV ONE (21:27)
--- NOTE | 2025-05-28 21:46 | DVH ---
CHEST RADIOGRAPH Indication: S/P INTUBATION Technique: Single frontal view of the chest was obtained Comparison: XY CHEST PORTABLE on DOS: 05/28/25, XY CHEST PORTABLE on DOS: 11/07/24, CT CHEST WITHOUT CON TRAST on DOS: 07/11/24 FINDINGS: Lines and Tubes: ENDOTRACHEAL TUBE 4.4 CM ABOVE THE ZOILA. 1 MEASUREMENT SHOWS THE ENDOTRACHEAL TUBE 6.2 CM ABOVE THE ZOILA. Enteric tube below the diaphragm in the stomach. Lungs: No focal consolidation. Stable large bulla in the left chest. Stable pulmonary fibrosis throug hout the right chest. Pleura: No effusion. No pneumothorax. Cardiomediastinal contours: Unremarkable Bones: No acute osseous abnormality. IMPRESSION: 1. Endotracheal the zoila. 2. Enteric tube below the left diaphragm in the stomach 3. No significant change in cardiopulmonary findings from 05/28/2025 0 10am
[2025-05-28] MEDS: ATORVASTATIN 20 MG TAB PO SCH (22:00)
[2025-05-28 22:37] LABS: Chloride 100 mmol/L (98-107)
[2025-05-28 22:38] LABS: Anion Gap 8 (5-15); Carbon Dioxide 26 mmol/L (20-31)
[2025-05-28 22:39] LABS: Calcium 8.8 mg/dL (8.7-10.4)
[2025-05-28 22:42] LABS: Base Excess -4.0 mmol/L (-2.0-3.0)
[2025-05-28 22:44] LABS: BUN/Creatinine Ratio 17.0 (10.0-20.0); Blood Urea Nitrogen 17 mg/dL (9-23); Glucose 111 mg/dL (74-106); Potassium 5.2 mmol/L (3.5-5.1); Sodium 134 mmol/L (136-145)
--- NOTE | 2025-05-28 22:52 | DVHINCON2 ---
Date Seen: May 28, [address] Lis Butler Reason for Consultation NSTEMI History of Present Illness This is a 74-year-old female with a past medical history of COPD, hypertension, asthma, anxiety, and prior pneumonia who presented to the ED after sustaining a mechanical fall last night. She reports that she was walking when she tripped and fell, without any preceding dizziness, syncope, chest pain, palpitations, or shortness of breath. In the ED, evaluation revealed elevated troponin levels ( 256/312/285 ng/L) and a 12 lead ECG showing sinus tachycardia at a rate of 103 beats per minute with abnormal T-wave changes, prompting cardiology consultation. RLE CT showed moderate degenerate changes right SI joint. Wrmo-zk-upyhiijf degenerate changes right hip. Old right inferior pubic ramus fracture. Probable old left inferior pubic ramus fracture. No acute fracture. Small suprapatellar effusion. Moderate degenerate changes of the right knee. Ulmp-bk-bylaaqmx degenerate changes of the tibiotalar joint. Mild right lower extremity soft tissue edema. Patient was admitted to the hospital. I am asked to consult on this patient. Past Medical History As stated in HPI Past Surgical History Denies Family History: Cerebrovascular accident (CVA) G8 MOTHER FH: bladder cancer G8 FATHER Hypertension Allergies: Coded Allergies: NO KNOWN ALLERGIES (Unverified , 08/21/23) Home Meds Active Scripts Prednisone (Prednisone) 20 Mg Tab, 40 MG PO DAILY for 5 Days, #5 MG Prov:SUHAIL STAFFORD RESIDENT 11/10/24 Doxycycline (Monohydrate) (Doxycycline) 100 Mg Cap, 100 MG PO BID for 7 Days, #14 CAP Prov:SUHAIL STAFFORD RESIDENT 11/10/24 Prednisone (Prednisone) 20 Mg Tab, 40 MG PO DAILY for 5 Days, #5 MG Prov:TANJA JOINER RESIDENT 07/13/24 Levofloxacin Hemihydrate (LEVOFLOXACIN) 750 Mg Tab, 1 TAB PO DAILY for 4 Days, #4 TAB Prov:TANJA JOINER RESIDENT 07/13/24 Cyclobenzaprine HCl (Cyclobenzaprine Hydrochlo) 5 Mg Tab, 5 MG PO TID, #14 TAB Prov:LOLIS ROSA MD 12/03/23 Enoxaparin Sodium (Lovenox) 40 Mg/0.4 Ml Ij, 40 MG SC DAILY for 30 Days, #60 INJ Prov:BERT BUCK RESIDENT 10/15/23 Acetaminophen (Acetaminophen) 325 Mg Tab, 650 MG PO Q6HP PRN for 30 Days, #240 TAB Prov:BERT BUCK RESIDENT 10/15/23 Reported Medications Lisinopril & Hydrochlorothiazi (Lisinopril/Hydrochlorothi) 1 Tab Tab, 1 TAB PO DAILY 09/06/23 Escitalopram Oxalate (ESCITALOPRAM OXALATE) 10 Mg Tab, 1 TAB PO DAILY 09/06/23 Montelukast Sodium (MONTELUKAST SODIUM) 10 Mg Tab, 1 TAB PO DAILY 09/06/23 Eexljdoecwe-Nemaoigwicdn-Ndycl (Trelegy Ellipta 200-62.5-25 Mcg/INH) 1 Aer Aer, 1 PUFF INH DAILY 09/06/23 Albuterol Sulfate (Albuterol Sulfate Hfa) 108 Mcg/Act Aer, INH 09/06/23 Current Medications Current Medications Medications (Trade) Dose Ordered Sig/Rio Route PRN Reason Start Time Stop Time Status Last Admin Albuterol (Ventolin Medneb) 2.5 mg Q4HPRN PRN NEB SHORTNESS OF BREATH 05/27/25 22:45 05/28/25 11:33 Ipratropium [place] (Atrovent Medneb) 0.5 mg Q4HPRN PRN NEB SHORTNESS OF BREATH 05/27/25 22:45 05/28/25 11:33 Aspirin 81 mg DAILY PO 05/28/25 10:00 05/28/25 10:41 Ceftriaxone Sodium 50 ml @ 100 mls/hr Q24H IV 05/28/25 23:00 Ondansetron HCl (Zofran) 4 mg Q4HP PRN IV NAUSEA / VOMITING 05/27/25 22:45 Docusate Sodium (Colace Capsule) 100 mg BIDPRN PRN PO FOR CONSTIPATION 05/27/25 22:45 Acetaminophen (Tylenol Tablet) 650 mg Q6HP PRN PO PAIN SCALE 1-3 OR TEMP>100.4 05/27/25 22:45 05/28/25 14:29 Nitroglycerin (Ntrostat Sublingual) 0.4 mg Q5MINP PRN SL FOR CHEST PAIN 05/27/25 22:45 Morphine Sulfate 2 mg Q30M PRN IV FOR CHEST PAIN 05/27/25 22:45 Azithromycin 250 ml @ 125 mls/hr DAILY IV 05/29/25 10:00 Furosemide (Lasix Injection) 20 mg DAILY IV 05/29/25 10:00 Acetaminophen/ Hydrocodone Bitart ([place] 5/325MG Tab) 1 tab Q6HPRN PRN PO MODERATE PAIN (4-6 PAIN SCALE) 05/28/25 14:45 05/28/25 14:58 Atorvastatin Calcium (Lipitor) 40 mg HS PO 05/28/25 22:00 UNV Sodium Chloride 1,000 ml @ 75 mls/hr [id number] IV 05/28/25 16:00 UNV Review of Systems Constitutional: No symptom reported Ears, Nose, & Throat: No symptom reported Eyes: No symptom reported Neurological: No symptoms reported Pulmonary/Respiratory: No symptom reported Cardiovascular: No symptom reported Gastrointestinal: No symptom reported Genitourinary: No symptom reported Musculoskeletal: No symptom reported Skin: No symptom reported Psychiatric: No symptom reported Endocrine: No symptom reported Hemotologic/Lymphatic: No symptom reported Vital Signs Vital Signs Date Time Temp Pulse Resp B/P (MAP) Pulse Ox O2 Delivery O2 Flow Rate FiO2 05/28/25 16:00 102 05/28/25 15:30 97.4 05/28/25 12:00 19 101/58 (72) 95 05/28/25 11:33 Oxymizer 6.0 05/28/25 11:33 N/A Physical Exam GENERAL: Alert and oriented x 3. No acute distress. EYES: PERRL, EOMI. Anicteric. HENT: Moist mucous membranes. LUNGS: Clear to auscultation bilaterally. CARDIOVASCULAR: Regular rate and rhythm. ABDOMEN: Soft, nontender and nondistended. EXTREMITIES: No edema. NEUROLOGIC: No focal neurological deficits. SKIN: Warm, dry. Labs/Diagnostic Data Labs Test 05/28/25 16:09 05/28/25 08:00 05/28/25 03:51 05/28/25 01:30 Range/Units Urine Color Light-yellow Yellow Urine Clarity Turbid H Clear Urine pH 5.0 5.0-9.0 Urine Specific [place] 1.016 1.001-1.035 Urine Protein Negative Negative Urine Ketones Negative Negative Urine Blood Negative Negative /uL Urine Nitrite Negative Negative Urine Bilirubin Negative Negative Urine Urobilinogen Normal Negative mg/dL Urine Leukocyte Esterase 3+ Negative /uL Urine RBC 3 0 - 4 /hpf Urine WBC Clumps Present None Seen /hpf Urine Microscopic WBC 63 H 0-5 /HPF Urine Squamous Epithelial Cells Few <5 /hpf Urine Bacteria Mod H None Seen /hpf Urine Mucus Few None Seen Urine Glucose Normal Normal mg/dL Urine Opiates Screen Neg NEGATIVE Urine Fentanyl Screen Neg NEGATIVE Urine Barbiturates Screen Neg NEGATIVE Urine Phencyclidine Screen Neg NEGATIVE Urine Amphetamines Screen Neg NEGATIVE Urine Benzodiazepines Screen Pos NEGATIVE Urine Cocaine Screen Neg NEGATIVE Urine Cannabinoids Screen Neg NEGATIVE White Blood Count 9.7 # 4.4-10.8 10^3/uL Red Blood Count 3.96 L 4.0-5.20 10^6/uL Hemoglobin 12.8 12.2-16.2 g/dL Hematocrit 37.9 # 36.0-46.0 % Mean Corpuscular Volume 95.8 80.0-100.0 fL Mean Corpuscular Hemoglobin 32.2 H 28.0-32.0 pg Mean Corpuscular Hemoglobin Concent 33.7 32.0-36.0 g/dL Red Cell Distribution Width 13.6 11.8-14.3 % Platelet Count 230 140-450 10^3/uL Mean Platelet Volume 7.7 6.9-10.8 fL Neutrophils (%) (Auto) 75.9 37.0-80.0 % Lymphocytes (%) (Auto) 16.2 10.0-50.0 % Monocytes (%) (Auto) 6.2 0.0-12.0 % Eosinophils (%) (Auto) 1.4 0.0-7.0 % Basophils (%) (Auto) 0.3 0.0-2.0 % Neutrophils # (Auto) 7.3 1.6-8.6 10 ^3/uL Lymphocytes # (Auto) 1.6 0.4-5.4 10 ^3/uL Monocytes # (Auto) 0.6 0-1.3 10 ^3/uL Eosinophils # (Auto) 0.1 0-0.8 10 ^3/uL Basophils # (Auto) 0 0-0.2 10 ^3/uL Nucleated Red Blood Cells 0.0 % Sodium Level 136 136-145 mmol/L Potassium Level 5.5 H 3.5-5.1 mmol/L Chloride Level 100 98-107 mmol/L Carbon Dioxide Level 28 20-31 mmol/L Anion Gap 8 5-15 Blood Urea Nitrogen 20 9-23 mg/dL Creatinine 1.20 H 0.550-1.02 mg/dL Glomerular Filtration Rate Calc 48 >90 mL/min BUN/Creatinine Ratio 16.7 10.0-20.0 Serum Glucose 115 H 74-106 mg/dL Hemoglobin A1c 5.9 H <5.7 % A1C Calcium Level 8.5 L 8.7-10.4 mg/dL Total Bilirubin 0.4 0.2-1.0 mg/dL Aspartate Amino Transferase (AST) 30 13-40 U/L Alanine Aminotransferase (ALT) 23 7-40 U/L Alkaline Phosphatase 67 46-116 U/L Total Protein 5.9 5.7-8.2 g/dL Albumin 3.6 3.2-4.8 g/dL Thyroid Stimulating Hormone (TSH) 0.93 0.55-4.78 uIU/mL Troponin I High Sensitivity 285 *H </=34 ng/L Assessment NSTEMI rule out CAD. Sepsis likely from pneumonia. LISSETTE on CKD. COPD exacerbation. Hypertension. Plan/Recommendation I agree with your ongoing assessment and care of plan. Patient has been seen by Pari Mota NP on my behalf, her and I discussed the plan with the patient. Chest pain protocol--aspirin and statins. Trend troponin repeat ECG to monitor for changes. Obtain transthoracic echocardiogram to evaluate for wall motion abnormalities and assess LV function. Tentative schedule for left heart catheterization for further evaluation of ischemic heart disease, informed consent obtained from the patient and agreed with the plan. Continue cardiac monitoring on telemetry. Optimize management of comorbidities including hypertension and COPD. Cardiology to follow for ongoing recommendation pending echo and left heart catheterization. Additional plan as per the hospital course. Plan discussed with: Patient NYHA Physical activity limitations: NA Date of Service: May 28, 2025 Billing Provider: ALBERTA KILPATRICK MD Cardiology Common Codes: 85877-[id number] INP/OBS CARE (High) Cardiology Consultation Codes: [id number] CONSULT <45MIN ALBERTA KILPATRICK MD May 28, 2025 16:38
[2025-05-28] MEDS: IOHEXOL 350 MG/ML 100ML IJ ONE (23:46)
[2025-05-29] VITALS (107 sets, daily range): BP systolic 65–157; BP diastolic 40–78; PULSE 63–109; RESP 12–27; TEMP 97.5–99.4; O2SAT 88–100
--- NOTE | 2025-05-29 00:41 | DVH ---
CTA Chest with intravenous contrast INDICATION: r/o pe. Chest pain. COMPARISON: CT CHEST WITHOUT CONTRAST on DOS: 07/11/24, CT CHEST WITHOUT CONTRAST on DOS: 01/15/24, CT CT ANGIO CHEST CONTRAST on DOS: 09/02/23 TECHNIQUE: Multidetector spiral CTA of the chest was performed of the chest with intravenous contrast . PULMONARY ANGIOGRAPHY PROTOCOL was utilized using a bolus-tracking technique centered on the main p ulmonary artery. Axial, coronal and sagittal multiplanar and MIP reformats were performed. Radiation dose : 1. Chest: CTDI volume is 26.64 mGy. Dose-length product is 442.93 mGy*cm The dose indicators for CT are the volume computed tomography (CT) dose index (CTDIvol) and the dose length product (DLP), and are measured in units of mGy and mGy-cm, respectively. These indicators are not patient dose, but values generated from the CT scanner acquisition factors. The report includes radiation exposure data for exposures received during this examination. Findings: Pulmonary artery: No pulmonary embolus. Lower neck: Normal thyroid. Lungs: ET tube tip in the methodical trachea . Moderate centrilobular emphysema. Scarring within the left lung that appears similar. Mild dependent atelectasis changes within the lower lungs, right wors e than left. Heart/Vascular Structures: Normal heart size. No pericardial effusion. Lymph Nodes: No adenopathy Pleura: Small bilateral effusions. Musculoskeletal: No acute osseous abnormality. Soft tissues: Normal. Upper abdomen: Limited portions of the upper abdomen are unremarkable. IMPRESSION: 1. No pulmonary embolism. 2. Small bilateral pleural effusions with mild dependent atelectasis changes.
[2025-05-29 03:01] LABS: Base Excess -2.2 mmol/L (-2.0-3.0)
--- NOTE | 2025-05-29 03:54 | DVHNC2 ---
Intubation Indication: Respiratory Insufficiency, Altered Mental Status, Airway Protection Pretreated with: Sedation Medicated with: Succinylcholine Intubation Approach: Orotracheal Intubation size: cm (8cm) Informed consent obtained: No Risks/benefits/alt described: No UTO Consent Emergent procedure unable to obtain consents Notes A time out was performed. My hands were washed immediately prior to the procedure. I wore a surgical cap, mask with protective eyewear, gown and gloves throughout the procedure. The patient was placed on a surveillance monitor including continuous pulse oximetry. Rapid Sequence Intubation was conducted. The patient received 15mg of etomidate for induction and 60mg of succinylcholine for adequate paralysis. Cricoid pressure was maintained from time induction agent was given to time of cuff balloon inflation. Using a MAC four laryngoscope and a size 8.0 endotracheal tube with stylet, the patient was intubated on the 1st attempt. The stylet was removed and cuff balloon was inflated. Appropriate endotracheal tube position was confirmed by direct visualization of vocal cord passage, fogging of the tube, CO2 colormetric indicator and symmetric breath sounds. The tube was secured at 22 cm at the lips. Post intubation chest x-ray is pending at this time. Date of Service: May 28, 2025 Billing Provider: AZAM PARR Common Visit Codes: PROCEDURE ONLY Procedure Codes: [id number] AZAM PARR May 29, 2025 03:54
[2025-05-29 06:38] LABS: Base Excess -1.0 mmol/L (-2.0-3.0)
[2025-05-29] MEDS: NOREPINEPHRINE 8 MG/250ML KIT 250 ML IV SCH (08:00)
[2025-05-29] MEDS: fentaNYL Drip 2500mCg/250mlNS 250 ML IV SCH (08:02)
[2025-05-29] MEDS: AZITHROMYCIN 500MG/ 250ML 250 ML IV SCH (11:30)
--- NOTE | 2025-05-29 11:54 | DVHSR ---
APPROVED REPORT EXAM: Two-dimensional and M-mode echocardiogram with Doppler and color Doppler. Blood Pressure: 117/67 mmHg INDICATION NSTEMI RISK FACTORS Height: 5'7", Weight: 162 DIMENSIONS LVDd3.3 (3.8-5.7cm)LA (2D)4.1 (1.9-4.0cm)Aortic Root (2.0-3.7cm) LVDs2.1 (2.5-4.0cm)LA (MM) (1.9-4.0cm)Aortic Cusp Exc (1.5-2.0cm) EF (%) 68.0 (55-70%)Rt. Atrium4.1 (1.9-4.0cm)Asc. Aorta cm IVSd1.0 (0.7-1.1cm)RV (D) (1.8-2.4cm) Mitral Valve MitralMitral Stenosis E/A ratio0.02D MVAcm2 Other Information Quality : Technically LimitedRhythm : Technically limited study due to on vent and body habitus. Conclusion lvef 60% mild LVH normal rv fsize small pericardial effusion, no HD compromise dilated IVC limited study images
[2025-05-29] MEDS: FUROSEMIDE 20 MG/2 ML VIAL IV SCH (14:59)
[2025-05-29] MEDS ORDERED: PIPERACILLIN-TAZOB 3.375GM 100 ML IV ONE (15:00)
--- NOTE | 2025-05-29 15:06 | DVHPN2 ---
Progress Note Date Seen: May 29, 2025 Medical Necessity Reason Pt with a Central, PICC or Fol: Yes The following are medically ne: Mendez Catheter Reason for mendez catheter: Strict I&O Subjective Patient reports: No new complaints Review of Systems: HEENT:Normal, CVS:Normal, RESPIRATORY:Normal, GI:Normal, :Normal, MSK:Normal, NEURO:Normal Objective vital signs Vital Sign Date Time Temp Pulse Resp B/P (MAP) Pulse Ox O2 Delivery O2 Flow Rate FiO2 05/29/25 14:59 88/53 05/29/25 12:30 82 17 97 05/29/25 12:30 Mechanical Ventilator+ 50 50 05/29/25 12:00 99.3 99.3 05/28/25 19:38 60.0 Total Intake and Output 05/28/25 05/28/25 05/29/25 14:59 22:59 06:59 Intake Total 250 ml 75 ml 597.92 ml Output Total 825 ml Balance 250 ml 75 ml -227.08 ml medications Current Medications Medications Dose Ordered Sig/Rio Route Start Time Stop Time Status Last Admin Dose Admin Albuterol 2.5 mg Q4HPRN PRN NEB 05/27/25 22:45 05/28/25 18:21 2.5 MG Ipratropium [place] 0.5 mg Q4HPRN PRN NEB 05/27/25 22:45 05/28/25 18:21 0.5 MG Aspirin 81 mg DAILY PO 05/28/25 10:00 05/29/25 11:30 81 MG Ceftriaxone Sodium 50 ml @ 100 mls/hr Q24H IV 05/28/25 23:00 05/29/25 00:34 100 MLS/HR Ondansetron HCl 4 mg Q4HP PRN IV 05/27/25 22:45 Docusate Sodium 100 mg BIDPRN PRN PO 05/27/25 22:45 Acetaminophen 650 mg Q6HP PRN PO 05/27/25 22:45 05/28/25 14:29 650 MG Nitroglycerin 0.4 mg Q5MINP PRN SL 05/27/25 22:45 Morphine Sulfate 2 mg Q30M PRN IV 05/27/25 22:45 Azithromycin 250 ml @ 125 mls/hr DAILY IV 05/29/25 10:00 05/29/25 11:30 125 MLS/HR Furosemide 20 mg DAILY IV 05/29/25 10:00 Acetaminophen/ Hydrocodone Bitart 1 tab Q6HPRN PRN PO 05/28/25 14:45 05/28/25 14:58 1 TAB Atorvastatin Calcium 40 mg HS PO 05/28/25 22:00 Sodium Chloride 1,000 ml @ 75 mls/hr [id number] IV 05/28/25 16:00 05/28/25 17:20 75 MLS/HR Lorazepam 0.5 mg Q12HP PRN IV 05/28/25 19:45 05/28/25 20:01 0.5 MG Propofol 100 ml @ 2.04 mls/hr Q24H IV 05/28/25 21:00 05/29/25 01:14 16.32 MLS/HR Norepinephrine Bitartrate 250 ml @ 3.75 mls/hr Q24H IV 05/29/25 08:00 05/29/25 09:55 3.75 MLS/HR Fentanyl Citrate 250 ml @ 2.5 mls/hr Q24H IV 05/29/25 08:00 05/29/25 08:02 2.5 MLS/HR Examination: GENERAL:Normal, HEENT:Normal, NECK:Normal, LUNGS:Normal, LUNGS:Abnormal (intubated), CVS:Normal, ABDOMEN:Normal, MSK:Normal, SKIN:Normal, NEURO:Normal, :Normal laboratory and microbiology Laboratory Tests 05/28/25 22:00 05/28/25 03:51 Test 05/28/25 22:00 Range/Units Serum Glucose 111 H 74-106 mg/dL Microbiology Date/Time Source Procedure Growth Status 05/29/25 00:30 Nose MRSA Screen - Final Methicillin Resistant S.aureus Complete Problem List/Assessment/Plan Problem List/Assessment/Plan #1 acute resp failure: cont acv #2 septic shock with uti: culture, iv meropenem #3 copd with exacerbation: iv steroids #4 drug overdose #5 nstemi: per cardiology #6 s/p fall/chronic sacral fractures Plan discussed with: Other (rn) My Orders My Orders Orders - AZAM LEVY MD Procedure Category Date Status Time Abg W/ Co-Ox RT 05/29/25 Logged 06:07 Urine Bacterial PAT 05/29/25 Verified Culture 14:54 * Picc Line Consult CONS 05/29/25 Verified 14:54 Propofol Drip Target PHA 05/29/25 Verified -3 Rass 15:00 Versed Drip Target -3 PHA 05/29/25 Verified Rass 15:00 Rass Sedation Scale CORNELIUS 05/29/25 Verified 14:54 Zosyn Extended PHA 05/29/25 Verified Infusion 15:00 Zosyn Extended PHA 05/29/25 Verified Infusion 22:00 Basic Metabolic Panel LAB 05/29/25 Verified 14:54 Complete Blood Count LAB 05/30/25 Verified 06:00 Comprehensive LAB 05/30/25 Verified Metabolic Panel 06:00 Chest Portable XY 05/30/25 Verified 06:00 Abg W/ Co-Ox RT 05/30/25 Verified 06:00 Albuterol Medneb PHA 05/29/25 Verified (Ventolin Medneb) 18:00 Ipratropium Medneb PHA 05/29/25 Verified (Atrovent Medneb) 18:00 Methylprednisolone PHA 05/29/25 Verified Sod Succ (Solu Medrol 15:00 Methylprednisolone PHA 05/29/25 Verified Sod Succ (Solu Medrol 22:00 Critical Care Time (mins): 46 (critical care time excluding procedures is 46 mins) Date of Service: May 29, 2025 Billing Provider: AZAM LEVY MD Common Visit Codes: [id number] CARE 30-74 MIN AZAM LEVY MD May 29, 2025 15:06
[2025-05-29] MEDS: PROPOFOL 100 ML IV SCH (15:50)
[2025-05-29 16:05] LABS: Chloride 100 mmol/L (98-107)
[2025-05-29 16:06] LABS: Anion Gap 10 (5-15); Carbon Dioxide 25 mmol/L (20-31); Potassium 5.2 mmol/L (3.5-5.1); Sodium 135 mmol/L (136-145)
[2025-05-29 16:07] LABS: Calcium 8.6 mg/dL (8.7-10.4)
[2025-05-29 16:11] LABS: BUN/Creatinine Ratio 21.9 (10.0-20.0); Blood Urea Nitrogen 23 mg/dL (9-23)
[2025-05-29 16:12] LABS: Glucose 126 mg/dL (74-106)
[2025-05-29] MEDS: methylPREDNISolone SOD SUCC 125 MG/2 ML VL IV ONE (16:30)
[2025-05-29] MEDS: MEROPENEM 1GM IVPB 50 ML IV ONE (16:30)
[2025-05-29] MEDS: LIDOCAINE 1% (LOCAL ANESTH.) PF 5ml SDV ID ONE (16:43)
[2025-05-29] MEDS: MIDAZOLAM DRIP 50 mg/50mL 50 ML IV SCH (17:00)
[2025-05-29] MEDS: PANTOPRAZOLE 40 MG/10 ML VIAL INJ IV ONE (17:59)
[2025-05-29] MEDS: IPRATROPIUM BROM 0.5 MG/2.5ML INH SOL NEB SCH (18:31)
[2025-05-29] MEDS: ALBUTEROL SULF 2.5 MG/0.5ML(0.5%) NEB SOLN NEB SCH (18:31)
--- NOTE | 2025-05-29 21:17 | DVHPN2 ---
Progress Note - Dictate Date Seen: May 29, 2025 Medical Necessity Reason Pt with a Central, PICC or Fol: Yes The following are medically ne: Mendez Catheter Reason for mendez catheter: Strict I&O Subjective Patient was seen and evaluated in follow up in the ICU. Patient was intubated overnight for airway protection. Patient is receiving vasopressors for hemodynamic support. K 5.2. CTA chest did not show evidence of pulmonary embolism. There are small bilateral pleural effusions with mild dependent atelectasis changes. vital signs Vital Sign Date Time Temp Pulse Resp B/P (MAP) Pulse Ox O2 Delivery O2 Flow Rate FiO2 05/29/25 21:08 122/64 05/29/25 20:49 71 16 98 45 05/29/25 18:32 Mechanical Ventilator 05/29/25 16:00 99.0 99.0 05/28/25 19:38 60.0 Total Intake and Output 05/28/25 05/28/25 05/29/25 15:00 23:00 07:00 Intake Total 250 ml 75 ml 689.24 ml Output Total 825 ml Balance 250 ml 75 ml -135.76 ml medications Current Medications Medications Dose Ordered Sig/Rio Route Start Time Stop Time Status Last Admin Dose Admin Albuterol 2.5 mg Q4HPRN PRN NEB 05/27/25 22:45 05/28/25 18:21 2.5 MG Ipratropium [place] 0.5 mg Q4HPRN PRN NEB 05/27/25 22:45 05/28/25 18:21 0.5 MG Aspirin 81 mg DAILY PO 05/28/25 10:00 05/29/25 11:30 81 MG Ondansetron HCl 4 mg Q4HP PRN IV 05/27/25 22:45 Docusate Sodium 100 mg BIDPRN PRN PO 05/27/25 22:45 Acetaminophen 650 mg Q6HP PRN PO 05/27/25 22:45 05/28/25 14:29 650 MG Nitroglycerin 0.4 mg Q5MINP PRN SL 05/27/25 22:45 Morphine Sulfate 2 mg Q30M PRN IV 05/27/25 22:45 Azithromycin 250 ml @ 125 mls/hr DAILY IV 05/29/25 10:00 05/29/25 11:30 125 MLS/HR Furosemide 20 mg DAILY IV 05/29/25 10:00 Acetaminophen/ Hydrocodone Bitart 1 tab Q6HPRN PRN PO 05/28/25 14:45 05/28/25 14:58 1 TAB Atorvastatin Calcium 40 mg HS PO 05/28/25 22:00 Lorazepam 0.5 mg Q12HP PRN IV 05/28/25 19:45 05/28/25 20:01 0.5 MG Norepinephrine Bitartrate 250 ml @ 3.75 mls/hr Q24H IV 05/29/25 08:00 05/29/25 09:55 3.75 MLS/HR Fentanyl Citrate 250 ml @ 2.5 mls/hr Q24H IV 05/29/25 08:00 05/29/25 21:08 25 MLS/HR Propofol 100 ml @ 2.205 mls/ hr Q24H IV 05/29/25 15:00 Midazolam HCl 50 ml @ 1 mls/hr Q24H IV 05/29/25 15:00 05/29/25 17:00 1 MLS/HR Albuterol 2.5 mg Q6HR NEB 05/29/25 18:00 05/29/25 18:31 2.5 MG Ipratropium [place] 0.5 mg Q6HR NEB 05/29/25 18:00 05/29/25 18:31 0.5 MG Methylprednisolone Sodium Succinate 40 mg Q8HR IV 05/29/25 22:00 Enoxaparin Sodium 40 mg DAILY SC 05/30/25 10:00 Pantoprazole Sodium 40 mg DAILY IV 05/30/25 10:00 Meropenem 50 ml @ 17 mls/hr Q8HR IV 05/29/25 22:00 Sodium Chloride 10 ml QSHIFT@10,22 IV 05/29/25 22:00 objective GENERAL: Ill appearing, intubated on ventilator. EYES: PERRL, EOMI. Anicteric. HENT: Moist mucous membranes. LUNGS: Decreased breath sounds CARDIOVASCULAR: Regular rate and rhythm. ABDOMEN: Soft, nontender and nondistended. EXTREMITIES: No edema. SKIN: Warm, dry. laboratory and microbiology Laboratory Tests 05/29/25 15:25 05/28/25 03:51 Test 05/29/25 15:25 Range/Units Serum Glucose 126 H 74-106 mg/dL Problem List NSTEMI rule out CAD. Sepsis likely from pneumonia. LISSETTE on CKD. COPD exacerbation. Hypertension. Assessment/Plan Continued all current supportive medical care. Left heart catheterization for further evaluation of ischemic heart disease. Morphine and [place] for pain management. Aspirin, Lipitor. IV antibiotics as ordered. DVT and GI prophylactics. Diuretics with Lasix. Additional plan as per the hospital course. Critical care time of 45 minutes provided to include time spent evaluation of patient at bedside, when appropriate patient/family education for diagnosis, treatment plan, review of pertinent medical information and discussion of care with specialty providers and PCP. Mechanical ventilator parameters, treatment and adjustments have personally been reviewed by me and treatment plan by hospital ward clerk has also been reviewed. Plan discussed with: Other ALBERTA KILPATRICK MD May 29, 2025 21:17
[2025-05-29] MEDS ORDERED: PIPERACILLIN-TAZOB 3.375GM 100 ML IV SCH (22:00)
[2025-05-29] MEDS: MEROPENEM 1GM IVPB 50 ML IV SCH (22:10)
[2025-05-29] MEDS: methylPREDNISolone SOD SUCC 40 MG/ML VL IV SCH (22:12)
[2025-05-29] MEDS: SODIUM CHLOR 0.9% PF (SALINE LOCK) 10ML VIAL/SYR IV SCH (22:12)
[2025-05-30] VITALS (113 sets, daily range): BP systolic 76–146; BP diastolic 38–75; PULSE 55–90; RESP 13–25; TEMP 97–99.1; O2SAT 87–100
[2025-05-30 04:18] LABS: Hematocrit 35.8 % (36.0-46.0); Hemoglobin 12.0 g/dL (12.2-16.2); Mean Corpuscular Hemoglobin 32.2 pg (28.0-32.0); Mean Corpuscular Volume 96.3 fL (80.0-100.0); Nucleated Red Blood Cells % 0.0 %
[2025-05-30 04:28] LABS: Alanine Aminotransferase 19 U/L (7-40); Albumin 3.6 g/dL (3.2-4.8); Alkaline Phosphatase 67 U/L (46-116); Anion Gap 10 (5-15); BUN/Creatinine Ratio 18.9 (10.0-20.0); Blood Urea Nitrogen 23 mg/dL (9-23); Carbon Dioxide 22 mmol/L (20-31); Chloride 102 mmol/L (98-107); Total Protein 6.0 g/dL (5.7-8.2)
[2025-05-30 04:39] LABS: Glucose 146 mg/dL (74-106); Potassium 5.5 mmol/L (3.5-5.1); Sodium 134 mmol/L (136-145)
[2025-05-30 04:40] LABS: Bilirubin, Total 0.2 mg/dL (0.2-1.0); Calcium 8.5 mg/dL (8.7-10.4)
--- NOTE | 2025-05-30 04:47 | DVH ---
CHEST RADIOGRAPH Indication: RESP FAILURE Technique: Single frontal view of the chest was obtained COMPARISON: XY CHEST XRAY 1 VIEW on DOS: 05/28/25, XY CHEST PORTABLE on DOS: 05/28/25, XY CHEST PORTABL E on DOS: 11/07/24, CT CHEST WITHOUT CONTRAST on DOS: 07/11/24, XY CHEST PORTABLE on DOS: 07/10/24 FINDINGS: Lines and Tubes: Unchanged. Lungs: The right lung base is excluded from the image. Grossly stable appearing multifocal pulmonary airspace disease and Chronic appearing bullous changes related to chronic obstructive pulmonary disea se within the left lung. Pleura: No effusion. No pneumothorax. Cardiomediastinal contours: Unremarkable Bones: Unremarkable IMPRESSION: 1. Stable multifocal pulmonary airspace disease and chronic underlying lung changes. 2. Lines and tubes unchanged.
[2025-05-30] MEDS: SODIUM ZIRCONIUM CYCL 10 GM PAK GT ONE (06:37)
[2025-05-30 07:01] LABS: Base Excess -7.6 mmol/L (-2.0-3.0)
[2025-05-30] MEDS: PANTOPRAZOLE 40 MG/10 ML VIAL INJ IV SCH (09:46)
[2025-05-30] MEDS: ENOXAPARIN SOD 40 MG/0.4 ML SYRINGE SC SCH (09:47)
[2025-05-30 10:59] LABS: Base Excess -4.8 mmol/L (-2.0-3.0)
--- NOTE | 2025-05-30 11:36 | DVHPNRES ---
Progress Note Date Seen: May 30, 2025 Resident Creating Document: PB SHANKAR RESIDENT Medical Necessity Reason Pt with a Central, PICC or Fol: Yes The following are medically ne: Mendez Catheter Reason for mendez catheter: Strict I&O Subjective Review of Systems Lucila Doyle is a 74-year-old female with past medical history of anxiety, asthma, COPD on 2.5 L home oxygen, hypertension came to ER with overdose of Percocet which she takes for her back pain. The patient's son, Joel reported that his mother had fall in the morning. When came home and found her on floor and carried her to bed. Upon Joel arrival, he noticed her mother having increased heart rate, appeared pale and had saliva drooling from the mouth and he called 911 brought to her Hospital due to concerning symptoms. Patient had significant pulmonary history, her son reporting that a yacht rigger had previously stated 1 of the lung was only 50% functional. Patient also had remote history of amphetamine use approximately 30 years ago. Recently, the patient had been rehabilitation facility following left femur fracture status post surgery in 2023. Patient received IV antibiotic including ceftriaxone and azithromycin, as well as other medications such as albuterol, ipratropium, morphine, aspirin. Upon arrival at the hospital, the patient became altered mental status and desaturated and required intubation on 05/29/2025 for airway protection. Past medical history: Anxiety, asthma, COPD on 2.5 L home oxygen, hypertension, history of fall, history of amphetamine use Surgical history : left femur fracture status post surgery Family history; father having bladder cancer, brother- prostate cancer Social history: Ex-smoker stopped 10 years back, ETOH occasionally, remote use amphetamine approximately 30 years back Allergy: No known allergy PCP: Dr. Ayala Home medication: Escitalopram 20 mg, lisinopril 20 mg, alprazolam 1 mg, zolpidem 10 mg, Belsomra,, Percocet. 05/30: Patient seen and evaluated in bedside. Currently on vent setting TV 450, FiO2 45, RR 22. Spoke to son(Joel) in bedside and discussed current management plan. Keep oxygen saturation 88-92%. CPAP trial tomorrow AM,Cardiology have no plan for any procedure. NG tube feeding ordered started jevity 30 cc/hour. Objective vital signs Vital Sign Date Time Temp Pulse Resp B/P (MAP) Pulse Ox O2 Delivery O2 Flow Rate FiO2 05/30/25 10:04 74 20 101/51 (68) 95 45 05/30/25 09:37 Mechanical Ventilator+ 05/30/25 05:15 98.9 98.9 05/28/25 19:38 60.0 Total Intake and Output 05/29/25 05/29/25 05/30/25 15:00 23:00 07:00 Intake Total 457.01 ml 406.50 ml 380.50 ml Output Total 350 ml Balance 457.01 ml 56.50 ml 380.50 ml medications Current Medications Medications Dose Ordered Sig/Rio Route Start Time Stop Time Status Last Admin Dose Admin Albuterol 2.5 mg Q4HPRN PRN NEB 05/27/25 22:45 05/28/25 18:21 2.5 MG Ipratropium [place] 0.5 mg Q4HPRN PRN NEB 05/27/25 22:45 05/28/25 18:21 0.5 MG Aspirin 81 mg DAILY PO 05/28/25 10:00 05/30/25 09:47 81 MG Ondansetron HCl 4 mg Q4HP PRN IV 05/27/25 22:45 Docusate Sodium 100 mg BIDPRN PRN PO 05/27/25 22:45 Acetaminophen 650 mg Q6HP PRN PO 05/27/25 22:45 05/28/25 14:29 650 MG Nitroglycerin 0.4 mg Q5MINP PRN SL 05/27/25 22:45 Morphine Sulfate 2 mg Q30M PRN IV 05/27/25 22:45 Azithromycin 250 ml @ 125 mls/hr DAILY IV 05/29/25 10:00 05/30/25 09:46 125 MLS/HR Furosemide 20 mg DAILY IV 05/29/25 10:00 05/30/25 09:46 20 MG Acetaminophen/ Hydrocodone Bitart 1 tab Q6HPRN PRN PO 05/28/25 14:45 05/28/25 14:58 1 TAB Atorvastatin Calcium 40 mg HS PO 05/28/25 22:00 05/29/25 22:12 40 MG Lorazepam 0.5 mg Q12HP PRN IV 05/28/25 19:45 05/28/25 20:01 0.5 MG Norepinephrine Bitartrate 250 ml @ 3.75 mls/hr Q24H IV 05/29/25 08:00 05/30/25 06:59 26.25 MLS/HR Fentanyl Citrate 250 ml @ 2.5 mls/hr Q24H IV 05/29/25 08:00 05/30/25 05:21 25 MLS/HR Propofol 100 ml @ 2.205 mls/ hr Q24H IV 05/29/25 15:00 Midazolam HCl 50 ml @ 1 mls/hr Q24H IV 05/29/25 15:00 05/30/25 05:06 2 MLS/HR Albuterol 2.5 mg Q6HR NEB 05/29/25 18:00 05/30/25 06:29 2.5 MG Ipratropium [place] 0.5 mg Q6HR NEB 05/29/25 18:00 05/30/25 06:29 0.5 MG Methylprednisolone Sodium Succinate 40 mg Q8HR IV 05/29/25 22:00 05/30/25 05:15 40 MG Enoxaparin Sodium 40 mg DAILY SC 05/30/25 10:00 05/30/25 09:47 40 MG Pantoprazole Sodium 40 mg DAILY IV 05/30/25 10:00 05/30/25 09:46 40 MG Meropenem 50 ml @ 17 mls/hr Q8HR IV 05/29/25 22:00 05/30/25 05:15 17 MLS/HR Sodium Chloride 10 ml QSHIFT@10,22 IV 05/29/25 22:00 05/30/25 09:46 10 ML Examination Patient lying in bed, intubated and mechanically ventilated, RASS -3 General: Low-grade fever, palor, mucosae are moist Cardiovascular: Regular S1 and S2. No murmurs, gallops or rubs. No JVD elevation. No pedal edema Respiratory: Decreased bilateral breath sounds heard on auscultation, mechanically ventilated Abdomen: Soft, nondistended, normoactive bowel sounds, no rebound tenderness, no organomegaly, no masses Genitourinary: Mendez seen MSK/skin: Mobilizes 4 limbs. Skin is dry and warm Neurological: Pupils are isocoric and reactive. Intact cough and gag reflex laboratory and microbiology Laboratory Tests 05/30/25 03:30 Test 05/30/25 03:30 Range/Units Serum Glucose 146 H 74-106 mg/dL Microbiology Date/Time Source Procedure Growth Status 05/29/25 00:30 Nose MRSA Screen - Final Methicillin Resistant S.aureus Complete Labs and/or images reviewed: Labs reviewed by me, Image(s) reviewed by me Problem List/Assessment/Plan Problem List/Assessment/Plan Lucila Doyle is a 74-year-old female with past medical history of anxiety, asthma, COPD on 2.5 L home oxygen, hypertension came to ER with overdose of Percocet which she takes for her back pain. The patient's son, Joel reported that his mother had fall in the morning. When came home and found her floor and taken her to bed. Upon Joel arrival, he noticed her mother having increased heart rate, appeared pale and had saliva drooling from the mouth and he called 911 brought to her Hospital due to concerning symptoms. Patient had significant pulmonary history, her son reporting that a yacht rigger had previously stated 1 of the lung was only 50% functional. Patient also had remote history of amphetamine use approximately 30 years ago. Recently, the patient had been rehabilitation facility following left femur fracture status post surgery in 2023. Patient received IV antibiotic including ceftriaxone and azithromycin, as well as other medications such as albuterol, ipratropium, morphine, aspirin. Upon arrival at the hospital, the patient became altered and required intubation on 05/29/2025. Neurology: Acute toxic metabolic encephalopathy due to drug overdose/narcotic use Acute metabolic encephalopathy due to sepsis secondary to UTI/pneumonia * Patient intubated on 05/29/2025 * Administration IV antibiotic meropenem 05/29 and azithromycin Cardiology: NSTEMI likely type 2 secondary to sepsis Dyslipidemia Hypertension * Lab shows elevated troponin 211, 256, 312, 349, 285 * suggestive of myocardial injury or demand ischemia * Could be demand ischemia from overdose event or represent primary acute coronary syndrome * Electrocardiogram show ejection fraction 60%(10/29/2024) * Aspirin * Statin * Cardiology consultation obtained (spoke to Dr. Church) * Cardiology recommendation outpatient follow-up when patient medically stable for discharge. Respiratory: Acute hypercapnic respiratory failure/altered mental status status post intubation 05/29 History of asthma COPD on 2.5 L home oxygen -? Exacerbation Septic shock due to likely Gram-positive and Gram-negative pneumonia Ruled out pulmonary embolism Small bilateral pleural effusions * CT angio on 05/29/2025 shows no pulmonary embolism, small bilateral pleural effusion with mild dependent atelectasis changes left lung * X-ray chest on admission: Mild hazy ground glass opacity throughout both lung . * Continue intubation and ventilatory support * sputum preliminary lab on 05/28/2025 Gram stain shows no organisms * Continue IV antibiotic * Monitor oxygen saturation and mental due setting TV 450, FiO2 45, RR 22 * Keep oxygen saturation 88-92% * CPAP trial 05/31/2025 Gastrointestinal: Tube feedings * Pantoprazole for GI prophylaxis * OG tube placement * Jevity 30 cc/hour Genitourinary: Acute kidney injury Acute bacterial cystitis * UA shows appear turbid, leukocyte esterase 3+, WBC 63, bacteria moderate * Continue IV antibiotic * Mendez catheter in place * LISSETTE due to vasomotor nephropathy * Serum creatinine 1.22 on arrival, unknown baseline Infectious Disease: Sepsis due to urinary tract infection / pneumonia Acute complicated cystitis Positive MRSA screen Continue meropenem and azithromycin * Daily CBC and x-ray chest * Nasal MRSA positive * Keep patient isolated Mupirocin ointment Hematology & Oncology: Anemia likely hemodilutional * On dmission hemoglobin 15.0 and today 12.0 * No signs symptoms of active bleeding Endocrine: Prediabetes mellitus A1c 5.9 Hyperkalemia Hypocalcemia * Patient potassium elevated 5 to 5.5 * Could be related to acute kidney injury secondary to hypoperfusion * Lokelma 10 mg given * Calcium gluconate 1 g Musculoskeletal Gait instability * Patient use walker for ambulation at home * Patient will be benefitted physical therapy when discharge. * DIET: Jevity DVT prophylax: Lovenox 40 mg sc daily GI prophylaxis: Protonix 40 mg IV daily Bowel regimen: Lactulose 30 ml daily Code status: Full code LINES/DRAINS/ACCESS: IV access: Right Upper arm PICC line 05/29 Drips: Versed, fentanyl, Levophed Mendez catheter: 05/29 DISPOSITION: ICU Patient's status discussed with patient's son at bedside Critical care time spent more than 68 minutes, including patient care, chart review, and updating the family. Excluding any procedures Case discussed with Dr. Levy Plan discussed with: Son (Joel), Other (Nurse) My Orders My Orders Orders - PB SHANKAR RESIDENT Procedure Category Date Status Time Calcium Gluc PHA 05/30/25 Logged 1,000mg/50ml-Ns 11:30 Dietary Evaluation Review Comments: 1. Offer nutrition support, TF Glucerna @50ml/hr providing 1440kcal, 72g protein, meeting 100% of pt's needs for protein and energy. 2. follow up with Nephrology consult [facility]. [facility] Cardiac diet when pt's is off vent and passing RUBBER AND POUNDER eval. Expected Outcomes/Goals: controlled blood sugar, prevent uremia Date of Service: May 30, 2025 Billing Provider: AZAM LEVY MD Common Visit Codes: [id number] CARE 30-74 MIN PB SHANKAR RESIDENT May 30, 2025 11:36 AZAM LEVY MD May 31, 2025 15:32
[2025-05-30 14:49] LABS: Base Excess -6.6 mmol/L (-2.0-3.0)
[2025-05-30] MEDS: CALCIUM GLUC 1,000mg/50ml-NS 50 ML IV ONE (15:45)
[2025-05-30] MEDS ORDERED: DOCUSATE ORAL LIQUID 100 MG/10 ML UD GT PRN (19:30)
[2025-05-30 20:27] LABS: Potassium 4.9 mmol/L (3.5-5.1)
[2025-05-30 20:34] LABS: Magnesium 2.2 mg/dL (1.6-2.6)
[2025-05-30] MEDS: Jevity 1.2 Cal/Fiber 1 Liter GT SCH (22:04)
--- NOTE | 2025-05-30 23:18 | DVHPN2 ---
Progress Note - Dictate Date Seen: May 30, 2025 Medical Necessity Reason Pt with a Central, PICC or Fol: Yes The following are medically ne: Mendez Catheter Reason for mendez catheter: Strict I&O Subjective Patient was seen and evaluated in follow up in the ICU. Patient is intubated and sedated on ventilator. 45% FiO2. Patient being started on NG tube feedings. Chest x-ray shows stable multifocal pulmonary airspace disease and chronic underlying lung changes. vital signs Vital Sign Date Time Temp Pulse Resp B/P (MAP) Pulse Ox O2 Delivery O2 Flow Rate FiO2 05/30/25 22:00 45 05/30/25 22:00 24 92 Mechanical Ventilator+ 05/30/25 21:56 67 111/63 (79) 05/30/25 15:45 97.8 97.8 05/28/25 19:38 60.0 Total Intake and Output 05/29/25 05/29/25 05/30/25 15:00 23:00 07:00 Intake Total 457.01 ml 406.50 ml 433.75 ml Output Total 350 ml Balance 457.01 ml 56.50 ml 433.75 ml medications Current Medications Medications Dose Ordered Sig/Rio Route Start Time Stop Time Status Last Admin Dose Admin Albuterol 2.5 mg Q4HPRN PRN NEB 05/27/25 22:45 05/28/25 18:21 2.5 MG Ipratropium [place] 0.5 mg Q4HPRN PRN NEB 05/27/25 22:45 05/28/25 18:21 0.5 MG Aspirin 81 mg DAILY PO 05/28/25 10:00 05/30/25 09:47 81 MG Ondansetron HCl 4 mg Q4HP PRN IV 05/27/25 22:45 Acetaminophen 650 mg Q6HP PRN PO 05/27/25 22:45 05/28/25 14:29 650 MG Nitroglycerin 0.4 mg Q5MINP PRN SL 05/27/25 22:45 Morphine Sulfate 2 mg Q30M PRN IV 05/27/25 22:45 Azithromycin 250 ml @ 125 mls/hr DAILY IV 05/29/25 10:00 05/30/25 09:46 125 MLS/HR Furosemide 20 mg DAILY IV 05/29/25 10:00 05/30/25 09:46 20 MG Atorvastatin Calcium 40 mg HS PO 05/28/25 22:00 05/30/25 22:01 40 MG Lorazepam 0.5 mg Q12HP PRN IV 05/28/25 19:45 05/28/25 20:01 0.5 MG Norepinephrine Bitartrate 250 ml @ 3.75 mls/hr Q24H IV 05/29/25 08:00 05/30/25 06:59 26.25 MLS/HR Fentanyl Citrate 250 ml @ 2.5 mls/hr Q24H IV 05/29/25 08:00 05/30/25 16:02 25 MLS/HR Propofol 100 ml @ 2.205 mls/ hr Q24H IV 05/29/25 15:00 Midazolam HCl 50 ml @ 1 mls/hr Q24H IV 05/29/25 15:00 05/30/25 05:06 2 MLS/HR Albuterol 2.5 mg Q6HR NEB 05/29/25 18:00 05/30/25 18:20 2.5 MG Ipratropium [place] 0.5 mg Q6HR NEB 05/29/25 18:00 05/30/25 18:20 0.5 MG Methylprednisolone Sodium Succinate 40 mg Q8HR IV 05/29/25 22:00 05/30/25 22:01 40 MG Enoxaparin Sodium 40 mg DAILY SC 05/30/25 10:00 05/30/25 09:47 40 MG Pantoprazole Sodium 40 mg DAILY IV 05/30/25 10:00 05/30/25 09:46 40 MG Sodium Chloride 10 ml QSHIFT@10,22 IV 05/29/25 22:00 05/30/25 22:00 10 ML Enteral Nutritional Formula 1,000 ml 30ML/HR GT 05/30/25 15:15 05/30/25 22:04 1,000 ML Meropenem 50 ml @ 17 mls/hr Q12H IV 05/31/25 04:00 Docusate Sodium 100 mg BID PRN GT 05/30/25 19:30 objective GENERAL: Ill appearing, intubated on ventilator. EYES: PERRL, EOMI. Anicteric. HENT: Moist mucous membranes. LUNGS: Decreased breath sounds CARDIOVASCULAR: Regular rate and rhythm. ABDOMEN: Soft, nontender and nondistended. EXTREMITIES: No edema. SKIN: Warm, dry. laboratory and microbiology Laboratory Tests 05/30/25 19:55 05/30/25 03:30 Test 05/30/25 03:30 Range/Units Serum Glucose 146 H 74-106 mg/dL Problem List NSTEMI rule out CAD. Sepsis likely from pneumonia. LISSETTE on CKD. COPD exacerbation. Hypertension. Assessment/Plan Continued all current supportive medical care. Left heart catheterization for further evaluation of ischemic heart disease. Morphine and [place] for pain management. Aspirin, Lipitor. IV antibiotics as ordered. DVT and GI prophylactics. Diuretics with Lasix. Additional plan as per the hospital course. Critical care time of 45 minutes provided to include time spent evaluation of patient at bedside, when appropriate patient/family education for diagnosis, treatment plan, review of pertinent medical information and discussion of care with specialty providers and PCP. Mechanical ventilator parameters, treatment and adjustments have personally been reviewed by me and treatment plan by roughing mill operator has also been reviewed. Dietary Evaluation Review Comments: 1. Offer nutrition support, TF Glucerna @50ml/hr providing 1440kcal, 72g protein, meeting 100% of pt's needs for protein and energy. 2. follow up with Nephrology consult [facility]. [facility] Cardiac diet when pt's is off vent and passing LOG SORTING SUPERVISOR eval. Expected Outcomes/Goals: controlled blood sugar, prevent uremia Plan discussed with: Other ALBERTA KILPATRICK MD May 30, 2025 23:18
[2025-05-31] VITALS (104 sets, daily range): BP systolic 87–154; BP diastolic 44–77; PULSE 55–86; RESP 13–26; TEMP 97.5–99.1; O2SAT 91–97
[2025-05-31] MEDS: MEROPENEM 1GM IVPB 50 ML IV SCH (03:54)
[2025-05-31 04:22] LABS: Chloride 104 mmol/L (98-107); Potassium 5.0 mmol/L (3.5-5.1); Sodium 137 mmol/L (136-145)
[2025-05-31 04:23] LABS: Anion Gap 9 (5-15); Carbon Dioxide 24 mmol/L (20-31)
[2025-05-31 04:25] LABS: Calcium 8.3 mg/dL (8.7-10.4)
[2025-05-31 04:29] LABS: BUN/Creatinine Ratio 27.6 (10.0-20.0); Blood Urea Nitrogen 29 mg/dL (9-23); Glucose 154 mg/dL (74-106); Magnesium 2.2 mg/dL (1.6-2.6)
--- NOTE | 2025-05-31 05:06 | DVH ---
Exam: US US GUIDED VASCULAR ACCESS Clinical History: PICC Comparison: None Technique: Targeted sonographic evaluation of the soft tissues of the arm vein was obtained utilizing grayscale and color Doppler imaging. Findings/Impression: Sonographic assistance for PICC line placement.
--- NOTE | 2025-05-31 05:17 | DVH ---
CHEST RADIOGRAPH Indication: Rule out cardiopulmonary disease Technique: Single frontal view of the chest was obtained COMPARISON: XY CHEST PORTABLE on DOS: 05/30/25, XY CHEST XRAY 1 VIEW on DOS: 05/28/25, XY CHEST PORTABL E on DOS: 05/28/25, XY CHEST PORTABLE on DOS: 11/07/24, CT CHEST WITHOUT CONTRAST on DOS: 07/11/24 FINDINGS: Lines and Tubes: Slight interval retraction of the endotracheal tube such that the tip now projects a pproximately 6.5 cm above the level of the zoila. Remaining lines and tubes unchanged. Lungs: Stable appearing multifocal left upper lung zone and right hemithoracic pulmonary airspace dis ease. Chronic parenchymal changes related to chronic obstructive pulmonary disease within the left rosa maria ng. Pleura: No effusion. No pneumothorax. Cardiomediastinal contours: Unremarkable Bones: Unremarkable IMPRESSION: 1. Slight interval retraction of the endotracheal tube such that the tip now projects approximately 6 .5 cm above the level of the zoila. Remaining lines and tubes unchanged. 2. Stable appearing multifocal left upper lung zone and right hemithoracic pulmonary airspace disease .
[2025-05-31 06:39] LABS: Base Excess -4.3 mmol/L (-2.0-3.0)
--- NOTE | 2025-05-31 11:39 | DVHPNRES ---
Progress Note Date Seen: May 31, 2025 Resident Creating Document: PB SHANKAR RESIDENT Medical Necessity Reason Pt with a Central, PICC or Fol: Yes The following are medically ne: Mendez Catheter Reason for mendez catheter: Strict I&O Subjective Review of Systems Lucila Doyle is a 74-year-old female with past medical history of anxiety, asthma, COPD on 2.5 L home oxygen, hypertension came to ER with overdose of Percocet which she takes for her back pain. The patient's son, Joel reported that his mother had fall in the morning. When came home and found her on floor and carried her to bed. Upon Joel arrival, he noticed her mother having increased heart rate, appeared pale and had saliva drooling from the mouth and he called 911 brought to her Hospital due to concerning symptoms. Patient had significant pulmonary history, her son reporting that a insurance claim approver had previously stated 1 of the lung was only 50% functional. Patient also had remote history of amphetamine use approximately 30 years ago. Recently, the patient had been rehabilitation facility following left femur fracture status post surgery in 2023. Patient received IV antibiotic including ceftriaxone and azithromycin, as well as other medications such as albuterol, ipratropium, morphine, aspirin. Upon arrival at the hospital, the patient became altered mental status and desaturated and required intubation on 05/29/2025 for airway protection. Past medical history: Anxiety, asthma, COPD on 2.5 L home oxygen, hypertension, history of fall, history of amphetamine use Surgical history : left femur fracture status post surgery Family history; father having bladder cancer, brother- prostate cancer Social history: Ex-smoker stopped 10 years back, ETOH occasionally, remote use amphetamine approximately 30 years back Allergy: No known allergy PCP: Dr. Ayala Home medication: Escitalopram 20 mg, lisinopril 20 mg, alprazolam 1 mg, zolpidem 10 mg, Belsomra,, Percocet. 05/30: Patient seen and evaluated in bedside. Currently on vent setting TV 450, FiO2 45, RR 22. Spoke to son(Joel) in bedside and discussed current management plan. Keep oxygen saturation 88-92%. CPAP trial tomorrow AM,Cardiology have no plan for any procedure. NG tube feeding ordered started jevity 30 cc/hour. 05/31: Seen and evaluated in bedside. Vent setting TV 450, FiO2 40, RR 24. Patient currently and alert. Failed CPAP trial failed today, desat 85%. Spoke to son Joel, updated current medical condition. Objective vital signs Vital Sign Date Time Temp Pulse Resp B/P (MAP) Pulse Ox O2 Delivery O2 Flow Rate FiO2 05/31/25 10:21 115/59 05/31/25 09:43 68 24 94 40 05/31/25 06:00 Mechanical Ventilator+ 05/31/25 04:00 98.9 98.9 Total Intake and Output 05/30/25 05/30/25 05/31/25 15:00 23:00 07:00 Intake Total 603.300 ml 393.855 ml 423.0 ml Output Total 350 ml 625 ml 425 ml Balance 253.300 ml -231.145 ml -2.0 ml medications Current Medications Medications Dose Ordered Sig/Rio Route Start Time Stop Time Status Last Admin Dose Admin Albuterol 2.5 mg Q4HPRN PRN NEB 05/27/25 22:45 05/28/25 18:21 2.5 MG Ipratropium [place] 0.5 mg Q4HPRN PRN NEB 05/27/25 22:45 05/28/25 18:21 0.5 MG Aspirin 81 mg DAILY PO 05/28/25 10:00 05/31/25 10:00 81 MG Ondansetron HCl 4 mg Q4HP PRN IV 05/27/25 22:45 Acetaminophen 650 mg Q6HP PRN PO 05/27/25 22:45 05/28/25 14:29 650 MG Nitroglycerin 0.4 mg Q5MINP PRN SL 05/27/25 22:45 Morphine Sulfate 2 mg Q30M PRN IV 05/27/25 22:45 Azithromycin 250 ml @ 125 mls/hr DAILY IV 05/29/25 10:00 05/31/25 10:21 125 MLS/HR Furosemide 20 mg DAILY IV 05/29/25 10:00 05/31/25 10:21 20 MG Atorvastatin Calcium 40 mg HS PO 05/28/25 22:00 05/30/25 22:01 40 MG Lorazepam 0.5 mg Q12HP PRN IV 05/28/25 19:45 05/28/25 20:01 0.5 MG Norepinephrine Bitartrate 250 ml @ 3.75 mls/hr Q24H IV 05/29/25 08:00 05/31/25 01:33 7.5 MLS/HR Fentanyl Citrate 250 ml @ 2.5 mls/hr Q24H IV 05/29/25 08:00 05/31/25 03:56 22.5 MLS/HR Propofol 100 ml @ 2.205 mls/ hr Q24H IV 05/29/25 15:00 Midazolam HCl 50 ml @ 1 mls/hr Q24H IV 05/29/25 15:00 05/30/25 05:06 2 MLS/HR Albuterol 2.5 mg Q6HR NEB 05/29/25 18:00 05/31/25 05:59 2.5 MG Ipratropium [place] 0.5 mg Q6HR NEB 05/29/25 18:00 05/31/25 05:59 0.5 MG Methylprednisolone Sodium Succinate 40 mg Q8HR IV 05/29/25 22:00 05/31/25 05:59 40 MG Enoxaparin Sodium 40 mg DAILY SC 05/30/25 10:00 05/31/25 10:22 40 MG Pantoprazole Sodium 40 mg DAILY IV 05/30/25 10:00 05/31/25 10:21 40 MG Sodium Chloride 10 ml QSHIFT@10,22 IV 05/29/25 22:00 05/31/25 10:21 10 ML Enteral Nutritional Formula 1,000 ml 30ML/HR GT 05/30/25 15:15 05/30/25 22:04 1,000 ML Meropenem 50 ml @ 17 mls/hr Q12H IV 05/31/25 04:00 05/31/25 03:54 17 MLS/HR Docusate Sodium 100 mg BID PRN GT 05/30/25 19:30 Examination Patient lying in bed, intubated and mechanically ventilated, RASS -2 General: Low-grade fever, palor, mucosae are moist Cardiovascular: Regular S1 and S2. No murmurs, gallops or rubs. No JVD elevation. No pedal edema Respiratory: Decreased breath sounds left in compared to right on auscultation, mechanically ventilated Abdomen: Soft, nondistended, normoactive bowel sounds, no rebound tenderness, no organomegaly, no masses Genitourinary: Mendez seen MSK/skin: Mobilizes 4 limbs. Skin is dry and warm Neurological: Pupils are isocoric and reactive. Intact cough and gag reflex laboratory and microbiology laboratory and microbiology Laboratory Tests 05/31/25 04:03 05/30/25 03:30 Test 05/31/25 04:03 Range/Units Serum Glucose 154 H 74-106 mg/dL Microbiology Date/Time Source Procedure Growth Status 05/29/25 14:54 Urine - Mendez [place] Urine Culture - Preliminary Resulted 05/29/25 00:30 Nose MRSA Screen - Final Methicillin Resistant S.aureus Complete 05/28/25 21:00 Sputum Gram Stain - Final Resulted 05/28/25 21:00 Sputum Respiratory Culture - Preliminary Resulted Problem List/Assessment/Plan Problem List/Assessment/Plan Lucila Doyle is a 74-year-old female with past medical history of asthma, COPD on 2.5 L home oxygen, hypertension, methamphetamine use disorder brought to the hospital due to ALOC, because of Percocet overdose. Upon ER arrival on 05/27, she was intubated, admitted on 05/27. Neurology: Acute toxic/metabolic encephalopathy due to opioids overdose/sepsis * RASS score -1 * Sedated: Versed and fentanyl Cardiology: NSTEMI likely type 2 secondary to sepsis Dyslipidemia Hypertension Pericardial effusion * Serial trop I mildly raised at 200s to 300s * Echo 05/29 shows, mild LVH with LVEF 60%, dilated IVC and small pericardial effusion * Cardiology on board, recommended medical management and outpatient follow up * Current Plan: Continue aspirin, atorvastatin, Lasix 20 mg daily Respiratory: Acute on chronic hypoxic/ hypercapnic respiratory failure due to COPD exacerbation/pneumonia Sedated legs COPD exacerbation (on 2.5 L O2 at home) Possible asthma exacerbation Pneumonia, likely due to Gram-positive/Gram-negative bacteria/viral Ruled out pulmonary embolism Small bilateral pleural effusions Mild atelectasis * CT angio on 05/29/2025 shows no pulmonary embolism, small bilateral pleural effusion with mild dependent atelectasis changes left lung * X-ray 05/27 showed Mild hazy ground glass opacity throughout both lung . * Sputum preliminary lab on 05/28/2025 Gram stain shows no organisms * MV setting: TV 450, FiO2 40, RR 24, peep 5, Keep oxygen saturation 88-92% * CPAP trial on 05/31/2025 failed * Current plan: Continue Solu-Medrol 40 mg b.i.d. (05/29), breathing treatment, and CPAP tomorrow morning Gastrointestinal/nutrition: * Current plan: Tube feeding (through OG-tube), Jevity 30 mL/hour and Protonix 40 mg Genitourinary: LISSETTE, likely due to VMN, resolved Complicated UTI * UA shows appear turbid, leukocyte esterase 3+, WBC 63, bacteria moderate, on admission. * Current plan: Continue IV antibiotic Infectious Disease: Septic shock, likely due to Sepsis Sepsis, due to UTI/pneumonia Complicated UTI Positive MRSA screen * Urine culture, 05/27 preliminary result shows no growth * Respiratory culture 05/28 preliminary result shows no growth * Current plan: Continue Azithromycin (05/29), meropenem (05/29), mupirocin for nose, Hematology & Oncology: Moderate anemia Precipitous hemoglobin drop Raised D-dimer * Current Plan: Monitoring Hb Endocrine: Prediabetes mellitus A1c 5.9 Hyperkalemia, resolved Hypocalcemia * Patient potassium elevated 5 >5.5, today k+ 5.0 * Could be related to acute kidney injury secondary to hypoperfusion Musculoskeletal Gait instability * Patient use walker for ambulation at home * Plan: Physiotherapy once patients status improved DIET: Jevity 30 mL/hour DVT prophylax: Lovenox 40 mg sc daily GI prophylaxis: Protonix 40 mg IV daily Bowel regimen: Lactulose 30 ml daily Code status: Full code LINES/DRAINS/ACCESS: IV access: Right Upper arm PICC line 05/29 Drips: Versed, fentanyl, Levophed Mendez catheter: Put on 05/29 DISPOSITION: ICU Patient's status discussed with patient's son over the phone. Critical care time spent more than 81 minutes, including patient care, chart review, and updating the family and cpap trial monitoring. Excluding any procedures Case discussed with Dr. Levy Plan discussed with: Son, Other (Nurse) My Orders My Orders Orders - PB SHANKAR RESIDENT Procedure Category Date Status Time Place Ng ORDERS 05/30/25 Transmitted 15:01 Nutritional PHA 05/30/25 In Process Supplements (Jevity 15:15 Cpap Trial For Am ORDERS 05/30/25 Transmitted 17:11 Complete Blood Count LAB 05/31/25 Logged 04:00 Abg W/ Co-Ox RT 05/31/25 Logged 04:00 Chest Portable XY 05/31/25 Resulted 04:00 Dietary Evaluation Review Comments: 1. Offer nutrition support, TF Glucerna @50ml/hr providing 1440kcal, 72g protein, meeting 100% of pt's needs for protein and energy. 2. follow up with Nephrology consult 3. Advance to CCHO-60 Cardiac diet when pt's is off vent and passing PASTE UP ARTIST APPRENTICE eval. Expected Outcomes/Goals: controlled blood sugar, prevent uremia Date of Service: May 31, 2025 Billing Provider: AZAM LEVY MD Common Visit Codes: 42910-[id number] CARE 30-74 MIN, 33461-VALCQJEH CARE-EACH +30MIN PB SHANKAR RESIDENT May 31, 2025 11:39 AZAM LEVY MD Jun 01, 2025 13:35
[2025-05-31 12:01] LABS: Hematocrit 27.0 % (36.0-46.0); Hemoglobin 8.3 g/dL (12.2-16.2); Mean Corpuscular Hemoglobin 32.1 pg (28.0-32.0); Mean Corpuscular Volume 105.0 fL (80.0-100.0); Nucleated Red Blood Cells % 0.1 %
[2025-05-31] MEDS: LACTULOSE 20Gm/30ML SOLN NG ONE (17:15)
[2025-05-31 17:29] LABS: Hematocrit 32.1 % (36.0-46.0); Hemoglobin 10.5 g/dL (12.2-16.2); Mean Corpuscular Hemoglobin 31.7 pg (28.0-32.0); Mean Corpuscular Volume 96.5 fL (80.0-100.0); Nucleated Red Blood Cells % 0.0 %
[2025-05-31] MEDS: MUPIROCIN 2% OINT 15gm or 22gm FOR MRSA NARES EACHNOSTRI SCH (21:07)
--- NOTE | 2025-05-31 21:19 | DVHPN2 ---
Progress Note - Dictate Date Seen: May 31, 2025 Medical Necessity Reason Pt with a Central, PICC or Fol: Yes The following are medically ne: Mendez Catheter Reason for mendez catheter: Strict I&O Subjective Patient was seen and evaluated in follow up in the ICU. Patient is intubated and sedated on ventilator. 40% FiO2. CPAP trial was terminated due to the patient desaturating. HGB 8.3, HCT 27, BUN 29, WINE BLENDER 1.05. Chest x-ray shows stable appearing multifocal left upper lung zone and right hemithoracic pulmonary airspace disease. vital signs Vital Sign Date Time Temp Pulse Resp B/P (MAP) Pulse Ox O2 Delivery O2 Flow Rate FiO2 05/31/25 12:08 80 24 105/60 (75) 94 40 05/31/25 08:00 Mechanical Ventilator+ 05/31/25 04:00 98.9 98.9 Total Intake and Output 05/30/25 05/30/25 05/31/25 15:00 23:00 07:00 Intake Total 603.300 ml 393.855 ml 423.0 ml Output Total 350 ml 625 ml 425 ml Balance 253.300 ml -231.145 ml -2.0 ml medications Current Medications Medications Dose Ordered Sig/Rio Route Start Time Stop Time Status Last Admin Dose Admin Albuterol 2.5 mg Q4HPRN PRN NEB 05/27/25 22:45 05/28/25 18:21 2.5 MG Ipratropium [place] 0.5 mg Q4HPRN PRN NEB 05/27/25 22:45 05/28/25 18:21 0.5 MG Aspirin 81 mg DAILY PO 05/28/25 10:00 05/31/25 10:00 81 MG Ondansetron HCl 4 mg Q4HP PRN IV 05/27/25 22:45 Acetaminophen 650 mg Q6HP PRN PO 05/27/25 22:45 05/28/25 14:29 650 MG Nitroglycerin 0.4 mg Q5MINP PRN SL 05/27/25 22:45 Morphine Sulfate 2 mg Q30M PRN IV 05/27/25 22:45 Azithromycin 250 ml @ 125 mls/hr DAILY IV 05/29/25 10:00 05/31/25 10:21 125 MLS/HR Furosemide 20 mg DAILY IV 05/29/25 10:00 05/31/25 10:21 20 MG Atorvastatin Calcium 40 mg HS PO 05/28/25 22:00 05/30/25 22:01 40 MG Lorazepam 0.5 mg Q12HP PRN IV 05/28/25 19:45 05/28/25 20:01 0.5 MG Norepinephrine Bitartrate 250 ml @ 3.75 mls/hr Q24H IV 05/29/25 08:00 05/31/25 01:33 7.5 MLS/HR Fentanyl Citrate 250 ml @ 2.5 mls/hr Q24H IV 05/29/25 08:00 05/31/25 03:56 22.5 MLS/HR Propofol 100 ml @ 2.205 mls/ hr Q24H IV 05/29/25 15:00 Midazolam HCl 50 ml @ 1 mls/hr Q24H IV 05/29/25 15:00 05/30/25 05:06 2 MLS/HR Albuterol 2.5 mg Q6HR NEB 05/29/25 18:00 05/31/25 12:14 2.5 MG Ipratropium [place] 0.5 mg Q6HR NEB 05/29/25 18:00 05/31/25 12:14 0.5 MG Methylprednisolone Sodium Succinate 40 mg Q8HR IV 05/29/25 22:00 05/31/25 05:59 40 MG Enoxaparin Sodium 40 mg DAILY SC 05/30/25 10:00 05/31/25 10:22 40 MG Pantoprazole Sodium 40 mg DAILY IV 05/30/25 10:00 05/31/25 10:21 40 MG Sodium Chloride 10 ml QSHIFT@10,22 IV 05/29/25 22:00 05/31/25 10:21 10 ML Enteral Nutritional Formula 1,000 ml 30ML/HR GT 05/30/25 15:15 05/30/25 22:04 1,000 ML Meropenem 50 ml @ 17 mls/hr Q12H IV 05/31/25 04:00 05/31/25 03:54 17 MLS/HR Docusate Sodium 100 mg BID PRN GT 05/30/25 19:30 objective GENERAL: Ill appearing, intubated on ventilator. EYES: PERRL, EOMI. Anicteric. HENT: Moist mucous membranes. LUNGS: Decreased breath sounds CARDIOVASCULAR: Regular rate and rhythm. ABDOMEN: Soft, nontender and nondistended. EXTREMITIES: No edema. SKIN: Warm, dry. laboratory and microbiology Laboratory Tests 05/31/25 11:53 05/31/25 04:03 Test 05/31/25 04:03 Range/Units Serum Glucose 154 H 74-106 mg/dL Problem List NSTEMI rule out CAD. Sepsis likely from pneumonia. LISSETTE on CKD. COPD exacerbation. Hypertension. Assessment/Plan Continued all current supportive medical care. Left heart catheterization for further evaluation of ischemic heart disease. Morphine and Vista for pain management. Aspirin. IV antibiotics as ordered. DVT and GI prophylactics. Diuretics with Lasix. Vasopressors for hemodynamic support. Additional plan as per the hospital course. Critical care time of 45 minutes provided to include time spent evaluation of patient at bedside, when appropriate patient/family education for diagnosis, treatment plan, review of pertinent medical information and discussion of care with specialty providers and PCP. Mechanical ventilator parameters, treatment and adjustments have personally been reviewed by me and treatment plan by civil laboratory technician has also been reviewed. Dietary Evaluation Review Comments: 1. Offer nutrition support, TF Glucerna @50ml/hr providing 1440kcal, 72g protein, meeting 100% of pt's needs for protein and energy. 2. follow up with Nephrology consult 3. Advance to CCHO-60 Cardiac diet when pt's is off vent and passing ASSAULT AMPHIBIOUS VEHICLE OFFICER eval. Expected Outcomes/Goals: controlled blood sugar, prevent uremia Plan discussed with: ALBERTA Berry MD May 31, 2025 13:36
[2025-06-01] VITALS (106 sets, daily range): BP systolic 82–194; BP diastolic 49–109; PULSE 49–183; RESP 11–42; TEMP 97.8–99; O2SAT 81–100
[2025-06-01 04:44] LABS: Hematocrit 31.6 % (36.0-46.0); Hemoglobin 10.9 g/dL (12.2-16.2); Mean Corpuscular Hemoglobin 32.8 pg (28.0-32.0); Mean Corpuscular Volume 94.7 fL (80.0-100.0); Nucleated Red Blood Cells % 0.1 %
[2025-06-01 04:47] LABS: Anion Gap 9 (5-15); Calcium 8.7 mg/dL (8.7-10.4); Carbon Dioxide 27 mmol/L (20-31); Chloride 104 mmol/L (98-107); Potassium 4.8 mmol/L (3.5-5.1); Sodium 140 mmol/L (136-145)
[2025-06-01 04:53] LABS: BUN/Creatinine Ratio 36.8 (10.0-20.0); Blood Urea Nitrogen 42 mg/dL (9-23); Glucose 149 mg/dL (74-106)
--- NOTE | 2025-06-01 05:10 | DVH ---
CHEST RADIOGRAPH Indication: Position of tube and monitor lung disease Technique: Single frontal view of the chest was obtained COMPARISON: XY CHEST PORTABLE on DOS: 05/31/25, XY CHEST PORTABLE on DOS: 05/30/25, XY CHEST XRAY 1 VIE W on DOS: 05/28/25, XY CHEST PORTABLE on DOS: 05/28/25, XY CHEST PORTABLE on DOS: 11/07/24 FINDINGS: Lines and Tubes: Endotracheal tube, enteric catheter, and right PICC in satisfactory position. Lungs: Unchanged multifocal airspace disease. Pleura: Possible interval development of small left pneumothorax versus skin fold artifact; artifact is felt to be most likely. Repeat chest radiograph could be obtained to further evaluate if clinical ly indicated. Cardiomediastinal contours: Unremarkable Bones: Unremarkable IMPRESSION: Possible interval development of small left pneumothorax versus skin fold artifact;. Repeat chest radiograph or CT could be obtained to further evaluate if clinically indicated. Clinical correlation advised.
[2025-06-01 07:13] LABS: Base Excess 0.3 mmol/L (-2.0-3.0)
--- NOTE | 2025-06-01 07:28 | ECG ---
[facility] Test Date: 2025-05-30 Test Time: 21:10:12 Pat Name: NAY ROACH Department: icu Room: 0292T Gender: F Design Engineer: allegra : [id number] Requested By: AZAM PARR Order Number: [id number] Reading MD: Mihir Peterson Measurements Intervals [place] Rate: 74 P: 76 NV: 161 QRS: 80 QRSD: 102 T: 80 QT: 463 QTc: 514 Interpretive Statements Sinus rhythm Supraventricular bigeminy Low voltage, precordial leads Nonspecific T abnrm, anterolateral leads Prolonged QT interval Electronically Signed On 06-06-2025 21:34:29 PDT by Mihir Peterson Please click the below link to view image of tracing.
--- NOTE | 2025-06-01 09:20 | DVHPNRES ---
Progress Note Date Seen: Jun 01, 2025 Resident Creating Document: PB SHANKAR RESIDENT Medical Necessity Reason Pt with a Central, PICC or Fol: Yes The following are medically ne: Mendez Catheter Reason for mendez catheter: Strict I&O Subjective Review of Systems Lucila Doyle is a 74-year-old female with past medical history of anxiety, asthma, COPD on 2.5 L home oxygen, hypertension came to ER with overdose of Percocet which she takes for her back pain. The patient's son, Joel reported that his mother had fall in the morning. When came home and found her on floor and carried her to bed. Upon Joel arrival, he noticed her mother having increased heart rate, appeared pale and had saliva drooling from the mouth and he called 911 brought to her Hospital due to concerning symptoms. Patient had significant pulmonary history, her son reporting that a blind stitch machine operator had previously stated 1 of the lung was only 50% functional. Patient also had remote history of amphetamine use approximately 30 years ago. Recently, the patient had been rehabilitation facility following left femur fracture status post surgery in 2023. Patient received IV antibiotic including ceftriaxone and azithromycin, as well as other medications such as albuterol, ipratropium, morphine, aspirin. Upon arrival at the hospital, the patient became altered mental status and desaturated and required intubation on 05/29/2025 for airway protection. Past medical history: Anxiety, asthma, COPD on 2.5 L home oxygen, hypertension, history of fall, history of amphetamine use Surgical history : left femur fracture status post surgery Family history; father having bladder cancer, brother- prostate cancer Social history: Ex-smoker stopped 10 years back, ETOH occasionally, remote use amphetamine approximately 30 years back Allergy: No known allergy PCP: Dr. Ayala Home medication: Escitalopram 20 mg, lisinopril 20 mg, alprazolam 1 mg, zolpidem 10 mg, Belsomra,, Percocet. 05/30: Patient seen and evaluated in bedside. Currently on vent setting TV 450, FiO2 45, RR 22. Spoke to son(Joel) in bedside and discussed current management plan. Keep oxygen saturation 88-92%. CPAP trial tomorrow AM,Cardiology have no plan for any procedure. NG tube feeding ordered started jevity 30 cc/hour. 05/31: Seen and evaluated in bedside. Vent setting TV 450, FiO2 40, RR 24. Patient currently and alert. Failed CPAP trial failed today, desat 85%. Spoke to son Joel, updated current medical condition. 06/01: And evaluated in bedside today. Patient alk and alert. Spoke to Joel in AM. CPAP trial trial successful and extubated. Currently on 6 L oxygen via face mask. Objective vital signs Vital Sign Date Time Temp Pulse Resp B/P (MAP) Pulse Ox O2 Delivery O2 Flow Rate FiO2 06/01/25 07:49 55 24 91/59 (70) 98 35 06/01/25 06:00 Mechanical Ventilator+ 06/01/25 04:00 99.0 99.0 Total Intake and Output 05/31/25 05/31/25 06/01/25 15:00 23:00 07:00 Intake Total 553.75 ml 402.75 ml 455.25 ml Output Total 0 ml 675 ml 550 ml Balance 553.75 ml -272.25 ml -94.75 ml medications Current Medications Medications Dose Ordered Sig/Rio Route Start Time Stop Time Status Last Admin Dose Admin Aspirin 81 mg DAILY PO 05/28/25 10:00 05/31/25 10:00 81 MG Ondansetron HCl 4 mg Q4HP PRN IV 05/27/25 22:45 Acetaminophen 650 mg Q6HP PRN PO 05/27/25 22:45 05/28/25 14:29 650 MG Morphine Sulfate 2 mg Q30M PRN IV 05/27/25 22:45 Azithromycin 250 ml @ 125 mls/hr DAILY IV 05/29/25 10:00 05/31/25 10:21 125 MLS/HR Furosemide 20 mg DAILY IV 05/29/25 10:00 05/31/25 10:21 20 MG Atorvastatin Calcium 40 mg HS PO 05/28/25 22:00 05/31/25 21:03 40 MG Lorazepam 0.5 mg Q12HP PRN IV 05/28/25 19:45 05/28/25 20:01 0.5 MG Norepinephrine Bitartrate 250 ml @ 3.75 mls/hr Q24H IV 05/29/25 08:00 05/31/25 01:33 7.5 MLS/HR Fentanyl Citrate 250 ml @ 2.5 mls/hr Q24H IV 05/29/25 08:00 06/01/25 03:48 20 MLS/HR Propofol 100 ml @ 2.205 mls/ hr Q24H IV 05/29/25 15:00 Midazolam HCl 50 ml @ 1 mls/hr Q24H IV 05/29/25 15:00 06/01/25 01:39 4 MLS/HR Albuterol 2.5 mg Q6HR NEB 05/29/25 18:00 06/01/25 06:08 2.5 MG Ipratropium [place] 0.5 mg Q6HR NEB 05/29/25 18:00 06/01/25 06:08 0.5 MG Enoxaparin Sodium 40 mg DAILY SC 05/30/25 10:00 05/31/25 10:22 40 MG Pantoprazole Sodium 40 mg DAILY IV 05/30/25 10:00 05/31/25 10:21 40 MG Sodium Chloride 10 ml QSHIFT@10,22 IV 05/29/25 22:00 05/31/25 21:03 10 ML Enteral Nutritional Formula 1,000 ml 30ML/HR GT 05/30/25 15:15 05/30/25 22:04 1,000 ML Meropenem 50 ml @ 17 mls/hr Q12H IV 05/31/25 04:00 06/01/25 03:15 17 MLS/HR Mupirocin 1 applic BID EACHNOSTRI 05/31/25 22:00 06/05/25 21:59 05/31/25 21:07 1 APPLIC Methylprednisolone Sodium Succinate 40 mg BID IV 06/01/25 10:00 Examination Patient lying in bed, intubated and mechanically ventilated, RASS -2 General: Low-grade fever, palor, mucosae are moist Cardiovascular: Regular S1 and S2. No JVD elevation. No pedal edema Respiratory: Decreased breath sounds left in compared to right , no wheeze or crackles noted Abdomen: Soft, nondistended, normoactive bowel sounds, no rebound tenderness Genitourinary: Mendez in place and urine looks clear MSK/skin: Mobilizes 4 limbs. Skin is dry and warm Neurological: Pupils are isocoric and reactive. Intact cough and gag reflex laboratory and microbiology Laboratory Tests 06/01/25 03:00 Test 06/01/25 03:00 Range/Units Serum Glucose 149 H 74-106 mg/dL Microbiology Date/Time Source Procedure Growth Status 05/29/25 14:54 Urine - Mendez [place] Urine Culture - Preliminary Resulted 05/29/25 00:30 Nose MRSA Screen - Final Methicillin Resistant S.aureus Complete 05/28/25 21:00 Sputum Gram Stain - Final Resulted 05/28/25 21:00 Sputum Respiratory Culture - Preliminary Resulted Problem List/Assessment/Plan Problem List/Assessment/Plan Lucila Doyle is a 74-year-old female with past medical history of asthma, COPD on 2.5 L home oxygen, hypertension, methamphetamine use disorder brought to the hospital due to ALOC, because of Percocet overdose. Upon ER arrival on 05/27, she was intubated, admitted on 05/27. Neurology: Acute toxic/metabolic encephalopathy due to opioids overdose/sepsis * RASS score -2 * Sedated: Versed and fentanyl Cardiology: NSTEMI likely type 2 secondary to sepsis Dyslipidemia Hypertension Pericardial effusion * Serial trop I mildly raised at 200s to 300s * Echo 05/29 shows, mild LVH with LVEF 60%, dilated IVC and small pericardial effusion * Cardiology on board, recommended medical management and outpatient follow up * Current Plan: Continue aspirin, atorvastatin, Lasix 20 mg daily Respiratory: Acute on chronic hypoxic/ hypercapnic respiratory failure due to COPD exacerbation/pneumonia Acute COPD exacerbation (on 2.5 L O2 at home) Possible Asthma exacerbation Pneumonia, likely due to Gram-positive/Gram-negative bacteria/viral Ruled out pulmonary embolism Small bilateral pleural effusions Mild atelectasis * CT angio on 05/29/2025 shows no pulmonary embolism, small bilateral pleural effusion with mild dependent atelectasis changes left lung * X-ray 05/27 admission, showed Mild hazy ground glass opacity throughout both lung . * Sputum culture on 05/28/2025 no organisms * Keep oxygen saturation 88-92% * CPAP trial successful and extubated on 06/01/2025. Currently on 6L O2 . * Respiratory physical therapy. * Current plan: Continue Solu-Medrol 40 mg b.i.d. (05/29), breathing treatment. Gastrointestinal/nutrition: * Current plan: Tube feeding (through OG-tube), Jevity 30 mL/hour and Protonix 40 mg Genitourinary: LISSETTE, likely due to VMN, resolved Complicated UTI * UA shows appear turbid, leukocyte esterase 3+, WBC 63, bacteria moderate, on admission. * Current plan: Continue IV antibiotic Infectious Disease: Septic shock, likely due to Sepsis Sepsis, due to UTI/pneumonia Complicated UTI Positive MRSA screen * Urine culture, 05/27 preliminary result shows no growth * Respiratory culture 05/28 preliminary result shows no growth * Current plan: Continue Azithromycin (05/29), meropenem (05/29), mupirocin for nose, Hematology & Oncology: Moderate anemia Precipitous hemoglobin drop Raised D-dimer * Current Plan: Monitoring Hb Endocrine: Prediabetes mellitus A1c 5.9 Hyperkalemia, resolved Hypocalcemia * Today k+ 4.8 * Could be related to acute kidney injury secondary to hypoperfusion Musculoskeletal Gait instability Status post ORIF in left femoral neck Right small suprapatellar effusion * CT left lower extremity show no fracture, s/p ORIF left femoral neck * CT right lower extremity-old right inferior pubic ramus fracture, small suprapatellar effusion * CT pelvis-chronic appearing fracture sacral 3, 4, moderate degenerative changes sacroiliac joints. * Patient use walker for ambulation at home * Plan: Physiotherapy once patients status improved DIET: Jevity 30 mL/hour DVT prophylax: Lovenox 40 mg sc daily GI prophylaxis: Protonix 40 mg IV daily Bowel regimen: Lactulose 30 ml daily Code status: Full code LINES/DRAINS/ACCESS: IV access: Right Upper arm PICC line 05/29 Drips: Versed, fentanyl, Levophed Mendez catheter: Put on 05/29 DISPOSITION: ICU Patient's status discussed with patient's son over the phone. Critical care time spent more than 67 minutes, including patient care, chart review, and updating the family. Excluding any procedures Case discussed with Dr. Levy Plan discussed with: Son (Joel), Other (Nurse) My Orders My Orders Orders - PB SHANKAR RESIDENT Procedure Category Date Status Time Mupirocin 2% Oint PHA 05/31/25 In Process Mrsa Nares (Bactroban 22:00 Chest Portable XY 06/01/25 Resulted 04:00 Methylprednisolone PHA 06/01/25 In Process Sod Succ (Solu Medrol 10:00 Abg W/ Co-Ox RT 06/01/25 Logged 05:19 Dietary Evaluation Review Comments: 1. Offer nutrition support, TF Glucerna @50ml/hr providing 1440kcal, 72g protein, meeting 100% of pt's needs for protein and energy. 2. follow up with Nephrology consult 3. 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 Expected Outcomes/Goals: controlled blood sugar, prevent uremia Date of Service: Jun 01, 2025 Billing Provider: AZAM LEVY MD Common Visit Codes: 17132-[id number] CARE 30-74 MIN PB SHANKAR RESIDENT Jun 01, 2025 09:20 AZAM LEVY MD Jun 04, 2025 10:59
[2025-06-01] MEDS: methylPREDNISolone SOD SUCC 40 MG/ML VL IV SCH (10:31)
[2025-06-01] MEDS: IPRATROPIUM BROM 0.5 MG/2.5ML INH SOL NEB SCH (11:07)
[2025-06-01] MEDS: ALBUTEROL SULF 2.5 MG/0.5ML(0.5%) NEB SOLN NEB SCH (11:07)
[2025-06-01] MEDS: LACTULOSE 20Gm/30ML SOLN PO ONE (11:37)
[2025-06-01] MEDS ORDERED: LACTULOSE 20Gm/30ML SOLN PO SCH (12:00)
[2025-06-01] MEDS: DEXMEDETOMIDINE HCL IN D5W 100 ML IV SCH (12:15)
[2025-06-01] MEDS: FUROSEMIDE 20 MG/2 ML VIAL IV ONE (13:30)
[2025-06-01 13:37] LABS: Base Excess -1.6 mmol/L (-2.0-3.0)
[2025-06-01 15:48] LABS: Base Excess 0.6 mmol/L (-2.0-3.0)
[2025-06-01] MEDS: MORPHINE SULFATE INJ 2 MG/ml SYRG IV PRN ×2 (16:42→20:01)
[2025-06-01] MEDS: hydrALAZINE HCL 20 MG/ML VL IV PRN (21:55)
--- NOTE | 2025-06-01 22:13 | DVH ---
EXAM: XY CHEST XRAY 1 VIEW CLINICAL HISTORY: Evaluiate pneumothorax TECHNIQUE: Single AP view of the chest WID: COMPARISON: Chest radiograph from earlier today, CTA chest from 05/28/2025 FINDINGS: Lines and tubes: Right PICC is in place with the tip projecting over the low SVC. Chest: The heart size and pulmonary vasculature is within normal limits. Calcified plaque projects of the ao rtic arch. Hyper lucency seen throughout most of the mid to lower left lung. Linear band of scarring in the lef t mid lung. The left lung apex is not included in the field of view. Small bilateral pleural effusion s. Diffuse interstitial prominence of the lung parenchyma is otherwise seen. The osseous structures are grossly intact. IMPRESSION: 1. Persistent hyperlucency throughout most of the mid to lower left lung and linear band of consolida tion in the left mid lung as seen on prior CTA chest. 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 Diffuse interstitial prominence of the lungs otherwise seen likely related to underlying emphysema . 3. Small bilateral pleural effusions.
--- NOTE | 2025-06-01 23:47 | DVHPN2 ---
Progress Note - Dictate Date Seen: Jun 01, 2025 Medical Necessity Reason Pt with a Central, PICC or Fol: Yes The following are medically ne: Mendez Catheter Reason for mendez catheter: Strict I&O Subjective Patient was seen and evaluated in follow up in the ICU. Patient is intubated and sedated on ventilator. 35% FiO2. Patient is undergoing CPAP trial. BUN 42, BUDGET COUNSELOR 1.14. Chest x-ray shows possible interval development of small left pneumothorax versus skin fold artifact. vital signs Vital Sign Date Time Temp Pulse Resp B/P (MAP) Pulse Ox O2 Delivery O2 Flow Rate FiO2 06/01/25 11:08 56 24 105/57 (73) 99 35 06/01/25 10:00 Mechanical Ventilator+ 06/01/25 08:00 97.8 97.8 Total Intake and Output 05/31/25 05/31/25 06/01/25 15:00 23:00 07:00 Intake Total 553.75 ml 402.75 ml 477.00 ml Output Total 0 ml 675 ml 550 ml Balance 553.75 ml -272.25 ml -73.00 ml medications Current Medications Medications Dose Ordered Sig/Rio Route Start Time Stop Time Status Last Admin Dose Admin Aspirin 81 mg DAILY PO 05/28/25 10:00 06/01/25 10:31 81 MG Ondansetron HCl 4 mg Q4HP PRN IV 05/27/25 22:45 Acetaminophen 650 mg Q6HP PRN PO 05/27/25 22:45 05/28/25 14:29 650 MG Morphine Sulfate 2 mg Q30M PRN IV 05/27/25 22:45 Azithromycin 250 ml @ 125 mls/hr DAILY IV 05/29/25 10:00 06/01/25 10:32 125 MLS/HR Furosemide 20 mg DAILY IV 05/29/25 10:00 06/01/25 10:32 20 MG Atorvastatin Calcium 40 mg HS PO 05/28/25 22:00 05/31/25 21:03 40 MG Lorazepam 0.5 mg Q12HP PRN IV 05/28/25 19:45 05/28/25 20:01 0.5 MG Norepinephrine Bitartrate 250 ml @ 3.75 mls/hr Q24H IV 05/29/25 08:00 05/31/25 01:33 7.5 MLS/HR Fentanyl Citrate 250 ml @ 2.5 mls/hr Q24H IV 05/29/25 08:00 06/01/25 03:48 20 MLS/HR Propofol 100 ml @ 2.205 mls/ hr Q24H IV 05/29/25 15:00 Midazolam HCl 50 ml @ 1 mls/hr Q24H IV 05/29/25 15:00 06/01/25 01:39 4 MLS/HR Enoxaparin Sodium 40 mg DAILY SC 05/30/25 10:00 06/01/25 10:31 40 MG Pantoprazole Sodium 40 mg DAILY IV 05/30/25 10:00 06/01/25 10:32 40 MG Sodium Chloride 10 ml QSHIFT@10,22 IV 05/29/25 22:00 06/01/25 10:32 10 ML Enteral Nutritional Formula 1,000 ml 30ML/HR GT 05/30/25 15:15 05/30/25 22:04 1,000 ML Meropenem 50 ml @ 17 mls/hr Q12H IV 05/31/25 04:00 06/01/25 03:15 17 MLS/HR Mupirocin 1 applic BID EACHNOSTRI 05/31/25 22:00 06/05/25 21:59 05/31/25 21:07 1 APPLIC Methylprednisolone Sodium Succinate 40 mg BID IV 06/01/25 10:00 06/01/25 10:31 40 MG Albuterol 2.5 mg Q4HR NEB 06/01/25 10:00 06/01/25 11:07 2.5 MG Ipratropium [place] 0.5 mg Q4HR NEB 06/01/25 10:00 06/01/25 11:07 0.5 MG Lactulose 30 ml DAILY NG 06/02/25 10:00 objective GENERAL: Ill appearing, intubated on ventilator. EYES: PERRL, EOMI. Anicteric. HENT: Moist mucous membranes. LUNGS: Decreased breath sounds CARDIOVASCULAR: Regular rate and rhythm. ABDOMEN: Soft, nontender and nondistended. EXTREMITIES: No edema. SKIN: Warm, dry. laboratory and microbiology Laboratory Tests 06/01/25 03:00 Test 06/01/25 03:00 Range/Units Serum Glucose 149 H 74-106 mg/dL Problem List NSTEMI rule out CAD. Sepsis likely from pneumonia. LISSETTE on CKD. COPD exacerbation. Hypertension. Assessment/Plan Continued all current supportive medical care. Left heart catheterization for further evaluation of ischemic heart disease. Morphine and Tylenol for pain management. Aspirin. IV antibiotics as ordered. DVT and GI prophylactics. Diuretics with Lasix. Nebulized breathing treatments. Additional plan as per the hospital course. Critical care time of 45 minutes provided to include time spent evaluation of patient at bedside, when appropriate patient/family education for diagnosis, treatment plan, review of pertinent medical information and discussion of care with specialty providers and PCP. Mechanical ventilator parameters, treatment and adjustments have personally been reviewed by me and treatment plan by enamel pulverizer has also been reviewed. Dietary Evaluation Review Comments: 1. Offer nutrition support, TF Glucerna @50ml/hr providing 1440kcal, 72g protein, meeting 100% of pt's needs for protein and energy. 2. follow up with Nephrology consult 3. 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 Expected Outcomes/Goals: controlled blood sugar, prevent uremia Plan discussed with: Other ALBERTA KILPATRICK MD Jun 01, 2025 12:04
[2025-06-02] VITALS (87 sets, daily range): BP systolic 93–182; BP diastolic 68–118; PULSE 91–136; RESP 11–30; TEMP 97.8–98.8; O2SAT 18–99
[2025-06-02] MEDS: LEVALBUTEROL HCL 1.25 MG/3 ML NEB NEB SCH (00:31)
[2025-06-02] MEDS: IPRATROPIUM BROM 0.5 MG/2.5ML INH SOL NEB SCH (00:31)
[2025-06-02 04:00] LABS: Hematocrit 36.1 % (36.0-46.0); Hemoglobin 12.5 g/dL (12.2-16.2); Mean Corpuscular Hemoglobin 32.6 pg (28.0-32.0); Mean Corpuscular Volume 94.1 fL (80.0-100.0); Nucleated Red Blood Cells % 0.0 %
[2025-06-02 04:07] LABS: Chloride 102 mmol/L (98-107); Potassium 4.2 mmol/L (3.5-5.1); Sodium 143 mmol/L (136-145)
[2025-06-02 04:08] LABS: Anion Gap 12 (5-15); Calcium 9.0 mg/dL (8.7-10.4); Carbon Dioxide 29 mmol/L (20-31)
[2025-06-02 04:13] LABS: BUN/Creatinine Ratio 42.6 (10.0-20.0); Blood Urea Nitrogen 43 mg/dL (9-23); Glucose 138 mg/dL (74-106)
--- NOTE | 2025-06-02 05:48 | DVH ---
CHEST RADIOGRAPH Indication: Compare changes lung dx. Technique: Single frontal view of the chest was obtained COMPARISON: XY CHEST XRAY 1 VIEW on DOS: 06/01/25, XY CHEST PORTABLE on DOS: 06/01/25, XY CHEST PORTABL E on DOS: 05/31/25, XY CHEST PORTABLE on DOS: 05/30/25, XY CHEST XRAY 1 VIEW on DOS: 05/28/25 FINDINGS: Lines and Tubes: Right PICC in satisfactory position. 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 Diffuse pulmonary vascular congestion, unchanged. Pleura: No effusion. No pneumothorax. Cardiomediastinal contours: Unremarkable. Bones: Unremarkable. IMPRESSION: No significant interval change.
[2025-06-02] MEDS: ONDANSETRON HCL 4 MG/2 ML VIAL IV PRN (07:46)
[2025-06-02 08:31] LABS: Base Excess 4.5 mmol/L (-2.0-3.0)
--- NOTE | 2025-06-02 09:40 | DVHPNRES ---
Progress Note Date Seen: Jun 02, 2025 Resident Creating Document: PB SHANKAR RESIDENT Medical Necessity Reason Pt with a Central, PICC or Fol: Yes The following are medically ne: Mendez Catheter Reason for mendez catheter: Strict I&O Subjective Review of Systems Lucila Doyle is a 74-year-old female with past medical history of anxiety, asthma, COPD on 2.5 L home oxygen, hypertension came to ER with overdose of Percocet which she takes for her back pain. The patient's son, Joel reported that his mother had fall in the morning. When came home and found her on floor and carried her to bed. Upon Joel arrival, he noticed her mother having increased heart rate, appeared pale and had saliva drooling from the mouth and he called 911 brought to her Hospital due to concerning symptoms. Patient had significant pulmonary history, her son reporting that a cattle sprayer had previously stated 1 of the lung was only 50% functional. Patient also had remote history of amphetamine use approximately 30 years ago. Recently, the patient had been rehabilitation facility following left femur fracture status post surgery in 2023. Patient received IV antibiotic including ceftriaxone and azithromycin, as well as other medications such as albuterol, ipratropium, morphine, aspirin. Upon arrival at the hospital, the patient became altered mental status and desaturated and required intubation on 05/28/2025. Past medical history: Anxiety, asthma, COPD on 2.5 L home oxygen, hypertension, history of fall, history of amphetamine use Surgical history : left femur fracture status post surgery Family history; father having bladder cancer, brother- prostate cancer Social history: Ex-smoker stopped 10 years back, ETOH occasionally, remote use amphetamine approximately 30 years back Allergy: No known allergy PCP: Dr. Ayala Home medication: Escitalopram 20 mg, lisinopril 20 mg, alprazolam 1 mg, zolpidem 10 mg, Belsomra,, Percocet. 05/30: Patient seen and evaluated in bedside. Currently on vent setting TV 450, FiO2 45, RR 22. Spoke to son(Joel) in bedside and discussed current management plan. Keep oxygen saturation 88-92%. CPAP trial tomorrow AM,Cardiology have no plan for any procedure. NG tube feeding ordered started jevity 30 cc/hour. 05/31: Seen and evaluated in bedside. Vent setting TV 450, FiO2 40, RR 24. Patient currently and alert. Failed CPAP trial failed today, desat 85%. Spoke to son Joel, updated current medical condition. 06/01: Patient seen and evaluated in bedside today. Patient awake and alert. Spoke to Joel in AM. CPAP trial trial successful and extubated. Currently on 6 L oxygen via face mask. 06/02: Patient currently lying on bed. Patient desat and placed on CPAP overnight. Patient is switched from BiPAP to Oxymizer 5 L, tolerating well. Patient awake and alert. Heart rate 102, O2 sat 93%, respiratory rate 19, BP 152 / 89. Spoke to jacqui Maldonado and updated patient current status. Objective vital signs Vital Sign Date Time Temp Pulse Resp B/P (MAP) Pulse Ox O2 Delivery O2 Flow Rate FiO2 06/02/25 08:11 109 162/92 98 Nasal BiPAP Mask 50 06/02/25 06:45 20 06/02/25 04:00 98.8 98.8 06/01/25 22:00 10 Total Intake and Output 06/01/25 06/01/25 06/02/25 15:00 23:00 07:00 Intake Total 441.75 ml 124 ml Output Total 0 ml 2675 ml 1100 ml Balance 441.75 ml -2551 ml -1100 ml medications Current Medications Medications Dose Ordered Sig/Rio Route Start Time Stop Time Status Last Admin Dose Admin Aspirin 81 mg DAILY PO 05/28/25 10:00 06/01/25 10:31 81 MG Ondansetron HCl 4 mg Q4HP PRN IV 05/27/25 22:45 06/02/25 07:46 4 MG Acetaminophen 650 mg Q6HP PRN PO 05/27/25 22:45 05/28/25 14:29 650 MG Morphine Sulfate 2 mg Q30M PRN IV 05/27/25 22:45 06/01/25 16:42 2 MG Azithromycin 250 ml @ 125 mls/hr DAILY IV 05/29/25 10:00 06/01/25 10:32 125 MLS/HR Furosemide 20 mg DAILY IV 05/29/25 10:00 06/01/25 10:32 20 MG Atorvastatin Calcium 40 mg HS PO 05/28/25 22:00 05/31/25 21:03 40 MG Fentanyl Citrate 250 ml @ 2.5 mls/hr Q24H IV 05/29/25 08:00 06/01/25 03:48 20 MLS/HR Propofol 100 ml @ 2.205 mls/ hr Q24H IV 05/29/25 15:00 Midazolam HCl 50 ml @ 1 mls/hr Q24H IV 05/29/25 15:00 06/01/25 01:39 4 MLS/HR Enoxaparin Sodium 40 mg DAILY SC 05/30/25 10:00 06/01/25 10:31 40 MG Pantoprazole Sodium 40 mg DAILY IV 05/30/25 10:00 06/01/25 10:32 40 MG Sodium Chloride 10 ml QSHIFT@10,22 IV 05/29/25 22:00 06/01/25 21:39 10 ML Enteral Nutritional Formula 1,000 ml 30ML/HR GT 05/30/25 15:15 05/30/25 22:04 1,000 ML Meropenem 50 ml @ 17 mls/hr Q12H IV 05/31/25 04:00 06/02/25 04:23 17 MLS/HR Mupirocin 1 applic BID EACHNOSTRI 05/31/25 22:00 06/05/25 21:59 06/01/25 21:40 1 APPLIC Methylprednisolone Sodium Succinate 40 mg BID IV 06/01/25 10:00 06/01/25 21:39 40 MG Lactulose 30 ml DAILY NG 06/02/25 10:00 Morphine Sulfate 1 mg Q4HP PRN IV 06/01/25 18:15 06/02/25 04:24 1 MG Hydralazine HCl 10 mg Q6HP PRN IV 06/01/25 21:45 06/02/25 04:23 10 MG Levalbuterol HCl 0.625 mg Q6HR NEB 06/02/25 00:00 06/02/25 06:22 0.625 MG Ipratropium [place] 0.5 mg Q6HR NEB 06/02/25 00:00 06/02/25 06:22 0.5 MG Examination Patient lying in bed, intubated and mechanically ventilated, RASS -2 General: No fever, palor, mucosae are moist Cardiovascular: Regular S1 and S2. No JVD elevation. No pedal edema Respiratory: Decreased breath sounds left in compared to right , no wheeze or crackles noted Abdomen: Soft, nondistended, normoactive bowel sounds, no rebound tenderness Genitourinary: Mendez in place and urine looks clear MSK/skin: Mobilizes 4 limbs. Skin is dry and warm Neurological: Pupils are isocoric and reactive. Intact cough and gag reflex laboratory and microbiology Laboratory Tests 06/02/25 03:26 Test 06/02/25 03:26 Range/Units Serum Glucose 138 H 74-106 mg/dL Microbiology Date/Time Source Procedure Growth Status 05/29/25 14:54 Urine - Mendez [place] Urine Culture - Final Complete 05/29/25 00:30 Nose MRSA Screen - Final Methicillin Resistant S.aureus Complete 05/28/25 21:00 Sputum Gram Stain - Final Complete 05/28/25 21:00 Sputum Respiratory Culture - Final Complete Problem List/Assessment/Plan Problem List/Assessment/Plan Lucila Doyle is a 74-year-old female with past medical history of asthma, COPD on 2.5 L home oxygen, hypertension, methamphetamine use disorder brought to the hospital due to ALOC, because of Percocet overdose. Upon ER arrival on 05/27, she was intubated 05/28/2025. Neurology: Acute toxic/metabolic encephalopathy due to opioids overdose/sepsis * RASS score -0 * stopped all sedative Cardiology: NSTEMI likely type 2 secondary to sepsis Dyslipidemia Hypertension Pericardial effusion * Serial trop I mildly raised at 200s to 300s * Echo 05/29 shows, mild LVH with LVEF 60%, dilated IVC and small pericardial effusion * Cardiology on board, recommended medical management and outpatient follow up * Medication accordingly, when patient stable * Current Plan: Continue aspirin, atorvastatin, Lasix 20 mg daily Respiratory: Acute on chronic hypoxic/ hypercapnic respiratory failure due to COPD exacerbation/pneumonia Acute COPD exacerbation (on 2.5 L O2 at home) Possible Asthma exacerbation Pneumonia, likely due to Gram-positive/Gram-negative bacteria/viral Ruled out pulmonary embolism Small bilateral pleural effusions Mild atelectasis * CT angio on 05/29/2025 shows no pulmonary embolism, small bilateral pleural effusion with mild dependent atelectasis changes left lung * X-ray 05/27 admission, showed Mild hazy ground glass opacity throughout both lung . * Sputum culture on 05/28/2025 no organisms * Keep oxygen saturation 88-92% * CPAP trial successful and extubated on 06/01/2025. Patient placed on BiPAP overnight due to desat. currently on Oxymizer 5 L o2. * Respiratory physical therapy. * Current plan: Continue Solu-Medrol 40 mg b.i.d. (05/29), breathing treatment. Gastrointestinal/nutrition: * Current plan: Protonix 40 mg Genitourinary: LISSETTE, likely due to VMN, resolved Complicated UTI * UA shows appear turbid, leukocyte esterase 3+, WBC 63, bacteria moderate, on admission. * Current plan: Continue IV antibiotic Infectious Disease: Septic shock, likely due to Sepsis Sepsis, due to UTI/pneumonia Complicated UTI Positive MRSA screen * Urine culture, 05/27 preliminary result shows no growth * Respiratory culture 05/28 preliminary result shows no growth * Current plan: Continue Azithromycin (05/29), meropenem (05/29), mupirocin for nose, Hematology & Oncology: Moderate anemia Precipitous hemoglobin drop Raised D-dimer * Current Plan: Monitoring Hb Endocrine: Prediabetes mellitus A1c 5.9 Hyperkalemia, resolved Hypocalcemia * Today k+ 4.8 * Could be related to acute kidney injury secondary to hypoperfusion Musculoskeletal Gait instability Status post ORIF in left femoral neck Right small suprapatellar effusion * CT left lower extremity show no fracture, s/p ORIF left femoral neck * CT right lower extremity-old right inferior pubic ramus fracture, small suprapatellar effusion * CT pelvis-chronic appearing fracture sacral 3, 4, moderate degenerative changes sacroiliac joints. * Patient use walker for ambulation at home * Plan: Physiotherapy once patients status improved * Anxiety disorder * plan: Xanax 1 mg bid as needed. DIET: puree DVT prophylax: Lovenox 40 mg sc daily GI prophylaxis: Protonix 40 mg IV daily Bowel regimen: Lactulose 30 ml daily Code status: Full code LINES/DRAINS/ACCESS: IV access: Right Upper arm PICC line 05/29 Drips: off Mendez catheter: Put on 05/29 DISPOSITION: transfer ICU to Telemetry. Patient's status discussed with patient's son over the phone. Critical care time spent more than 71 minutes, including patient care, chart review, and updating the family. Excluding any procedures Plan discussed with: Other (Nurse, son-Joel) My Orders My Orders Orders - PB SHANKAR RESIDENT Procedure Category Date Status Time Lactulose Oral PHA 06/02/25 In Process 10:00 Dexmedetomidine Hcl PHA 06/01/25 In Process In D5w (Precedex) 12:15 Morphine Sulfate PHA 06/01/25 In Process Injection 18:15 Chest Portable XY 06/02/25 Resulted 04:00 Abg W/ Co-Ox RT 06/02/25 Logged 05:34 * Swallow Request ST 06/02/25 Transmitted 09:28 Dietary Evaluation Review Comments: 1. Offer nutrition support, TF Glucerna @50ml/hr providing 1440kcal, 72g protein, meeting 100% of pt's needs for protein and energy. 2. follow up with Nephrology consult [facility]. [facility] when pt's is off vent and passing BAR ASSISTANT eval. Expected Outcomes/Goals: controlled blood sugar, prevent uremia PB SHANKAR RESIDENT Jun 02, 2025 09:40
[2025-06-02] MEDS: LACTULOSE 20Gm/30ML SOLN NG SCH (10:00)
[2025-06-02] MEDS: ALPRAZolam 0.5 MG TAB PO PRN (12:07)
[2025-06-02] MEDS: MONTELUKAST SODIUM 10 MG TAB PO SCH (21:39)
--- NOTE | 2025-06-02 22:34 | DVHPN2 ---
Progress Note - Dictate Date Seen: Jun 02, 2025 Medical Necessity Reason Pt with a Central, PICC or Fol: Yes The following are medically ne: Mendez Catheter Reason for mendez catheter: Strict I&O Subjective Patient was seen and evaluated in follow up in the ICU. Patient was successfully extubated yesterday evening.Patient is on 10L Oxymizer. Patient is awake and alert, able to follow commands. BUN 43. Chest x-ray shows unchanged hyperlucent area in the left mid and lower lung and diffuse pulmonary vascular congestion. vital signs Vital Sign Date Time Temp Pulse Resp B/P (MAP) Pulse Ox O2 Delivery O2 Flow Rate FiO2 06/02/25 11:15 104 15 145/83 (103) 94 06/02/25 10:00 Oxymizer 10 N/A 06/02/25 08:00 97.8 97.8 Total Intake and Output 06/01/25 06/01/25 06/02/25 15:00 23:00 07:00 Intake Total 441.75 ml 124 ml Output Total 0 ml 2675 ml 1100 ml Balance 441.75 ml -2551 ml -1100 ml medications Current Medications Medications Dose Ordered Sig/Rio Route Start Time Stop Time Status Last Admin Dose Admin Aspirin 81 mg DAILY PO 05/28/25 10:00 06/02/25 10:28 81 MG Ondansetron HCl 4 mg Q4HP PRN IV 05/27/25 22:45 06/02/25 07:46 4 MG Acetaminophen 650 mg Q6HP PRN PO 05/27/25 22:45 05/28/25 14:29 650 MG Morphine Sulfate 2 mg Q30M PRN IV 05/27/25 22:45 06/01/25 16:42 2 MG Azithromycin 250 ml @ 125 mls/hr DAILY IV 05/29/25 10:00 06/02/25 10:27 125 MLS/HR Furosemide 20 mg DAILY IV 05/29/25 10:00 06/02/25 10:28 20 MG Atorvastatin Calcium 40 mg HS PO 05/28/25 22:00 05/31/25 21:03 40 MG Fentanyl Citrate 250 ml @ 2.5 mls/hr Q24H IV 05/29/25 08:00 06/01/25 03:48 20 MLS/HR Propofol 100 ml @ 2.205 mls/ hr Q24H IV 05/29/25 15:00 Midazolam HCl 50 ml @ 1 mls/hr Q24H IV 05/29/25 15:00 06/01/25 01:39 4 MLS/HR Enoxaparin Sodium 40 mg DAILY SC 05/30/25 10:00 06/02/25 10:28 40 MG Pantoprazole Sodium 40 mg DAILY IV 05/30/25 10:00 06/02/25 10:28 40 MG Sodium Chloride 10 ml QSHIFT@10,22 IV 05/29/25 22:00 06/02/25 10:29 10 ML Enteral Nutritional Formula 1,000 ml 30ML/HR GT 05/30/25 15:15 05/30/25 22:04 1,000 ML Meropenem 50 ml @ 17 mls/hr Q12H IV 05/31/25 04:00 06/02/25 04:23 17 MLS/HR Mupirocin 1 applic BID EACHNOSTRI 05/31/25 22:00 06/05/25 21:59 06/01/25 21:40 1 APPLIC Methylprednisolone Sodium Succinate 40 mg BID IV 06/01/25 10:00 06/02/25 10:27 40 MG Lactulose 30 ml DAILY NG 06/02/25 10:00 Morphine Sulfate 1 mg Q4HP PRN IV 06/01/25 18:15 06/02/25 08:30 1 MG Hydralazine HCl 10 mg Q6HP PRN IV 06/01/25 21:45 06/02/25 04:23 10 MG Levalbuterol HCl 0.625 mg Q6HR NEB 06/02/25 00:00 06/02/25 06:22 0.625 MG Ipratropium [place] 0.5 mg Q6HR NEB 06/02/25 00:00 06/02/25 06:22 0.5 MG Alprazolam 1 mg [id number] PRN PO 06/02/25 10:15 objective GENERAL: Ill appearing, awake. EYES: PERRL, EOMI. Anicteric. HENT: Moist mucous membranes. LUNGS: Decreased breath sounds CARDIOVASCULAR: Regular rate and rhythm. ABDOMEN: Soft, nontender and nondistended. EXTREMITIES: No edema. SKIN: Warm, dry. laboratory and microbiology Laboratory Tests 06/02/25 03:26 Test 06/02/25 03:26 Range/Units Serum Glucose 138 H 74-106 mg/dL Problem List NSTEMI rule out CAD. Sepsis likely from pneumonia. LISSETTE on CKD. COPD exacerbation. Hypertension. Assessment/Plan Continued all current supportive medical care. Aspirin, Lipitor. Diuretics with Lasix. IV antibiotics as ordered. DVT and GI prophylactics. IV Hydralazine for SBP > 150. Morphine for pain management. Additional plan as per the hospital course. Critical care time of 45 minutes provided to include time spent evaluation of patient at bedside, when appropriate patient/family education for diagnosis, treatment plan, review of pertinent medical information and discussion of care with specialty providers and PCP. Dietary Evaluation Review Comments: 1. Offer nutrition support, TF Glucerna @50ml/hr providing 1440kcal, 72g protein, meeting 100% of pt's needs for protein and energy. 2. follow up with Nephrology consult 3. Advance to [facility]-60 Cardiac diet when pt's is off vent and passing ROTARY LITHOGRAPHIC PRESS OPERATOR eval. Expected Outcomes/Goals: controlled blood sugar, prevent uremia Plan discussed with: Patient ALBERTA KILPATRICK MD Jun 02, 2025 12:02
[2025-06-03] VITALS (27 sets, daily range): BP systolic 129–166; BP diastolic 72–105; PULSE 68–113; RESP 15–30; TEMP 97.6–98.4; O2SAT 91–98
[2025-06-03 03:51] LABS: Hematocrit 36.4 % (36.0-46.0); Hemoglobin 12.3 g/dL (12.2-16.2); Mean Corpuscular Hemoglobin 31.9 pg (28.0-32.0); Mean Corpuscular Volume 94.8 fL (80.0-100.0); Nucleated Red Blood Cells % 0.1 %
[2025-06-03 03:57] LABS: Calcium 8.8 mg/dL (8.7-10.4); Chloride 100 mmol/L (98-107); Potassium 4.5 mmol/L (3.5-5.1); Sodium 143 mmol/L (136-145)
[2025-06-03 03:58] LABS: Anion Gap 6 (5-15)
[2025-06-03 03:59] LABS: Carbon Dioxide 37 mmol/L (20-31)
[2025-06-03 04:03] LABS: BUN/Creatinine Ratio 41.5 (10.0-20.0)
[2025-06-03 04:04] LABS: Blood Urea Nitrogen 34 mg/dL (9-23); Glucose 143 mg/dL (74-106)
--- NOTE | 2025-06-03 08:29 | DVHPN2 ---
Reviewed: Care Plan, H&P, Labs, Medications, Previous Orders, Radiology Changes from previous H/P or p: No Changes Eyes: No Pain, No Vision change, No Conjunctivae inflammation, No Eyelid inflammation, No Other, No Redness ENT: No Ear pain, No Ear discharge, No Nose pain, No Nose discharge, No Nose congestion, No Mouth pain, No Mouth swelling, No Throat pain, No Throat swelling, No Other Cardiovascular: No Chest Pain, No Palpitations, No Orthopnea, No Paroxysmal Noc. Dyspnea, No Edema, No Lt Headedness, No Other Respiratory: No Cough, No Dry; Shortness of breath; No SOB with excertion, No Wheezing, No Hemoptysis, No Pleuritic Pain, No Sputum; Other (SOB at rest) Gastrointestinal: No Nausea, No Vomiting, No Abdominal Pain, No Diarrhea, No Constipation, No Melena, No Hematochezia, No Other Genitourinary: No Dysuria, No Frequency, No Incontinence, No Hematuria, No Retention, No Other Musculoskeletal: other (Pain extending from pelvis down bilateral legs.); No neck pain, No shoulder pain, No arm pain, No back pain, No hand pain, No leg pain, No foot pain Skin: No Rash, No Lesions, No Jaundice, No Bruising, No Other Objective Vitals Vital Signs Date Time Temp Pulse Resp B/P (MAP) Pulse Ox O2 Delivery O2 Flow Rate FiO2 06/03/25 06:42 80 18 98 06/03/25 06:32 Nasal Cannula 4.0 06/03/25 06:32 36 06/03/25 04:00 97.8 141/87 (105) 97.8 Intake/Output Intake and Output 06/03/25 07:00 Intake Total 1000 ml Output Total 2800 ml Balance -1800 ml Intake Oral 700 ml IV Total 300 ml Output Urine Total 2800 ml Stool Total 0 ml Medications Current Medications Medications Dose Ordered Sig/Rio Route Start Time Stop Time Status Last Admin Dose Admin Aspirin 81 mg DAILY PO 05/28/25 10:00 06/02/25 12:06 81 MG Ondansetron HCl 4 mg Q4HP PRN IV 05/27/25 22:45 06/02/25 23:22 4 MG Acetaminophen 650 mg Q6HP PRN PO 05/27/25 22:45 06/03/25 06:11 650 MG Azithromycin 250 ml @ 125 mls/hr DAILY IV 05/29/25 10:00 06/02/25 10:27 125 MLS/HR Furosemide 20 mg DAILY IV 05/29/25 10:00 06/02/25 10:28 20 MG Atorvastatin Calcium 40 mg HS PO 05/28/25 22:00 06/02/25 21:40 40 MG Enoxaparin Sodium 40 mg DAILY SC 05/30/25 10:00 06/02/25 10:28 40 MG Pantoprazole Sodium 40 mg DAILY IV 05/30/25 10:00 06/02/25 10:28 40 MG Enteral Nutritional Formula 1,000 ml 30ML/HR GT 05/30/25 15:15 05/30/25 22:04 1,000 ML Meropenem 50 ml @ 17 mls/hr Q12H IV 05/31/25 04:00 06/03/25 04:00 17 MLS/HR Mupirocin 1 applic BID EACHNOSTRI 05/31/25 22:00 06/05/25 21:59 06/02/25 22:00 1 APPLIC Methylprednisolone Sodium Succinate 40 mg BID IV 06/01/25 10:00 06/02/25 21:41 40 MG Lactulose 30 ml DAILY NG 06/02/25 10:00 Morphine Sulfate 1 mg Q4HP PRN IV 06/01/25 18:15 06/03/25 03:18 1 MG Hydralazine HCl 10 mg Q6HP PRN IV 06/01/25 21:45 06/02/25 04:23 10 MG Levalbuterol HCl 0.625 mg Q6HR NEB 06/02/25 00:00 06/03/25 06:32 0.625 MG Ipratropium [place] 0.5 mg Q6HR NEB 06/02/25 00:00 06/03/25 06:32 0.5 MG Alprazolam 1 mg [id number] PRN PO 06/02/25 10:15 06/02/25 21:39 1 MG Montelukast Sodium 10 mg HS PO 06/02/25 22:00 06/02/25 21:39 10 MG Laboratory Results Laboratory Tests 06/03/25 03:00 Chemistry Test 06/03/25 03:00 Calcium Level 8.8 mg/dL (8.7-10.4) Urinalysis Test 05/28/25 08:00 Urine Color Light-yellow (Yellow) Urine Clarity Turbid (Clear) H Urine pH 5.0 (5.0-9.0) Urine Specific [place] 1.016 (1.001-1.035) Urine Protein Negative (Negative) Urine Ketones Negative (Negative) Urine Blood Negative /uL (Negative) Urine Nitrite Negative (Negative) Urine Bilirubin Negative (Negative) Urine Urobilinogen Normal mg/dL (Negative) Urine Leukocyte Esterase 3+ /uL (Negative) Urine RBC 3 /hpf (0 - 4) Urine WBC Clumps Present /hpf (None Seen) Urine Microscopic WBC 63 /HPF (0-5) H Urine Squamous Epithelial Cells Few /hpf (<5) Urine Bacteria Mod /hpf (None Seen) H Urine Mucus Few (None Seen) Urine Glucose Normal mg/dL (Normal) Microbiology Microbiology Date/Time Source Procedure Growth Status 05/29/25 14:54 Urine - [place] Urine Culture - Final Complete 05/29/25 00:30 Nose MRSA Screen - Final Methicillin Resistant S.aureus Complete 05/28/25 21:00 Sputum Gram Stain - Final Complete 05/28/25 21:00 Sputum Respiratory Culture - Final Complete Labs and/or images reviewed: Labs reviewed by me, Image(s) reviewed by me Assessment/Plan Assessment/Plan Acute respiratory failure on 4 L of oxygen by nasal cannula Sepsis secondary to pneumonia Possible aspiration pneumonia Gram-negative versus Gram-positive: Meropenem azithromycin Non ST-elevation IN with troponin 256, cardiology consult for Dr. Elyssa Church appreciated, treatment per ACS protocol Chest pain Overdose on five Percocet tablets Pulmonary edema Acute generalized weakness Hypertension Acute COPD exacerbation Anxiety Asthma Time spent 70 minutes Advanced care planning time 20 minutes Patient is full code Plan discussed with: Patient Date of Service: Jun 03, 2025 Billing Provider: CLAUDE VIVEROS MD Common Visit Codes: [id number] CARE 30-74 MIN CLAUDE VIVEROS MD Jun 03, 2025 08:29
--- NOTE | 2025-06-03 20:11 | DVHPN2 ---
Progress Note - Dictate Date Seen: Jun 03, 2025 Medical Necessity Reason Pt with a Central, PICC or Fol: Yes The following are medically ne: Mendez Catheter Reason for mendez catheter: Strict I&O Subjective Patient was seen and evaluated in follow up. Patient was downgraded to telemetry. Patient is on 5 LPM NC. Patient passed swallow eval. CBC is unremarkable. CO2 37, BUN 34. Telemetry reviewed. vital signs Vital Sign Date Time Temp Pulse Resp B/P (MAP) Pulse Ox O2 Delivery O2 Flow Rate FiO2 06/03/25 16:00 103 06/03/25 16:00 97.8 30 129/72 (91) 98 97.8 06/03/25 16:00 Nasal Cannula* 5 40 Total Intake and Output 06/02/25 06/02/25 06/03/25 15:00 23:00 07:00 Intake Total 250 ml 250 ml 550 ml Output Total 0 ml 2200 ml 600 ml Balance 250 ml -1950 ml -50 ml medications Current Medications Medications Dose Ordered Sig/Rio Route Start Time Stop Time Status Last Admin Dose Admin Aspirin 81 mg DAILY PO 05/28/25 10:00 06/02/25 12:06 81 MG Ondansetron HCl 4 mg Q4HP PRN IV 05/27/25 22:45 06/02/25 23:22 4 MG Acetaminophen 650 mg Q6HP PRN PO 05/27/25 22:45 06/03/25 09:09 650 MG Azithromycin 250 ml @ 125 mls/hr DAILY IV 05/29/25 10:00 06/03/25 09:07 125 MLS/HR Furosemide 20 mg DAILY IV 05/29/25 10:00 06/03/25 09:07 20 MG Atorvastatin Calcium 40 mg HS PO 05/28/25 22:00 06/02/25 21:40 40 MG Enoxaparin Sodium 40 mg DAILY SC 05/30/25 10:00 06/03/25 09:08 40 MG Pantoprazole Sodium 40 mg DAILY IV 05/30/25 10:00 06/03/25 09:07 40 MG Enteral Nutritional Formula 1,000 ml 30ML/HR GT 05/30/25 15:15 05/30/25 22:04 1,000 ML Meropenem 50 ml @ 17 mls/hr Q12H IV 05/31/25 04:00 06/03/25 04:00 17 MLS/HR Mupirocin 1 applic BID EACHNOSTRI 05/31/25 22:00 06/05/25 21:59 06/03/25 09:07 1 APPLIC Methylprednisolone Sodium Succinate 40 mg BID IV 06/01/25 10:00 06/03/25 09:07 40 MG Lactulose 30 ml DAILY NG 06/02/25 10:00 06/03/25 09:08 30 ML Morphine Sulfate 1 mg Q4HP PRN IV 06/01/25 18:15 06/03/25 03:18 1 MG Hydralazine HCl 10 mg Q6HP PRN IV 06/01/25 21:45 06/02/25 04:23 10 MG Levalbuterol HCl 0.625 mg Q6HR NEB 06/02/25 00:00 06/03/25 12:01 0.625 MG Ipratropium [place] 0.5 mg Q6HR NEB 06/02/25 00:00 06/03/25 12:01 0.5 MG Alprazolam 1 mg [id number] PRN PO 06/02/25 10:15 06/03/25 10:46 1 MG Montelukast Sodium 10 mg HS PO 06/02/25 22:00 06/02/25 21:39 10 MG objective GENERAL: Alert and oriented x 3. No acute distress. EYES: PERRL, EOMI. Anicteric. HENT: Moist mucous membranes. LUNGS: Decreased breath sounds CARDIOVASCULAR: Regular rate and rhythm. ABDOMEN: Soft, nontender and nondistended. EXTREMITIES: No edema. SKIN: Warm, dry. laboratory and microbiology Laboratory Tests 06/03/25 03:00 Test 06/03/25 03:00 Range/Units Serum Glucose 143 H 74-106 mg/dL Problem List NSTEMI rule out CAD. Sepsis likely from pneumonia. LISSETTE on CKD. COPD exacerbation. Hypertension. Assessment/Plan Continued all current supportive medical care. Aspirin, Lipitor. IV antibiotics as ordered. DVT and GI prophylactics. Diuretics with Lasix. IV Hydralazine for SBP >150. Morphine for pain management. Additional plan as per the hospital course. Dietary Evaluation Review Comments: 1. Offer nutrition support, TF Glucerna @50ml/hr providing 1440kcal, 72g protein, meeting 100% of pt's needs for protein and energy. 2. follow up with Nephrology consult [facility]. [facility] Cardiac diet when pt's is off vent and passing SELF PROPELLED DREDGE OPERATOR eval. Expected Outcomes/Goals: controlled blood sugar, prevent uremia Plan discussed with: Patient ALBERTA KILPATRICK MD Jun 03, 2025 18:56
[2025-06-04] VITALS (16 sets, daily range): BP systolic 120–137; BP diastolic 67–93; PULSE 55–110; RESP 16–22; TEMP 97.6–98.3; O2SAT 91–100
[2025-06-04 05:10] LABS: COVID19 ANTIGEN SOFIA FIA NEGATIVE (NEGATIVE)
--- NOTE | 2025-06-04 11:28 | DVHPN2 ---
Reviewed: Care Plan, H&P, Labs, Medications, Previous Orders, Radiology Changes from previous H/P or p: No Changes Eyes: No Pain, No Vision change, No Conjunctivae inflammation, No Eyelid inflammation, No Other, No Redness ENT: No Ear pain, No Ear discharge, No Nose pain, No Nose discharge, No Nose congestion, No Mouth pain, No Mouth swelling, No Throat pain, No Throat swelling, No Other Cardiovascular: No Chest Pain, No Palpitations, No Orthopnea, No Paroxysmal Noc. Dyspnea, No Edema, No Lt Headedness, No Other Respiratory: No Cough, No Dry; Shortness of breath; No SOB with excertion, No Wheezing, No Hemoptysis, No Pleuritic Pain, No Sputum; Other (SOB at rest) Gastrointestinal: No Nausea, No Vomiting, No Abdominal Pain, No Diarrhea, No Constipation, No Melena, No Hematochezia, No Other Genitourinary: No Dysuria, No Frequency, No Incontinence, No Hematuria, No Retention, No Other Musculoskeletal: other (Pain extending from pelvis down bilateral legs.); No neck pain, No shoulder pain, No arm pain, No back pain, No hand pain, No leg pain, No foot pain Skin: No Rash, No Lesions, No Jaundice, No Bruising, No Other Objective Vitals Vital Signs Date Time Temp Pulse Resp B/P (MAP) Pulse Ox O2 Delivery O2 Flow Rate FiO2 06/04/25 10:04 127/74 06/04/25 06:46 72 18 96 06/04/25 06:36 Nasal Cannula 5.0 06/04/25 06:36 40 06/04/25 05:00 98.1 98.1 Intake/Output Intake and Output 06/04/25 07:00 Intake Total 510 ml Output Total 0 ml Balance 510 ml Intake Oral 260 ml IV Total 250 ml Stool Total 0 ml Medications Current Medications Medications Dose Ordered Sig/Rio Route Start Time Stop Time Status Last Admin Dose Admin Aspirin 81 mg DAILY PO 05/28/25 10:00 06/04/25 10:05 81 MG Ondansetron HCl 4 mg Q4HP PRN IV 05/27/25 22:45 06/02/25 23:22 4 MG Acetaminophen 650 mg Q6HP PRN PO 05/27/25 22:45 06/03/25 09:09 650 MG Azithromycin 250 ml @ 125 mls/hr DAILY IV 05/29/25 10:00 06/04/25 10:05 125 MLS/HR Furosemide 20 mg DAILY IV 05/29/25 10:00 06/04/25 10:04 20 MG Atorvastatin Calcium 40 mg HS PO 05/28/25 22:00 06/03/25 22:33 40 MG Enoxaparin Sodium 40 mg DAILY SC 05/30/25 10:00 06/04/25 10:05 40 MG Pantoprazole Sodium 40 mg DAILY IV 05/30/25 10:00 06/04/25 10:05 40 MG Enteral Nutritional Formula 1,000 ml 30ML/HR GT 05/30/25 15:15 05/30/25 22:04 1,000 ML Meropenem 50 ml @ 17 mls/hr Q12H IV 05/31/25 04:00 06/04/25 04:06 17 MLS/HR Mupirocin 1 applic BID EACHNOSTRI 05/31/25 22:00 06/05/25 21:59 06/04/25 10:06 1 APPLIC Methylprednisolone Sodium Succinate 40 mg BID IV 06/01/25 10:00 06/04/25 10:05 40 MG Lactulose 30 ml DAILY NG 06/02/25 10:00 06/03/25 09:08 30 ML Morphine Sulfate 1 mg Q4HP PRN IV 06/01/25 18:15 06/03/25 03:18 1 MG Hydralazine HCl 10 mg Q6HP PRN IV 06/01/25 21:45 06/02/25 04:23 10 MG Levalbuterol HCl 0.625 mg Q6HR NEB 06/02/25 00:00 06/04/25 11:20 0.625 MG Ipratropium [place] 0.5 mg Q6HR NEB 06/02/25 00:00 06/04/25 11:20 0.5 MG Alprazolam 1 mg [id number] PRN PO 06/02/25 10:15 06/03/25 22:33 1 MG Montelukast Sodium 10 mg HS PO 06/02/25 22:00 06/03/25 22:33 10 MG Laboratory Results Laboratory Tests 06/03/25 03:00 Urinalysis Test 05/28/25 08:00 Urine Color Light-yellow (Yellow) Urine Clarity Turbid (Clear) H Urine pH 5.0 (5.0-9.0) Urine Specific [place] 1.016 (1.001-1.035) Urine Protein Negative (Negative) Urine Ketones Negative (Negative) Urine Blood Negative /uL (Negative) Urine Nitrite Negative (Negative) Urine Bilirubin Negative (Negative) Urine Urobilinogen Normal mg/dL (Negative) Urine Leukocyte Esterase 3+ /uL (Negative) Urine RBC 3 /hpf (0 - 4) Urine WBC Clumps Present /hpf (None Seen) Urine Microscopic WBC 63 /HPF (0-5) H Urine Squamous Epithelial Cells Few /hpf (<5) Urine Bacteria Mod /hpf (None Seen) H Urine Mucus Few (None Seen) Urine Glucose Normal mg/dL (Normal) Microbiology Microbiology Date/Time Source Procedure Growth Status 05/29/25 14:54 Urine - [place] Urine Culture - Final Complete 05/29/25 00:30 Nose MRSA Screen - Final Methicillin Resistant S.aureus Complete 05/28/25 21:00 Sputum Gram Stain - Final Complete 05/28/25 21:00 Sputum Respiratory Culture - Final Complete Labs and/or images reviewed: Labs reviewed by me, Image(s) reviewed by me Assessment/Plan Assessment/Plan Covering For Dr. Samano Acute respiratory failure on 4 L of oxygen by nasal cannula Sepsis secondary to pneumonia Possible aspiration pneumonia Gram-negative versus Gram-positive: Meropenem azithromycin Non ST-elevation MD with troponin 256, cardiology consult for Dr. Elyssa Church appreciated, treatment per ACS protocol Chest pain Overdose on five Percocet tablets Pulmonary edema Acute generalized weakness Hypertension Acute COPD exacerbation Anxiety Asthma Time spent 50 minutes Advanced care planning time 20 minutes Patient is full code Plan discussed with: Patient Date of Service: Jun 04, 2025 Billing Provider: CLAUDE VIVEROS MD Common Visit Codes: [id number] INP/OBS CARE(HIGH) CLAUDE VIVEROS MD Jun 04, 2025 11:28
[2025-06-04] MEDS: ALPRAZolam 0.5 MG TAB PO PRN (15:33)
--- NOTE | 2025-06-04 21:34 | DVHPN2 ---
Progress Note - Dictate Date Seen: Jun 04, 2025 Medical Necessity Reason Pt with a Central, PICC or Fol: Yes The following are medically ne: Mendez Catheter Reason for mendez catheter: Strict I&O Subjective Patient was seen and evaluated in follow up. No overnight events. Patient is on 5LPM NC. Influenza A/B and COVID are negative. Telemetry reviewed. vital signs Vital Sign Date Time Temp Pulse Resp B/P (MAP) Pulse Ox O2 Delivery O2 Flow Rate FiO2 06/04/25 11:30 60 18 100 06/04/25 10:04 127/74 06/04/25 08:05 Nasal Cannula* 5 40 06/04/25 05:00 98.1 98.1 Total Intake and Output 06/03/25 06/03/25 06/04/25 15:00 23:00 07:00 Intake Total 510 ml Output Total 0 ml 0 ml Balance 510 ml 0 ml medications Current Medications Medications Dose Ordered Sig/Rio Route Start Time Stop Time Status Last Admin Dose Admin Aspirin 81 mg DAILY PO 05/28/25 10:00 06/04/25 10:05 81 MG Ondansetron HCl 4 mg Q4HP PRN IV 05/27/25 22:45 06/02/25 23:22 4 MG Acetaminophen 650 mg Q6HP PRN PO 05/27/25 22:45 06/03/25 09:09 650 MG Azithromycin 250 ml @ 125 mls/hr DAILY IV 05/29/25 10:00 06/04/25 10:05 125 MLS/HR Furosemide 20 mg DAILY IV 05/29/25 10:00 06/04/25 10:04 20 MG Atorvastatin Calcium 40 mg HS PO 05/28/25 22:00 06/03/25 22:33 40 MG Enoxaparin Sodium 40 mg DAILY SC 05/30/25 10:00 06/04/25 10:05 40 MG Pantoprazole Sodium 40 mg DAILY IV 05/30/25 10:00 06/04/25 10:05 40 MG Enteral Nutritional Formula 1,000 ml 30ML/HR GT 05/30/25 15:15 05/30/25 22:04 1,000 ML Meropenem 50 ml @ 17 mls/hr Q12H IV 05/31/25 04:00 06/04/25 04:06 17 MLS/HR Mupirocin 1 applic BID EACHNOSTRI 05/31/25 22:00 06/05/25 21:59 06/04/25 10:06 1 APPLIC Methylprednisolone Sodium Succinate 40 mg BID IV 06/01/25 10:00 06/04/25 10:05 40 MG Lactulose 30 ml DAILY NG 06/02/25 10:00 06/03/25 09:08 30 ML Morphine Sulfate 1 mg Q4HP PRN IV 06/01/25 18:15 06/03/25 03:18 1 MG Hydralazine HCl 10 mg Q6HP PRN IV 06/01/25 21:45 06/02/25 04:23 10 MG Levalbuterol HCl 0.625 mg Q6HR NEB 06/02/25 00:00 06/04/25 11:20 0.625 MG Ipratropium [place] 0.5 mg Q6HR NEB 06/02/25 00:00 06/04/25 11:20 0.5 MG Montelukast Sodium 10 mg HS PO 06/02/25 22:00 06/03/25 22:33 10 MG Alprazolam 1 mg Q8HPRN PRN PO 06/04/25 12:00 Zolpidem Tartrate 10 mg HSPRN PRN PO 06/04/25 12:00 objective GENERAL: Alert and oriented x 3. No acute distress. EYES: PERRL, EOMI. Anicteric. HENT: Moist mucous membranes. LUNGS: Decreased breath sounds CARDIOVASCULAR: Regular rate and rhythm. ABDOMEN: Soft, nontender and nondistended. EXTREMITIES: No edema. SKIN: Warm, dry. laboratory and microbiology Laboratory Tests 06/03/25 03:00 Test 06/03/25 03:00 Range/Units Serum Glucose 143 H 74-106 mg/dL Problem List NSTEMI rule out CAD. Sepsis likely from pneumonia. LISSETTE on CKD. COPD exacerbation. Hypertension. Assessment/Plan Continued all current supportive medical care. Aspirin, Lipitor. IV antibiotics as ordered. DVT and GI prophylactics. Diuretics with Lasix. Morphine for pain management. IV Hydralazine for SBP >150. Additional plan as per the hospital course. Dietary Evaluation Review Comments: 1. Offer nutrition support, TF Glucerna @50ml/hr providing 1440kcal, 72g protein, meeting 100% of pt's needs for protein and energy. 2. follow up with Nephrology consult 3. Advance to CCHO-60 Cardiac diet when pt's is off vent and passing ACID PURIFIER eval. Expected Outcomes/Goals: controlled blood sugar, prevent uremia Plan discussed with: Patient ALBERTA KILPATRICK MD Jun 04, 2025 13:54
[2025-06-04] MEDS: ZOLPIDEM TARTRATE 5 MG TAB PO PRN (21:37)
[2025-06-05] VITALS (16 sets, daily range): BP systolic 113–145; BP diastolic 59–85; PULSE 52–103; RESP 14–24; TEMP 97.8–98.6; O2SAT 91–99
[2025-06-05 07:21] LABS: Alanine Aminotransferase 28 U/L (7-40); Albumin 3.4 g/dL (3.2-4.8); Alkaline Phosphatase 58 U/L (46-116); Anion Gap 5 (5-15); BUN/Creatinine Ratio 32.4 (10.0-20.0); Blood Urea Nitrogen 22 mg/dL (9-23); Chloride 100 mmol/L (98-107); Hematocrit 36.2 % (36.0-46.0); Hemoglobin 12.5 g/dL (12.2-16.2); Mean Corpuscular Hemoglobin 32.6 pg (28.0-32.0); Mean Corpuscular Volume 94.3 fL (80.0-100.0); Nucleated Red Blood Cells % 0.1 %; Potassium 4.1 mmol/L (3.5-5.1); Sodium 139 mmol/L (136-145)
[2025-06-05 07:22] LABS: Bilirubin, Total 0.5 mg/dL (0.2-1.0); Calcium 8.4 mg/dL (8.7-10.4); Carbon Dioxide 34 mmol/L (20-31); Glucose 116 mg/dL (74-106); Total Protein 5.5 g/dL (5.7-8.2)
[2025-06-05] MEDS: MEROPENEM 1GM IVPB 50 ML IV SCH (16:16)
--- NOTE | 2025-06-05 16:49 | DVHPNRES ---
Progress Note Date Seen: Jun 05, 2025 Resident Creating Document: PB SHANKAR RESIDENT Medical Necessity Reason Pt with a Central, PICC or Fol: No Reason for mendez catheter: Strict I&O Subjective Review of Systems Lucila Doyle is a 74-year-old female with past medical history of anxiety, asthma, COPD on 2.5 L home oxygen, hypertension came to ER with overdose of Percocet which she takes for her back pain. The patient's son, Joel reported that his mother had fall in the morning. When came home and found her on floor and carried her to bed. Upon Joel arrival, he noticed her mother having increased heart rate, appeared pale and had saliva drooling from the mouth and he called 911 brought to her Hospital due to concerning symptoms. Patient had significant pulmonary history, her son reporting that a supervisor adult education had previously stated 1 of the lung was only 50% functional. Patient also had remote history of amphetamine use approximately 30 years ago. Recently, the patient had been rehabilitation facility following left femur fracture status post surgery in 2023. Patient received IV antibiotic including ceftriaxone and azithromycin, as well as other medications such as albuterol, ipratropium, morphine, aspirin. Upon arrival at the hospital, the patient became altered mental status and desaturated and required intubation on 05/28/2025. Past medical history: Anxiety, asthma, COPD on 2.5 L home oxygen, hypertension, history of fall, history of amphetamine use Surgical history : left femur fracture status post surgery Family history; father having bladder cancer, brother- prostate cancer Social history: Ex-smoker stopped 10 years back, ETOH occasionally, remote use amphetamine approximately 30 years back Allergy: No known allergy PCP: Dr. Ayala Home medication: Escitalopram 20 mg, lisinopril 20 mg, alprazolam 1 mg, zolpidem 10 mg, Belsomra,, Percocet. 05/30: Patient seen and evaluated in bedside. Currently on vent setting TV 450, FiO2 45, RR 22. Spoke to son(Joel) in bedside and discussed current management plan. Keep oxygen saturation 88-92%. CPAP trial tomorrow AM,Cardiology have no plan for any procedure. NG tube feeding ordered started jevity 30 cc/hour. 05/31: Seen and evaluated in bedside. Vent setting TV 450, FiO2 40, RR 24. Patient currently and alert. Failed CPAP trial failed today, desat 85%. Spoke to son Joel, updated current medical condition. 06/01: Patient seen and evaluated in bedside today. Patient awake and alert. Spoke to Joel in AM. CPAP trial trial successful and extubated. Currently on 6 L oxygen via face mask. 06/02: Patient currently lying on bed. Patient desat and placed on CPAP overnight. Patient is switched from BiPAP to Oxymizer 5 L, tolerating well. Patient awake and alert. Heart rate 102, O2 sat 93%, respiratory rate 19, BP 152 / 89. Spoke to son Joel and updated patient current status. 06/05: Patient seen and evaluated in bedside today. Patient denies acute distress, currently on 3 L oxygen via nasal cannula. Patient will benefitted for PT and home health aide. Off Mendez catheter. Planning for discharge tomorrow if medically stable. Objective vital signs Vital Sign Date Time Temp Pulse Resp B/P (MAP) Pulse Ox O2 Delivery O2 Flow Rate FiO2 06/05/25 14:41 98.3 98.3 06/05/25 13:00 103 22 135/85 (102) 91 06/05/25 11:57 Nasal Cannula 3.0 06/05/25 11:57 32 Total Intake and Output 06/04/25 06/04/25 06/05/25 15:00 23:00 07:00 Intake Total 240 ml 1420 ml 720 ml Output Total 0 ml 2200 ml 650 ml Balance 240 ml -780 ml 70 ml medications Current Medications Medications Dose Ordered Sig/Rio Route Start Time Stop Time Status Last Admin Dose Admin Aspirin 81 mg DAILY PO 05/28/25 10:00 06/05/25 09:13 81 MG Acetaminophen 650 mg Q6HP PRN PO 05/27/25 22:45 06/03/25 09:09 650 MG Azithromycin 250 ml @ 125 mls/hr DAILY IV 05/29/25 10:00 06/05/25 09:12 125 MLS/HR Furosemide 20 mg DAILY IV 05/29/25 10:00 06/05/25 09:14 20 MG Atorvastatin Calcium 40 mg HS PO 05/28/25 22:00 06/04/25 21:37 40 MG Enoxaparin Sodium 40 mg DAILY SC 05/30/25 10:00 06/05/25 09:13 40 MG Mupirocin 1 applic BID EACHNOSTRI 05/31/25 22:00 06/05/25 21:59 06/05/25 09:15 1 APPLIC Methylprednisolone Sodium Succinate 40 mg BID IV 06/01/25 10:00 06/05/25 09:13 40 MG Lactulose 30 ml DAILY NG 06/02/25 10:00 06/03/25 09:08 30 ML Morphine Sulfate 1 mg Q4HP PRN IV 06/01/25 18:15 06/03/25 03:18 1 MG Hydralazine HCl 10 mg Q6HP PRN IV 06/01/25 21:45 06/02/25 04:23 10 MG Levalbuterol HCl 0.625 mg Q6HR NEB 06/02/25 00:00 06/05/25 11:57 0.625 MG Ipratropium [place] 0.5 mg Q6HR NEB 06/02/25 00:00 06/05/25 11:57 0.5 MG Montelukast Sodium 10 mg HS PO 06/02/25 22:00 06/04/25 21:36 10 MG Alprazolam 1 mg Q8HPRN PRN PO 06/04/25 12:00 06/05/25 00:11 1 MG Zolpidem Tartrate 10 mg HSPRN PRN PO 06/04/25 12:00 06/04/25 21:37 10 MG Pantoprazole Sodium 40 mg DAILY@0600 PO 06/06/25 08:36 Meropenem 50 ml @ 17 mls/hr Q8HR IV 06/05/25 15:01 06/05/25 16:16 17 MLS/HR Examination Patient lying in bed, not in acute distress General: No fever, palor, mucosae are moist Cardiovascular: Regular S1 and S2. No JVD elevation. No pedal edema Respiratory: Decreased breath sounds left in compared to right , no wheeze or crackles noted Abdomen: Soft, nondistended, normoactive bowel sounds, no rebound tenderness Genitourinary: No suprapubic or costo vertebral angle tenderness MSK/skin: Mobilizes 4 limbs. Skin is dry and warm, gait instability Neurological: Pupils are isocoric and reactive. Intact cough and gag reflex laboratory and microbiology Laboratory Tests 06/05/25 06:43 Test 06/05/25 06:43 Range/Units Serum Glucose 116 H 74-106 mg/dL Microbiology Date/Time Source Procedure Growth Status 05/29/25 14:54 Urine - Mendez Port Urine Culture - Final Complete 05/29/25 00:30 Nose MRSA Screen - Final Methicillin Resistant S.aureus Complete 05/28/25 21:00 Sputum Gram Stain - Final Complete 05/28/25 21:00 Sputum Respiratory Culture - Final Complete Problem List/Assessment/Plan Problem List/Assessment/Plan Lucila Doyle is a 74-year-old female with past medical history of asthma, COPD on 2.5 L home oxygen, hypertension, methamphetamine use disorder brought to the hospital due to ALOC, because of Percocet overdose. Upon ER arrival on 05/27, she was intubated 05/28/2025. Neurology: Acute toxic/metabolic encephalopathy due to opioids overdose/sepsis * RASS score -0 * stopped all sedative Cardiology: NSTEMI likely type 2 secondary to sepsis Dyslipidemia Hypertension Pericardial effusion * Serial trop I mildly raised at 200s to 300s * Echo 05/29 shows, mild LVH with LVEF 60%, dilated IVC and small pericardial effusion * Cardiology on board, recommended medical management and outpatient follow up * Medication accordingly, when patient stable * Current Plan: Continue aspirin, atorvastatin. Respiratory: Acute on chronic hypoxic/ hypercapnic respiratory failure due to COPD exacerbation/pneumonia Acute COPD exacerbation (on 2.5 L O2 at home) Possible Asthma exacerbation Pneumonia, likely due to Gram-positive/Gram-negative bacteria/viral Ruled out pulmonary embolism Small bilateral pleural effusions Mild atelectasis * CT angio on 05/29/2025 shows no pulmonary embolism, small bilateral pleural effusion with mild dependent atelectasis changes left lung * X-ray 05/27 admission, showed Mild hazy ground glass opacity throughout both lung . * Sputum culture on 05/28/2025 no organisms * Keep oxygen saturation 88-92% * CPAP trial successful and extubated on 06/01/2025. Patient currently on 3 L oxygen via NC * Respiratory physical therapy. * Current plan: DC Solu-Medrol 40 mg b.i.d. (05/29) and start prednisone P.O. ,breathing treatment. Gastrointestinal/nutrition: * Current plan: Protonix 40 mg Genitourinary: LISSETTE, likely due to VMN, resolved Complicated UTI * UA shows appear turbid, leukocyte esterase 3+, WBC 63, bacteria moderate, on admission. * Current plan: P.o. antibiotic Infectious Disease: Septic shock, likely due to Sepsis Sepsis, due to UTI/pneumonia Complicated UTI Positive MRSA screen * Urine culture, 05/27 preliminary result shows no growth * Respiratory culture 05/28 preliminary result shows no growth * Current plan: Discontinue Azithromycin (05/29), meropenem (05/29),start Doxy mupirocin for nose Hematology & Oncology: Moderate anemia Precipitous hemoglobin drop Raised D-dimer * Current Plan: Monitoring Hb Endocrine: Prediabetes mellitus A1c 5.9 Hyperkalemia, resolved Hypocalcemia * Today k+ 4.1 * Could be related to acute kidney injury secondary to hypoperfusion Musculoskeletal Gait instability Status post ORIF in left femoral neck Right small suprapatellar effusion * CT left lower extremity show no fracture, s/p ORIF left femoral neck * CT right lower extremity-old right inferior pubic ramus fracture, small suprapatellar effusion * CT pelvis-chronic appearing fracture sacral 3- 4, moderate degenerative changes sacroiliac joints. * Patient use walker for ambulation at home * Plan: Physiotherapy once patients status improved * criminal justice social worker consult for DME. Anxiety disorder * plan: Xanax 1 mg bid as needed. DIET: mechanical soft. DVT prophylax: Lovenox 40 mg sc daily GI prophylaxis: Protonix 40 mg p.o. Bowel regimen: Lactulose 30 ml daily Code status: Full code LINES/DRAINS/ACCESS: IV access: Right Upper arm PICC line 05/29 Drips: off Mendez catheter: DC on 06/05/2025 DISPOSITION: Telemetry Patient's status discussed with patient's son over the phone. Critical care time spent more than 69 minutes, including patient care, chart review, and updating the family. Excluding any procedures Case discuss with DR. Samano. Plan discussed with: Patient, Son (Joel, nurse), Other My Orders My Orders Orders - PB SHANKAR RESIDENT Procedure Category Date Status Time Pantoprazole Tablet PHA 06/06/25 In Process (Protonix Tablet) 08:36 * Rolled [employer] Operator CONS 06/05/25 Transmitted Consult Dietary Evaluation Review Comments: 1. Offer nutrition support, TF Glucerna @50ml/hr providing 1440kcal, 72g protein, meeting 100% of pt's needs for protein and energy. 2. follow up with Nephrology consult 3. Advance to CCHO-60 Cardiac diet when pt's is off vent and passing FOOD ORDER DELIVERY RUNNER eval. Expected Outcomes/Goals: controlled blood sugar, prevent uremia PB SHANKAR RESIDENT Jun 05, 2025 16:49
[2025-06-05] MEDS: DOXYCYCLINE 100 MG TAB/CAP PO ONE (17:27)
--- NOTE | 2025-06-05 18:46 | DVHPN2 ---
Progress Note - Dictate Date Seen: Jun 05, 2025 Medical Necessity Reason Pt with a Central, PICC or Fol: No Reason for mendez catheter: Strict I&O Subjective Patient was seen and evaluated in follow up. Patient is on 3 LPM NC. WBC 12.1, CO2 34. Telemetry reviewed. vital signs Vital Sign Date Time Temp Pulse Resp B/P (MAP) Pulse Ox O2 Delivery O2 Flow Rate FiO2 06/05/25 16:57 97.8 59 24 145/72 (96) 93 97.8 06/05/25 11:57 Nasal Cannula 3.0 06/05/25 11:57 32 Total Intake and Output 06/04/25 06/04/25 06/05/25 15:00 23:00 07:00 Intake Total 240 ml 1420 ml 720 ml Output Total 0 ml 2200 ml 650 ml Balance 240 ml -780 ml 70 ml medications Current Medications Medications Dose Ordered Sig/Rio Route Start Time Stop Time Status Last Admin Dose Admin Aspirin 81 mg DAILY PO 05/28/25 10:00 06/05/25 09:13 81 MG Atorvastatin Calcium 40 mg HS PO 05/28/25 22:00 06/04/25 21:37 40 MG Enoxaparin Sodium 40 mg DAILY SC 05/30/25 10:00 06/05/25 09:13 40 MG Mupirocin 1 applic BID EACHNOSTRI 05/31/25 22:00 06/05/25 21:59 06/05/25 09:15 1 APPLIC Lactulose 30 ml DAILY NG 06/02/25 10:00 06/03/25 09:08 30 ML Morphine Sulfate 1 mg Q4HP PRN IV 06/01/25 18:15 06/03/25 03:18 1 MG Levalbuterol HCl 0.625 mg Q6HR NEB 06/02/25 00:00 06/05/25 11:57 0.625 MG Ipratropium [place] 0.5 mg Q6HR NEB 06/02/25 00:00 06/05/25 11:57 0.5 MG Montelukast Sodium 10 mg HS PO 06/02/25 22:00 06/04/25 21:36 10 MG Alprazolam 1 mg Q8HPRN PRN PO 06/04/25 12:00 06/05/25 17:27 1 MG Zolpidem Tartrate 10 mg HSPRN PRN PO 06/04/25 12:00 06/04/25 21:37 10 MG Pantoprazole Sodium 40 mg DAILY@0600 PO 06/06/25 08:36 Doxycycline Monohydrate 100 mg Q12HR PO 06/06/25 10:00 Prednisone 40 mg DAILY PO 06/06/25 10:00 objective GENERAL: Alert and oriented x 3. No acute distress. EYES: PERRL, EOMI. Anicteric. HENT: Moist mucous membranes. LUNGS: Decreased breath sounds CARDIOVASCULAR: Regular rate and rhythm. ABDOMEN: Soft, nontender and nondistended. EXTREMITIES: No edema. SKIN: Warm, dry. laboratory and microbiology Laboratory Tests 06/05/25 06:43 Test 06/05/25 06:43 Range/Units Serum Glucose 116 H 74-106 mg/dL Problem List NSTEMI rule out CAD. Sepsis likely from pneumonia. LISSETTE on CKD. COPD exacerbation. Hypertension. Assessment/Plan Continued all current supportive medical care. Aspirin, Lipitor. IV antibiotics as ordered. DVT and GI prophylactics. Diuretics with Lasix. Morphine for pain management. IV Hydralazine for SBP >150. Additional plan as per the hospital course. Dietary Evaluation Review Comments: 1. Offer nutrition support, TF Glucerna @50ml/hr providing 1440kcal, 72g protein, meeting 100% of pt's needs for protein and energy. 2. follow up with Nephrology consult 3. Advance to CCHO-60 Cardiac diet when pt's is off vent and passing PRODUCE RUNNER eval. Expected Outcomes/Goals: controlled blood sugar, prevent uremia Plan discussed with: Patient ALBERTA KILPATRICK MD Jun 05, 2025 18:46
[2025-06-06] VITALS (15 sets, daily range): BP systolic 137–149; BP diastolic 78–84; PULSE 50–104; RESP 14–19; TEMP 97.1–98.2; O2SAT 93–98
[2025-06-06 07:25] LABS: Hematocrit 37.8 % (36.0-46.0); Hemoglobin 12.6 g/dL (12.2-16.2); Mean Corpuscular Hemoglobin 32.0 pg (28.0-32.0); Mean Corpuscular Volume 95.9 fL (80.0-100.0); Nucleated Red Blood Cells % 0.2 %
[2025-06-06 07:33] LABS: Anion Gap 7 (5-15); Chloride 103 mmol/L (98-107); Potassium 3.8 mmol/L (3.5-5.1); Sodium 142 mmol/L (136-145)
[2025-06-06 07:35] LABS: Calcium 8.5 mg/dL (8.7-10.4); Carbon Dioxide 32 mmol/L (20-31)
[2025-06-06 07:38] LABS: Glucose 93 mg/dL (74-106)
[2025-06-06 07:39] LABS: BUN/Creatinine Ratio 31.3 (10.0-20.0); Blood Urea Nitrogen 21 mg/dL (9-23)
[2025-06-06 07:40] LABS: Magnesium 2.0 mg/dL (1.6-2.6)
--- NOTE | 2025-06-06 08:20 | DVH ---
CHEST RADIOGRAPH Indication: Compare previous cxr with lung dx change Technique: Single frontal view of the chest was obtained Comparison: XY CHEST PORTABLE on DOS: 06/02/25. FINDINGS: Lines and Tubes: There is a right PICC with its tip terminating in the superior vena cava. Lungs: The lungs are hyperinflated consistent with COPD. Subsegmental atelectasis in the left upper lobe. Pleura: No effusion. No pneumothorax. Cardiomediastinal contours: Unremarkable Bones: No acute osseous abnormality. Chronic deformity of the left clavicle. IMPRESSION: 1. COPD. 2. Subsegmental atelectasis in the left upper lobe.
[2025-06-06] MEDS: predniSONE 20 MG TAB PO SCH (09:05)
[2025-06-06] MEDS: DOXYCYCLINE 100 MG TAB/CAP PO SCH (09:06)
[2025-06-06] MEDS: PANTOPRAZOLE 40 MG TAB PO SCH (09:08)
[2025-06-06] MEDS: HYDROcodone-ACET 5/325MG TAB PO PRN (09:48)
[2025-06-06] MEDS ORDERED: PRED20TA2 PO (15:36)
[2025-06-06] MEDS ORDERED: DOXY100T2 PO (15:36)
[2025-06-06] MEDS ORDERED: ZOLP10TA PO (15:36)
[2025-06-06] MEDS ORDERED: HYDR1TAB97 PO (15:36)
--- NOTE | 2025-06-06 16:04 | DVHDSRES ---
Discharge Summary Date of Admission Resident Creating Document: PB SHANKAR RESIDENT May 27, 2025 at 22:31 Date of Discharge: Jun 06, 2025 Labs/Diagnostic Data: Laboratory Results Test 06/06/25 06:40 06/05/25 06:43 06/04/25 04:30 06/02/25 07:57 White Blood Count 13.6 10^3/uL (4.4-10.8) Red Blood Count 3.95 10^6/uL (4.0-5.20) Hemoglobin 12.6 g/dL (12.2-16.2) Hematocrit 37.8 % (36.0-46.0) Mean Corpuscular Volume 95.9 fL (80.0-100.0) Mean Corpuscular Hemoglobin 32.0 pg (28.0-32.0) Mean Corpuscular Hemoglobin Concent 33.4 g/dL (32.0-36.0) Red Cell Distribution Width 14.1 % (11.8-14.3) Platelet Count 425 10^3/uL (140-450) Mean Platelet Volume 7.7 fL (6.9-10.8) Neutrophils (%) (Auto) 61.0 % (37.0-80.0) Lymphocytes (%) (Auto) 26.6 % (10.0-50.0) Monocytes (%) (Auto) 9.4 % (0.0-12.0) Eosinophils (%) (Auto) 2.6 % (0.0-7.0) Basophils (%) (Auto) 0.4 % (0.0-2.0) Neutrophils # (Auto) 8.3 10 ^3/uL (1.6-8.6) Lymphocytes # (Auto) 3.6 10 ^3/uL (0.4-5.4) Monocytes # (Auto) 1.3 10 ^3/uL (0-1.3) Eosinophils # (Auto) 0.4 10 ^3/uL (0-0.8) Basophils # (Auto) 0.1 10 ^3/uL (0-0.2) Nucleated Red Blood Cells 0.2 % Sodium Level 142 mmol/L (136-145) Potassium Level 3.8 mmol/L (3.5-5.1) Chloride Level 103 mmol/L (98-107) Carbon Dioxide Level 32 mmol/L (20-31) Anion Gap 7 (5-15) Blood Urea Nitrogen 21 mg/dL (9-23) Creatinine 0.67 mg/dL (0.550-1.02) Glomerular Filtration Rate Calc 92 mL/min (>90) BUN/Creatinine Ratio 31.3 (10.0-20.0) Serum Glucose 93 mg/dL (74-106) Calcium Level 8.5 mg/dL (8.7-10.4) Magnesium Level 2.0 mg/dL (1.6-2.6) Total Bilirubin 0.5 mg/dL (0.2-1.0) Aspartate Amino Transferase (AST) 32 U/L (13-40) Alanine Aminotransferase (ALT) 28 U/L (7-40) Alkaline Phosphatase 58 U/L (46-116) Total Protein 5.5 g/dL (5.7-8.2) Albumin 3.4 g/dL (3.2-4.8) Influenza Type A Antigen Negative (Negative) Influenza Type B Antigen Negative (Negative) SARS-CoV-2 Antigen (Rapid) Negative (NEGATIVE) Blood Gas Specimen Type Arterial Blood Gas Sample Site Right radial Blood Gas Patient Temperature 37.0 Arterial Blood Date Drawn [id number] Arterial Blood pH 7.449 (7.350-7.450) Arterial Blood Partial Pressure CO2 42.8 mmHg (32.0-45.0) Arterial Blood Partial Pressure O2 106.0 mmHg (83.0-108.0) Arterial Blood HCO3 29.0 mmol/L (21.0-28.0) Arterial Blood Oxygen Saturation 97.9 % (94.0-98.0) Arterial Blood Base Excess 4.5 mmol/L (-2.0-3.0) Arterial Blood Oxyhemoglobin 97.3 % (94.0-98.0) Arterial Blood Carboxyhemoglobin 0.5 % (0.5-1.5) Arterial Blood Methemoglobin 0.1 % (0.0-1.5) Myron Test Yes Blood Gas Total Hemoglobin 13.30 g/dL (12.0-16.0) Blood Gas Modality Mask - bipap FiO2 % 50.0 Blood Gas EPAP 5 Blood Gas IPAP 12 Test 06/01/25 15:41 06/01/25 13:31 06/01/25 07:06 05/31/25 17:50 Blood Gas Liter Flow 10.00 Blood Gas Spontaneous Rate 15 Blood Gas Tidal Volume 763.0 Blood Gas Pressure Support 8 Blood Gas PEEP or CPAP 5.0 Blood Gas Set Respiration Rate 24.0 POC Glucose 176 mg/dl (70-106) Test 05/31/25 04:03 05/30/25 18:37 05/30/25 10:51 05/28/25 16:09 Phosphorus Level 3.4 mg/dL (2.4-5.1) Vitamin B12 Level 381 pg/mL (211-911) Vitamin D 25-Hydroxy 41.1 ng/mL (30.0-100) Blood Gas Critical Value Read Back Yes Blood Gas Notified Whom tereso Schmidt md Blood Gas Notified Time [id number] Blood Gas Notified By regis Maddox Prothrombin Time 10.9 sec (9.3-11.8) Prothrombin Time INR 1.03 (0.9-1.15) Activated Partial Thromboplast Time 30.8 SEC (24.5-34.5) D-Dimer, Quantitative 2.20 mg/L FEU (0.0-0.49) B-Type Natriuretic Peptide 143.59 pg/mL (0-100) Test 05/28/25 08:00 05/28/25 03:51 05/28/25 01:30 Urine Color Light-yellow (Yellow) Urine Clarity Turbid (Clear) Urine pH 5.0 (5.0-9.0) Urine Specific [place] 1.016 (1.001-1.035) Urine Protein Negative (Negative) Urine Ketones Negative (Negative) Urine Blood Negative /uL (Negative) Urine Nitrite Negative (Negative) Urine Bilirubin Negative (Negative) Urine Urobilinogen Normal mg/dL (Negative) Urine Leukocyte Esterase 3+ /uL (Negative) Urine RBC 3 /hpf (0 - 4) Urine WBC Clumps Present /hpf (None Seen) Urine Microscopic WBC 63 /HPF (0-5) Urine Squamous Epithelial Cells Few /hpf (<5) Urine Bacteria Mod /hpf (None Seen) Urine Mucus Few (None Seen) Urine Glucose Normal mg/dL (Normal) Urine Opiates Screen Neg (NEGATIVE) Urine Fentanyl Screen Neg (NEGATIVE) Urine Barbiturates Screen Neg (NEGATIVE) Urine Phencyclidine Screen Neg (NEGATIVE) Urine Amphetamines Screen Neg (NEGATIVE) Urine Benzodiazepines Screen Pos (NEGATIVE) Urine Cocaine Screen Neg (NEGATIVE) Urine Cannabinoids Screen Neg (NEGATIVE) Hemoglobin A1c 5.9 % A1C (<5.7) Triglycerides Level 75 mg/dL (< 150) Cholesterol Level 180 mg/dL (< 200) LDL Cholesterol 113 mg/dL (< 100) HDL Cholesterol 58 mg/dL (40-59) Thyroid Stimulating Hormone (TSH) 0.93 uIU/mL (0.55-4.78) Troponin I High Sensitivity 285 ng/L (</=34) Other Laboratory Tests 06/06/25 06:40 Brief Hx & Hospital Course: Lucila Doyle is a 74-year-old female with past medical history of anxiety, asthma, COPD on 2.5 L home oxygen, hypertension came to ER with overdose of Percocet which she takes for her back pain. The patient's son, Joel reported that his mother had fall in the morning. When came home and found her on floor and carried her to bed. Upon Joel arrival, he noticed her mother having increased heart rate, appeared pale and had saliva drooling from the mouth and he called 911 brought to her Hospital due to concerning symptoms. Patient had significant pulmonary history, her son reporting that a transformation specialist had previously stated 1 of the lung was only 50% functional. Patient also had remote history of amphetamine use approximately 30 years ago. Recently, the patient had been rehabilitation facility following left femur fracture status post surgery in 2023. Patient received IV antibiotic including ceftriaxone and azithromycin, as well as other medications such as albuterol, ipratropium, morphine, aspirin. Upon arrival at the hospital, the patient became altered mental status and desaturated and required intubation on 05/28/2025. Past medical history: Anxiety, asthma, COPD on 2.5 L home oxygen, hypertension, history of fall, history of amphetamine use Surgical history : left femur fracture status post surgery Family history; father having bladder cancer, brother- prostate cancer Social history: Ex-smoker stopped 10 years back, ETOH occasionally, remote use amphetamine approximately 30 years back Allergy: No known allergy PCP: Dr. Ayala [place] Hospital course: Patient admitted due to acute toxic metabolic encephalopathy secondary to opiate overdose/sepsis. . During admission, x-ray chest showed mild hazy ground-glass opacity throughout both lung. CT angiogram shows no pulmonary embolism, small bilateral pleural effusion with mild dependent atelectatic changes. Patient treated with IV antibiotic and steroid during hospital stay. Patient history of fall before came to the hospital, CT left lower extremity shows no evidence of fracture, s/p ORIF left femoral neck. CT right lower extremity showed no acute fracture, moderate degenerative changes right sacroiliac joint, old right inferior pubic ramus fracture. CT pelvis showed chronic appearing fracture at sacral 3-4. Patient intubated on 05/28/2025 due to ALOC secondary to Percocet overdose and extubated on 06/01/2025. Patient initially on BiPAP and oxygen titrated gradually and currently on nasal cannula. During inpatient stay, treated both acute and chronic medical condition. Cardiology consulted due to serial troponin raised at 200sto 300s. Echo on 05/29/2025 showed mild LVH with LVEF 60%, dilated IVC and small pericardial effusion. Recommended follow-up as outpatient for further workup. Physical therapy recommended can discharge home as patient having good caregiver support. Her symptoms significantly improved and currently denies any fever, SOB, chest pain, abdominal pain, dysuria or any other acute distress. Continue oral steroid and oral antibiotic doxycycline total for 7 days. Patient is hemodynamically stable for discharge. The patient has received maximum benefits from inpatient treatment. Time was given to answer patient/ son-Joel questions and concerns in Layman terms. patient verbalized understanding and agree with treatment and follow-up. Patient was recommended to return to the ED if she experiences any worsening symptoms such as, but not limited to current symptoms. Continue current home medication. Follow-up with discharge Clinic within 1 weeks on Thursday morning and follow up with PCP, pulmonology and Cardiology within 2 to 4 week weeks after discharge . Patient educated and advised to resume home medication. Physical examination Constitutional: No: Fever, Chills, Sweats, Weakness, Malaise Eyes: No: Pain, Vision change, Conjunctivae inflammation, Eyelid inflammation ENT: No: Ear pain, Ear discharge, Nose pain, Nose discharge, Nose congestion, Mouth pain, Mouth swelling, Throat pain, Throat swelling Respiratory: Shortness of breath; No: Cough, Dry, SOB with excertion, Wheezing, Hemoptysis, Pleuritic Pain, Sputum, Wheezing, currently on 2 L oxygen Cardiovascular: No: Chest Pain, Palpitations, Orthopnea, Paroxysmal Noc. Dyspnea, Edema, Lt Headedness Gastrointestinal: No: Nausea, Vomiting, Abdominal Pain, Diarrhea, Constipation, Melena, Hematochezia Genitourinary: No Dysuria, No Frequency, No Incontinence, No Hematuria Musculoskeletal: No: other, neck pain, shoulder pain, arm pain, gait instability Skin: No: Rash, Lesions, Jaundice, Bruising Neurological: No: Weakness, Numbness, Incoordination, Change in speech, Confusion, Seizures, Other Case discuss with Dr. Samano, nurse, son. More than 49 minutes spent. Operations or Procedures ORDERING PHYSICIAN: DOLORES MACIAS PAC PROCEDURE(s): LLEX - LEFT LOWER EXTREMITY W/O CON REASON: Fall/trauma ORDER NUMBER(s): [id number], ACCESSION NUMBER(s): [id number] INDICATION: Fall/trauma COMPARISON: CT PELVIS WO CONTRAST on DOS: 05/27/25, CT LOWER EXTREMITY NON JOINT RIGH on DOS: 05/27/25, CT LS SPINE WO CONTRAST on DOS: 11/08/24, XY L HIP COMPLETE XRAY on DOS: 10/14/23, XY L HIP COMPLETE XRAY on DOS: 10/14/23 TECHNIQUE: CT of the right was performed without contrast. Volume transverse images were obtained and reconstructed in multiple planes using bone and soft tissue algorithms. CONTRAST: None Radiation Dose Information: CT Dose: CTDI volume is 21 mGy. Dose-length product is 631 mGy*cm FINDINGS: Patient is status post ORIF 4 left femoral neck fracture. No definite evidence of acute fracture is seen. There is no dislocation. The alignment is normal. The joint spaces are normal. The soft tissues are normal. IMPRESSION: 1. No evidence of acute fracture. 2. Status post ORIF left femoral neck fracture. As 3. All CT scans at this medical facility are performed using dose modulation techniques as appropriate to a performed exam including the following: Automated exposure control was utilized; adjustment of the MA and/or KV according to patient size; and use of iterative reconstruction technique. RING PHYSICIAN: DOLORES MACIAS PAC PROCEDURE(s): RLEX - LOWER EXTREMITY NON JOINT RIGH REASON: Trauma/fall ORDER NUMBER(s): [id number], ACCESSION NUMBER(s): [id number] Indication: Trauma/fall Technique: CT axial images of the right lower extremity from the right hip to the right foot are obtained without contrast. Coronal and sagittal reformats were obtained. Radiation Dose Information: CTDI volume is 11.3 mGy. Dose-length product is 2505 mGy*cm Comparison: CT LEFT LOWER EXTREMITY W/O CON on DOS: 05/27/25 FINDINGS/IMPRESSION: Moderate degenerate changes right SI joint. Kyfs-pm-oaaizloz degenerate changes right hip. Old right inferior pubic ramus fracture. Probable old left inferior pubic ramus fracture. No acute fracture. Small suprapatellar effusion. Moderate degenerate changes of the right knee. Wehb-mi-tzlslezh degenerate changes of the tibiotalar joint. Mild right lower extremity soft tissue edema. RING PHYSICIAN: DOLORES MACIAS PAC PROCEDURE(s): PL2CT - PELVIS WO CONTRAST REASON: Fall/trauma ORDER NUMBER(s): [id number], ACCESSION NUMBER(s): [id number] Indication: Fall/trauma Technique: CT axial images of the pelvis are obtained without contrast. Coronal and sagittal reformats were obtained. Radiation Dose Information: CTDI volume is 20.97 mGy. Dose-length product is 2.47 mGy*cm Comparison: CT PELVIS WO CONTRAST on DOS: 10/13/23 FINDINGS: Moderate degenerate changes bilateral sacroiliac joints. Pubic symphysis intact. Old right inferior/superior pubic rami fractures. Left femur intramedullary gume, intertrochanteric screw. Lumbar levocurvature. Chronic appearing fracture at the S3/S4 region. Gquj-ot-joypynrt degenerate changes bilateral hips. Gallbladder distention. Abdominal aortic atherosclerotic disease. Colonic diverticula. No free pelvic fluid. Fat containing right inguinal hernia. IMPRESSION: Chronic appearing fracture at S3/S4. Correlate point tenderness. Moderate degenerate changes bilateral sacroiliac joints. Ftiu-lo-uxtquuix degenerate changes bilateral hips. ATED BY: SACHA HARE MD DICTATED DATE/TIME: 05/27/25 1730 DICTATED BY: SACHA HARE MD DICTATED DATE/TIME: 05/27/25 1837 ORDERING PHYSICIAN: TAMMI JAQUEZ DNP PROCEDURE(s): CXRP - CHEST PORTABLE REASON: Shortness of breaths ORDER NUMBER(s): [id number], ACCESSION NUMBER(s): [id number] CHEST RADIOGRAPH Indication: Shortness of breaths Technique: Single frontal view of the chest was obtained COMPARISON: XY CHEST PORTABLE on DOS: 11/07/24, CT CHEST WITHOUT CONTRAST on DOS: 07/11/24, XY CHEST PORTABLE on DOS: 07/10/24, CT CHEST WITHOUT CONTRAST on DOS: 01/15/24, XY CHEST XRAY 1 VIEW on DOS: 12/03/23 FINDINGS: Stable relative lucency throughout the left mid and lower lung possibly related to a bulla or emphysematous disease. Cardiac silhouette is borderline in size with diffuse prominence of the pulmonary vasculature with mild hazy ground glass opacity throughout both lungs. IMPRESSION: 1. With mild hazy ground glass opacity throughout both lungs lOnly views congestionikely related to pulmonary edema ATED BY: CASIE BAE MD DICTATED DATE/TIME: 05/28/25 0042 ORDERING PHYSICIAN: AZAM PARR PROCEDURE(s): CTACH - CT ANGIO CHEST CONTRAST REASON: r/o pe ORDER NUMBER(s): [id number], ACCESSION NUMBER(s): [id number] CTA Chest with intravenous contrast INDICATION: r/o pe. Chest pain. COMPARISON: CT CHEST WITHOUT CONTRAST on DOS: 07/11/24, CT CHEST WITHOUT CONTRAST on DOS: 01/15/24, CT CT ANGIO CHEST CONTRAST on DOS: 09/02/23 TECHNIQUE: Multidetector spiral CTA of the chest was performed of the chest with intravenous contrast. PULMONARY ANGIOGRAPHY PROTOCOL was utilized using a bolus- tracking technique centered on the main pulmonary artery. Axial, coronal and sagittal multiplanar and MIP reformats were performed. Radiation dose : 1. Chest: CTDI volume is 26.64 mGy. Dose-length product is 442.93 mGy*cm The dose indicators for CT are the volume computed tomography (CT) dose index (CTDIvol) and the dose length product (DLP), and are measured in units of mGy and mGy-cm, respectively. These indicators are not patient dose, but values generated from the CT scanner acquisition factors. The report includes radiation exposure data for exposures received during this examination. Findings: Pulmonary artery: No pulmonary embolus. Lower neck: Normal thyroid. Lungs: ET tube tip in the methodical trachea . Moderate centrilobular emphysema. Scarring within the left lung that appears similar. Mild dependent atelectasis changes within the lower lungs, right worse than left. Heart/Vascular Structures: Normal heart size. No pericardial effusion. Lymph Nodes: No adenopathy Pleura: Small bilateral effusions. Musculoskeletal: No acute osseous abnormality. Soft tissues: Normal. Upper abdomen: Limited portions of the upper abdomen are unremarkable. IMPRESSION: 1. No pulmonary embolism. 2. Small bilateral pleural effusions with mild dependent atelectasis changes. ATED BY: CASIE BAE MD DICTATED DATE/TIME: 05/29/25 0038 ORDERING PHYSICIAN: PB SHANKAR RESIDENT PROCEDURE(s): CXRP - CHEST PORTABLE REASON: compare previous cxr with lung dx change ORDER NUMBER(s): [id number], ACCESSION NUMBER(s): [id number] CHEST RADIOGRAPH Indication: Compare previous cxr with lung dx change Technique: Single frontal view of the chest was obtained Comparison: XY CHEST PORTABLE on DOS: 06/02/25. FINDINGS: Lines and Tubes: There is a right PICC with its tip terminating in the superior vena cava. Lungs: The lungs are hyperinflated consistent with COPD. Subsegmental atelectasis in the left upper lobe. Pleura: No effusion. No pneumothorax. Cardiomediastinal contours: Unremarkable Bones: No acute osseous abnormality. Chronic deformity of the left clavicle. IMPRESSION: 1. COPD. 2. Subsegmental atelectasis in the left upper lobe. ATED BY: TIFFANIE WATERMAN MD DICTATED DATE/TIME: 06/06/25 0817 Condition at Discharge: Stable Final Diagnosis/Problems List Acute toxic/metabolic encephalopathy due to opioids overdose/sepsis NSTEMI likely type 2 secondary to sepsis Septic shock, likely due to Sepsis Sepsis, due to UTI/pneumonia Dyslipidemia Hypertension Pericardial effusion Acute on chronic hypoxic/ hypercapnic respiratory failure due to COPD exacerbation/pneumonia Acute COPD exacerbation (on 2.5 L O2 at home) Possible Asthma exacerbation Pneumonia, likely due to Gram-positive/Gram-negative bacteria/viral Ruled out pulmonary embolism Small bilateral pleural effusions LISSETTE, likely due to VMN, resolved Complicated UTI Positive MRSA screen Prediabetes mellitus A1c 5.9 Hyperkalemia, resolved Gait instability H/o ORIF in left femoral neck Right small suprapatellar effusion Anxiety disorder Discharge Disposition: Home Discharge Instruct/Medications Scheduled Alprazolam (Alprazolam), 1 TAB PO TID, (Reported) Ciprofloxacin Hydrochloride (Ciprofloxacin HCl), 1 TAB PO BID, (Reported) Doxycycline Hyclate (Doxycycline Hyclate), 100 MG PO BID Enoxaparin Sodium (Lovenox), 40 MG SC DAILY Erythromycin (Erythromycin), 1 APPLIC EACHEYE UD, (Reported) Escitalopram Oxalate (Escitalopram Oxalate), 1 TAB PO DAILY, (Reported) Vexkhzpukdd-Lcccfxsywlzy-Bpoky (Trelegy Ellipta 100-62.5-25 Mcg/INH), 1 PUFF INH DAILY, (Reported) Lisinopril (Lisinopril), 1 TAB PO DAILY, (Reported) Montelukast Sodium (Montelukast Sodium), 1 TAB PO DAILY, (Reported) Oxycodone W/ Acetaminophen (Apap/Oxycodone), 1 TAB PO BID, (Reported) Prednisone (Prednisone), 20 MG PO QAM Zolpidem Tartrate (Zolpidem Tartrate), 1 TAB PO HS, (Reported) Scheduled PRN Acetaminophen (Acetaminophen), 650 MG PO Q6HP PRN Hydrocodone-Acetaminophen (Hydrocodone/Acetaminophen 5-325 mg), 1 TAB PO TIDP PRN Zolpidem Tartrate (Ambien), 10 MG PO QPM PRN Miscellaneous Medications Albuterol Sulfate (Albuterol Sulfate Hfa), INH, (Reported) Discharge Statement: "Patient was advised to return to the ER or call 911 if any headaches, dizziness, shortness of breath, chest pain, abdominal pain, bleeding, fevers, or worsening of medical condition. Patient was counseled about treatment plan, medications, possible side effects, patientverbalized understanding. All questions were answered to the best of my ability. This discharge took greater then 30 minutes in planning, reviewing documentation, counseling the patient, and discussing with other team members." ASSESSMENT ASSESSMENT Assessment Date of Service: Jun 06, 2025 Billing Provider: AZAM SAMANO MD Common Visit Codes: 12501-RGR/OBS DISCH DAY >30min PB SHANKAR RESIDENT Jun 06, 2025 16:04 AZAM SAMANO MD Jun 07, 2025 15:35
--- NOTE | 2025-06-06 23:48 | DVHPN2 ---
Progress Note - Dictate Date Seen: Jun 06, 2025 Medical Necessity Reason Pt with a Central, PICC or Fol: No Reason for mendez catheter: Strict I&O Subjective Patient was seen and evaluated in follow up. Patient is on 3 LPM NC. Patient is complaining of right sacral pain. WBC 13.6, CO2 32. Telemetry reviewed. vital signs Vital Sign Date Time Temp Pulse Resp B/P (MAP) Pulse Ox O2 Delivery O2 Flow Rate FiO2 06/06/25 20:00 75 16 Nasal Cannula* 3 32 06/06/25 19:04 94 06/06/25 17:00 97.8 141/84 (103) 97.8 Total Intake and Output 06/05/25 06/05/25 06/06/25 15:00 23:00 07:00 Intake Total 840 ml 425 ml Output Total 0 ml 1250 ml Balance 0 ml -410 ml 425 ml medications Current Medications Medications Dose Ordered Sig/Rio Route Start Time Stop Time Status Last Admin Dose Admin Aspirin 81 mg DAILY PO 05/28/25 10:00 06/06/25 09:05 81 MG Atorvastatin Calcium 40 mg HS PO 05/28/25 22:00 06/06/25 21:24 40 MG Enoxaparin Sodium 40 mg DAILY SC 05/30/25 10:00 06/06/25 09:06 40 MG Lactulose 30 ml DAILY NG 06/02/25 10:00 06/03/25 09:08 30 ML Levalbuterol HCl 0.625 mg Q6HR NEB 06/02/25 00:00 06/06/25 19:04 0.625 MG Ipratropium [place] 0.5 mg Q6HR NEB 06/02/25 00:00 06/06/25 19:04 0.5 MG Montelukast Sodium 10 mg HS PO 06/02/25 22:00 06/06/25 21:24 10 MG Alprazolam 1 mg Q8HPRN PRN PO 06/04/25 12:00 06/06/25 20:09 1 MG Zolpidem Tartrate 10 mg HSPRN PRN PO 06/04/25 12:00 06/06/25 21:23 10 MG Pantoprazole Sodium 40 mg DAILY@0600 PO 06/06/25 08:36 06/06/25 09:08 40 MG Doxycycline Monohydrate 100 mg Q12HR PO 06/06/25 10:00 06/06/25 21:24 100 MG Prednisone 40 mg DAILY PO 06/06/25 10:00 06/06/25 09:05 40 MG Acetaminophen/ Hydrocodone Bitart 1 tab Q8HPRN PRN PO 06/06/25 09:15 06/06/25 18:16 1 TAB objective GENERAL: Alert and oriented x 3. No acute distress. EYES: PERRL, EOMI. Anicteric. HENT: Moist mucous membranes. LUNGS: Decreased breath sounds CARDIOVASCULAR: Regular rate and rhythm. ABDOMEN: Soft, nontender and nondistended. EXTREMITIES: No edema. SKIN: Warm, dry. laboratory and microbiology Laboratory Tests 06/06/25 06:40 Test 06/06/25 06:40 Range/Units Serum Glucose 93 74-106 mg/dL Problem List NSTEMI rule out CAD. Sepsis likely from pneumonia. LISSETTE on CKD. COPD exacerbation. Hypertension. Assessment/Plan Continued all current supportive medical care. Aspirin, Lipitor. IV antibiotics as ordered. DVT and GI prophylactics. Diuretics with Lasix. Morphine for pain management. IV Hydralazine for SBP >150. Additional plan as per the hospital course. Dietary Evaluation Review Comments: 1. Offer nutrition support, TF Glucerna @50ml/hr providing 1440kcal, 72g protein, meeting 100% of pt's needs for protein and energy. 2. follow up with Nephrology consult [facility]. [facility] Card[facility] when pt's is off vent and passing HOUSING SPECIALIST eval. Expected Outcomes/Goals: controlled blood sugar, prevent uremia Plan discussed with: Patient ALBERTA KILPATRICK MD Jun 06, 2025 23:48
[2025-06-07] VITALS (7 sets, daily range): BP systolic 138–149; BP diastolic 84–89; PULSE 72–101; RESP 16–18; TEMP 97.1–98.2; O2SAT 93–97
--- NOTE | 2025-06-07 09:25 | DVHPNRES ---
Progress Note Medical Necessity Reason Pt with a Central, PICC or Fol: No Reason for mendez catheter: Strict I&O Objective vital signs Vital Sign Date Time Temp Pulse Resp B/P (MAP) Pulse Ox O2 Delivery O2 Flow Rate FiO2 06/07/25 07:35 95 Nasal Cannula* 3 32 06/07/25 07:35 98 18 06/07/25 05:00 98.1 138/84 (102) 98.1 Total Intake and Output 06/06/25 06/06/25 06/07/25 15:00 23:00 07:00 Intake Total 975 ml 800 ml Output Total 0 ml Balance 0 ml 975 ml 800 ml medications Current Medications Medications Dose Ordered Sig/Rio Route Start Time Stop Time Status Last Admin Dose Admin Aspirin 81 mg DAILY PO 05/28/25 10:00 06/06/25 09:05 81 MG Atorvastatin Calcium 40 mg HS PO 05/28/25 22:00 06/06/25 21:24 40 MG Enoxaparin Sodium 40 mg DAILY SC 05/30/25 10:00 06/06/25 09:06 40 MG Lactulose 30 ml DAILY NG 06/02/25 10:00 06/03/25 09:08 30 ML Levalbuterol HCl 0.625 mg Q6HR NEB 06/02/25 00:00 06/07/25 07:35 0.625 MG Ipratropium [place] 0.5 mg Q6HR NEB 06/02/25 00:00 06/07/25 07:35 0.5 MG Montelukast Sodium 10 mg HS PO 06/02/25 22:00 06/06/25 21:24 10 MG Alprazolam 1 mg Q8HPRN PRN PO 06/04/25 12:00 06/06/25 20:09 1 MG Zolpidem Tartrate 10 mg HSPRN PRN PO 06/04/25 12:00 06/06/25 21:23 10 MG Pantoprazole Sodium 40 mg DAILY@0600 PO 06/06/25 08:36 06/07/25 06:35 40 MG Doxycycline Monohydrate 100 mg Q12HR PO 06/06/25 10:00 06/06/25 21:24 100 MG Prednisone 40 mg DAILY PO 06/06/25 10:00 06/06/25 09:05 40 MG Acetaminophen/ Hydrocodone Bitart 1 tab Q8HPRN PRN PO 06/06/25 09:15 06/07/25 02:21 1 TAB laboratory and microbiology Laboratory Tests 06/06/25 06:40 Test 06/06/25 06:40 Range/Units Serum Glucose 93 74-106 mg/dL Microbiology Date/Time Source Procedure Growth Status 05/29/25 14:54 Urine - [place] Urine Culture - Final Complete 05/29/25 00:30 Nose MRSA Screen - Final Methicillin Resistant S.aureus Complete 05/28/25 21:00 Sputum Gram Stain - Final Complete 05/28/25 21:00 Sputum Respiratory Culture - Final Complete Problem List/Assessment/Plan Problem List/Assessment/Plan Lucila Doyle is a 74-year-old female with past medical history of asthma, COPD on 2.5 L home oxygen, hypertension, methamphetamine use disorder brought to the hospital due to ALOC, because of Percocet overdose. Upon ER arrival on 05/27, she was intubated 05/28/2025. Neurology: Acute toxic/metabolic encephalopathy due to opioids overdose/sepsis * RASS score -0 * stopped all sedative Cardiology: NSTEMI likely type 2 secondary to sepsis Dyslipidemia Hypertension Pericardial effusion * Serial trop I mildly raised at 200s to 300s * Echo 05/29 shows, mild LVH with LVEF 60%, dilated IVC and small pericardial effusion * Cardiology on board, recommended medical management and outpatient follow up * Medication accordingly, when patient stable * Current Plan: Continue aspirin, atorvastatin. Respiratory: Acute on chronic hypoxic/ hypercapnic respiratory failure due to COPD exacerbation/pneumonia Acute COPD exacerbation (on 2.5 L O2 at home) Possible Asthma exacerbation Pneumonia, likely due to Gram-positive/Gram-negative bacteria/viral Ruled out pulmonary embolism Small bilateral pleural effusions Mild atelectasis * CT angio on 05/29/2025 shows no pulmonary embolism, small bilateral pleural effusion with mild dependent atelectasis changes left lung * X-ray 05/27 admission, showed Mild hazy ground glass opacity throughout both lung . * Sputum culture on 05/28/2025 no organisms * Keep oxygen saturation 88-92% * CPAP trial successful and extubated on 06/01/2025. Patient currently on 3 L oxygen via NC * Respiratory physical therapy. * Current plan: DC Solu-Medrol 40 mg b.i.d. (05/29) and start prednisone P.O. ,breathing treatment. Gastrointestinal/nutrition: * Current plan: Protonix 40 mg Genitourinary: LISSETTE, likely due to VMN, resolved Complicated UTI * UA shows appear turbid, leukocyte esterase 3+, WBC 63, bacteria moderate, on admission. * Current plan: P.o. antibiotic Infectious Disease: Septic shock, likely due to Sepsis Sepsis, due to UTI/pneumonia Complicated UTI Positive MRSA screen * Urine culture, 05/27 preliminary result shows no growth * Respiratory culture 05/28 preliminary result shows no growth * Current plan: Discontinue Azithromycin (05/29), meropenem (05/29),start Doxy mupirocin for nose Hematology & Oncology: Moderate anemia Precipitous hemoglobin drop Raised D-dimer * Current Plan: Monitoring Hb Endocrine: Prediabetes mellitus A1c 5.9 Hyperkalemia, resolved Hypocalcemia * Today k+ 4.1 * Could be related to acute kidney injury secondary to hypoperfusion Musculoskeletal Gait instability Status post ORIF in left femoral neck Right small suprapatellar effusion * CT left lower extremity show no fracture, s/p ORIF left femoral neck * CT right lower extremity-old right inferior pubic ramus fracture, small suprapatellar effusion * CT pelvis-chronic appearing fracture sacral 3- 4, moderate degenerative changes sacroiliac joints. * Patient use walker for ambulation at home * Plan: Physiotherapy once patients status improved * grain oilseed or pasture farm worker consult for DME. Anxiety disorder * plan: Xanax 1 mg bid as needed. DIET: mechanical soft. DVT prophylax: Lovenox 40 mg sc daily GI prophylaxis: Protonix 40 mg p.o. Bowel regimen: Lactulose 30 ml daily Code status: Full code LINES/DRAINS/ACCESS: IV access: Right Upper arm PICC line 05/29 Drips: off Mendez catheter: DC on 06/05/2025 DISPOSITION: Telemetry Patient's status discussed with patient's son over the phone. Critical care time spent more than 69 minutes, including patient care, chart review, and updating the family. Excluding any procedures My Orders My Orders Orders - PB SHANKAR RESIDENT Procedure Category Date Status Time Discharge DISCHARGE 06/06/25 Transmitted 16:04 Schedule For Dc CORNELIUS 06/06/25 In Process Clinic F/U 16:04 Communication Order ORDERS 06/06/25 Transmitted 17:37 Dietary Evaluation Review Comments: 1. Offer nutrition support, TF Glucerna @50ml/hr providing 1440kcal, 72g protein, meeting 100% of pt's needs for protein and energy. 2. follow up with Nephrology consult 3. Advance to CCHO-60 Cardiac diet when pt's is off vent and passing SILO ERECTOR eval. Expected Outcomes/Goals: controlled blood sugar, prevent uremia PB SHANKAR RESIDENT Jun 07, 2025 09:24
--- NOTE | 2025-06-07 10:50 | DVHPNRES ---
Progress Note Date Seen: Jun 07, 2025 Resident Creating Document: PB SHANKAR RESIDENT Medical Necessity Reason Pt with a Central, PICC or Fol: No Reason for mendez catheter: Strict I&O Subjective Review of Systems Lucila Doyle is a 74-year-old female with past medical history of anxiety, asthma, COPD on 2.5 L home oxygen, hypertension came to ER with overdose of Percocet which she takes for her back pain. The patient's son, Joel reported that his mother had fall in the morning. When came home and found her on floor and carried her to bed. Upon Joel arrival, he noticed her mother having increased heart rate, appeared pale and had saliva drooling from the mouth and he called 911 brought to her Hospital due to concerning symptoms. Patient had significant pulmonary history, her son reporting that a spinner operator had previously stated 1 of the lung was only 50% functional. Patient also had remote history of amphetamine use approximately 30 years ago. Recently, the patient had been rehabilitation facility following left femur fracture status post surgery in 2023. Patient received IV antibiotic including ceftriaxone and azithromycin, as well as other medications such as albuterol, ipratropium, morphine, aspirin. Upon arrival at the hospital, the patient became altered mental status and desaturated and required intubation on 05/28/2025. Past medical history: Anxiety, asthma, COPD on 2.5 L home oxygen, hypertension, history of fall, history of amphetamine use Surgical history : left femur fracture status post surgery Family history; father having bladder cancer, brother- prostate cancer Social history: Ex-smoker stopped 10 years back, ETOH occasionally, remote use amphetamine approximately 30 years back Allergy: No known allergy PCP: Dr. Ayala Home medication: Escitalopram 20 mg, lisinopril 20 mg, alprazolam 1 mg, zolpidem 10 mg, Belsomra,, Percocet. 05/30: Patient seen and evaluated in bedside. Currently on vent setting TV 450, FiO2 45, RR 22. Spoke to son(Joel) in bedside and discussed current management plan. Keep oxygen saturation 88-92%. CPAP trial tomorrow AM,Cardiology have no plan for any procedure. NG tube feeding ordered started jevity 30 cc/hour. 05/31: Seen and evaluated in bedside. Vent setting TV 450, FiO2 40, RR 24. Patient currently and alert. Failed CPAP trial failed today, desat 85%. Spoke to son Joel, updated current medical condition. 06/01: Patient seen and evaluated in bedside today. Patient awake and alert. Spoke to Joel in AM. CPAP trial trial successful and extubated. Currently on 6 L oxygen via face mask. 06/02: Patient currently lying on bed. Patient desat and placed on CPAP overnight. Patient is switched from BiPAP to Oxymizer 5 L, tolerating well. Patient awake and alert. Heart rate 102, O2 sat 93%, respiratory rate 19, BP 152 / 89. Spoke to son Joel and updated patient current status. 06/05: Patient seen and evaluated in bedside today. Patient denies acute distress, currently on 3 L oxygen via nasal cannula. Patient will benefitted for PT and home health aide. Off Mendez catheter. Planning for discharge tomorrow if medically stable. 06/06: Patient seen and evaluated in bedside. Patient currently denies any acute symptoms and currently on 2 L oxygen via nasal cannula. Medically stable for discharge. Spoke to Melly informed no one is available to medicinal plant picker her today. He is trying to medicinal plant picker if not then tomorrow morning. 06/07: Spoke to patient and jacquiKike in bedside. Medicine sent to pharmacy. Patient denies any acute complaint. Hemodynamically stable for discharge. Objective vital signs Vital Sign Date Time Temp Pulse Resp B/P (MAP) Pulse Ox O2 Delivery O2 Flow Rate FiO2 06/07/25 09:52 97.1 101 18 95 06/07/25 07:35 Nasal Cannula* 3 32 06/07/25 05:00 138/84 (102) Total Intake and Output 06/06/25 06/06/25 06/07/25 15:00 23:00 07:00 Intake Total 975 ml 800 ml Output Total 0 ml Balance 0 ml 975 ml 800 ml medications Current Medications Medications Dose Ordered Sig/Rio Route Start Time Stop Time Status Last Admin Dose Admin Aspirin 81 mg DAILY PO 05/28/25 10:00 06/06/25 09:05 81 MG Atorvastatin Calcium 40 mg HS PO 05/28/25 22:00 06/06/25 21:24 40 MG Enoxaparin Sodium 40 mg DAILY SC 05/30/25 10:00 06/06/25 09:06 40 MG Lactulose 30 ml DAILY NG 06/02/25 10:00 06/03/25 09:08 30 ML Levalbuterol HCl 0.625 mg Q6HR NEB 06/02/25 00:00 06/07/25 07:35 0.625 MG Ipratropium [place] 0.5 mg Q6HR NEB 06/02/25 00:00 06/07/25 07:35 0.5 MG Montelukast Sodium 10 mg HS PO 06/02/25 22:00 06/06/25 21:24 10 MG Alprazolam 1 mg Q8HPRN PRN PO 06/04/25 12:00 06/06/25 20:09 1 MG Zolpidem Tartrate 10 mg HSPRN PRN PO 06/04/25 12:00 06/06/25 21:23 10 MG Pantoprazole Sodium 40 mg DAILY@0600 PO 06/06/25 08:36 06/07/25 06:35 40 MG Doxycycline Monohydrate 100 mg Q12HR PO 06/06/25 10:00 06/06/25 21:24 100 MG Prednisone 40 mg DAILY PO 06/06/25 10:00 06/06/25 09:05 40 MG Acetaminophen/ Hydrocodone Bitart 1 tab Q8HPRN PRN PO 06/06/25 09:15 06/07/25 02:21 1 TAB Examination Patient lying in bed, not in acute distress, 2 L oxygen via nasal cannula General: No fever, palor, mucosae are moist Cardiovascular: Regular S1 and S2. No JVD elevation. No pedal edema Respiratory: Decreased breath sounds left in compared to right , no wheeze or crackles noted Abdomen: Soft, nondistended, normoactive bowel sounds, no rebound tenderness Genitourinary: No suprapubic or costo vertebral angle tenderness MSK/skin: Mobilizes 4 limbs. Skin is dry and warm, gait instability Neurological: Pupils are isocoric and reactive. Intact cough and gag reflex laboratory and microbiology Laboratory Tests 06/06/25 06:40 Test 06/06/25 06:40 Range/Units Serum Glucose 93 74-106 mg/dL Microbiology Date/Time Source Procedure Growth Status 05/29/25 14:54 Urine - [place] Urine Culture - Final Complete 05/29/25 00:30 Nose MRSA Screen - Final Methicillin Resistant S.aureus Complete 05/28/25 21:00 Sputum Gram Stain - Final Complete 05/28/25 21:00 Sputum Respiratory Culture - Final Complete Problem List/Assessment/Plan Problem List/Assessment/Plan Lucila Doyle is a 74-year-old female with past medical history of asthma, COPD on 2.5 L home oxygen, hypertension, methamphetamine use disorder brought to the hospital due to ALOC, because of Percocet overdose. Upon ER arrival on 05/27, she was intubated 05/28/2025 and extubated on 06/01/2025. Neurology: Acute toxic/metabolic encephalopathy due to opioids overdose/sepsis * RASS score -0 * Off all sedative/drips Cardiology: NSTEMI likely type 2 secondary to sepsis Dyslipidemia Hypertension Pericardial effusion * Serial trop I mildly raised at 200s to 300s * Echo 05/29 shows, mild LVH with LVEF 60%, dilated IVC and small pericardial effusion * Cardiology on board, recommended medical management and outpatient follow up * Medication accordingly, when patient stable * Current Plan: Continue aspirin, atorvastatin. Respiratory: Acute on chronic hypoxic/ hypercapnic respiratory failure due to COPD exacerbation/pneumonia Acute COPD exacerbation (on 2.5 L O2 at home) Possible Asthma exacerbation Pneumonia, likely due to Gram-positive/Gram-negative bacteria/viral Ruled out pulmonary embolism Small bilateral pleural effusions Mild atelectasis * CT angio on 05/29/2025 shows no pulmonary embolism, small bilateral pleural effusion with mild dependent atelectasis changes left lung * X-ray 05/27 admission, showed Mild hazy ground glass opacity throughout both lung . * Sputum culture on 05/28/2025 no organisms * Keep oxygen saturation 88-92% * CPAP trial successful and extubated on 06/01/2025. Patient currently on 2 L oxygen via NC * Respiratory physical therapy. * Current plan: Continue prednisone P.O. ,breathing treatment. Gastrointestinal/nutrition: * Current plan: Protonix 40 mg Genitourinary: LISSETTE, likely due to VMN, resolved Complicated UTI * UA shows appear turbid, leukocyte esterase 3+, WBC 63, bacteria moderate, on admission. * Current plan: Continue antibiotic Infectious Disease: Septic shock, likely due to Sepsis Sepsis, due to UTI/pneumonia Complicated UTI Positive MRSA screen * Urine culture, 05/27 preliminary result shows no growth * Respiratory culture 05/28 preliminary result shows no growth * Current plan: Continue Doxy ,mupirocin for nose Hematology & Oncology: Moderate anemia Precipitous hemoglobin drop Raised D-dimer * Current Plan: Monitoring Hb Endocrine: Prediabetes mellitus A1c 5.9 Hyperkalemia, resolved Hypocalcemia * Hyperkalemia resolved * Hypokalemia Could be related to acute kidney injury secondary to hypoperfusion. Musculoskeletal Gait instability Status post ORIF in left femoral neck Right small suprapatellar effusion * CT left lower extremity show no fracture, s/p ORIF left femoral neck * CT right lower extremity-old right inferior pubic ramus fracture, small suprapatellar effusion * CT pelvis-chronic appearing fracture sacral 3- 4, moderate degenerative changes sacroiliac joints. * Patient use walker for ambulation at home * Plan: Physiotherapy once patients status improved * travelers' aid worker consult for DME. Anxiety disorder * plan: Xanax 1 mg bid as needed. DIET: mechanical soft. DVT prophylax: Lovenox 40 mg sc daily GI prophylaxis: Protonix 40 mg p.o. Bowel regimen: Lactulose 30 ml daily Code status: Full code LINES/DRAINS/ACCESS: IV access: Right Upper arm PICC line 05/29 Drips: off Mendez catheter: DC on 06/05/2025 DISPOSITION: Telemetry Patient's status discussed with patient's son -Joel, patient, nurse in bedside Case discussed with Dr. Levy. Plan discussed with: Patient, Son (Joel), Other (Nurse) My Orders My Orders Orders - PB SHANKAR Procedure Category Date Status Time Discharge DISCHARGE 06/06/25 Transmitted 16:04 Schedule For Dc CORNELIUS 06/06/25 In Process Clinic F/U 16:04 Communication Order ORDERS 06/06/25 Transmitted 17:37 Dietary Evaluation Review Comments: 1. Offer nutrition support, TF Glucerna @50ml/hr providing 1440kcal, 72g protein, meeting 100% of pt's needs for protein and energy. 2. follow up with Nephrology consult 3. Advance to CCHO-60 Cardiac diet when pt's is off vent and passing ESTIMATOR PROJECT MANAGER eval. Expected Outcomes/Goals: controlled blood sugar, prevent uremia Date of Service: Jun 07, 2025 Billing Provider: AZAM LEVY MD Common Visit Codes: 38093-[id number] INP/OBS CARE(HIGH) Secondary Visit Codes: 43978-[id number] CARE PLAN 30 MINUTES PB SHANKAR Jun 07, 2025 10:50 AZAM LEVY MD Jun 07, 2025 15:35
--- NOTE | 2025-06-07 23:46 | DVHPN2 ---
Progress Note - Dictate Date Seen: Jun 07, 2025 Medical Necessity Reason Pt with a Central, PICC or Fol: No Reason for mendez catheter: Strict I&O Subjective Patient was seen and evaluated in follow up. Patient has no new complaints at this time. Patient denies any cardiac symptoms. Patient is cardiac stable for discharge. Telemetry reviewed. vital signs Vital Sign Date Time Temp Pulse Resp B/P (MAP) Pulse Ox O2 Delivery O2 Flow Rate FiO2 06/07/25 09:52 97.1 101 18 95 06/07/25 08:00 Nasal Cannula* 3 32 06/07/25 05:00 138/84 (102) Total Intake and Output 06/06/25 06/06/25 06/07/25 14:59 22:59 06:59 Intake Total 975 ml 800 ml Output Total 0 ml Balance 0 ml 975 ml 800 ml objective GENERAL: Alert and oriented x 3. No acute distress. EYES: PERRL, EOMI. Anicteric. HENT: Moist mucous membranes. LUNGS: Decreased breath sounds CARDIOVASCULAR: Regular rate and rhythm. ABDOMEN: Soft, nontender and nondistended. EXTREMITIES: No edema. SKIN: Warm, dry. laboratory and microbiology Laboratory Tests 06/06/25 06:40 Test 06/06/25 06:40 Range/Units Serum Glucose 93 74-106 mg/dL Problem List NSTEMI rule out CAD. Sepsis likely from pneumonia. LISSETTE on CKD. COPD exacerbation. Hypertension. Assessment/Plan Continued all current supportive medical care. IV antibiotics as ordered. GI prophylactics. [place] for pain management. Additional plan as per the hospital course. Dietary Evaluation Review Comments: 1. Offer nutrition support, TF Glucerna @50ml/hr providing 1440kcal, 72g protein, meeting 100% of pt's needs for protein and energy. 2. follow up with Nephrology consult 3. Advance to CCHO-60 Cardiac diet when pt's is off vent and passing FARM CONTRACTOR BUYER eval. Expected Outcomes/Goals: controlled blood sugar, prevent uremia Plan discussed with: Patient ALBERTA KILPATRICK MD Jun 07, 2025 17:21
== END 2025-06-07 11:05 | disposition home health service (06) | DRG 871 ==
LOC: ER 16:06 → EDBD 16:06 → OVERFLOW 22:31 → ICU WEST 05-28 23:56 → TELE-WESTW 06-03 16:41
PROVIDERS: ADMIT Internal Medicine; ATTEND Internal Medicine
PROC: 5A09357 Assistance with Respiratory Ventilation, Less than 24 Consecutive Hours, Continuous Positive Airway Pressure (ICD-10-PCS; 2025-05-28)
PROC: 0BH17EZ Insertion of Endotracheal Airway into Trachea, Via Natural or Artificial Opening (ICD-10-PCS; principal; 2025-05-29)
PROC: 5A1945Z Respiratory Ventilation, 24-96 Consecutive Hours (ICD-10-PCS; 2025-05-29)
PROC: 02HV33Z Insertion of Infusion Device into Superior Vena Cava, Percutaneous Approach (ICD-10-PCS; 2025-05-29)
PROC: B548ZZA Ultrasonography of Superior Vena Cava, Guidance (ICD-10-PCS; 2025-05-29)
PROC: 5A09357 Assistance with Respiratory Ventilation, Less than 24 Consecutive Hours, Continuous Positive Airway Pressure (ICD-10-PCS; 2025-06-01)
DX: A41.50 Gram-negative sepsis, unspecified (principal); G92.8 Other toxic encephalopathy; I21.A1 Myocardial infarction type 2; J15.69 Pneumonia due to other Gram-negative bacteria; J15.9 Unspecified bacterial pneumonia; R65.21 Severe sepsis with septic shock; N17.0 Acute kidney failure with tubular necrosis; J96.21 Acute and chronic respiratory failure with hypoxia; J96.22 Acute and chronic respiratory failure with hypercapnia; J12.9 Viral pneumonia, unspecified; F03.94 Unspecified dementia, unspecified severity, with anxiety; J44.1 Chronic obstructive pulmonary disease with (acute) exacerbation; J44.0 Chronic obstructive pulmonary disease with (acute) lower respiratory infection; N30.00 Acute cystitis without hematuria; J90 Pleural effusion, not elsewhere classified; I31.39 Other pericardial effusion (noninflammatory); J45.901 Unspecified asthma with (acute) exacerbation; T40.601A Poisoning by unspecified narcotics, accidental (unintentional), initial encounter; G89.29 Other chronic pain; N18.9 Chronic kidney disease, unspecified; I12.9 Hypertensive chronic kidney disease with stage 1 through stage 4 chronic kidney disease, or unspecified chronic kidney disease; E87.5 Hyperkalemia; E83.51 Hypocalcemia; D64.9 Anemia, unspecified; E78.5 Hyperlipidemia, unspecified; E87.6 Hypokalemia; M25.461 Effusion, right knee; Z99.81 Dependence on supplemental oxygen; Z87.891 Personal history of nicotine dependence; Z82.49 Family history of ischemic heart disease and other diseases of the circulatory system; Z82.3 Family history of stroke; Z80.52 Family history of malignant neoplasm of bladder; Y92.89 Other specified places as the place of occurrence of the external cause
CPT/HCPCS: 36415; 36569; 36600; 71045; 71275; 72192; 73700; 76937; 80048; 80053; 80061; 80307; 81001; 82306; 82607; 82805; 82962; 83036; 83735; 83880; 84100; 84132; 84443; 84484; 85025; 85379; 85610; 85730; 87070; 87081; 87086; 87205; 87426; 87804; 92610; 93005; 93306; 94002; 94003; 94640; 94660; 96374; 96375; 97110; 97116; 97163; 97530; G0378; J0330; J1885; J2185; J2405; J2470; J2704